=== PATIENT | female | born 1950 | race Caucasian/White ===

== ENCOUNTER → 2016-10-01 | Outpatient (CLI) | payer BC ==
[~2016-10-01] MED LIST: ADVIN50050 INH; ALBU1AER9 INH; ALBUAER; AMT50 PO; APIX1TAB3 PO; GABA400C PO; GABA600T PO; HYDC25 PO; HYDR25TA4 PO; LEVO137T3 PO; LEVO1TAB PO; LISI40TA PO; LOSA50TA54 PO; LSN40 PO; METO-551 PO; NF656 TD; NRV/5 PO; ONDA4TAB10 SL; OXYC-57 PO; PARO10TA3 PO; PROAIR INH; SIMV20TA2 PO; SYN125 PO; VNTHFA/IN INH
--- NOTE | 2016-10-01 12:51 | DIAGNOSTIC IMAGING REPORT ---
LEFT SHOULDER MIN 2 VIEWS ROUTINE CLINICAL HISTORY: Contusion of left shoulder. COMPARISON: None FINDINGS: Anterior cervical spine fusion hardware is incidentally noted. Alignment of the left shoulder is anatomic. There is no acute fracture. A few calcific densities project over the superolateral aspect of the left humeral head and measure up to 1.3 x 0.3 cm. IMPRESSION: 1. No acute fracture or dislocation of the left shoulder. 2. Calcific tendinitis of the left rotator cuff. 3. Moderate osteoarthritis of the left acromioclavicular joint and mild arthritis of the glenohumeral joint. Electronically signed by: Andrew Adams M.D. 10/01/2016 12:50 PM Dictated Date/Time: 10/01/2016 12:48 PM
== END | disposition home or self-care (01) ==
LOC: C.RAD1850 12:35
PROVIDERS: ATTEND Physician Assistant Medical
DX: S40.012A Contusion of left shoulder, initial encounter (principal); X58.XXXA Exposure to other specified factors, initial encounter

== ENCOUNTER 2016-11-10 09:50 | Emergency (ER) | payer BC ==
[~2016-11-10] VITALS: Ht 154.9 cm; Wt 79.6 kg
[~2016-11-10 09:50] MED LIST changes: -ALBUAER; -AMT50 PO; -APIX1TAB3 PO; -GABA400C PO; -GABA600T PO; -HYDR25TA4 PO; -LEVO137T3 PO; -LISI40TA PO; -METO-551 PO; -NF656 TD; -NRV/5 PO; -ONDA4TAB10 SL; -OXYC-57 PO; -PARO10TA3 PO; -PROAIR INH; -SIMV20TA2 PO; -SYN125 PO; -VNTHFA/IN INH
[2016-11-10 09:52] VITALS: TEMP 36.4; Ht 154.9 cm; Wt 79.6 kg
[2016-11-10] MEDS ORDERED: SODIUM CHLORIDE 0.9% 1000ML 1,000 ML IV STA (10:07)
[2016-11-10] MEDS ORDERED: ONDANSETRON INJ 2 MG/ML 2 ML VIAL IV STA ×2 (10:07→13:27)
[2016-11-10] MEDS ORDERED: MoRPHine SULFATE 10 MG/ML CARP/VIAL IV STA (10:07)
[2016-11-10] MEDS ORDERED: ALBUAER (10:14)
[2016-11-10] MEDS ORDERED: OPTIRAY 320 IV PRN (10:30)
[2016-11-10 10:48] LABS: BASO % 1.1 %; BASO ABS # 0.07 K/uL (0-0.2); COMPLETE YES; HEMATOCRIT 38.8 % (37-47); IG% 0.2 %; LYMPH ABS # 1.43 K/uL (1.2-3.4); MEAN CORPUSCULAR HEMOGLOBIN 31.8 pg (25-34); MEAN CORPUSCULAR HGB CONC 35.3 g/dl (32-36); MEAN PLATELET VOLUME 9.9 fL (7.4-10.4); MONO % 8.3 %; NEUT % 66.4 %; PLATELET COUNT 230 K/uL (130-400); RED BLOOD COUNT 4.31 M/uL (4.2-5.4); WHITE BLOOD COUNT 6.49 K/uL (4.8-10.8)
[2016-11-10 11:14] LABS: BUN/CREATININE RATIO 22.4 (10-20); CALCIUM 8.4 mg/dl (8.5-10.1); CREATININE 0.63 mg/dl (0.60-1.20); POTASSIUM 3.5 mmol/L (3.5-5.1)
--- NOTE | 2016-11-10 13:33 | DIAGNOSTIC IMAGING REPORT ---
CT ABD/PELVIS IV AND ORAL CONT CLINICAL HISTORY: Periumbilical pain. Nausea. Diarrhea. Rectal bleeding. COMPARISON STUDY: 07/17/2011 TECHNIQUE: Following the IV administration of 118 mL of Optiray-320, CT scan of the abdomen and pelvis was performed from the lung bases to the proximal femurs. Images are reviewed in the axial, sagittal, and coronal planes. IV contrast was administered without complication. CT DOSE: 1033.75 mGycm FINDINGS: Lower chest: The heart is enlarged. There is bibasilar dependent atelectasis. Liver: There is hepatic steatosis. No focal masses are visualized. Gallbladder: Surgically absent. The common bile duct measures 7.4 mm. Spleen: Normal in size and attenuation. Pancreas: Unremarkable. Adrenal glands: Unremarkable. Kidneys: There is symmetric renal cortical enhancement. The kidneys are normal in size without hydronephrosis. Bowel: There are no transition zones to indicate bowel obstruction. By history the appendix is absent. There is long segment bowel wall thickening involving the descending colon, with minimal infiltration of the pericolonic fat. The findings are consistent with a nonspecific colitis (infectious, ischemic versus inflammatory bowel disease). Peritoneum: There is no intraperitoneal free air or abdominal ascites. Vasculature: The abdominal aorta is normal in course and caliber. Adenopathy: None. Pelvic viscera: The uterus is surgically absent. Skeletal structures: No destructive osseous lesions are seen. IMPRESSION: 1. Long segment bowel wall thickening involving the left colon. The findings are indicative of a nonspecific colitis. 2. No evidence of bowel obstruction. No evidence of free air. Electronically signed by: Silvino Pereyra M.D. 11/10/2016 1:32 PM Dictated Date/Time: 11/10/2016 1:25 PM
[2016-11-10] MEDS ORDERED: ONDA4TAB10 SL (14:11)
--- NOTE | 2016-11-10 14:12 | EMERGENCY ROOM VISIT NOTE ---
History First contact with patient: 09:59 Chief Complaint: GI ASSESSMENT Stated Complaint: DIARRHEA, NAUSEA, BLOOD IN STOOL Nursing Triage Summary: pt reports since yesterday diarrhea with blood and abd pain. History of Present Illness The patient is a 66 year old female who presents to the Emergency Room with complaints of abdominal pain and rectal bleeding. The patient states yesterday she was in the car and started feeling sick on her stomach. The patient states she had to stop and she had nausea and vomiting. Later in the evening she tried to have a bowel movement and had to strain to move her bowels and then had loose stools with blood. She states overnight she had blood on her nightgown. The patient still was nauseated today but has not vomited. She still has abdominal pain which she rates at a 5 out of 10. The patient denies any fever, urinary symptoms or vaginal discharge. The patient denies any history of Crohn's disease or recent antibiotic use. Review of Systems 10 system review was performed and was negative unless stated otherwise history of present illness. Past Medical/Surgical History Medical Problems: (1) Acquired hypothyroidism (2) Asthma (3) Bronchitis (4) Cataract (5) Cholelithiasis (6) Gastroesophageal reflux disease (7) Hyperthyroidism (8) Lumbar stenosis Social History Smoking Status: Never Smoker Drug Use: none Marital Status: Housing Status: lives with family Current/Historical Medications Scheduled Amitriptyline Hcl (Elavil), 50 MG PO HS Fluticasone Prop/Salmeterol (Advair Diskus 500-50 Mcg/Dose), 1 PUFF INH BID Gabapentin (Neurontin), 600 MG PO HS Gabapentin (Neurontin), 400 MG PO QAM Hydrochlorothiazide (Hctz), 25 MG PO QAM Levothyroxine Sodium (Levothyroxine Sodium), 137 MCG PO QAM Lisinopril (Lisinopril), 40 MG PO QAM Losartan Potassium (Cozaar), 50 MG PO QAM Simvastatin (Zocor), 20 MG PO QPM Miscellaneous Medications Albuterol Sulfate (Proventil Hfa) Allergies Coded Allergies: No Known Allergies (Verified , 11/10/16) Physical Exam Vital Signs Date Time Temp Pulse Resp B/P (MAP) Pulse Ox O2 Delivery O2 Flow Rate FiO2 11/10/16 13:16 90 14 136/64 93 Room Air 11/10/16 11:51 91 16 129/67 96 Room Air 11/10/16 10:37 82 20 129/67 96 Room Air 11/10/16 09:52 36.4 109 20 149/78 97 Room Air Physical Exam GENERAL: 66-year-old white female appears in no acute distress. MENTAL Status: Alert and oriented 3. EYES: No icterus noted MOUTH: Mucosa is moist NECK: Supple, no lymphadenopathy noted. No carotid bruits noted. LUNGS: Clear auscultation without wheezes rales or rhonchi. CARDIAC: Regular rate and rhythm without murmur. Pulses is full and equal throughout. BACK: No CVA tenderness noted. ABDOMEN: Positive bowel sounds all 4 quadrants. Soft, tenderness palpation in the periumbilical region otherwise nontender to palpation without organomegaly or masses. RECTAL: Small external hernia noted at the 12 o'clock position without any visible active bleeding. Anal sphincter tone intact. No internal masses noted. Stool guaiac was positive. EXTREMITIES: No cyanosis or edema noted. Medical Decision & Procedures ER Provider Diagnostic Interpretation: CT ABD/PELVIS IV AND ORAL CONT CLINICAL HISTORY: Periumbilical pain. Nausea. Diarrhea. Rectal bleeding. COMPARISON STUDY: 07/17/2011 TECHNIQUE: Following the IV administration of 118 mL of Optiray-320, CT scan of the abdomen and pelvis was performed from the lung bases to the proximal femurs. Images are reviewed in the axial, sagittal, and coronal planes. IV contrast was administered without complication. CT DOSE: 1033.75 mGycm FINDINGS: Lower chest: The heart is enlarged. There is bibasilar dependent atelectasis. Liver: There is hepatic steatosis. No focal masses are visualized. Gallbladder: Surgically absent. The common bile duct measures 7.4 mm. Spleen: Normal in size and attenuation. Pancreas: Unremarkable. Adrenal glands: Unremarkable. Kidneys: There is symmetric renal cortical enhancement. The kidneys are normal in size without hydronephrosis. Bowel: There are no transition zones to indicate bowel obstruction. By history the appendix is absent. There is long segment bowel wall thickening involving the descending colon, with minimal infiltration of the pericolonic fat. The findings are consistent with a nonspecific colitis (infectious, ischemic versus inflammatory bowel disease). Peritoneum: There is no intraperitoneal free air or abdominal ascites. Vasculature: The abdominal aorta is normal in course and caliber. Adenopathy: None. Pelvic viscera: The uterus is surgically absent. Skeletal structures: No destructive osseous lesions are seen. IMPRESSION: 1. Long segment bowel wall thickening involving the left colon. The findings are indicative of a nonspecific colitis. 2. No evidence of bowel obstruction. No evidence of free air. Electronically signed by: Silvino Pereyra M.D. 11/10/2016 1:32 PM Dictated Date/Time: 11/10/2016 1:25 PM The status of this report is Signed. Draft = Not yet reviewed or approved by Radiologist. Signed = Reviewed and approved by Radiologist. Laboratory Results 11/10/16 10:40 Red Blood Count 4.31, Mean Corpuscular Volume 90.0, Mean Corpuscular Hemoglobin 31.8, Mean Corpuscular Hemoglobin Concent 35.3, Mean Platelet Volume 9.9, Neutrophils (%) (Auto) 66.4, Lymphocytes (%) (Auto) 22.0, Monocytes (%) (Auto) 8.3, Eosinophils (%) (Auto) 2.0, Basophils (%) (Auto) 1.1, Neutrophils # (Auto) 4.31, Lymphocytes # (Auto) 1.43, Monocytes # (Auto) 0.54, Eosinophils # (Auto) 0.13, Basophils # (Auto) 0.07 11/10/16 10:40 Test 11/10/16 10:40 White Blood Count 6.49 K/uL (4.8-10.8) Red Blood Count 4.31 M/uL (4.2-5.4) Hemoglobin 13.7 g/dL (12.0-16.0) Hematocrit 38.8 % (37-47) Mean Corpuscular Volume 90.0 fL (80-100) Mean Corpuscular Hemoglobin 31.8 pg (25-34) Mean Corpuscular Hemoglobin Concent 35.3 g/dl (32-36) Platelet Count 230 K/uL (130-400) Mean Platelet Volume 9.9 fL (7.4-10.4) Neutrophils (%) (Auto) 66.4 % Lymphocytes (%) (Auto) 22.0 % Monocytes (%) (Auto) 8.3 % Eosinophils (%) (Auto) 2.0 % Basophils (%) (Auto) 1.1 % Neutrophils # (Auto) 4.31 K/uL (1.4-6.5) Lymphocytes # (Auto) 1.43 K/uL (1.2-3.4) Monocytes # (Auto) 0.54 K/uL (0.11-0.59) Eosinophils # (Auto) 0.13 K/uL (0-0.5) Basophils # (Auto) 0.07 K/uL (0-0.2) RDW Standard Deviation 43.1 fL (36.4-46.3) RDW Coefficient of Variation 13.1 % (11.5-14.5) Immature Granulocyte % (Auto) 0.2 % Immature Granulocyte # (Auto) 0.01 K/uL (0.00-0.02) Anion Gap 7.0 mmol/L (3-11) Est Creatinine Clear Calc Drug Dose 82.8 ml/min Estimated GFR () 107.6 Estimated GFR (Non- 92.8 BUN/Creatinine Ratio 22.4 (10-20) Calcium Level 8.4 mg/dl (8.5-10.1) Total Bilirubin 0.5 mg/dl (0.2-1) Direct Bilirubin 0.1 mg/dl (0-0.2) Aspartate Amino Transf (AST/SGOT) 19 U/L (15-37) Alanine Aminotransferase (ALT/SGPT) 31 U/L (12-78) Alkaline Phosphatase 78 U/L (45-117) Total Protein 6.8 gm/dl (6.4-8.2) Albumin 3.6 gm/dl (3.4-5.0) Lipase 143 U/L (73-393) Medications Administered Medications (Trade) Dose Ordered Sig/Zane Route Start Time Stop Time Status Last Admin Dose Admin Sodium Chloride 1,000 ml @ 999 mls/hr Q1H1M STAT IV 11/10/16 10:07 11/10/16 11:07 DC 11/10/16 10:34 999 MLS/HR Ondansetron HCl (Zofran Inj) 4 mg NOW STAT IV 11/10/16 10:07 11/10/16 10:09 DC 11/10/16 10:34 4 MG Morphine Sulfate (MoRPHine SULFATE INJ) 6 mg NOW STAT IV 11/10/16 10:07 11/10/16 10:09 DC 11/10/16 10:35 6 MG Ondansetron HCl (Zofran Inj) 4 mg NOW STAT IV 11/10/16 13:27 11/10/16 13:28 DC 11/10/16 13:31 4 MG ED Course The patient's EMR and medication list were reviewed. The patient was evaluated. IV access was obtained. The patient was given morphine 6 mg IV and Zofran 4 mg IV push. CBC differential, renal profile, LFTs and lipase levels were ordered. Urinalysis was ordered. The patient was unable to give a urine sample. Labs are reviewed and were unremarkable. CT of the abdomen and pelvis with IV and oral contrast was ordered and interpreted by the radiologist as above with nonspecific colitis of the descending colon. The patient was reevaluated on several occasions and required an additional 4 mg Zofran IV. The patient was informed of all findings. The patient's case was discussed with Dr. Crabtree who agreed with treatment plan. The patient was unable to give a stool sample while in the emergency room therefore she will do that as an outpatient. The patient's blood pressure was 136/64 while in the emergency room. She will follow up in 2 days for blood pressure recheck at her family physician. Medical Decision Differential diagnoses include reflux, gastritis, gastroenteritis, pancreatitis , cholelithiasis, cholecystitis, appendicitis, mesenteric ischemia, pyelonephritis, urinary tract infection, renal colic, diverticulitis, shingles, bowel obstruction, intussusception, hernia, Impression Primary Impression: Colitis, acute Departure Information Dispostion Home / Self-Care Condition GOOD Prescriptions Ondasetron Odt (ZOFRAN ODT) 4 Mg Tab 4 MG SL Q6H for Nausea, #10 TAB Prov: Leonarda Howard, MEERA 11/10/16 Referrals Ivan Victoria M.D. (PCP) Forms HOME CARE DOCUMENTATION FORM, IMPORTANT VISIT INFORMATION Patient Instructions My [facility] [employer] Additional Instructions Push fluids. Take Zofran as needed for nausea. Recommend taking a probiotic daily. Obtain a stool culture and bring it in for evaluation. Follow-up with your family physician in 2 days for blood pressure recheck. Blood Pressure today in the emergency room was 136/64. If you experience any severe abdominal pain, uncontrolled nausea vomiting, high fevers return to the ER immediately.
[2016-11-10 14:42] VITALS: BP 127/63; PULSE 92; O2SAT 95
[2016-12-15] MEDS ORDERED: LEVO137T3 PO (10:14)
[2016-12-15] MEDS ORDERED: HYDR25TA4 PO (10:14)
[2016-12-15] MEDS ORDERED: AMT50 PO (10:35)
[2016-12-15] MEDS ORDERED: GABA600T PO (10:35)
[2016-12-15] MEDS ORDERED: GABA400C PO (12:43)
[2016-12-15] MEDS ORDERED: SIMV20TA2 PO (18:16)
[2017-02-17] MEDS ORDERED: VNTHFA/IN INH (13:59)
[2017-02-17] MEDS ORDERED: LISI40TA PO (13:59)
[2017-02-17] MEDS ORDERED: PARO10TA3 PO (13:59)
[2017-03-06] MEDS ORDERED: SYN125 PO (11:31)
[2017-03-06] MEDS ORDERED: APIX1TAB3 PO (11:31)
[2017-03-06] MEDS ORDERED: METO-551 PO (13:56)
== END 2016-11-10 14:45 | disposition home or self-care (01) ==
LOC: C.EDB 09:53
DX: K52.9 Noninfective gastroenteritis and colitis, unspecified (principal); E03.9 Hypothyroidism, unspecified; J45.909 Unspecified asthma, uncomplicated; H26.9 Unspecified cataract; K80.20 Calculus of gallbladder without cholecystitis without obstruction; K21.9 Gastro-esophageal reflux disease without esophagitis; M99.73 Connective tissue and disc stenosis of intervertebral foramina of lumbar region

== ENCOUNTER → 2016-11-13 | Outpatient (CLI) | payer BC ==
[~2016-11-13] MED LIST changes: -ALBU1AER9 INH; +ALBUAER; +AMT50 PO; +APIX1TAB3 PO; +GABA400C PO; +GABA600T PO; -HYDC25 PO; +HYDR25TA4 PO; +LEVO137T3 PO; -LEVO1TAB PO; +LISI40TA PO; +METO-551 PO; +NF656 TD; +NRV/5 PO; +ONDA4TAB10 SL; +OXYC-57 PO; +PARO10TA3 PO; +PROAIR INH; +SIMV20TA2 PO; +SYN125 PO; +VNTHFA/IN INH
--- NOTE | 2016-11-21 08:45 | CODING QUERY NO DIAGNOSIS ---
TREATMENT RENDERED WITHOUT A DIAGNOSIS 49 To promote full compliance with coding requirements relating to patient care, physician participation is requested in all cases of perishable freight inspector uncertainty. Please assist us with providing a diagnosis/symptom for the test(s) below: A diagnosis/symptom was not documented on your Order. A valid diagnosis/symptom is required to bill all insurances. Please remember that we are unable to code a diagnosis of rule out, probable, possible, questionable, or suspected. DOS 11/13/16 Tests that require a diagnosis: * STOOL CULTURE DIAGNOSIS: *THIS WAS ORDERED BY AURORA VALENZUELA PA-C Provider Signature: Date: Thank you Dannielle [facility] Information Management Once completed, please kindly fax back to [phone] For questions please call [phone]
== END | disposition home or self-care (01) ==
LOC: C.LABSPEC 08:57
PROVIDERS: ATTEND Physician Assistant
DX: R19.7 Diarrhea, unspecified (principal)

== ENCOUNTER 2016-12-15 20:11 | Emergency (ER) | payer BC ==
[~2016-12-15] VITALS: Ht 154.9 cm; Wt 78.0 kg
[~2016-12-15 20:11] MED LIST changes: -APIX1TAB3 PO; -LISI40TA PO; -METO-551 PO; -NF656 TD; -NRV/5 PO; -OXYC-57 PO; -PARO10TA3 PO; -PROAIR INH; -SYN125 PO; -VNTHFA/IN INH
[2016-12-15] MEDS ORDERED: HYDROmorphone INJ 2 MG/ML SYR/VIAL IM STA (20:20)
[2016-12-15] MEDS ORDERED: KETOROLAC TROMETHAMINE 60 MG/2 ML VIAL IM STA (20:20)
[2016-12-15 20:21] VITALS: TEMP 36.6; Ht 154.9 cm; Wt 78.0 kg
--- NOTE | 2016-12-15 20:29 | EMERGENCY ROOM VISIT NOTE ---
History Report prepared by Kimberly: Filomena Brennan Under the Supervision of: Dr. Wesly Crabtree M.D. First contact with patient: 20:16 Chief Complaint: FALL Stated Complaint: FALL/ BACK PAIN History of Present Illness The patient is a 66 year old female who presents to the Emergency Room with complaints of a sudden fall that occurred today. She currently rates her discomfort as a 4/10 in severity. The patient states that she fell today and is unsure why. She states that it all happened so quickly that she is unsure how it occurred. The patient states that she landed on her face. She states that she may have tripped. The patient states that since the fall she has been experiencing neck and back pain. She denies any loss of consciousness with the fall. The patient denies taking anything for her discomfort. She denies any abdominal pain. Source of History: patient Onset: today Position: other (global) Symptom Intensity: 4/10 Quality: other (fall) Timing: other (sudden) Associated Symptoms: + neck pain, + back pain, No LOC, No abdominal pain Review of Systems See HPI for pertinent positives & negatives. A total of 10 systems reviewed and were otherwise negative. Past Medical & Surgical Medical Problems: (1) Acquired hypothyroidism (2) Asthma (3) Bronchitis (4) Cataract (5) Cholelithiasis (6) Gastroesophageal reflux disease (7) Hypertension (8) Hyperthyroidism (9) Lumbar stenosis Surgical Problems: (1) H/O: hysterectomy (2) History of appendectomy (3) S/P cholecystectomy Family History Cancer Diabetes mellitus Gallbladder disease Heart disease Hypertension Social History Smoking Status: Never Smoker Smokeless Tobacco Use: No Alcohol Use: none Drug Use: none Marital Status: Housing Status: lives with family Current/Historical Medications Scheduled Amitriptyline Hcl (Elavil), 50 MG PO HS Amlodipine Besylate (Amlodipine Besylate), 5 MG PO DAILY Gabapentin (Neurontin), 600 MG PO HS Gabapentin (Neurontin), 400 MG PO QAM Hydrochlorothiazide (Hctz), 25 MG PO QAM Levothyroxine Sodium (Levothyroxine Sodium), 137 MCG PO QAM Lidocaine (Lidoderm Patch 5%), 1 PATCH TD DIRECTED Ondasetron Odt (Zofran Odt), 4 MG SL Q6H Simvastatin (Zocor), 20 MG PO QPM Scheduled PRN Oxycodone/Acetaminophen 5MG/325MG (Percocet 5MG/325MG), 1-2 TAB PO Q4H PRN for Pain [Proair], 2 PUFF INH Q4 PRN for SOB/Wheezing Allergies Coded Allergies: No Known Allergies (Verified , 11/10/16) Physical Exam Vital Signs Date Time Temp Pulse Resp B/P (MAP) Pulse Ox O2 Delivery O2 Flow Rate FiO2 12/15/16 21:59 63 16 105/56 95 12/15/16 21:11 63 16 104/58 95 Room Air 12/15/16 20:21 36.6 75 20 128/54 Room Air Physical Exam GENERAL: Patient is a healthy-appearing well-nourished female HEAD: Normocephalic atraumatic EYES: Ocular movements intact pupils equal and react to light OROPHARYNX mucous membranes are moist no exudates present no erythema or edema present NECK: Supple no nuchal rigidity CHEST: Good equal expansion LUNGS: Clear and equal to auscultation CARDIAC: Normal S1 and S2 ABDOMEN: Soft nontender no guarding BACK: Tender to the C3-C4 and L1-L2 at the midline. EXTREMITIES: No pain upon palpation normal muscle strength in all groups no clubbing cyanosis or edema NEURO: Patient is following commands and answering questions appropriately. Alert and oriented x3 Cranial Nerves 2-12 grossly intact Medical Decision & Procedures ER Provider Diagnostic Interpretation: Radiology results as stated below per my review and radiologist interpretation: CT OF THE LUMBAR SPINE WITHOUT CONTRAST CLINICAL HISTORY: L1 pain status post fall. COMPARISON STUDY: Lumbar spine MRI November 02, 2007. FINDINGS: Alignment of the lumbar spine is anatomic. Vertebral body heights are maintained. There is no acute lumbar spine fracture. There is moderate multilevel degenerative disc disease with disc space narrowing, osteophytosis and vacuum disc phenomenon. The central canal and neural foramen are suboptimally assessed by CT but there is suspected multilevel central canal stenosis which is at least moderate in degree. Fatty infiltration of the liver is noted. Paravertebral soft tissues are unremarkable. IMPRESSION: 1. No acute lumbar spine fracture or subluxation. 2. Moderate multilevel degenerative disc disease and facet arthrosis of the lumbar spine with multilevel central canal stenosis which is at least moderate in degree. Electronically signed by: Andrew Adams M.D. 12/15/2016 9:11 PM Dictated Date/Time: 12/15/2016 9:[address] OF THE CERVICAL SPINE WITHOUT CONTRAST CLINICAL HISTORY: Neck pain following fall. COMPARISON STUDY: Cervical spine MRI February 19, 2007. TECHNIQUE: Helical axial images of the cervical spine were obtained without IV contrast. Sagittal and coronal reconstructions were viewed. FINDINGS: There are postsurgical findings consistent with C4-C5 and C5-C6 discectomies with fusion. There are C4, C5 and C6 anterior screws and plate. Hardware is intact. No acute cervical spine fracture is identified. Craniocervical junction is intact. There is moderate multilevel facet arthrosis and mild multilevel degenerative disc disease. There is no prevertebral edema. IMPRESSION: 1. No acute cervical spine fracture or subluxation. 2. Status post C4-C5 and C5-C6 discectomies and anterior fusion. Electronically signed by: Andrew Adams M.D. 12/15/2016 9:00 PM Dictated Date/Time: 12/15/2016 8:54 PM Medications Administered Medications (Trade) Dose Ordered Sig/Zane Route Start Time Stop Time Status Last Admin Dose Admin Hydromorphone HCl (Dilaudid Inj) 2 mg NOW STAT IM 12/15/16 20:20 12/15/16 20:22 DC 12/15/16 20:30 2 MG Ketorolac Tromethamine (Toradol Inj) 60 mg NOW STAT IM 12/15/16 20:20 12/15/16 20:22 DC 12/15/16 20:29 60 MG Oxycodone/ Acetaminophen (Percocet 5/ 325MG Home Pack) 1 homepack UD ONCE PO 12/15/16 21:30 12/15/16 21:31 DC 12/15/16 21:42 1 HOMEPACK Lidocaine (Lidoderm Patch 5%) 1 patch NOW STAT TD 12/15/16 21:26 12/15/16 21:27 DC 12/15/16 21:42 1 PATCH ED Course 2017: Past medical records reviewed. The patient was evaluated in room A12B. A complete history and physical examination was performed. 2019: Ordered Toradol Inj 60 mg IM, Dilaudid Inj 2 mg IM. 2125: Ordered Lidocaine 1 patch TD. 2129: Ordered Oxycodone/Acetaminophen 1 homepack PO. 2132: I reevaluated the patient and she is resting comfortably. I discussed the exam findings with her and I discussed the treatment plan. She verbalized complete understanding and agreement. She is ready to go home. Medical Decision Differential diagnosis: Etiologies such as fracture, dislocation, intra-abdominal, pneumothorax, intrathoracic , intracranial, neurologic, as well as other traumatic pathologies were entertained. Medication Reconciliation: I attest that I have personally reviewed the patient' s current medication list Blood Pressure Screening: Patient was found to have normal blood pressure on screening and does not require follow up. This is a 66-year-old female who presents emergency department neck and back pain after a fall at home. Patient the patient's complaint she was sent for CAT scan of the spine. This did not show any evidence of acute fracture dislocation or subluxation. The patient was given Dilaudid as well as Toradol injection IM. Repeat examination revealed improvement the patient's symptoms. I do believe that the patient can be conservatively treated with pain medication for follow-up with orthopedics. Patient was in agreement with the treatment plan. Impression Primary Impression: Fall Scribe Attestation The scribe's documentation has been prepared under my direction and personally reviewed by me in its entirety. I confirm that the note above accurately reflects all work, treatment, procedures, and medical decision making performed by me. Departure Information Dispostion Home / Self-Care Prescriptions Oxycodone/Acetaminophen 5MG/325MG (PERCOCET 5MG/325MG) Tab 1-2 TAB PO Q4H Y for Pain, #14 TAB Prov: Wesly Crabtree MD 12/15/16 Lidocaine (Lidoderm Patch 5%) 1 Ea Tdsy 1 PATCH TD DIRECTED, #5 PATCH Prov: Wesly Crabtree MD 12/15/16 Referrals Ivan Victoria M.D. (PCP) Brady Weber M.D. Forms HOME CARE DOCUMENTATION FORM, IMPORTANT VISIT INFORMATION, School Instructions, Work Instructions Patient Instructions Basics Back Healthy Spine, ED Exercises Lumbar Muscles, ED Neck Back Pain General, Exercises Back Seated Rotation, Exercises Back Side Stretch, Hypertension Dc, Lumbar Pain Causes, My [facility] Additional Instructions Remove Lidoderm patch before bedtime Follow up with DR Weber's office You were found to have an elevated blood pressure today (>120 sytolic or >90 diastolic). Per medicare guidelines, you need to follow up with this blood pressure screening with your Primary Care Physician (PCP). For a new PCP call [phone]. You received narcotic or benzodiazepene medication while in the emergency room today. Do not drive, operate heavy machinery, or drink alcohol under the influence of this medication. Take 600 mg Ibuprofen every 6 hours Take Percocet for breakthrough pain You have been examined and treated today on an emergency basis only. This is not a substitute for, or an effort to provide, complete comprehensive medical care. It is impossible to recognize and treat all injuries or illnesses in a single emergency department visit. It is therefore important that you follow up closely with Dr Victoria. Call as soon as possible for an appointment. Thank you for your time and consideration. I look forward to speaking with you again soon. Please don't hesitate to call us if you have any questions. Problem Qualifiers Primary Impression: Fall Encounter type: initial encounter Qualified Codes: W19.XXXA - Unspecified fall, initial encounter
[2016-12-15] MEDS ORDERED: NRV/5 PO (20:55)
[2016-12-15] MEDS ORDERED: PROAIR INH (20:55)
--- NOTE | 2016-12-15 21:01 | DIAGNOSTIC IMAGING REPORT ---
CT OF THE CERVICAL SPINE WITHOUT CONTRAST CLINICAL HISTORY: Neck pain following fall. COMPARISON STUDY: Cervical spine MRI February 19, 2007. TECHNIQUE: Helical axial images of the cervical spine were obtained without IV contrast. Sagittal and coronal reconstructions were viewed. FINDINGS: There are postsurgical findings consistent with C4-C5 and C5-C6 discectomies with fusion. There are C4, C5 and C6 anterior screws and plate. Hardware is intact. No acute cervical spine fracture is identified. Craniocervical junction is intact. There is moderate multilevel facet arthrosis and mild multilevel degenerative disc disease. There is no prevertebral edema. IMPRESSION: 1. No acute cervical spine fracture or subluxation. 2. Status post C4-C5 and C5-C6 discectomies and anterior fusion. Electronically signed by: Andrew Adams M.D. 12/15/2016 9:00 PM Dictated Date/Time: 12/15/2016 8:54 PM
--- NOTE | 2016-12-15 21:12 | DIAGNOSTIC IMAGING REPORT ---
CT OF THE LUMBAR SPINE WITHOUT CONTRAST CLINICAL HISTORY: L1 pain status post fall. COMPARISON STUDY: Lumbar spine MRI November 02, 2007. FINDINGS: Alignment of the lumbar spine is anatomic. Vertebral body heights are maintained. There is no acute lumbar spine fracture. There is moderate multilevel degenerative disc disease with disc space narrowing, osteophytosis and vacuum disc phenomenon. The central canal and neural foramen are suboptimally assessed by CT but there is suspected multilevel central canal stenosis which is at least moderate in degree. Fatty infiltration of the liver is noted. Paravertebral soft tissues are unremarkable. IMPRESSION: 1. No acute lumbar spine fracture or subluxation. 2. Moderate multilevel degenerative disc disease and facet arthrosis of the lumbar spine with multilevel central canal stenosis which is at least moderate in degree. Electronically signed by: Andrew Adams M.D. 12/15/2016 9:11 PM Dictated Date/Time: 12/15/2016 9:03 PM
[2016-12-15] MEDS ORDERED: LIDODERM (LIDOCAINE) PATCH 5% TD STA (21:26)
[2016-12-15] MEDS ORDERED: OXYC-57 PO (21:28)
[2016-12-15] MEDS ORDERED: NF656 TD (21:28)
[2016-12-15] MEDS ORDERED: PERCOCET HOME PACK PO ONE (21:30)
[2016-12-15 21:59] VITALS: BP 105/56; PULSE 63; O2SAT 95
[2017-02-17] MEDS ORDERED: LISI40TA PO (13:59)
[2017-02-17] MEDS ORDERED: VNTHFA/IN INH (13:59)
[2017-02-17] MEDS ORDERED: PARO10TA3 PO (13:59)
[2017-03-06] MEDS ORDERED: APIX1TAB3 PO (11:31)
[2017-03-06] MEDS ORDERED: SYN125 PO (11:31)
[2017-03-06] MEDS ORDERED: METO-551 PO (13:56)
== END 2016-12-15 21:43 | disposition home or self-care (01) ==
LOC: EDBD 20:11 → C.EDA 20:26
DX: M54.2 Cervicalgia (principal); W19.XXXA Unspecified fall, initial encounter; Y92.019 Unspecified place in single-family (private) house as the place of occurrence of the external cause; E03.9 Hypothyroidism, unspecified; J45.909 Unspecified asthma, uncomplicated; K21.9 Gastro-esophageal reflux disease without esophagitis; I10 Essential (primary) hypertension; E05.90 Thyrotoxicosis, unspecified without thyrotoxic crisis or storm; M48.06 Spinal stenosis, lumbar region; Z80.9 Family history of malignant neoplasm, unspecified; Z83.3 Family history of diabetes mellitus; Z83.79 Family history of other diseases of the digestive system; Z82.49 Family history of ischemic heart disease and other diseases of the circulatory system; Z79.899 Other long term (current) drug therapy

== ENCOUNTER → 2017-02-26 | Outpatient (CLI) | payer BC ==
[~2017-02-26] MED LIST changes: -ADVIN50050 INH; -ALBUAER; +APIX1TAB3 PO; +LISI40TA PO; -LOSA50TA54 PO; -LSN40 PO; +METO-551 PO; +NRV/5 PO; -ONDA4TAB10 SL; +PARO10TA3 PO; +SYN125 PO; +VNTHFA/IN INH
--- NOTE | 2017-02-26 12:29 | MAMMOGRAPHY REPORT ---
BILATERAL DIGITAL SCREENING MAMMOGRAM WITH CAD: 02/26/2017 CLINICAL HISTORY: Routine screening. Patient has no complaints. TECHNIQUE: Current study was also evaluated with a Computer Aided Detection (CAD) system. Bilateral CC and MLO views were obtained. COMPARISON: Comparison is made to exams dated: 02/26/2016 mammogram, 03/01/2015 mammogram, 02/21/2015 m ammogram, 02/20/2014 mammogram, and 02/17/2013 mammogram - [facility]. BREAST COMPOSITION: The tissue of both breasts is heterogeneously dense, which may obscure small mas ses. FINDINGS: No suspicious masses, calcifications, or areas of architectural distortion are noted in ei ther breast. There has been no significant interval change compared to prior exams. A biopsy marker clip is again noted in the right lateral breast. IMPRESSION: ACR BI-RADS CATEGORY 2: BENIGN There is no mammographic evidence of malignancy. A 1 year screening mammogram is recommended. The pa tient will receive written notification of the results. Approximately 10% of breast cancers are not detected with mammography. A negative mammographic report should not delay biopsy if a clinically suggestive mass is present. Lizbeth Villasenor M.D. /:02/26/2017 10:22:35 Television Agent: Shelia COPELAND(Yo)(Issa), [facility] letter sent: Normal 1/2 BI-RADS Code: ACR BI-RADS Category 2: Benign
== END | disposition home or self-care (01) ==
LOC: C.MAMM 08:45
PROVIDERS: ATTEND Internal Medicine
DX: Z12.31 Encounter for screening mammogram for malignant neoplasm of breast (principal)

== ENCOUNTER 2017-03-05 14:42 | Observation (INO) | payer BC ==
[~2017-03-05] VITALS: Ht 154.9 cm; Wt 82.1 kg
[~2017-03-05 14:42] MED LIST changes: -APIX1TAB3 PO; -IOPAMIDOL INJ 61% 15 ML VIAL ONE; -LIDOCAINE HCL 1% MPF 5 ML VIAL ONE; -METO-551 PO; -SODIUM CHLORIDE 0.9% INJ 10 ML VIAL ONE; -SYN125 PO
[2017-03-05 15:45] LABS: PROTHROMBIN TIME (PATIENT) 11.2 SECONDS (9.0-12.0)
[2017-03-05 15:51] LABS: BASO % 0.7 %; BASO ABS # 0.04 K/uL (0-0.2); COMPLETE YES; EOS % 2.2 %; HEMATOCRIT 36.6 % (37-47); IG% 0.2 %; LYMPH % 24.6 %; LYMPH ABS # 1.37 K/uL (1.2-3.4); MEAN CELL VOLUME 90.6 fL (80-100); MEAN CORPUSCULAR HEMOGLOBIN 31.9 pg (25-34); MEAN CORPUSCULAR HGB CONC 35.2 g/dl (32-36); MEAN PLATELET VOLUME 10.4 fL (7.4-10.4); MONO % 10.1 %; NEUT % 62.2 %; PLATELET COUNT 228 K/uL (130-400); RED BLOOD COUNT 4.04 M/uL (4.2-5.4); WHITE BLOOD COUNT 5.57 K/uL (4.8-10.8)
[2017-03-05 15:56] LABS: ALT/SGPT 32 U/L (12-78); BLOOD UREA NITROGEN 11 mg/dl (7-18); BUN/CREATININE RATIO 14.9 (10-20); CALCIUM 8.9 mg/dl (8.5-10.1); CARBON DIOXIDE 28 mmol/L (21-32); CHLORIDE 105 mmol/L (98-107); CREATININE 0.74 mg/dl (0.60-1.20); GLUCOSE 111 mg/dl (70-99); POTASSIUM 3.4 mmol/L (3.5-5.1); SODIUM 138 mmol/L (136-145)
--- NOTE | 2017-03-05 15:59 | DIAGNOSTIC IMAGING REPORT ---
CHEST ONE VIEW PORTABLE HISTORY: 66 years-old Female CHEST PAIN acute atypical chest pain COMPARISON: Chest radiograph 12/25/2012 TECHNIQUE: Portable upright AP view of the chest FINDINGS: Cardiomediastinal and hilar silhouettes are within normal limits. No pneumothorax, pleural effusion, focal airspace consolidation or overt edema. Fusion hardware of the lower cervical spine is seen. Small calcifications adjacent to the humeral heads bilaterally suggest possible calcific tendinosis or calcific bursitis. Surgical clips are seen within the right upper abdomen. IMPRESSION: No acute cardiopulmonary process. The above report was generated using voice recognition software. It may contain grammatical, syntax or spelling errors. Electronically signed by: Ramón Means M.D. 03/05/2017 3:58 PM Dictated Date/Time: 03/05/2017 3:55 PM
[2017-03-05 16:07] LABS: ALKALINE PHOSPHATASE 88 U/L (45-117); AST/SGOT 24 U/L (15-37); THYROID STIMULATING HORMONE 0.216 uIu/ml (0.300-4.500)
--- NOTE | 2017-03-05 16:35 | EMERGENCY ROOM VISIT NOTE ---
History Report prepared by Kimberly: Prasanna Cannon Under the Supervision of: Dr. Chadd Brower M.D. First contact with patient: 15:05 Chief Complaint: CARDIAC ASSESSMENT Stated Complaint: AFIB Nursing Triage Summary: Patient from [facility]. Was there to have injections in her back. They noticed that patient's pulse was irregular. Did EKG and found that patient was in a-fib. No prior a-fib history. Not on blood thinners. Patient denies chest pain. Some shortness of breath yesterday. Dizziness off and on x several weeks. Fell at home one month ago.Denies current shortness of breath. Denies nausea or vomiting. History of Present Illness The patient is a 66 year old female who presents to the Emergency Room with complaints of new onset atrial fibrillation beginning today. The patient states that she is unable to feel heart palpitations. She was seen today for injections for back pain shortly prior to arrival and noted to have an irregularly irregular heart rhythm. She also complains of headache, dizziness, shortness of breath with exertion and feeling "off". The patient states that she has felt "off" for about two weeks. She is not on any blood thinners. She has a history of hypothyroidism. The patient states that she had some right sided chest pain with certain movements for the past several weeks. She states that she has been having waxing and waning leg swelling recently and some right thigh numbness. Source of History: patient Onset: Today Quality: other (atrial fibrillation) Timing: constant Associated Symptoms: + headache, + SOB (with exertion), + numbness (right thigh) Note: Additional symptoms: Dizziness and waxing and waning leg swelling. Review of Systems See HPI for pertinent positives & negatives. A total of 10 systems reviewed and were otherwise negative. Past Medical & Surgical Medical Problems: (1) Acquired hypothyroidism (2) Asthma (3) Bronchitis (4) Cataract (5) Cholelithiasis (6) Gastroesophageal reflux disease (7) Hypertension (8) Hyperthyroidism (9) Lumbar stenosis Surgical Problems: (1) H/O: hysterectomy (2) History of appendectomy (3) S/P cholecystectomy Old medical records were reviewed. Nurse's notes were reviewed and I agree with. Family History Cancer Diabetes mellitus Gallbladder disease Heart disease Hypertension Social History Smoking Status: Never Smoker Alcohol Use: none Drug Use: none Marital Status: Housing Status: lives with family Current/Historical Medications Scheduled Amitriptyline Hcl (Elavil), 50 MG PO HS Amlodipine Besylate (Amlodipine Besylate), 5 MG PO QAM Gabapentin (Neurontin), 600 MG PO HS Gabapentin (Neurontin), 400 MG PO QAM Hydrochlorothiazide (Hctz), 25 MG PO QAM Levothyroxine Sodium (Levothyroxine Sodium), 137 MCG PO QAM Lisinopril (Zestril), 40 MG PO QAM Paroxetine HCl (Paroxetine), 10 MG PO QAM Simvastatin (Zocor), 20 MG PO QPM Scheduled PRN Albuterol Hfa (Ventolin Hfa), 2-4 PUFFS INH Q6H PRN for Shortness of Breath Allergies Coded Allergies: No Known Allergies (Verified , 03/05/17) Physical Exam Vital Signs Date Time Temp Pulse Resp B/P (MAP) Pulse Ox O2 Delivery O2 Flow Rate FiO2 03/05/17 18:08 101 134/71 92 03/05/17 16:44 90 123/59 95 Room Air 03/05/17 16:17 99 132/68 96 Room Air 03/05/17 14:58 96 Room Air 03/05/17 14:56 36.5 106 114/64 96 Room Air 03/05/17 14:52 106 03/05/17 14:51 96 Room Air Physical Exam General: Non-ill appearing older female in no acute distress. Hard of hearing. Currently asymptomatic. HEENT: Normal cephalic atraumatic. Pupils are equal round and reactive to light. Extraocular movements are intact. Oropharynx is pink with moist mucous membranes. No swelling of the mouth lips or tongue. Neck: Supple with a midline trachea. No meningeal signs or stiffness, no JVD or bruits. No Stridor. Chest: Clear to auscultation bilaterally. No wheezes or rhonchi. No increased work of breathing. Heart: Irregularly irregular rhythm. Normal rate. Abdomen: Soft nontender, nondistended without rebound guarding or rigidity. Extremities: No cyanosis clubbing. No calf tenderness or assymetry. Bilateral 1 + lower extremity edema. Spine/Back. Non tender to palpation. No CVA tenderness Skin: Good turgor without rashes. Neurologic exam: Cranial nerves two through 12 are intact. Motor and sensation are intact and symmetrical throughout. Medical Decision & Procedures ER Provider Diagnostic Interpretation: X-ray results as stated below per interpretation by me and the radiologist: CHEST ONE VIEW PORTABLE FINDINGS: Cardiomediastinal and hilar silhouettes are within normal limits. No pneumothorax, pleural effusion, focal airspace consolidation or overt edema. Fusion hardware of the lower cervical spine is seen. Small calcifications adjacent to the humeral heads bilaterally suggest possible calcific tendinosis or calcific bursitis. Surgical clips are seen within the right upper abdomen. IMPRESSION: No acute cardiopulmonary process. The above report was generated using voice recognition software. It may contain grammatical, syntax or spelling errors. Electronically signed by: Ramón Means M.D. 03/05/2017 3:58 PM Laboratory Results 03/05/17 14:58 Red Blood Count 4.04, Mean Corpuscular Volume 90.6, Mean Corpuscular Hemoglobin 31.9, Mean Corpuscular Hemoglobin Concent 35.2, Mean Platelet Volume 10.4, Neutrophils (%) (Auto) 62.2, Lymphocytes (%) (Auto) 24.6, Monocytes (%) (Auto) 10.1, Eosinophils (%) (Auto) 2.2, Basophils (%) (Auto) 0.7, Neutrophils # (Auto ) 3.47, Lymphocytes # (Auto) 1.37, Monocytes # (Auto) 0.56, Eosinophils # (Auto ) 0.12, Basophils # (Auto) 0.04 03/05/17 14:58 Test 03/05/17 14:58 03/05/17 15:43 White Blood Count 5.57 K/uL (4.8-10.8) Red Blood Count 4.04 M/uL (4.2-5.4) Hemoglobin 12.9 g/dL (12.0-16.0) Hematocrit 36.6 % (37-47) Mean Corpuscular Volume 90.6 fL (80-100) Mean Corpuscular Hemoglobin 31.9 pg (25-34) Mean Corpuscular Hemoglobin Concent 35.2 g/dl (32-36) Platelet Count 228 K/uL (130-400) Mean Platelet Volume 10.4 fL (7.4-10.4) Neutrophils (%) (Auto) 62.2 % Lymphocytes (%) (Auto) 24.6 % Monocytes (%) (Auto) 10.1 % Eosinophils (%) (Auto) 2.2 % Basophils (%) (Auto) 0.7 % Neutrophils # (Auto) 3.47 K/uL (1.4-6.5) Lymphocytes # (Auto) 1.37 K/uL (1.2-3.4) Monocytes # (Auto) 0.56 K/uL (0.11-0.59) Eosinophils # (Auto) 0.12 K/uL (0-0.5) Basophils # (Auto) 0.04 K/uL (0-0.2) RDW Standard Deviation 42.8 fL (36.4-46.3) RDW Coefficient of Variation 12.9 % (11.5-14.5) Immature Granulocyte % (Auto) 0.2 % Immature Granulocyte # (Auto) 0.01 K/uL (0.00-0.02) Prothrombin Time 11.2 SECONDS (9.0-12.0) Prothromb Time International Ratio 1.0 (0.9-1.1) Activated Partial Thromboplast Time 26.5 SECONDS (21.0-31.0) Partial Thromboplastin Ratio 1.0 Anion Gap 5.0 mmol/L (3-11) Est Creatinine Clear Calc Drug Dose 71.6 ml/min Estimated GFR () 97.2 Estimated GFR (Non- 83.8 BUN/Creatinine Ratio 14.9 (10-20) Calcium Level 8.9 mg/dl (8.5-10.1) Magnesium Level 2.2 mg/dl (1.8-2.4) Total Bilirubin 0.4 mg/dl (0.2-1) Direct Bilirubin 0.1 mg/dl (0-0.2) Aspartate Amino Transf (AST/SGOT) 24 U/L (15-37) Alanine Aminotransferase (ALT/SGPT) 32 U/L (12-78) Alkaline Phosphatase 88 U/L (45-117) Total Creatine Kinase 42 U/L (26-192) Creatine Kinase MB < 0.5 ng/ml (0.5-3.6) Creatine Kinase MB Ratio (0-3.0) Total Protein 6.9 gm/dl (6.4-8.2) Albumin 3.7 gm/dl (3.4-5.0) Lipase 202 U/L (73-393) Thyroid Stimulating Hormone (TSH) 0.216 uIu/ml (0.300-4.500) Bedside Troponin I < 0.030 ng/ml (0-0.045) Laboratory studies as stated above per my review. ECG Indication: other (Irregular heart rate ) Rate (beats per minute): 99 Rhythm: atrial fibrillation Findings: no acute ischemic change, other (Non-specific ST and T wave abnormalities) Comparison ECG Date: August 19, 2012 Change: Atrial fibrillation has replaced normal sinus rhythm. ED Course 1511: Past medical records reviewed. The patient was evaluated in room C8, and a complete history and physical examination were performed. 1625: Upon reevaluation, the patient is resting comfortably. I discussed the results and treatment plan with the patient. She verbalized agreement of the treatment plan. The patient will be evaluated for further management. Medical Decision Differentials include, but are not limited to; a-fib, acute coronary syndrome, thyroid disease, CHF, vascular disease, and electrolyte or metabolic abnormalities This patient comes in as described above. She was sent over the ER for the pain clinic after she was noted to be in A. fib. She has no known history of A. fib. She has had no chest pain or shortness of breath. She cannot feel that she is having any palpitations. She didn't feel well today. She's had some dizziness occasionally over last several weeks. Several weeks ago , she has some vague chest pain with moving her arm but nothing that sounded definitely cardiac. She has had some peripheral edema which is relatively new in her legs. No shortness of breath. She is being treated for thyroid disease. IV access established. Multiple blood testing was obtained. On the monitor, she was found to be in a rate controlled A. fib as well as EKG the ischemic changes. She has no elevation of her cardiac enzymes. She has no acute electrolyte or metabolic abnormalities. Chest x-ray does not show congestive heart failure. I do think she needs to be admitted for further treatment and evaluation of her new-onset A. fib and rule out acute cardiac event. I did consult the [facility] hospitalist to see her in the ER. Medication Reconcilliation Current Medication List: was personally reviewed by me Blood Pressure Screening Patient's blood pressure: Normal blood pressure Blood pressure disposition: Did not require urgent referral Consults Time Called: 1626 Consulting Physician: [place]. [place] [place] Call: 1630 Discussed the patient's case. The patient will be evaluated for further management. Impression Primary Impression: New onset atrial fibrillation Additional Impressions: Dizziness Peripheral edema Scribe Attestation The scribe's documentation has been prepared under my direction and personally reviewed by me in its entirety. I confirm that the note above accurately reflects all work, treatment, procedures, and medical decision making performed by me. Departure Information Dispostion Being Evaluated By Hospitalist Referrals Ivan Victoria M.D. (PCP) Patient Instructions My [facility] Problem Qualifiers
[2017-03-05] MEDS ORDERED: ONDANSETRON INJ 2 MG/ML 2 ML VIAL IV PRN (17:15)
[2017-03-05] MEDS ORDERED: ALUMINUM/MAGNESIUM/SIMETH (MAALOX MAX) 30 ML UDC PO PRN (17:15)
[2017-03-05] MEDS ORDERED: POLYETHYLENE (MIRALAX) 17 GM PACK PO PRN (17:15)
[2017-03-05] MEDS ORDERED: ACETAMINOPHEN 325 MG TAB PO PRN (17:15)
[2017-03-05] MEDS ORDERED: MAGNESIUM HYDROXIDE SUSP 30 ML UDC PO PRN (17:15)
[2017-03-05] MEDS ORDERED: ALBUTEROL HFA 8 GM INHALER INH PRN (17:15)
[2017-03-05] MEDS ORDERED: POTASSIUM CHLORIDE 20 MEQ TABCR PO ONE (17:15)
--- NOTE | 2017-03-05 17:26 | History and Physical ---
History & Physical Date & Time of Service: Mar 05, 2017 at 17:09 Chief Complaint: AFIB Primary Care Physician: Ivan Victoria M.D. History of Present Illness Source: patient, clinic records, hospital records This is a 66 y/o female with a history of HTN, HLD, asthma, hypothyroidism, anxiety and depression, cervical and lumbar spinal stenosis, and polyneuropathy who presented to the ED on 03/05 with new onset a-fib. The patient was at the outpatient surgery center to receive an epidural steroid injection for her low back pain when she was noted to have an irregular heart beat. An EKG was obtained which showed a-fib. The patient denies any previous history of a-fib or a-flutter. The patient states that she has had some dizziness intermittently in the last few weeks, typically while standing. The patient denies any chest pain or palpitations. She has a history of asthma and denies any unusual shortness of breath. She has chronic numbness/tingling in her hand and feet due to polyneuropathy. The patient denies fevers, chills, sweats, chest pain, palpitations, claudication, cough, wheezing, shortness of breath, nausea, vomiting, abdominal pain, dysuria, hematuria, urinary retention, paralysis, weakness. Past Medical/Surgical History Medical Problems: (1) Acquired hypothyroidism Status: Chronic (2) Asthma Status: Chronic (3) Bronchitis Status: Resolved (4) Cataract Status: Resolved (5) Cholelithiasis Status: Resolved (6) Gastroesophageal reflux disease Status: Chronic (7) Hypertension Status: Chronic (8) Hyperthyroidism Status: Resolved (9) Lumbar stenosis Status: Resolved Anxiety and depression Polyneuropathy Surgical Problems: (1) H/O: hysterectomy Status: Resolved (2) History of appendectomy Status: Resolved (3) S/P cholecystectomy Status: Resolved Family History Cancer Diabetes mellitus Gallbladder disease Heart disease Hypertension Social History Smoking Status: Never Smoker Smokeless Tobacco Use: No Alcohol Use: none Drug Use: none Marital Status: Housing status: lives with significant other Occupational Status: retired Immunizations History of Influenza Vaccine: N/A Influenza Vaccine Date: Apr 24, 2012 History of Tetanus Vaccine?: unknown History of Pneumococcal: Yes History of Hepatitis B Vaccine: No Multi-Drug Resistant Organisms History of MDRO: No Allergies Coded Allergies: No Known Allergies (Verified , 03/05/17) Home Medications Scheduled Amitriptyline Hcl (Elavil), 50 MG PO HS Amlodipine Besylate (Amlodipine Besylate), 5 MG PO QAM Gabapentin (Neurontin), 600 MG PO HS Gabapentin (Neurontin), 400 MG PO QAM Hydrochlorothiazide (Hctz), 25 MG PO QAM Levothyroxine Sodium (Levothyroxine Sodium), 137 MCG PO QAM Lisinopril (Zestril), 40 MG PO QAM Paroxetine HCl (Paroxetine), 10 MG PO QAM Simvastatin (Zocor), 20 MG PO QPM Scheduled PRN Albuterol Hfa (Ventolin Hfa), 2-4 PUFFS INH Q6H PRN for Shortness of Breath Review of Systems Constitutional: + problem reported (dizziness), No fever, No chills, No sweats , No weakness, No fatigue Eyes: No worsening of vision, No eye pain, No diplopia ENT: No hearing loss, No sore throat, No trouble swallowing Respiratory: No cough, No wheezing, No shortness of breath Cardiovascular: No chest pain, No claudication, No palpitations Abdomen: No pain, No nausea, No vomiting Musculoskeletal: No joint pain, No muscle pain, No calf pain Genitourinary - Female: No dysuria, No urinary retention, No hematuria Neurologic: + numbness/tingling (chronic), No paralysis, No weakness Integumentary: No rash, No itch, No color change Physical Exam Vital Signs Date Time Temp Pulse Resp B/P (MAP) Pulse Ox O2 Delivery O2 Flow Rate FiO2 03/05/17 16:44 90 123/59 95 Room Air 03/05/17 16:17 99 132/68 96 Room Air 03/05/17 14:58 96 Room Air 03/05/17 14:56 36.5 106 114/64 96 Room Air 03/05/17 14:52 106 03/05/17 14:51 96 Room Air General appearance: +Obese. Well-developed, well-nourished, no apparent distress Head: Normocephalic, atraumatic Eyes: Normal inspection, PERRL, EOMI ENT: Normal ENT inspection, hearing grossly normal, pharynx normal Neck: Supple, no JVD, trachea midline Respiratory/Chest: Lungs clear to auscultation, normal breath sounds, no respiratory distress Cardiovascular: +Irregularly irregular, rate controlled. No gallop, no murmur Abdomen/GI: +RLQ and LLQ mildly TTP. Normal bowel sounds, soft Extremities/Musculoskeletal: Normal inspection, no calf tenderness, no pedal edema Neurological/Psych: Alert, normal mood/affect, oriented x 3 Skin: Normal color, warm/dry, no rash Diagnostics Laboratory Results Results Past 24 Hours Test 03/05/17 14:58 03/05/17 15:43 Range/Units White Blood Count 5.57 4.8-10.8 K/uL Red Blood Count 4.04 4.2-5.4 M/uL Hemoglobin 12.9 12.0-16.0 g/dL Hematocrit 36.6 37-47 % Mean Corpuscular Volume 90.6 80-100 fL Mean Corpuscular Hemoglobin 31.9 25-34 pg Mean Corpuscular Hemoglobin Concent 35.2 32-36 g/dl Platelet Count 228 130-400 K/uL Mean Platelet Volume 10.4 7.4-10.4 fL Neutrophils (%) (Auto) 62.2 % Lymphocytes (%) (Auto) 24.6 % Monocytes (%) (Auto) 10.1 % Eosinophils (%) (Auto) 2.2 % Basophils (%) (Auto) 0.7 % Neutrophils # (Auto) 3.47 1.4-6.5 K/uL Lymphocytes # (Auto) 1.37 1.2-3.4 K/uL Monocytes # (Auto) 0.56 0.11-0.59 K/uL Eosinophils # (Auto) 0.12 0-0.5 K/uL Basophils # (Auto) 0.04 0-0.2 K/uL RDW Standard Deviation 42.8 36.4-46.3 fL RDW Coefficient of Variation 12.9 11.5-14.5 % Immature Granulocyte % (Auto) 0.2 % Immature Granulocyte # (Auto) 0.01 0.00-0.02 K/uL Prothrombin Time 11.2 9.0-12.0 SECONDS Prothromb Time International Ratio 1.0 0.9-1.1 Activated Partial Thromboplast Time 26.5 21.0-31.0 SECONDS Partial Thromboplastin Ratio 1.0 Sodium Level 138 136-145 mmol/L Potassium Level 3.4 3.5-5.1 mmol/L Chloride Level 105 98-107 mmol/L Carbon Dioxide Level 28 21-32 mmol/L Anion Gap 5.0 3-11 mmol/L Blood Urea Nitrogen 11 7-18 mg/dl Creatinine 0.74 0.60-1.20 mg/dl Est Creatinine Clear Calc Drug Dose 71.6 ml/min Estimated GFR () 97.2 Estimated GFR (Non- 83.8 BUN/Creatinine Ratio 14.9 10-20 Random Glucose 111 70-99 mg/dl Calcium Level 8.9 8.5-10.1 mg/dl Total Bilirubin 0.4 0.2-1 mg/dl Direct Bilirubin 0.1 0-0.2 mg/dl Aspartate Amino Transf (AST/SGOT) 24 15-37 U/L Alanine Aminotransferase (ALT/SGPT) 32 12-78 U/L Alkaline Phosphatase 88 45-117 U/L Total Creatine Kinase 42 26-192 U/L Creatine Kinase MB < 0.5 0.5-3.6 ng/ml Creatine Kinase MB Ratio 0-3.0 Total Protein 6.9 6.4-8.2 gm/dl Albumin 3.7 3.4-5.0 gm/dl Lipase 202 73-393 U/L Thyroid Stimulating Hormone (TSH) 0.216 0.300-4.500 uIu/ml Bedside Troponin I < 0.030 0-0.045 ng/ml Diagnostic Radiology Reviewed the following studies and agree with interpretation as follows: Patient Name: CONNIE FOSTER Unit Number: [id number] Dictated: 03/05/171554 Transcribed: 03/05/171554 JRB Printed Date/Time: [~ rep prt dt]/[~ rep prt tm] [~ rep ct labl] - [~ rep ct ivnm] [facility] [place] [address] Dictated: 03/05/171554 Transcribed: 03/05/171554 JRB Printed Date/Time: [~ rep prt dt]/[~ rep prt tm] [~ rep ct labl] - [~ rep ct ivnm] Patient: CONNIE FOSTER Address1: [address] [facility] Rec: [id number] Address2: Acct ID: [id number] [facility] Zip: [place] [id number] Date: 1950 Sex: F Room/Bed: Ref Phy: Ridge Jean Baptiste M.D. SC: NICKY Att Phy: Report #: [id number] Letitia Phy: Ivan Victoria M.D. Test: CXR1P Admit Phy: Bread Stacker: NAVIN Interpreting Phy: Chano Means D.O. Diagnosis: AFIB Ordering Phy: Chadd Brower M.D. Service Date: 03/05/17 Admit Date: 03/05/17 MNE: [id number] CONF: DICTATED BY: Chano Means D.O.]] CC: Ridge Jean Baptiste M.D. Newcomb, Brian D., M.D. Shannon, Dennis, M.D. Endcc: [~ rep ct add3]] CHEST ONE VIEW PORTABLE HISTORY: 66 years-old Female CHEST PAIN acute atypical chest pain COMPARISON: Chest radiograph 12/25/2012 TECHNIQUE: Portable upright AP view of the chest FINDINGS: Cardiomediastinal and hilar silhouettes are within normal limits. No pneumothorax, pleural effusion, focal airspace consolidation or overt edema. Fusion hardware of the lower cervical spine is seen. Small calcifications adjacent to the humeral heads bilaterally suggest possible calcific tendinosis or calcific bursitis. Surgical clips are seen within the right upper abdomen. IMPRESSION: No acute cardiopulmonary process. The above report was generated using voice recognition software. It may contain grammatical, syntax or spelling errors. Electronically signed by: Ramón Means M.D. 03/05/2017 3:58 PM Dictated Date/Time: 03/05/2017 3:55 PM The status of this report is Signed. Draft = Not yet reviewed or approved by Radiologist. Signed = Reviewed and approved by Radiologist. <AttendingPhy></AttendingPhy> <FamilyPhy>Ridge Jean Baptiste M.D.</FamilyPhy> < PrimaryPhy>Ivan Victoria M.D.</PrimaryPhy> <UnitNumber>[id number]</UnitNumber > <VisitNumber>[id number]</VisitNumber> <PatientName>CONNIE FOSTER</ PatientName> <DateOfBirth>1950</DateOfBirth> <Location>[facility]</Location> < ServiceDate>03/05/17</ServiceDate> <MNE>ESINDI</MNE> <OrderingPhy>Chadd Brower M.D.</OrderingPhy> <OrderingPhyMNE>f rep ord dr cortes</OrderingPhyMNE> < DictatingPhyMNE>f rep dict dr cortes</DictatingPhyMNE> <CCListMNE>f rep ct felae</ CCListMNE> <AdmittingPhyMNE>f pt admit dr cortes</AdmittingPhyMNE> <AttendingPhyMNE >f pt attend dr cortes</AttendingPhyMNE> <ConsultingPhyMNE>f pt consult dr cortes</ConsultingPhyMNE> <FamilyPhyMNE>f pt fam dr cortes</FamilyPhyMNE> <OtherPhyMNE>f pt other dr cortes</OtherPhyMNE> < PrimaryPhyMNE>f pt prim care dr cortes</PrimaryPhyMNE> <ReferringPhyMNE>f pt referring dr cortes</ReferringPhyMNE> EKG Reviewed EKG and agree with interpretation as follows: 99 bpm, atrial fibrillation Impression Assessment and Plan 66 y/o female with a history of HTN, HLD, asthma, hypothyroidism, anxiety and depression, cervical and lumbar spinal stenosis, and polyneuropathy who presented to the ED on 03/05 with new onset a-fib. Pt mildly tachycardic upon arrival with HR in low 100s, but HR down to 80s-90s during my exam. EKG shows a -fib, no ischemic changes. CXR no acute disease. Troponin negative. Potassium 3.4. TSH 0.216. Labs otherwise grossly unremarkable. New onset a-fib, dizziness -Admit to telemetry for observation -Consult cardiology, appreciate recs -Echocardiogram ordered -Start ASA 81 mg PO qd -EKG q am and prn chest pain -Check orthostatic BP Mild hypokalemia -Potassium 3.4 on admission -KCl 40 mEq PO x 1, then 20 mEq PO qam. Goal potassium over 4 HTN--stable -Continue Norvasc 5 mg PO qd, HCTZ 25 mg PO qd, and lisinopril 40 mg PO qd HLD -Continue Zocor 20 mg PO qd Asthma -Continue albuterol inhaler prn SOB/wheezing Hypothyroidism -TSH low at 0.216 -Continue Synthroid 137 mcg PO qd. Will need to follow up as outpatient regarding dosing Anxiety and depression -Continue paroxetine 10 mg PO qd Polyneuropathy -Continue amitriptyline 50 mg PO hs, gabapentin 400 mg PO qam and 600 mg PO hs DVT prophylaxis -Enoxaparin 40 mg SC q24h -RODRIGO Chances Code Status -Level V, DO NOT RESUSCITATE Level of Care Telemetry Resuscitation Status DO NOT RESUSCITATE VTE Prophylaxis VTE Risk Assessment Done? Y/N: Yes Risk Level: Moderate Given or contraindicated: Enoxaparin (Lovenox)SQ, T.E.D. Stockings, SCD's Reviewed: Pt Seen/Exam by Me History Pt denies feeling palpitations or chest pain. Just lightheaded and weak over the last two weeks. Has been eating without issue. No SOB. No prior hx of afib. Was at the office for a spinal injection today and this was noted pre- procedure. Agree with HPI/ROS as noted. General Appearance: WD/WN, no apparent distress Respiratory: normal breath sounds, no respiratory distress Cardiovascular: normal peripheral pulses, irregularly irregular Gastrointestinal: non tender, soft Extremities: non-tender, no pedal edema Neurologic/Psychiatric: alert, oriented x 3 Skin Characteristics: normal color, warm/dry Assessment/Plan Agree with plan as outlined above New onset afib ? DARLENE--pt admits to snoring, will need sleep study as outpt TSH mildly depressed on synthroid, monitor
[2017-03-05 18:00] VITALS: O2SAT 92; Ht 154.9 cm; Wt 82.1 kg
[2017-03-05 18:40] VITALS: BP 121/77; PULSE 98; TEMP 36.7; O2SAT 96
[2017-03-05 20:00] VITALS: O2SAT 96
[2017-03-05 20:15] VITALS: BP_SYST 110; BP_SYST 117; BP_DIAS 71; BP_DIAS 76; PULSE 104; PULSE 92; TEMP 36.4; O2SAT 95
[2017-03-05 20:52] VITALS: BP 104/65; PULSE 97; TEMP 36.4; O2SAT 94
[2017-03-05] MEDS ORDERED: AMITRIPTYLINE HCL 50 MG TAB PO SCH (21:00)
[2017-03-05] MEDS ORDERED: INFLUENZA VACCINE HIGH DOSE 65+ 0.5 ML SYR IM. ONE (21:00)
[2017-03-05] MEDS ORDERED: INFLUENZA ADMINISTRATION CHARGE ONE (21:00)
[2017-03-05] MEDS ORDERED: ENOXAPARIN 40 MG/0.4 ML SYR SC SCH (21:00)
[2017-03-05] MEDS ORDERED: GABAPENTIN 600 MG TAB PO SCH (21:00)
[2017-03-05] MEDS ORDERED: SIMVASTATIN 20 MG TAB PO SCH (21:00)
[2017-03-05] MEDS ORDERED: IV FLUIDS COMPLETED PRN (21:00)
[2017-03-05 23:31] VITALS: BP 105/60; PULSE 93; TEMP 36.8; O2SAT 96
[2017-03-06] VITALS: O2SAT 96
[2017-03-06 04:00] VITALS: O2SAT 96
[2017-03-06 04:54] VITALS: BP 106/71; PULSE 85; TEMP 36.4; O2SAT 95
[2017-03-06] MEDS: LEVOTHYROXINE 137 MCG TAB PO SCH ×2 (05:53→06:39)
[2017-03-06 06:04] LABS: HEMATOCRIT 38.7 % (37-47); MEAN CELL VOLUME 91.7 fL (80-100); MEAN CORPUSCULAR HGB CONC 34.9 g/dl (32-36); MEAN PLATELET VOLUME 10.3 fL (7.4-10.4); PLATELET COUNT 222 K/uL (130-400); RED BLOOD COUNT 4.22 M/uL (4.2-5.4); WHITE BLOOD COUNT 5.49 K/uL (4.8-10.8)
[2017-03-06 06:46] LABS: BUN/CREATININE RATIO 18.8 (10-20); CALCIUM 8.5 mg/dl (8.5-10.1); CREATININE 0.71 mg/dl (0.60-1.20); MAGNESIUM 2.2 mg/dl (1.8-2.4); POTASSIUM 4.1 mmol/L (3.5-5.1)
[2017-03-06] MEDS ORDERED: PERFLUTREN LIPID MICROSPHERE (DEFINITY) IV ONE (07:08)
[2017-03-06 07:52] VITALS: BP 114/77; PULSE 81; TEMP 36.5; O2SAT 97
[2017-03-06] MEDS ORDERED: LISINOPRIL 40 MG TAB PO SCH (09:00)
[2017-03-06] MEDS ORDERED: GABAPENTIN 400 MG CAP PO SCH (09:00)
[2017-03-06] MEDS ORDERED: ASPIRIN 81 MG ECTAB PO SCH (09:00)
[2017-03-06] MEDS ORDERED: PAROXETINE 20 MG TAB PO SCH (09:00)
[2017-03-06] MEDS ORDERED: HYDROCHLOROTHIAZIDE 25 MG TAB PO SCH (09:00)
[2017-03-06] MEDS ORDERED: POTASSIUM CHLORIDE 20 MEQ TABCR PO SCH (09:00)
[2017-03-06] MEDS ORDERED: AMLODIPINE BESYLATE 5 MG TAB PO SCH (09:00)
[2017-03-06 11:11] VITALS: BP 106/74; PULSE 82; TEMP 36.8; O2SAT 95
--- NOTE | 2017-03-06 11:20 | CARDIOLOGY CONSULTATION ---
DATE OF CONSULTATION: 03/06/2017 DATE OF CONSULTATION: 03/06/2017 TIME: 10:16 a.m. CONSULTING PHYSICIAN: Dr. Pollard. REASON FOR CONSULTATION: New onset atrial fibrillation. HISTORY OF PRESENT ILLNESS: Ms. Padilla is a very pleasant 66-year-old female with history significant for hypertension, dyslipidemia, asthma, chronic back pain with lumbar spinal stenosis and polyneuropathy who presented to [facility] on 03/05/2017 with newly diagnosed atrial fibrillation. She went to the outpatient surgery center for an epidural steroid injection for her low back pain and was noted to have irregular heartbeat. She was completely asymptomatic in that regard but was sent to the Emergency Department as an ECG demonstrated atrial fibrillation. This was a new diagnosis for her. She denied palpitations, chest pain, shortness of breath at rest, orthopnea, or bleeding such as melena, hematochezia, or hematuria. She did have a history of hematuria which was mild, but this occurred in the setting of UTI and this resolved. She has chronic but stable dyspnea with exertion which she has attributed to her asthma. It has slowly progressed over many years without any acute worsening. She has intermittent swelling of her lower extremities for the past 2 months but believed that it was secondary to polyneuropathy. During this hospitalization, she has been given DVT prophylaxis dose of Lovenox. She has not been started on any rate controlling medications. Despite that, her heart rate has been reasonably controlled as review of telemetry demonstrates that her heart rate is typically less than 100. There has not been any documented significant tachycardia. She was found to be hypokalemic upon presentation with potassium level of 3.4 and has since been repleted. She denies any recent diarrhea, fevers, chills, abdominal pain. She does report syncope approximately 3 times throughout her entire life. The most recent was a few months ago. She was watering her plants outside and woke up on the ground. She had no symptoms prior to the syncopal event and there was no obvious explanation for her event. When reviewing Emergency Department notes about the fall she at that time denied any loss of consciousness but today states that she has no idea why she fell. She just remembers waking up, so it is unclear on the actual events of that day. She has not had any further episodes since then and that event was documented in November 2016. There is no ECG available from that Emergency Department visit in the [facility] system. There is also not an ECG reported in the Emergency Department records. REVIEW OF SYSTEMS: As above. Review of systems is otherwise negative/unremarkable. PAST MEDICAL HISTORY: 1. Hypertension. 2. Dyslipidemia. 3. Asthma. 4. Hypothyroidism. 5. Anxiety/depression. 6. Cervical and lumbar spinal stenosis, polyneuropathy. 7. GERD. 8. Cataracts. 9. Cholelithiasis. 10. Status post hysterectomy. 11. Status post appendectomy. 12. Status post cholecystectomy. HOME MEDICATIONS: Include amlodipine 5 mg daily, Neurontin 400 mg in the morning and 600 mg at bedtime, amitriptyline 50 mg at bedtime, simvastatin 20 mg daily, paroxetine 10 mg daily, lisinopril 40 mg daily, levothyroxine 137 mcg daily, HCTZ 25 mg daily, and albuterol inhaler p.r.n. ALLERGIES: No known drug allergies. INPATIENT MEDICATIONS: Include aspirin 81 mg daily, Lovenox 40 mg daily, amlodipine 5 mg daily, HCTZ 25 mg daily, gabapentin, levothyroxine 125 mcg daily, lisinopril 40 mg daily, potassium chloride 40 mEq x1 and 20 mEq daily, simvastatin 20 mg daily. SOCIAL HISTORY: Denies tobacco or alcohol abuse. She is and lives at home with her . She has no children. She is retired from [employer]. She is accompanied currently in her hospital room. FAMILY HISTORY: Mother had heart failure. Father had an aneurysm. PHYSICAL EXAMINATION: VITAL SIGNS: Temperature 36.5 degrees, heart rate 81 beats per minute, respiration rate 18, blood pressure 114/77 mmHg, oxygen saturation 97% on room air. Weight 82.1 kilograms. GENERAL: No acute distress. She is alert and oriented. HEAD, EYES, EARS, NOSE, AND THROAT: Anicteric sclerae. NECK: No appreciable JVD. No bruits. Normal carotid upstrokes bilaterally. CARDIAC EXAMINATION: PMI was nonpalpable. There was no ventricular heave, irregularly irregular, normal S1, S2. There were no audible murmurs, rubs or gallops. LUNGS: Clear to auscultation bilaterally with occasional upper airway sound. ABDOMEN: Soft, nontender, nondistended, normoactive bowel sounds, no bruits noted. EXTREMITIES: No cyanosis. Trace bilateral lower extremity edema. 2+ radial pulses bilaterally. 1+ dorsalis pedis pulses bilaterally. PSYCHIATRIC: Affect appears appropriate. Telemetry personally reviewed as noted above. Reasonable heart rate control despite no rate controlling medications. Rhythm is atrial fibrillation. LABORATORY DATA: White blood cell count of 5.49, hemoglobin 13.5, platelets 222. Sodium 137, potassium 4.1, BUN 13, creatinine 0.71. Magnesium 2.2. Troponin undetectable x1. AST 24, ALT 32. TSH 0.216. Albumin 3.7. INR 1. ECG personally reviewed. ECG on 03/05/2017 at 1449 atrial fibrillation at 99 beats per minute. Nonspecific ST/T-wave abnormality. Repeat ECG this morning, atrial fibrillation 82 beats per minute. Nonspecific ST abnormality. Echocardiogram preliminary review from earlier this morning. The echo images were personally reviewed; however, full report to follow after formal review. LV systolic function appeared to be normal with an estimated EF of 55-60% without regional wall motion abnormalities. Mild mitral regurgitation. Dilated left atrium. Chest x-ray 03/05/2017: No acute cardiopulmonary process per radiology. ASSESSMENT AND PLAN: 1. Atrial fibrillation: Atrial fibrillation is a new diagnosis for her. She is asymptomatic. Her rate appears to be reasonably controlled currently without rate controlling medication. Would recommend ambulation in the hallway while on monitor to see how her heart rate responds. If she becomes significantly tachycardic, would recommend low dose beta derrick such as metoprolol tartrate 25 mg twice daily as long as she can tolerate from a pulmonary standpoint. The diagnosis was discussed with her in detail with the help of a diagram. Treatment strategies such as rate control, rhythm control, or cardioversion were discussed with her. Recommend conservative measures at this time given the fact that she is asymptomatic. Stroke risk reduction was also discussed with her. She is agreeable for anticoagulation given her elevated stroke risk. She would like one of the newer agents. Recommend Eliquis if covered by her insurance. This will be discussed with Dr. Pollard, the primary hospitalist service. If she is going to have her spinal injection soon, would recommend starting anticoagulation after the injection so as not to start and then quickly stop the medication. If there is going to be a long delay in having her injection, can start anticoagulation upon discharge. 2. Syncope: Recommend a 30-day event monitor. She reports loss of consciousness today, however she apparently did not report loss of consciousness in November when she reported to the Emergency Department. If she truly lost consciousness and now has documented atrial fibrillation, there would be concern that she has significant pauses or if she has paroxysmal atrial fibrillation, perhaps she has sinus pause when converting. Recommend 30-day event monitor. This will also allow us to evaluate for significant episodes of tachycardia which may indicate a rate controlling medication as discussed above. 3. Hypertension: Blood pressure appropriate. Continue current regimen. If beta derrick is initiated as above, may be able to replace amlodipine to reduce polypharmacy. 4. Hypokalemia: Potassium has been repleted by the primary service. 5. Mitral regurgitation: Upon preliminary review of the echo images. This appeared to be mild. This was discussed with her as well. No specific treatment necessary at this time. 6. Disposition: Recommend followup in outpatient cardiology office in 2-3 months after completion of her event monitor. Event monitor will be arranged through the outpatient office and mailed to her address. A call has been placed to Dr. Pollard of the primary hospitalist service and plan of care will be discussed with him as noted above. Thank you for allowing me to participate in the care of Ms. Alba
[2017-03-06] MEDS ORDERED: METOPROLOL TARTRATE 25 MG TAB PO ONE (11:21)
[2017-03-06] MEDS ORDERED: SYN125 PO (11:31)
[2017-03-06] MEDS ORDERED: APIX1TAB3 PO (11:31)
--- NOTE | 2017-03-06 11:32 | ECHOCARDIOGRAM REPORT ---
*NOTICE TO RECEIVING DEMOCRAT AGENCY This information is strictly Confidential and protected under [place] law. [place] law prohibits you from making any further disclosure of this information unless further disclosure is expressly permitted by the written consent of the person to whom it pertains or is authorized by law. A general authorization for the release of medical or other information is not sufficient for this purpose. Hospital accepts no responsibility if the information is made available to any other person, INCLUDING THE PATIENT. Interpretation Summary * Name: CONNIE FOSTER Study Date: 03/06/2017 06:34 AM BP: 106/71 mmHg * Patient Location: [facility]\S\N281\S\2 HR: 85 * : 1950 (M/d/yyyy) Gender: Female Height: 61 in * Age: 66 yrs Ethnicity: CA Weight: 180 lb * Ordering Physician: Divina Yung * Referring Physician: Self, Referred * Performed By: Fabiola Olmedo RDCS * * Reason For Study: A-fib * BSA: 1.8 m2 * -- Conclusions -- * 1. Normal left ventricular size and systolic function. EF 55-60%. No regional wall motion abnormalities. No left ventricular hypertrophy. * 2. The left atrium is mildly dilated. * 3. There is moderate mitral annular calcification. * 4. Normal estimated right ventricular systolic pressure; RVSP 18 mmHg. * 5. Technically difficult study, enhanced with IV Definity. Procedure Details * A complete two-dimensional transthoracic echocardiogram was performed (2D, M-mode, Doppler and color flow Doppler). * A contrast injection of Definity was performed to improve assessment of LV function. * Contrast was injected into an intravenous site in the left arm. * One vial of Definity ultrasound contrast was diluted in normal saline to a total volume of 10 ml. A total of '2' ml of solution was administered during imaging. * Lot # [id number] of Definity utilized for procedure. * Expiration date MAR 18. * The attending nurse who injected the contrast agent was Natan Baca RN. Left Ventricle * Normal left ventricular size and systolic function. EF 55-60%. No regional wall motion abnormalities. No left ventricular hypertrophy. Right Ventricle * The right ventricle is normal in size and function. * The right ventricular systolic function is normal as assessed by tricuspid annular plane systolic excursion (TAPSE) (normal >1.5 cm). Atria * The left atrium is mildly dilated. * Right atrium not well visualized. * There is no evidence of atrial septal defect, but resolution does not allow assessment for a patent foramen ovale. Mitral Valve * The mitral valve is grossly normal. * There is moderate mitral annular calcification. * There is no mitral valve stenosis. * There is trace mitral regurgitation. Tricuspid Valve * The tricuspid valve is not well visualized, but is grossly normal. * There is no tricuspid stenosis. * There is trace tricuspid regurgitation. Aortic Valve * The aortic valve is trileaflet. * Focal calcification noted within the LVOT. * No hemodynamically significant valvular aortic stenosis. * No aortic regurgitation is present. Pulmonic Valve * The pulmonary valve is inadequately visualized, but the Doppler data is adequate for interpretation. * There is no pulmonic valvular stenosis. * There is no significant pulmonary regurgitation. Great Vessels * The aortic root is normal size. * Ascending aorta of normal dimension Pericardium/Pleural * There is no pericardial effusion. Great Vessels * IVC normal in size. MMode 2D Measurements and Calculations IVSd 0.70 cm LVIDd 4.1 cm LVIDs 2.8 cm LVPWd 0.57 cm IVS/LVPW 1.2 FS 30.4 % EDV(Teich) 72.4 ml ESV(Teich) 30.1 ml EF(Teich) 58.4 % EDV(cubed) 66.8 ml ESV(cubed) 22.5 ml EF(cubed) 66.4 % LV mass(C)d 70.7 grams LV mass(C)dI 39.2 grams/m\S\2 SV(Teich) 42.3 ml SI(Teich) 23.4 ml/m\S\2 SV(cubed) 44.3 ml SI(cubed) 24.5 ml/m\S\2 Ao root diam 3.0 cm Ao root area 6.8 cm\S\2 asc Aorta Diam 2.6 cm LVOT diam 1.9 cm LVOT area 3.0 cm\S\2 LVAd ap4 24.1 cm\S\2 LVLd ap4 6.8 cm EDV(MOD-sp4) 70.3 ml EDV(sp4-el) 72.3 ml LVAs ap4 14.1 cm\S\2 LVLs ap4 5.8 cm ESV(MOD-sp4) 29.9 ml ESV(sp4-el) 29.0 ml EF(MOD-sp4) 57.4 % EF(sp4-el) 59.9 % LVAd ap2 18.7 cm\S\2 LVLd ap2 6.4 cm EDV(MOD-sp2) 44.9 ml EDV(sp2-el) 46.1 ml LVAs ap2 9.6 cm\S\2 LVLs ap2 5.2 cm ESV(MOD-sp2) 14.4 ml ESV(sp2-el) 14.9 ml EF(MOD-sp2) 68.0 % EF(sp2-el) 67.8 % LVLd %diff -9.24 % EDV(MOD-bp) 59.2 ml LVLs %diff -10.57 % ESV(MOD-bp) 21.5 ml EF(MOD-bp) 63.7 % SV(MOD-sp4) 40.4 ml SI(MOD-sp4) 22.3 ml/m\S\2 SV(MOD-sp2) 30.6 ml SI(MOD-sp2) 16.9 ml/m\S\2 SV(MOD-bp) 37.7 ml SI(MOD-bp) 20.9 ml/m\S\2 SV(sp4-el) 43.4 ml SI(sp4-el) 24.0 ml/m\S\2 SV(sp2-el) 31.3 ml SI(sp2-el) 17.3 ml/m\S\2 Doppler Measurements and Calculations MV E max isauro 111.4 cm/sec MV dec time 0.24 sec Ao V2 max 106.1 cm/sec Ao max PG 4.5 mmHg Ao max PG (full) 2.7 mmHg ERI(V,A) 1.9 cm\S\2 ERI(V,D) 1.9 cm\S\2 LV V1 max PG 1.8 mmHg LV V1 max 66.7 cm/sec TV E max isauro 58.6 cm/sec PA V2 max 82.0 cm/sec PA max PG 2.7 mmHg PA acc slope 693.8 cm/sec\S\2 PA acc time 0.11 sec PI max isauro 65.6 cm/sec PI max PG 1.7 mmHg PI dec slope 58.0 cm/sec\S\2 PI P1/2t 331.2 msec TR max isauro 193.4 cm/sec RVSP(TR) 18.0 mmHg RAP systole 3.0 mmHg PA pr(Accel) 31.1 mmHg
--- NOTE | 2017-03-06 11:34 | Discharge Instructions ---
Discharge Instructions Date of Service Mar 06, 2017. Admission Reason for Admission: Dizziness, New Onset Atrial Fibrillation Discharge Discharge Diagnosis / Problem: atrial fibrillation Discharge Goals Goal(s): Diagnostic testing, Therapeutic intervention Activity Recommendations Activity Limitations: as noted below Lifting Limitations: gradually increase as tolerated Limit caffeine and other stimulants, no intentional exercise unit you see Dr Dukes If you are planning on getting a spine injection hold your eliquis for 72 hours prior to and 24 hours after procedure or as directed by you physician doing injection or procedure please follow up with your primary care for your new thyroid dose as you were a bit overreplaced on intake here please follow up with DR Dukes for your atrial fibrillation . Current Hospital Diet Patient's current hospital diet: AHA Diet (Heart Healthy) Discharge Diet Recommended Diet: Regular Diet Pending Studies Studies pending at discharge: no Medical Emergencies . Who to Call and When: Medical Emergencies: If at any time you feel your situation is an emergency, please call 911 immediately. . Non-Emergent Contact Non-Emergency issues call your: Primary Care Provider, Patient Intake Coordinator Call Non-Emergent contact if: temperature is above 101, your pain is unusual for you . . "Provider Documentation" section prepared by Ced Pollard. . VTE Core Measure Inpt VTE Proph given/why not?: Enoxaparin (Lovenox)MARYAN, Yulissa Huber, SCD's
[2017-03-06] MEDS ORDERED: METO-551 PO (13:56)
[2017-03-06 14:02] VITALS: BP 106/74; PULSE 82; TEMP 36.8; O2SAT 95
--- NOTE | 2017-03-06 18:19 | Discharge Summary ---
Discharge Summary Date of Service Mar 06, 2017. Discharge Summary Admission Date: Mar 05, 2017 at 17:09 Discharge Date: Mar 06, 2017 Discharge Disposition: Home Principal Diagnosis: atrial fibrillation, over replaced thyroid Immunizations: Have You Had Influenza Vaccine: N/A Influenza Vaccine Date: Apr 24, 2012 History of Tetanus Vaccine?: unknown History of Pneumococcal: Yes History of Hepatitis B Vaccine: No Medication Reconciliation New Medications: Apixaban (Eliquis) 5 Mg Tab 5 MG PO BID, #60 TAB 6 Refills Levothyroxine Sodium (Synthroid) 125 Mcg Tab 125 MCG PO DAILYBB, #90 TAB 3 Refills Metoprolol Tartrate (Lopressor) 50 Mg Tab 1 TAB PO BID for 30 Days, #60 TAB 5 Refills Continued Medications: Albuterol Hfa (Ventolin Hfa) 200 Puffs/80401 Mcg Aers 2-4 PUFFS INH Q6H PRN for Shortness of Breath Amitriptyline Hcl (Elavil) 50 Mg Tab 50 MG PO HS, TAB Gabapentin (Neurontin) 600 Mg Tab 600 MG PO HS, TAB Gabapentin (Neurontin) 400 Mg Cap 400 MG PO QAM, CAP Hydrochlorothiazide (Hctz) 25 Mg Tab 25 MG PO QAM Lisinopril (Zestril) 40 Mg Tab 40 MG PO QAM, TAB Paroxetine HCl (Paroxetine) 10 Mg Tab 10 MG PO QAM Simvastatin (Zocor) 20 Mg Tab 20 MG PO QPM, TAB Discontinued Medications: Amlodipine Besylate (Amlodipine Besylate) 5 Mg Tab 5 MG PO QAM Levothyroxine Sodium (Levothyroxine Sodium) 137 Mcg Tab 137 MCG PO QAM Discharge Exam Review of Systems: Constitutional: No fever, No chills Respiratory: + dyspnea on exertion, No cough, No sputum, No shortness of breath, No dyspnea at rest Cardiovascular: No chest pain Abdomen: No pain, No nausea Physical Exam: General Appearance: WD/WN, no apparent distress Eyes: PERRL, EOMI Respiratory/Chest: chest non-tender, lungs clear, normal breath sounds Cardiovascular: + tachycardia, + irregularly irregular Abdomen / GI: normal bowel sounds, non tender, soft Hospital Course 66 F found to have afib/flutter with controlled rate at pain management appointment with a history of HTN, HLD, asthma, hypothyroidism, anxiety and depression, cervical and lumbar spinal stenosis, and polyneuropathy New onset a-fib, -Consult cardiology feels will treat with rate control and anticoagulation, was given instruction regarding holding eliquis surrounding procedures in the future, I did personally speak to Dr Dukes regarding this patients plan of care Mild hypokalemia-Potassium replete HTN--stable,stop Norvasc 5 mg PO qd, begin metoprolol 50 mg bid and continue HCTZ 25 mg PO qd, and lisinopril 40 mg PO qd HLD Zocor 20 mg PO qd Asthma albuterol inhaler prn SOB/wheezing Hypothyroidism-TSH low at 0.216 will reduce dose to 125 Anxiety and depression paroxetine 10 mg PO qd Polyneuropathy amitriptyline 50 mg PO hs, gabapentin 400 mg PO qam and 600 mg PO hs DVT prophylaxis-Enoxaparin 40 mg SC q24h Code Status -Level V, DO NOT RESUSCITATE will follow up with Dr Dukes Total Time Spent: Greater than 30 minutes This includes examination of the patient, discharge planning, medication reconciliation, and communication with other providers. Discharge Instructions Please refer to the electronic Patient Visit Report (Discharge Instructions) for additional information.
[2017-03-06] MEDS ORDERED: METOPROLOL TARTRATE 25 MG TAB PO SCH (21:00)
[2017-03-07] MEDS ORDERED: LEVOTHYROXINE 125 MCG TAB PO SCH (06:30)
== END 2017-03-06 14:40 | disposition home health service (06) ==
LOC: EDBD 14:42 → C.EDC 14:47 → C.MED 17:09 → ENRESERV 17:49
PROVIDERS: ADMIT Family Medicine; ATTEND Internal Medicine
DX: I48.91 Unspecified atrial fibrillation (principal); I10 Essential (primary) hypertension; J45.909 Unspecified asthma, uncomplicated; E78.5 Hyperlipidemia, unspecified; E03.9 Hypothyroidism, unspecified; F41.9 Anxiety disorder, unspecified; F32.9 Major depressive disorder, single episode, unspecified; K21.9 Gastro-esophageal reflux disease without esophagitis; Z90.89 Acquired absence of other organs; Z90.710 Acquired absence of both cervix and uterus; Z90.49 Acquired absence of other specified parts of digestive tract; Z79.899 Other long term (current) drug therapy; Z79.82 Long term (current) use of aspirin; Z80.9 Family history of malignant neoplasm, unspecified; Z83.3 Family history of diabetes mellitus; Z82.49 Family history of ischemic heart disease and other diseases of the circulatory system

== ENCOUNTER → 2017-03-05 | Day surgery (SDC) | payer BC ==
[2017-02-17 14:00] VITALS: Ht 154.9 cm; Wt 77.3 kg
[~2017-03-05] VITALS: Ht 154.9 cm; Wt 77.3 kg
[~2017-03-05] MED LIST changes: +IOPAMIDOL INJ 61% 15 ML VIAL ONE; +LIDOCAINE HCL 1% MPF 5 ML VIAL ONE; +SODIUM CHLORIDE 0.9% INJ 10 ML VIAL ONE
[2017-03-05 13:45] VITALS: PULSE 109; TEMP 36.5; O2SAT 97
[2017-03-05 14:15] VITALS: BP 125/70
== END | disposition home or self-care (01) ==
LOC: X.SURG 13:26
PROVIDERS: ATTEND Physical Medicine & Rehabilitation
DX: M54.16 Radiculopathy, lumbar region (principal); Z53.9 Procedure and treatment not carried out, unspecified reason

== ENCOUNTER → 2017-03-17 | Outpatient (CLI) | payer BC ==
[~2017-03-17] MED LIST changes: +APIX1TAB3 PO; -LEVO137T3 PO; +METO-551 PO; -NRV/5 PO; +SYN125 PO
[2017-03-17 17:36] LABS: URINE APPEARANCE CLOUDY (CLEAR); URINE BILIRUBIN NEG (NEG); URINE COLOR YELLOW; URINE EPITHELIAL CELL AUTO 0-5 /lpf (0-5); URINE NITRITE NEG (NEG); URINE PH 6.5 (4.5-7.5); URINE SPECIFIC GRAVITY 1.014 (1.000-1.030); UROBILINOGEN NEG (NEG)
[2017-03-17 17:42] LABS: MANUAL MICROSCOPIC REQUIRED? NO; REVIEW REQ? NO
== END | disposition home or self-care (01) ==
LOC: C.LABBFT 11:22
PROVIDERS: ATTEND Internal Medicine
DX: R39.9 Unspecified symptoms and signs involving the genitourinary system (principal)

== ENCOUNTER → 2017-03-18 | Outpatient (CLI) | payer BC ==
--- NOTE | 2017-03-18 10:49 | DIAGNOSTIC IMAGING REPORT ---
CHEST 2 VIEWS ROUTINE CLINICAL HISTORY: Dyspnea on exertion. COMPARISON STUDY: Chest radiograph March 05, 2017. FINDINGS: Anterior cervical spine fusion is noted. There is no pneumothorax or left pleural effusion. There is a small right pleural effusion. Cardiomediastinal silhouette is normal. There is no radiographic evidence of pulmonary edema. No consolidation to suggest pneumonia. IMPRESSION: 1. Small right pleural effusion. 2. No radiographic evidence of pulmonary edema. No consolidation to suggest pneumonia. Electronically signed by: Andrew Adams M.D. 03/18/2017 10:48 AM Dictated Date/Time: 03/18/2017 10:46 AM
== END | disposition home or self-care (01) ==
LOC: C.RAD1850 10:32
PROVIDERS: ATTEND Physician Assistant
DX: R06.09 Other forms of dyspnea (principal); J90 Pleural effusion, not elsewhere classified

== ENCOUNTER → 2017-07-01 | Day surgery (SDC) | payer BC ==
[2017-06-12 09:50] VITALS: Ht 154.9 cm; Wt 77.3 kg
[~2017-07-01] VITALS: Ht 154.9 cm; Wt 77.3 kg
[~2017-07-01] MED LIST changes: +LEVO125T5 PO; +LIDOCAINE HCL 1% MPF 5 ML VIAL ONE; -METO-551 PO; +SODIUM CHLORIDE 0.9% INJ 10 ML VIAL ONE; -SYN125 PO
[2017-07-01 14:54] VITALS: BP 107/72; PULSE 83; O2SAT 98
--- NOTE | 2017-07-01 15:22 | History & Physical Bridge - SC ---
H&P Re-Evaluation Bridge Note: I have examined the patient, reviewed the History & Physical and in the interval since the performance of the History & Physical I have noted the following changes of clinical significance: No changes noted
--- NOTE | 2017-07-01 15:23 | [facility] Post Operative Brief Note ---
Immediate Operative Summary Operative Date Jul 01, 2017. Pre-Operative Diagnosis Right lower extremity radiculopathy. Right lower extremity swelling. Post-Operative Diagnosis Same Procedure(s) Performed Caudal Epidural Steroid Injection Surgeon Dr. Babar Jean Baptiste All Around Patternmaker Surgeon(s) None Estimated Blood Loss 0 Findings Consistent with Post-Op Diagnosis Specimens NA Anesthesia Type Local Disposition Disposition:
--- NOTE | 2017-07-01 15:24 | Discharge Instructions ---
Discharge Instructions Date of Service Jul 01, 2017. Visit Reason for Visit: Spondylosis Discharge Discharge Diagnosis / Problem: right leg pain Discharge Goals Goal(s): Decrease discomfort, Improve function Activity Recommendations Activity Limitations: resume your previous activity Anesthesia . Post Anesthesia Instructions: If you have had General Anesthesia or IV Sedation: * Do not drive today. * Resume driving when surgeon permits. * Do not make important decisions or sign legal documents today. * Call surgeon for: 1. Temperature elevations greater than 101 degrees F. 2. Uncontrollable pain. 3. Excessive bleeding. 4. Persistent nausea and vomiting. 5. Medication intolerance (nausea, vomiting or rash). * For nausea and vomiting use only clear liquids such as: tea, soda, bouillon until nausea subsides, then gradually increase diet as tolerated. * If you have any concerns or questions, call your surgeon's office. If physician is unavailable and it is an emergency, call 911 or go to the nearest emergency room. . Diet Recommendations Recommended Home Diet: resume previous diet Procedures Procedures Performed: Caudal Epidural Steroid Injection Pending Studies Studies pending at discharge: no Medical Emergencies . Who to Call and When: Medical Emergencies: If at any time you feel your situation is an emergency, please call 911 immediately. . Non-Emergent Contact Non-Emergency issues call your: Specialist . . "Provider Documentation" section prepared by Ridge Jean Baptiste. .
--- NOTE | 2017-07-01 16:24 | OPERATIVE REPORT ---
DATE OF OPERATION: 07/01/2017 PREOPERATIVE DIAGNOSES: Right lower extremity radiculopathy and a history of a L5-S1 disk disease, on anticoagulation. POSTOPERATIVE DIAGNOSES: Same. PROCEDURE: Caudal epidural steroid injection under fluoroscopic guidance. INDICATIONS: The patient is a 66-year-old white female who presents today for an epidural steroid injection. She is originally scheduled more than a month or two ago because of intense pain that was returning down the right leg; however, at that time prior to the injection, she was found to be in AFib. She was subsequently treated and is on anticoagulation and she will be approached via a caudal route given the anticoagulation. PHYSICAL EXAMINATION: Pleasant female seated comfortably. There is some swelling and tenderness of the right leg and decreased subjective sensation in the right L5 dermatomal distribution. CONSENT: Written and verbal consent was obtained from the patient. Risks and benefits were reviewed. Risks include, but are not limited to epidural abscess and allergic reaction. The patient wishes to proceed. DESCRIPTION OF PROCEDURE: The patient was taken back to the special procedures room at [facility], where she was maintained in a prone position. Backside was cleansed with Betadine x3 and a dry sterile dressing was applied. Fluoroscope was used to identify the sacral hiatus and overlying skin was anesthetized with 4 mL of lidocaine 1%, 25-gauge 1-1/2 inch needle. A 25-gauge 3-1/2 inch spinal needle was then directed under fluoroscopic guidance into the canal. It was advanced under lateral fluoroscopic guidance and she then underwent injection after negative aspiration of 40 mg of Depo-Medrol and 4 mL of preservative free sodium chloride. Injection was well tolerated. DISPOSITION: 1. The patient was taken out into the discharge recovery area, where she will be discharged home once discharge criteria have been met. 2. Follow up in the [facility] office in 4 weeks' time. I attest to the content of the Intraoperative Record and any orders documented therein. Any exception s are noted below.
== END | disposition home or self-care (01) ==
LOC: X.SURG 13:00
PROVIDERS: ATTEND Physical Medicine & Rehabilitation
DX: M54.17 Radiculopathy, lumbosacral region (principal); I48.91 Unspecified atrial fibrillation; Z79.01 Long term (current) use of anticoagulants

== ENCOUNTER → 2017-09-11 | Outpatient (CLI) | payer BC ==
[~2017-09-11] MED LIST changes: -LIDOCAINE HCL 1% MPF 5 ML VIAL ONE; -SODIUM CHLORIDE 0.9% INJ 10 ML VIAL ONE
--- NOTE | 2017-09-11 12:10 | DIAGNOSTIC IMAGING REPORT ---
RIGHT LOWER EXTREMITY VENOUS DOPPLER CLINICAL HISTORY: Right lower extremity pain and swelling. COMPARISON STUDY: Right lower extremity venous Doppler November 01, 2015. TECHNIQUE: Sonography of the deep venous system of the right lower extremity was performed. Compression and augmentation were evaluated. FINDINGS: The right common femoral, superficial femoral and popliteal veins were compressible. Augmentation was normal. Flow was shown within the deep calf vessels. IMPRESSION: No evidence of deep venous thrombus within the right lower extremity. Electronically signed by: Andrew Adams M.D. 09/11/2017 12:08 PM Dictated Date/Time: 09/11/2017 12:08 PM
== END | disposition home or self-care (01) ==
LOC: C.ULTR 11:21
PROVIDERS: ATTEND Physician Assistant Medical
DX: M79.89 Other specified soft tissue disorders (principal); L03.115 Cellulitis of right lower limb

== ENCOUNTER 2020-03-01 16:02 | Observation (INO) ==
[2020-03-01 16:50] LABS: Basophils # (auto) 0.08 K/uL (0-0.2); Basophils % (auto) 1.8 %; Eosinophils # (auto) 0.28 K/uL (0-0.5); Eosinophils % (auto) 6.3 %; Hematocrit (blood only) 40.5 % (37-47); Hemoglobin 13.2 g/dL (12.0-16.0); Lymphocytes # (auto) 1.51 K/uL (1.2-3.4); Mean Corpuscular Hemoglobin 30.8 pg (25-34); Mean Corpuscular Hgb Conc 32.6 g/dL (32-36); Mean Corpuscular Volume 94.4 fL (80-100); Mean Platelet Volume 10.2 fL (7.4-10.4); Monocytes # (auto) 0.58 K/uL (0.11-0.59); Monocytes % (auto) 13.1 %; Neutrophils # (auto) 1.99 K/uL (1.4-6.5); Neutrophils % (auto) 44.8 %; Platelet Count 241 K/uL (130-400); RDW Coefficient of Variation 13.9 % (11.5-14.5); RDW Standard Deviation 47.2 fL (36.4-46.3); Red Blood Count 4.29 M/uL (4.2-5.4); White Blood Count 4.44 K/uL (4.8-10.8)
[2020-03-01 16:57] LABS: Alanine Aminotransferase 33 U/L (12-78); Albumin Level 3.2 gm/dl (3.4-5.0); Aspartate Aminotransferase 35 U/L (15-37); BUN Creatinine Ratio 12.6 (10-20); Blood Urea Nitrogen 10 mg/dl (7-18); Calcium 9.2 mg/dl (8.5-10.1); Carbon Dioxide 25 mmol/L (21-32); Chloride 112 mmol/L (98-107); Creatinine Clr Calc Pharmacy 61.6 ml/min; Est GFR (Non-African American) 72.5; Glucose 87 mg/dl (70-99); Potassium 3.6 mmol/L (3.5-5.1); Sodium 143 mmol/L (136-145)
[2020-03-01 17:01] LABS: Albumin Globulin Ratio 0.9 (0.9-2); Alkaline Phosphatase 112 U/L (45-117); Bilirubin,Total 0.5 mg/dl (0.2-1); Globulin 3.6 gm/dl (2.5-4.0); Total Protein 6.9 gm/dl (6.4-8.2); Troponin I < 0.015 ng/ml (0-0.045)
--- NOTE | 2020-03-01 17:06 | Emergency Department Note ---
History of Present Illness General Chief complaint: Chest Pain Stated complaint: CHEST PAIN Time Seen by Provider: 03/01/20 16:51 Source: patient and family ( who is at the bedside) Mode of arrival: ambulatory Limitations: no limitations History of Present Illness Maximum Pain Intensity: 4 This patient comes in after having chest pain with walking for the last couple weeks. She says it also hurts when she breathes. No fall or trauma. She is had no flulike symptoms. She has had a chronic cough about 3 weeks that is been nonproductive. No fever chills no known exposure to rothman she has had some dyspnea on exertion as well she is had lower extremity edema as well. She is on apixaban for chronic A. fib. She felt dizzy a couple weeks ago and fell but denies any significant headache at present. No numbness or weakness. Home Medications Home Medications Medication Instructions Recorded Confirmed Type albuterol sulfate 2 puff INHALATION Q6H PRN 04/05/18 03/01/20 History apixaban 5 mg tablet 5 mg PO BID #180 tab 12/13/18 03/01/20 Rx simvastatin 20 mg tablet 20 mg PO QPM #90 tab 12/17/18 03/01/20 History hydrochlorothiazide 25 mg PO QAM 01/07/19 03/01/20 History paroxetine HCl 20 mg tablet 20 mg PO QAM #90 tab 03/31/19 03/01/20 Rx metoprolol tartrate 25 mg tablet 25 mg PO BID #180 tab 02/10/20 03/01/20 Rx gabapentin 800 mg tablet 800 mg PO BID tab 02/13/20 03/01/20 History lisinopril 40 mg tablet 40 mg PO DAILY tab 02/13/20 03/01/20 History levothyroxine 200 mcg tablet 200 mcg PO DAILY #90 tab 02/15/20 03/01/20 Rx levothyroxine 25 mcg tablet 25 mcg PO DAILY #90 tab 02/15/20 03/01/20 Rx trazodone 50 mg tablet 50 mg PO DAILY #90 tab 02/15/20 03/01/20 Rx Allergies Allergy/AdvReac Type Severity Reaction Status Date / Time bee venom protein (honey bee) Allergy swollen, Verified 03/01/20 19:39 itchy adhesive AdvReac Mild RED SKIN Verified 03/01/20 19:39 WITH BANDAIDS house dust AdvReac Watery Eye Verified 03/01/20 19:39 Past Med/Surg History Medical History Acquired hypothyroidism (12/24/12) Acute colitis Anticoagulant long-term use Arthritis Asthma Atrial fibrillation DX'D 2018 -F/U DR SHARMA Atrial fibrillation, permanent 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 Breast cancer Calcific tendinitis of left shoulder Cataract (08/19/12) Cholelithiasis (08/19/12) Chronic back pain Colitis DCIS (ductal carcinoma in situ) of breast Depression with anxiety Dysphagia Fatigue Gastrocnemius strain GERD (gastroesophageal reflux disease) Hearing loss Bilateral Hearing Aids Hyperlipidemia Hypertension Hypokalemia Hypomagnesemia Hypothyroidism Intestinal obstruction Intraductal carcinoma of right breast Lumbar canal stenosis Lumbar radiculopathy Obesity Osteoarthritis Peripheral neuropathy Polyneuropathy SOB (shortness of breath) on exertion Stenosis, cervical spine Syncope Surgical History H/O tubal ligation 1996 History of appendectomy 1968 History of cataract surgery 2014 - R/L History of cholecystectomy 2007 History of colonoscopy (~07/2018) History of partial mastectomy History of right breast biopsy malignant History of total abdominal hysterectomy and bilateral salpingo-oophorectomy Hx of fusion of cervical spine 2005--normal ROM Hx of hand surgery - LEFT-CYST REMOVED/BONE FUSION Hx of lumpectomy RIGHT LUMPECTOMY 2018 S/P partial mastectomy Right - 04/19/18 Family History Brother Diabetes Father Heart disease Mother Heart disease Diabetes Hypertension Other No family history of adverse response to anesthesia Unknown family medical history Social History Smoking Status: Never smoker Second Hand Exposure: No; Do You Dip or Chew Tobacco: No; Tobacco Cessation Education Requested by Patient: No Hx Alcohol Use: No Hx Substance Use: No Preferred Language: Algerian Communication Ability: Effective Visual Impairment: Limited Hearing Ability: Use of Hearing Aid [employer] Required: No Beliefs That Will Affect Care: None marital status: Current Living Situation: Spouse current occupational status: retired 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 [employer] Other Information That Helps Us Care for You: No Feels Safe at Home: Yes Safety Concerns: Feels Safe At This Time Childhood Exposure to Second-Hand Smoke: Yes caffeine: Yes (2-3 Cups of coffee/day ) during the past year weight has: remained stable Physical Activity Frequency: Daily Physical Activity Frequency Comment: walking, 60 minutes Seatbelt Use: always Sunscreen Use: Yes Assistive Devices: None Assistive Devices Comment: hearing aids at home Review of Systems A total of 10 systems reviewed and were otherwise negative Physical Exam Vital Signs Vital Signs - 24 hr 03/01/20 16:07 03/01/20 17:59 03/01/20 19:11 Temperature 36.7 C Temperature Source Oral Pulse Rate 90 Pulse Rate [Apical] 83 94 H Respiratory Rate 22 16 22 Respiratory Effort / Characteristics Non-Labored Non-Labored Respiratory Depth Normal Normal Respiratory Pattern Regular Blood Pressure 110/75 Blood Pressure [Left Arm] 116/59 L 120/81 Blood Pressure Mean 86 Blood Pressure Mean [Left Arm] 78 94 Blood Pressure Position Sitting Pulse Oximetry 95 95 95 Oxygen Delivery Method Room Air Room Air Room Air Sepsis Recent Fever Within 48 Hours No Sepsis New/Unexplained Change in Mental Status No Sepsis Action Taken by Nursing No Action Required General: Well developed well nourished older female who appears in no acute distress, breathing comfortably on room air. Normal speech HEENT: Normal cephalic atraumatic. Pupils are equal round and reactive to light. Sclera anicteric extraocular movements are intact. Oropharynx is pink with moist mucous membranes. No swelling of the mouth lips or tongue. Neck: Supple with a midline trachea. No meningeal signs or stiffness, no JVD or bruits. No Stridor. Chest: Clear to auscultation bilaterally. No wheezes or rhonchi. No increased work of breathing. Heart: Irregularly irregular and rhythm without murmurs or gallops. Abdomen: Soft nontender, nondistended without rebound guarding or rigidity. Extremities: No cyanosis clubbing. 1-2+ bilateral lower extremity edema. No calf tenderness or assymetry Spine/Back. Non tender to palpation. No CVA tenderness Skin: Good turgor without rashes. Neurologic exam: Cranial nerves two through 12 are intact. Motor and sensation are intact and symmetrical throughout. Course Administered Medications Apixaban (Apixaban 5 Mg Tablet) 5 mg PO BID ROLANDO Stop: 03/31/20 21:15 Last Admin: 03/01/20 22:33 Dose: 5 mg Documented by: [id number] Gabapentin (Gabapentin 800 Mg Tab) 800 mg PO BID ROLANDO Stop: 03/31/20 21:15 Last Admin: 03/01/20 22:32 Dose: 800 mg Documented by: [id number] Metoprolol Tartrate (Metoprolol Tartrate 25 Mg Tab) 25 mg PO BID ROLANDO Stop: 03/31/20 21:15 Last Admin: 03/01/20 22:32 Dose: 25 mg Documented by: [id number] Simvastatin (Simvastatin 20 Mg Tab) 20 mg PO QPM ROLANDO Stop: 03/31/20 21:15 Last Admin: 03/01/20 22:32 Dose: 20 mg Documented by: [id number] Trazodone HCl (Trazodone Hcl 50 Mg Tab) 50 mg PO HS ROLANDO Stop: 03/31/20 21:12 Last Admin: 03/01/20 22:33 Dose: 50 mg Documented by: [id number] Discontinued Medications Furosemide (Furosemide 40 Mg/4 Ml Vial) 20 mg IV NOW STA Stop: 03/01/20 19:06 Last Admin: 03/01/20 19:10 Dose: 20 mg Documented by: [id number] Medical Decision Making Differential Diagnosis CHF, COPD, PE, cardiac disease, arrhythmia, COVID, pneumonia, electrolyte or metabolic abnormality, sepsis Medical Records Attestation: I reviewed the patient's medical records. Home Medications Current Medication List: was personally reviewed by me Laboratory Data Attestation: I reviewed the patient's lab results. Result diagrams: 03/01/20 16:21 03/01/20 16:21 Lab Results 03/01/20 03/01/20 03/01/20 Range/Units 16:21 16:21 16:21 WBC 4.44 L (4.8-10.8) K/uL RBC 4.29 (4.2-5.4) M/uL Hgb 13.2 (12.0-16.0) g/dL Hct 40.5 (37-47) % MCV 94.4 (80-100) fL MCH 30.8 (25-34) pg MCHC 32.6 (32-36) g/dL RDW Std Deviation 47.2 H (36.4-46.3) fL RDW Coeff of Kal 13.9 (11.5-14.5) % Plt Count 241 (130-400) K/uL MPV 10.2 (7.4-10.4) fL Immature Gran % (Auto) 0.0 % Neut % (Auto) 44.8 % Lymph % (Auto) 34.0 % [place] % (Auto) 13.1 % Eos % (Auto) 6.3 % Baso % (Auto) 1.8 % Neut # (Auto) 1.99 (1.4-6.5) K/uL Lymph # (Auto) 1.51 (1.2-3.4) K/uL [place] # (Auto) 0.58 (0.11-0.59) K/uL Eos # (Auto) 0.28 (0-0.5) K/uL Baso # (Auto) 0.08 (0-0.2) K/uL Immature Gran # (Auto) 0.00 (0.00-0.02) K/uL PT Cancelled INR Cancelled APTT Cancelled PTT Ratio Cancelled Sodium 143 (136-145) mmol/L Potassium 3.6 (3.5-5.1) mmol/L Chloride 112 H (98-107) mmol/L Carbon Dioxide 25 (21-32) mmol/L Anion Gap 6.0 (3-11) BUN 10 (7-18) mg/dl Creatinine 0.82 (0.6-1.2) mg/dl Est Cr Clr Drug Dosing 61.6 ml/min Est GFR ( Amer) 84.0 Est GFR (Non-Af Amer) 72.5 BUN/Creatinine Ratio 12.6 (10-20) Glucose 87 (70-99) mg/dl Calcium 9.2 (8.5-10.1) mg/dl Total Bilirubin 0.5 (0.2-1) mg/dl AST 35 (15-37) U/L ALT 33 (12-78) U/L Alkaline Phosphatase 112 (45-117) U/L Troponin I < 0.015 (0-0.045) ng/ml Total Protein 6.9 (6.4-8.2) gm/dl Albumin 3.2 L (3.4-5.0) gm/dl Globulin 3.6 (2.5-4.0) gm/dl Albumin/Globulin Ratio 0.9 (0.9-2) 03/01/20 Range/Units 17:49 WBC (4.8-10.8) K/uL RBC (4.2-5.4) M/uL Hgb (12.0-16.0) g/dL Hct (37-47) % MCV (80-100) fL MCH (25-34) pg MCHC (32-36) g/dL RDW Std Deviation (36.4-46.3) fL RDW Coeff of Kal (11.5-14.5) % Plt Count (130-400) K/uL MPV (7.4-10.4) fL Immature Gran % (Auto) % Neut % (Auto) % Lymph % (Auto) % [place] % (Auto) % Eos % (Auto) % Baso % (Auto) % Neut # (Auto) (1.4-6.5) K/uL Lymph # (Auto) (1.2-3.4) K/uL [place] # (Auto) (0.11-0.59) K/uL Eos # (Auto) (0-0.5) K/uL Baso # (Auto) (0-0.2) K/uL Immature Gran # (Auto) (0.00-0.02) K/uL PT 12.4 H INR 1.2 H APTT 28.2 PTT Ratio 1.0 Sodium (136-145) mmol/L Potassium (3.5-5.1) mmol/L Chloride (98-107) mmol/L Carbon Dioxide (21-32) mmol/L Anion Gap (3-11) BUN (7-18) mg/dl Creatinine (0.6-1.2) mg/dl Est Cr Clr Drug Dosing ml/min Est GFR ( Amer) Est GFR (Non-Af Amer) BUN/Creatinine Ratio (-20) Glucose (70-99) mg/dl Calcium (8.5-10.1) mg/dl Total Bilirubin (0.2-1) mg/dl AST (15-37) U/L ALT (12-78) U/L Alkaline Phosphatase (45-117) U/L Troponin I (0-0.045) ng/ml Total Protein (6.4-8.2) gm/dl Albumin (3.4-5.0) gm/dl Globulin (2.5-4.0) gm/dl Albumin/Globulin Ratio (0.9-2) Imaging Data Attestation: I personally reviewed and interpreted this imaging study as fol lows: My Impression: Chest x-raythere is mild congestive heart failure type changes but no focal infiltrate or pneumothorax Radiologist's Impression: XR chest 1V portable HISTORY: Atypical Chest Pain COMPARISON: Chest 02/02/2020. FINDINGS: No pneumothorax. Trace bilateral pleural effusions. The heart remains mildly enlarged. There is slight progression of the interstitial and vascular thickening consistent with developing congestive change. Cervical spinal fusion hardware is again noted. No new focal lung consolidations to suggest pneumonia. IMPRESSION: Interval progression of the mild congestive change and trace bilateral pleural effusions. ECG Data Attestation: I personally reviewed and interpreted this ECG as follows: Indication: + chest pain Rate (beats per minute): 87 Rhythm: + atrial fibrillation ECG Intervals/blocks: + Normal QRS, + Normal QT and + Normal [place] ECG [place]: + Normal ECG ST segments: + Normal ST segments ECG Findings: no PACs and no PVCs Comparison ECG Date: from (02/02/20) Change: the following changes noted (Rate has decreased. ST segments are no longer nonspecific) MDM Narrative This patient comes in as described above. She has had chest pain which is mostly on exertion. IV access was established and she was placed on a desk monitor. EKG shows chronic A. fib. She is on chronic anticoagulation with apixaban. Chest x-ray and multiple blood testing was obtained. She was reassessed frequently. EKG does not show any definite acute ischemic changes. He is in chronic rate controlled A. fib. She has chronic anticoagulation. She does have some peripheral edema which she says is new and she is had dyspnea on exertion and chest pain on exertion. Additionally she does have some congestive heart failure changes on the chest x-ray. She is given Lasix 20 mg IV. She is no electrolyte or metabolic abnormalities. I do not think her she likely has COVID. I do think she needs to be admitted/observe for for further cardiac treatment and evaluation. I did consult Dr. Mccullough to see her in the ER for these measures. Continuous cardiac monitoring. She was placed on a continuous desk monitor and order was placed in EMR. She was noted to be in a rate controlled A. fib at a rate of 87. 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
--- NOTE | 2020-03-01 17:37 | XRay Report ---
XR chest 1V portable HISTORY: Atypical Chest Pain COMPARISON: Chest 02/02/2020. FINDINGS: No pneumothorax. Trace bilateral pleural effusions. The heart remains mildly enlarged. Ther e is slight progression of the interstitial and vascular thickening consistent with developing conges tive change. Cervical spinal fusion hardware is again noted. No new focal lung consolidations to sugg est pneumonia. IMPRESSION: Interval progression of the mild congestive change and trace bilateral pleural effusions. ACT 112: Negative or not required by law. Electronically signed by: Dio Foster M.D. 03/01/2020 5:36 PM
[2020-03-01 18:14] LABS: INR 1.2 (0.9-1.1); Partial Thromboplastin Time 28.2 Seconds (21.0-31.0); Prothrombin Time 12.4 Seconds (9.0-12.0)
[2020-03-01] MEDS ORDERED: FUROSEMIDE 40 MG/4 ML VIAL IV STA (19:05)
--- NOTE | 2020-03-01 20:25 | History & Physical Report ---
Date of Service March 01, 2020 Assessment & Plan (1) Chest pain: Chest pain/chronic atrial fibrillation/hypertension/CHF- The patient will be admitted to telemetry for serial cardiac enzymes, serial EKG's, cardiac rhythm monitoring and a 2-D echocardiogram with Dopplers. Given Lasix 20 mg IV by the ED, follow clinical response. Continue apixaban 5 mg p.o. twice daily, lisinopril 40 mg daily, metoprolol tartrate 25 mg p.o. twice daily. 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 twice daily Present on Admission?: Yes (7) Polyneuropathy: Continue gabapentin 800 mg p.o. twice daily Present on Admission?: Yes (8) Hyperlipidemia LDL goal <70: Continue simvastatin 20 mg p.o. 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 She presents with the above symptoms. In the emergency department, she was billed to have some fluid overload, and was given Lasix 20 mg IV by the ED. She of note was COVID-19 negative on 01/16/2020. She denies any recent travels or sick exposures. Allergies Allergy/AdvReac Type Severity Reaction Status Date / Time bee venom protein (honey bee) Allergy swollen, Verified 03/01/20 19:39 itchy adhesive AdvReac Mild RED SKIN Verified 03/01/20 19:39 WITH BANDAIDS house dust AdvReac Watery Eye Verified 03/01/20 19:39 Home Medications Home Medications Medication Instructions Recorded Confirmed Type albuterol sulfate 2 puff INHALATION Q6H PRN 04/05/18 03/01/20 History apixaban 5 mg tablet 5 mg PO BID #180 tab 12/13/18 03/01/20 Rx simvastatin 20 mg tablet 20 mg PO QPM #90 tab 12/17/18 03/01/20 History hydrochlorothiazide 25 mg PO QAM 01/07/19 03/01/20 History paroxetine HCl 20 mg tablet 20 mg PO QAM #90 tab 03/31/19 03/01/20 Rx metoprolol tartrate 25 mg tablet 25 mg PO BID #180 tab 02/10/20 03/01/20 Rx gabapentin 800 mg tablet 800 mg PO BID tab 02/13/20 03/01/20 History lisinopril 40 mg tablet 40 mg PO DAILY tab 02/13/20 03/01/20 History levothyroxine 200 mcg tablet 200 mcg PO DAILY #90 tab 02/15/20 03/01/20 Rx levothyroxine 25 mcg tablet 25 mcg PO DAILY #90 tab 02/15/20 03/01/20 Rx trazodone 50 mg tablet 50 mg PO DAILY #90 tab 02/15/20 03/01/20 Rx Past Med/Surg History Medical History Acquired hypothyroidism (12/24/12) Acute colitis Anticoagulant long-term use Arthritis Asthma Atrial fibrillation DX'D 2018 -F/U DR SHARMA Atrial fibrillation, permanent 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 Breast cancer Calcific tendinitis of left shoulder Cataract (08/19/12) Cholelithiasis (08/19/12) Chronic back pain Colitis DCIS (ductal carcinoma in situ) of breast Depression with anxiety Dysphagia Fatigue Gastrocnemius strain GERD (gastroesophageal reflux disease) Hearing loss Bilateral Hearing Aids Hyperlipidemia Hypertension Hypokalemia Hypomagnesemia Hypothyroidism Intestinal obstruction Intraductal carcinoma of right breast Lumbar canal stenosis Lumbar radiculopathy Obesity Osteoarthritis Peripheral neuropathy Polyneuropathy SOB (shortness of breath) on exertion Stenosis, cervical spine Syncope Surgical History H/O tubal ligation 1996 History of appendectomy 1968 History of cataract surgery 2014 - R/L History of cholecystectomy 2007 History of colonoscopy (~07/2018) History of partial mastectomy History of right breast biopsy malignant History of total abdominal hysterectomy and bilateral salpingo-oophorectomy Hx of fusion of cervical spine 2005--normal ROM Hx of hand surgery - LEFT-CYST REMOVED/BONE FUSION Hx of lumpectomy RIGHT LUMPECTOMY 2018 S/P partial mastectomy Right - 04/19/18 Family History Brother Diabetes Father Heart disease Mother Heart disease Diabetes Hypertension Other No family history of adverse response to anesthesia Unknown family medical history Social History Smoking Status: Never smoker Second Hand Exposure: No; Do You Dip or Chew Tobacco: No; Tobacco Cessation Education Requested by Patient: No Hx Alcohol Use: No Hx Substance Use: No Preferred Language: Mauritian Communication Ability: Effective Visual Impairment: Limited Hearing Ability: Use of Hearing Aid Outsole Cutter Machine Required: No Beliefs That Will Affect Care: None marital status: Current Living Situation: Spouse current occupational status: retired 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 Other Information That Helps Us Care for You: No Feels Safe at Home: Yes Safety Concerns: Feels Safe At This Time Childhood Exposure to Second-Hand Smoke: Yes caffeine: Yes (2-3 Cups of coffee/day ) during the past year weight has: remained stable Physical Activity Frequency: Daily Physical Activity Frequency Comment: walking, 60 minutes Seatbelt Use: always Sunscreen Use: Yes Assistive Devices: None Assistive Devices Comment: hearing aids at home Review of Systems Review of Systems: The patient denies palpitations, lower extremity swelling, sore throat, fevers, chills, sweats, nausea, vomiting, diarrhea , constipation, abdominal pain, pelvic pain, blood in urine or stool, dysuria, urinary frequency or urgency, lightheadedness, dizziness, headache, memory loss, loss of consciousness, rash, abnormal bruising or bleeding, imbalance, focal or generalized weakness, numbness or tingling in arms or legs, generalized arthralgias or myalgias, back or neck pain, or night sweats. The review of systems is otherwise negative other than for that already noted above, and at least 10 systems have been reviewed. Physical Exam Physical Exam: The patient is awake, alert and oriented 3, well developed and well nourished, normocephalic and atraumatic, lying in bed and in no acute distress. HEENT--PERRL, EOMI, mucous membranes and oropharynx normal. Neck--supple. No JVD. No bruits. Thyroid normal, trachea midline, no adenopathy. Heart--normal S1 and S2. No murmurs, rubs or gallops. Lungs--clear bilaterally, no respiratory distress, no accessory muscle use. Abdomen--normal bowel sounds and soft. Nontender. Nondistended. Extremities--no cyanosis or clubbing. No edema. Dermatologic--normal skin turgor, normal color, no abnormal lymph nodes, no rash. Neurologic--cranial nerves II through XII grossly intact. Rheumatologic--normal range of motion. Psychiatric--normal affect. Results & Data Results & Data ([facility]) Vital Signs (Past 12 Hours) Vital Signs Temp Pulse Pulse Resp BP BP Pulse Ox 03/01/20 19:11 94 H 22 120/81 95 03/01/20 17:59 83 16 116/59 L 95 03/01/20 16:07 98.1 F 90 22 110/75 95 Laboratory Results Laboratory Results WBC 4.44 K/uL (4.8-10.8) L 03/01/20 16:21 RBC 4.29 M/uL (4.2-5.4) 03/01/20 16:21 Hgb 13.2 g/dL (12.0-16.0) 03/01/20 16:21 Hct 40.5 % (37-47) 03/01/20 16:21 MCV 94.4 fL (80-100) 03/01/20 16:21 MCH 30.8 pg (25-34) 03/01/20 16:21 MCHC 32.6 g/dL (32-36) 03/01/20 16:21 RDW Std Deviation 47.2 fL (36.4-46.3) H 03/01/20 16:21 RDW Coeff of Kal 13.9 % (11.5-14.5) 03/01/20 16:21 Plt Count 241 K/uL (130-400) 03/01/20 16:21 MPV 10.2 fL (7.4-10.4) 03/01/20 16:21 Immature Gran % (Auto) 0.0 % 03/01/20 16:21 Neut % (Auto) 44.8 % 03/01/20 16:21 Lymph % (Auto) 34.0 % 03/01/20 16:21 Mckean % (Auto) 13.1 % 03/01/20 16:21 Eos % (Auto) 6.3 % 03/01/20 16:21 Baso % (Auto) 1.8 % 03/01/20 16:21 Neut # (Auto) 1.99 K/uL (1.4-6.5) 03/01/20 16:21 Lymph # (Auto) 1.51 K/uL (1.2-3.4) 03/01/20 16:21 Mckean # (Auto) 0.58 K/uL (0.11-0.59) 03/01/20 16:21 Eos # (Auto) 0.28 K/uL (0-0.5) 03/01/20 16:21 Baso # (Auto) 0.08 K/uL (0-0.2) 03/01/20 16:21 Immature Gran # (Auto) 0.00 K/uL (0.00-0.02) 03/01/20 16:21 PT 12.4 Seconds (9.0-12.0) H 03/01/20 17:49 INR 1.2 (0.9-1.1) H 03/01/20 17:49 APTT 28.2 Seconds (21.0-31.0) 03/01/20 17:49 PTT Ratio 1.0 03/01/20 17:49 Sodium 143 mmol/L (136-145) 03/01/20 16:21 Potassium 3.6 mmol/L (3.5-5.1) 03/01/20 16:21 Chloride 112 mmol/L (98-107) H 03/01/20 16:21 Carbon Dioxide 25 mmol/L (21-32) 03/01/20 16:21 Anion Gap 6.0 (3-11) 03/01/20 16:21 BUN 10 mg/dl (7-18) 03/01/20 16:21 Creatinine 0.82 mg/dl (0.6-1.2) 03/01/20 16:21 Est Cr Clr Drug Dosing 61.6 ml/min 03/01/20 16:21 Est GFR ( Amer) 84.0 03/01/20 16:21 Est GFR (Non-Af Amer) 72.5 03/01/20 16:21 BUN/Creatinine Ratio 12.6 (10-20) 03/01/20 16:21 Glucose 87 mg/dl (70-99) 03/01/20 16:21 Calcium 9.2 mg/dl (8.5-10.1) 03/01/20 16:21 Total Bilirubin 0.5 mg/dl (0.2-1) 03/01/20 16:21 AST 35 U/L (15-37) 03/01/20 16:21 ALT 33 U/L (12-78) 03/01/20 16:21 Alkaline Phosphatase 112 U/L (45-117) 03/01/20 16:21 Troponin I < 0.015 ng/ml (0-0.045) 03/01/20 16:21 Total Protein 6.9 gm/dl (6.4-8.2) 03/01/20 16:21 Albumin 3.2 gm/dl (3.4-5.0) L 03/01/20 16:21 Globulin 3.6 gm/dl (2.5-4.0) 03/01/20 16:21 Albumin/Globulin Ratio 0.9 (0.9-2) 03/01/20 16:21 Diagnostic Findings [facility], [place] [phone] XRay Report Patient: CONNIE FOSTER Date: 03/01/20 MR#: [id number]: [address] Acct ID:[id number]: Date: 1950ty Zip: [place] [id number] Age: 69Location: ED Sex: FRoom/Bed: Att Phy:Diagnosis: CHEST PAIN Letitia Phy: Ivan Victoria, III, MDService Date: 03/01/20 Fam Phy:Interpreting Phy: Dio Foster MD Admit Phy: Ordering Phy: Chadd Brower M.D. cc: ~ XR chest 1V portable HISTORY: Atypical Chest Pain COMPARISON: Chest 02/02/2020. FINDINGS: No pneumothorax. Trace bilateral pleural effusions. The heart remains mildly enlarged. There is slight progression of the interstitial and vascular thickening consistent with developing congestive change. Cervical spinal fusion hardware is again noted. No new focal lung consolidations to suggest pneumonia. IMPRESSION: Interval progression of the mild congestive change and trace bilateral pleural effusions. ACT 112: Negative or not required by law. Electronically signed by: Dio Foster M.D. 03/01/2020 5:36 PM Dictated: 03/01/20 1735 Transcribed: 03/01/20 1735 Code Status & VTE Plan Code Status Full code VTE Prophylaxis Plan VTE Prophylaxis will be ordered: Yes PG Care Time/CCT Total # of Minutes Spent Total Time Spent with Patient: Total time spent is greater than 50% in coordination of care (as documented) at patient's floor/unit and/or counseling patient: Coding Level of Care Code 11008 Initial Inpt Care Lvl 3 Diagnoses Chest pain R07.9 Chest pain type: unspecified Atrial fibrillation I48.11 Atrial fibrillation type: longstanding persistent care home (current) use of anticoagulants Z79.01 CHF (congestive heart failure) I50.9 Heart failure chronicity: acute Heart failure type: unspecified Hypothyroidism E03.9 Depression with anxiety F41.8 Polyneuropathy G62.9 Hyperlipidemia LDL goal <70 E78.5 (1) Chest pain Chest pain type: unspecified Qualified Code(s): R07.9 - Chest pain, unspecified (2) Atrial fibrillation Atrial fibrillation type: longstanding persistent Qualified Code(s): I48.11 - Longstanding persistent atrial fibrillation (3) CHF (congestive heart failure) Heart failure chronicity: acute Heart failure type: unspecified Qualified Code(s): I50.9 - Heart failure, unspecified
[2020-03-01] MEDS ORDERED: TRAZODONE HCL 50 MG TAB PO SCH (21:13)
[2020-03-01] MEDS ORDERED: SIMVASTATIN 20 MG TAB PO SCH (21:16)
[2020-03-01] MEDS ORDERED: ONDANSETRON INJ 2 MG/ML 2 ML VIAL IV PRN (21:16)
[2020-03-01] MEDS ORDERED: ACETAMINOPHEN 325 MG TAB PO PRN (21:16)
[2020-03-01] MEDS ORDERED: ALUMINUM/MAGNESIUM SUSP 30 ML UDC PO PRN (21:16)
[2020-03-01] MEDS ORDERED: MAGNESIUM HYDROXIDE SUSP 30 ML UDC PO PRN (21:16)
[2020-03-01] MEDS: GABAPENTIN 800 MG TAB PO SCH (22:32)
[2020-03-01] MEDS: METOPROLOL TARTRATE 25 MG TAB PO SCH (22:32)
[2020-03-01] MEDS: APIXABAN 5 MG TABLET PO SCH (22:33)
[2020-03-02 01:55] LABS: Basophils # (auto) 0.05 K/uL (0-0.2); Basophils % (auto) 0.9 %; Eosinophils # (auto) 0.31 K/uL (0-0.5); Eosinophils % (auto) 5.7 %; Hematocrit (blood only) 37.6 % (37-47); Hemoglobin 12.6 g/dL (12.0-16.0); Lymphocytes # (auto) 1.56 K/uL (1.2-3.4); Lymphocytes % (auto) 28.9 %; Mean Corpuscular Hemoglobin 31.5 pg (25-34); Mean Corpuscular Hgb Conc 33.5 g/dL (32-36); Mean Platelet Volume 10.4 fL (7.4-10.4); Monocytes # (auto) 0.68 K/uL (0.11-0.59); Monocytes % (auto) 12.6 %; Neutrophils % (auto) 51.9 %; Platelet Count 199 K/uL (130-400); RDW Coefficient of Variation 13.7 % (11.5-14.5)
[2020-03-02 02:21] LABS: Albumin Level 2.9 gm/dl (3.4-5.0); BUN Creatinine Ratio 13.6 (10-20); Calcium 8.5 mg/dl (8.5-10.1); Creatinine Clr Calc Pharmacy 68.6 ml/min; Est GFR (African American) 96.7; Est GFR (Non-African American) 83.4; Magnesium 1.9 mg/dl (1.8-2.4); Phosphorus 3.5 mg/dl (2.5-4.9); Potassium 3.2 mmol/L (3.5-5.1)
[2020-03-02] MEDS ORDERED: LEVOTHYROXINE SODIUM 25 MCG TABLET PO SCH (06:30)
[2020-03-02] MEDS ORDERED: LEVOTHYROXINE SODIUM 200 MCG TABLET PO SCH (06:30)
[2020-03-02] MEDS: APIXABAN 5 MG TABLET PO SCH (08:54)
[2020-03-02] MEDS: GABAPENTIN 800 MG TAB PO SCH (08:54)
[2020-03-02] MEDS: METOPROLOL TARTRATE 25 MG TAB PO SCH (08:54)
[2020-03-02] MEDS ORDERED: lisinopriL 40 MG TAB PO SCH (09:00)
[2020-03-02] MEDS ORDERED: PARoxetine HCL 20 MG TAB PO SCH (09:00)
--- NOTE | 2020-03-02 13:26 | Discharge Summary ---
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 She presents with the above symptoms. In the emergency department, she was billed to have some fluid overload, and was given Lasix 20 mg IV by the ED. She of note was COVID-19 negative on 01/16/2020. She denies any recent travels or sick exposures. Principal Diagnosis CHF exacerbation Discharge Exam Constitutional WD/WN, vitals as above Eyes PERRL, conjunctivae normal, anicteric sclerae ENMT external ear and nose normal, oropharynx normal Respiratory normal respiratory effort, lungs clear to auscultation Cardiovascular Rate/Rhythm: regular rate and + irregularly irregular Heart Sounds: no gallop, no murmur and no cardiac rub Extremities: no pedal edema Gastrointestinal (Abdomen) normal bowel sounds, soft, nontender, no hepatosplenomegaly Skin no rashes, warm and dry Psychiatric A+Ox3, euthymic affect Discharge Data Allergies Allergy/AdvReac Type Severity Reaction Status Date / Time bee venom protein (honey bee) Allergy swollen, Verified 03/01/20 19:39 itchy adhesive AdvReac Mild RED SKIN Verified 03/01/20 19:39 WITH BANDAIDS house dust AdvReac Watery Eye Verified 03/01/20 19:39 Consultations 03/01/20 18:41 ED Decision to Admit Stat 03/01/20 21:16 Consult Cardiology Routine Consult Case Management - Discharge Planning Routine Hospital Course (1) CHF (congestive heart failure): Anjali Padilla is a 69y/o F with a past medical history including CHF, orthostasis, hypothyroidism, 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 CHF: - monitored serial cardiac enzymes, serial EKG's, cardiac rhythm monitoring - received Lasix 20mg IV in ED - 2D echo pending on discharge - continue lisinopril 40mg daily, metoprolol tartrate 20mg daily, and Eliquis 5mg BID - discontinued HCTZ, started on Lasix 10mg BID - should have BMP in the next week to monitor for electrolyte abnormalities on new diuretic A. fibrillation: - continue home regimen Hyperlipidemia: - continue simvastatin 20mg Hypothyroidism: - continue levothyroxine 22mcg (2) Atrial fibrillation: (3) Hyperlipidemia LDL goal <70: (4) Hypothyroidism: Total Time Total Time Spent Total Time Spent (In Minutes): 30 Discharge Plan Discharge Items Patient Disposition: Home - Self-Care Reason For Visit: CHEST PAIN, SOB, ATRIAL FIB Discharge Diagnosis: CHF exacerbation Activity: Per Instructions section Non-emergency contact: Primary Care Provider Call non-emergency contact if: you have any medication questions and your symptoms worsen Follow-up/Referrals: Ivan Victoria III, MD [Primary Care Provider] - 03/08/20 9:00 am Diet: Heart Healthy and Low Sodium (2gm) Addtl Attending Provider Instructions: You were seen and admitted for a worsening of your congestive heart failure after having an increase in the amounts of sodium that you consume on a daily basis. This increase in salt comes more frequently not from the extra salt added to your food, but from the sodium that is incorporated into your meals previously. We are stopping the HCTZ of your medications and starting a low dose diuretic in it's place that you should take every day. Next week, you should have follow-up with Dr. Victoria and lab work to monitor your electrolytes. Pending Studies at Discharge: No Stand-Alone Forms: My [facility], Smoking Cessation Medications and DC Order Prescriptions: New furosemide [Lasix] 20 mg tablet 10 mg PO DAILY 30 Days Qty: 15 RF: 0 Continued Eliquis 5 mg tablet 5 mg PO BID Qty: 180 RF: 3 levothyroxine 25 mcg tablet 25 mcg PO DAILY Qty: 90 RF: 3 levothyroxine 200 mcg tablet 200 mcg PO DAILY Qty: 90 RF: 3 trazodone 50 mg tablet 50 mg PO DAILY Qty: 90 RF: 3 lisinopril 40 mg tablet 40 mg PO DAILY RF: 0 metoprolol tartrate 25 mg tablet 25 mg PO BID Qty: 180 RF: 3 simvastatin 20 mg tablet 20 mg PO QPM Qty: 90 RF: 0 paroxetine HCl 20 mg tablet 20 mg PO QAM Qty: 90 RF: 3 albuterol sulfate 90 mcg/actuation Hfa Aerosol Inhaler 2 puff INHALATION Q6H PRN (Reason: Wheezing) RF: 0 gabapentin 800 mg tablet 800 mg PO BID RF: 0 Discontinued hydrochlorothiazide 25 mg tablet 25 mg PO QAM RF: 0 Discharge Orders: Discharge Order (Routine); Ordered 03/02/20 Ordered By: Apollo Berrios Admission Data Admit Date/Time: 03/01/20 19:50 Attending Provider: Damon Garcia Admit Provider: Cam Brownlee Primary Care Provider: Ivan Victoria III Other Providers: Cam Brownlee Other Interventions: Discharge Summary Assessment (RN) Last Done: 03/02/20 13:29 Supervising Physician Co-Signing Physician Notes I personally examined the patient and verified all joseph points of history and exam, discussed case, and agree with decision making with Dr Berrios. feeling better up to going home wants to go home vitals noted nad heent nc at mmm breathing unlabored no accessory muscles good effort skin no rashes no pallor or icterus neuro no focal deficits HFpEF - acute on chronic - from hot dogs sodium load fluid retention - stable for home. educated on Na. otherwise as above Resident Activity Tracking Resident Involvement: Resident Care Provided Care Provided: Adult Hospital Medicine
--- NOTE | 2020-03-02 18:06 | Billing Data ---
Date of Service March 02, 2020 Coding Level of Care Code 37970 OBS Care - Discharge
--- NOTE | 2020-03-02 18:49 | XCELERA ---
[id number] \\[id number]
--- NOTE | 2020-03-02 22:06 | Electrocardiogram Report ---
Test Reason : Blood Pressure : / mmHG Vent. Rate : 087 BPM Atrial Rate : 085 BPM P-R Int : 000 ms QRS Dur : 080 ms QT Int : 396 ms P-R-T Axes : 000 037 035 degrees QTc Int : 476 ms Atrial fibrillation with premature ventricular or aberrantly conducted complexes Low voltage QRS Incomplete right bundle branch block Abnormal ECG When compared with ECG of 02-FEB-2020 15:31, No significant change Confirmed by Bryan Dukes ([id number]) on 03/02/2020 10:06:08 PM Referred By: REFERRED SELF Confirmed By:Bryan Dukes
--- NOTE | 2020-03-02 22:35 | Electrocardiogram Report ---
Test Reason : Blood Pressure : / mmHG Vent. Rate : 064 BPM Atrial Rate : 000 BPM P-R Int : 000 ms QRS Dur : 082 ms QT Int : 422 ms P-R-T Axes : 000 036 050 degrees QTc Int : 435 ms Atrial fibrillation Low voltage QRS Nonspecific ST abnormality Abnormal ECG When compared with ECG of 01-MAR-2020 16:17, No significant change Confirmed by Bryan Dukes ([id number]) on 03/02/2020 10:35:03 PM Referred By: REFERRED SELF Confirmed By:Bryan Dukes
== END 2020-03-02 14:07 | disposition home or self-care (01) ==
LOC: ED 16:02 → 2S 16:02 → SUATTDRO 19:50 → 2S 20:50
DX: Z79.899 Other long term (current) drug therapy; Z68.32 Body mass index [BMI] 32.0-32.9, adult; E03.9 Hypothyroidism, unspecified; Z79.51 Long term (current) use of inhaled steroids; F32.9 Major depressive disorder, single episode, unspecified; Z88.8 Allergy status to other drugs, medicaments and biological substances; I50.9 Heart failure, unspecified; Z91.030 Bee allergy status; J45.909 Unspecified asthma, uncomplicated; M19.90 Unspecified osteoarthritis, unspecified site; E66.9 Obesity, unspecified; Z79.01 Long term (current) use of anticoagulants; I48.21 Permanent atrial fibrillation; Z79.890 Hormone replacement therapy; E78.5 Hyperlipidemia, unspecified

== ENCOUNTER 2020-04-02 13:07 | Observation (INO) ==
[2020-04-02] MEDS ORDERED: ALBUTEROL HFA 8 GM INHALER INH ONE (13:56)
[2020-04-02] MEDS ORDERED: SODIUM CHLORIDE 0.9% 500 ML IV ONE (13:56)
--- NOTE | 2020-04-02 14:00 | Emergency Department Note ---
Impression & Plan Atrial fibrillation with rapid ventricular response, Breath shortness, Cough, Viral URI, Asthma ED Provider Note NAME: CONNIE FOSTER AGE: 69 SEX: F : 1950 ARRIVES VIA: Walk-In INFORMANT: Patient ED PROVIDER(S): Damon Westfall DO CHIEF COMPLAINT: Cough, runny nose, shortness of breath HPI: Patient is a 69-year-old female who presents to the ER for upper r espiratory symptoms that started yesterday. She notes she has a history of asthma. She started with a nonproductive cough. She denies any fevers. She has diffuse myalgias and arthralgias. She has been having a runny nose as well. She admits to headache 3 out of 10 located in the frontal region. She has no stiffness in her neck. No belly pain, nausea, vomiting or diarrhea with the exception of when she coughs she has some soreness in her abdomen. She admits to some urinary frequency but no dysuria. She called her PCP who referred her in for further evaluation. She takes Eliquis and has not missed any doses. She also admits to a 10 pound weight gain in the past week. She has swelling in her legs. ROS: See above HPI for pertinent positives & negatives. A total of 10 systems reviewed and were otherwise negative. PAST MEDICAL HISTORY:See Below PAST SURGICAL HISTORY:See Below FAMILY HISTORY:See Below SOCIAL HISTORY:See Below HOME MEDICATIONS:See Below ALLERGIES:See Below VITALS:See Below PHYSICAL EXAMINATION: GENERAL: Sitting up in bed, alert, with a persistent cough, nontoxic EYE EXAM: normal conjunctiva. OROPHARYNX: no exudate, no erythema, lips, buccal mucosa, and tongue normal and mucous membranes are moist NECK: supple, no nuchal rigidity, no adenopathy, non-tender LUNGS: Clear to auscultation. Normal chest wall mechanics HEART: no murmurs, S1 normal and S2 normal ABDOMEN: abdomen soft, non-tender, normo-active bowel sounds, no masses, no rebound or guarding. BACK: Back is symmetrical on inspection and there is no deformity, no midline tenderness, no CVA tenderness. UPPER EXTREMITIES: upper extremities are grossly normal. LOWER EXTREMITIES: No pitting edema. Pitting edema bilateral lower extremities NEURO EXAM: Normal sensorium, cranial nerves II-XII grossly intact, normal speech, no gross weakness of arms, no gross weakness of legs. MEDICAL DECISION MAKING: Patient is a 69-year-old female who presents ER for shortness of breath. She has a past medical history of asthma. She is dyspneic with conversation. IV was established blood work was obtained. Labs show no significant leukocytosis or anemia. INR was unremarkable. BMP along with LFTs bilirubin was unremarkable. Troponin was negative. Covid was negative. Chest x-ray without any focal infiltrate. She was given an inhaler 6 puffs initially as is concern for Covid. This did improve her symptoms but she was still dyspneic. She was given IV steroids. She was in A. fib with RVR with a heart rate in the 130s. She was given Cardizem bolus and placed on Cardizem drip. She was updated bedside. Discussed with hospitalist for further evaluation. She has not missed any doses of her Eliquis. Triage Nursing notes reviewed. Prior medical records reviewed Vital Signs: reviewed and remarkable for tachy Differential diagnosis: Differential diagnoses includes but is not limited to pneumonia, bronchitis, COPD/Asthma exacerbation, pneumothorax, pulmonary embolism, congestive heart failure, acute coronary syndrome ER treatment provided: See below Diagnostics interpreted by me: ECG: A. fib with RVR rate of 125 Normal axis No PVCs Right bundle branch block T wave inversion V1 through V3 Cardiac Monitoring: An order was placed for continuous cardiac monitoring. The monitor shows a rate of 120 with aib RVRF rhythm. Laboratory studies: As stated above and show below. Imaging studies: Portable AP upright 1 view of the chest shows no focal infiltrate Consultation(s): Discussed with the hospitalist for further evaluation ED COURSE: Procedures: none Critical Care: I have personally spent 35 minutes of critical care time in the direct management of this patient. This includes bedside care, interpretation of diagnostic studies, and testing, discussion with consultants, patient, and family members, and other required patient management activities. This 35 minutes is in excess of all separately billable procedures. Past Med/Surg History Medical History (Updated 04/02/20 @ 17:51 by Damon Westfall DO) Acquired hypothyroidism (12/24/12) Acute colitis Allergic rhinitis Anticoagulant long-term use Arthritis Asthma Atrial fibrillation DX'D 2018 -F/U DR SHARMA Atrial fibrillation, permanent 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 Breast cancer Calcific tendinitis of left shoulder Cataract (08/19/12) Cholelithiasis (08/19/12) Chronic back pain Colitis DCIS (ductal carcinoma in situ) of breast Depression with anxiety Dysphagia Fatigue Gastrocnemius strain GERD (gastroesophageal reflux disease) Hearing loss Bilateral Hearing Aids Hyperlipidemia Hypertension Hypokalemia Hypomagnesemia Hypothyroidism Intestinal obstruction Intraductal carcinoma of right breast Lumbar canal stenosis Lumbar radiculopathy Obesity Osteoarthritis Peripheral neuropathy Polyneuropathy SOB (shortness of breath) on exertion Stenosis, cervical spine Syncope Surgical History H/O tubal ligation 1996 History of appendectomy 1968 History of cataract surgery 2014 - R/L History of cholecystectomy 2007 History of colonoscopy (~07/2018) History of partial mastectomy History of right breast biopsy malignant History of total abdominal hysterectomy and bilateral salpingo-oophorectomy Hx of fusion of cervical spine 2005--normal ROM Hx of hand surgery s - LEFT-CYST REMOVED/BONE FUSION Hx of lumpectomy RIGHT LUMPECTOMY 2018 S/P partial mastectomy Right - 04/19/18 Family History Brother Diabetes Father Heart disease Mother Heart disease Diabetes Hypertension Other No family history of adverse response to anesthesia Unknown family medical history Social History Smoking Status: Never smoker Second Hand Exposure: No; Hx Alcohol Use: No Hx Substance Use: No Preferred Language: Mohawk Communication Ability: Effective Visual Impairment: Limited Hearing Ability: Use of Hearing Aid Residential Remodeling Subcontractor Required: No Beliefs That Will Affect Care: None marital status: Current Living Situation: Spouse current occupational status: retired 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 [employer] Feels Safe at Home: Yes Childhood Exposure to Second-Hand Smoke: Yes caffeine: Yes (2-3 Cups of coffee/day ) during the past year weight has: remained stable Physical Activity Frequency: Daily Physical Activity Frequency Comment: walking, 60 minutes Seatbelt Use: always Sunscreen Use: Yes Assistive Devices: None Allergies Allergies Allergy/AdvReac Type Severity Reaction Status Date / Time bee venom protein (honey bee) Allergy Intermediate swollen, Verified 04/02/20 15:55 itchy adhesive AdvReac Mild RED SKIN Verified 04/02/20 15:55 WITH BANDAIDS house dust AdvReac Mild Watery Eye Verified 04/02/20 15:55 Home Meds Home Medications Medication Instructions Recorded Confirmed albuterol sulfate 2 puff INHALATION Q6H PRN 04/05/18 04/02/20 simvastatin 20 mg tablet 20 mg PO QPM #90 tab 12/17/18 04/02/20 gabapentin 800 mg tablet 800 mg PO BID tab 02/13/20 04/02/20 lisinopril 40 mg tablet 40 mg PO DAILY tab 02/13/20 04/02/20 furosemide [Lasix] 10 mg PO DAILY 04/02/20 04/02/20 trazodone 50 mg PO HS 04/02/20 04/02/20 Previous Rx's Medication Instructions Recorded apixaban 5 mg tablet 5 mg PO BID #180 tab 12/13/18 paroxetine HCl 20 mg tablet 20 mg PO QAM #90 tab 03/31/19 metoprolol tartrate 25 mg tablet 25 mg PO BID #180 tab 02/10/20 levothyroxine 175 mcg capsule 175 mcg PO DAILY #30 cap 03/12/20 Results & Data (ED) Vital Signs Vital Signs - 24 hr 04/02/20 13:13 04/02/20 14:14 04/02/20 14:15 Pulse Rate 126 H 117 H 111 H Pulse Rate from SpO2 Sensor 115 H Respiratory Rate 22 16 20 Respiratory Effort / Characteristics Non-Labored Spontaneous Respiratory Depth Normal Respiratory Pattern Regular Blood Pressure 137/79 Blood Pressure Mean 98 Blood Pressure Position Sitting Pulse Oximetry 95 96 97 Oxygen Delivery Method Room Air Room Air Room Air Sepsis Recent Fever Within 48 Hours Yes Sepsis New/Unexplained Change in Mental Status N/A Sepsis Action Taken by Nursing No Action Required 04/02/20 14:30 04/02/20 14:35 04/02/20 15:00 Pulse Rate 113 H 118 H 115 H Pulse Rate from SpO2 Sensor 120 H 111 H Respiratory Rate 22 24 22 Respiratory Effort / Characteristics Respiratory Depth Respiratory Pattern Blood Pressure 153/75 H 137/79 Blood Pressure Mean 103 100 Blood Pressure Position Pulse Oximetry 95 93 Oxygen Delivery Method Sepsis Recent Fever Within 48 Hours Sepsis New/Unexplained Change in Mental Status Sepsis Action Taken by Nursing 04/02/20 15:30 04/02/20 16:02 04/02/20 16:32 Pulse Rate 115 H 105 H 107 H Pulse Rate from SpO2 Sensor 115 H Respiratory Rate 24 20 21 Respiratory Effort / Characteristics Respiratory Depth Respiratory Pattern Blood Pressure 146/90 H 136/73 132/66 Blood Pressure Mean 108 83 81 Blood Pressure Position Pulse Oximetry 100 95 96 Oxygen Delivery Method Room Air Room Air Sepsis Recent Fever Within 48 Hours Sepsis New/Unexplained Change in Mental Status Sepsis Action Taken by Nursing 04/02/20 17:00 Pulse Rate 100 H Pulse Rate from SpO2 Sensor Respiratory Rate 22 Respiratory Effort / Characteristics Respiratory Depth Respiratory Pattern Blood Pressure 120/72 Blood Pressure Mean 94 Blood Pressure Position Pulse Oximetry 97 Oxygen Delivery Method Room Air Sepsis Recent Fever Within 48 Hours Sepsis New/Unexplained Change in Mental Status Sepsis Action Taken by Nursing Laboratory Data Result diagrams: 04/02/20 14:25 04/02/20 14:25 Lab Results 04/02/20 04/02/20 04/02/20 Range/Units 14:20 14:20 14:25 WBC 9.32 (4.8-10.8) K/uL RBC 4.07 L (4.2-5.4) M/uL Hgb 12.7 (12.0-16.0) g/dL Hct 38.1 (37-47) % MCV 93.6 (80-100) fL MCH 31.2 (25-34) pg MCHC 33.3 (32-36) g/dL RDW Std Deviation 45.7 (36.4-46.3) fL RDW Coeff of Kal 13.3 (11.5-14.5) % Plt Count 194 (130-400) K/uL MPV 10.8 H (7.4-10.4) fL Immature Gran % (Auto) 0.2 % Neut % (Auto) 82.1 % Lymph % (Auto) 9.0 % Worth % (Auto) 8.0 % Eos % (Auto) 0.1 % Baso % (Auto) 0.6 % Neut # (Auto) 7.64 H (1.4-6.5) K/uL Lymph # (Auto) 0.84 L (1.2-3.4) K/uL Worth # (Auto) 0.75 H (0.11-0.59) K/uL Eos # (Auto) 0.01 (0-0.5) K/uL Baso # (Auto) 0.06 (0-0.2) K/uL Immature Gran # (Auto) 0.02 (0.00-0.02) K/uL PT (9.0-12.0) Seconds INR (0.9-1.1) APTT (21.0-31.0) Seconds PTT Ratio Sodium (136-145) mmol/L Potassium (3.5-5.1) mmol/L Chloride (98-107) mmol/L Carbon Dioxide (21-32) mmol/L Anion Gap (3-11) BUN (7-18) mg/dl Creatinine (0.6-1.2) mg/dl Est Cr Clr Drug Dosing ml/min Est GFR ( Amer) Est GFR (Non-Af Amer) BUN/Creatinine Ratio (10-20) Glucose (70-99) mg/dl Lactate (0.4-2.0) mmol/L Calcium (8.5-10.1) mg/dl Magnesium (1.8-2.4) mg/dl Total Bilirubin (0.2-1) mg/dl AST (15-37) U/L ALT (12-78) U/L Alkaline Phosphatase (45-117) U/L Troponin I (0-0.045) ng/ml Total Protein (6.4-8.2) gm/dl Albumin (3.4-5.0) gm/dl Globulin (2.5-4.0) gm/dl Albumin/Globulin Ratio (0.9-2) COVID-19 Eval Order Covid19 Done at [facility] COVID-19 PCR NEGATIVE (Negative) 04/02/20 04/02/20 04/02/20 Range/Units 14:25 14:25 14:25 WBC (4.8-10.8) K/uL RBC (4.2-5.4) M/uL Hgb (12.0-16.0) g/dL Hct (37-47) % MCV (80-100) fL MCH (25-34) pg MCHC (32-36) g/dL RDW Std Deviation (36.4-46.3) fL RDW Coeff of Kal (11.5-14.5) % Plt Count (130-400) K/uL MPV (7.4-10.4) fL Immature Gran % (Auto) % Neut % (Auto) % Lymph % (Auto) % Worth % (Auto) % Eos % (Auto) % Baso % (Auto) % Neut # (Auto) (1.4-6.5) K/uL Lymph # (Auto) (1.2-3.4) K/uL Worth # (Auto) (0.11-0.59) K/uL Eos # (Auto) (0-0.5) K/uL Baso # (Auto) (0-0.2) K/uL Immature Gran # (Auto) (0.00-0.02) K/uL PT 13.1 H (9.0-12.0) Seconds INR 1.3 H (0.9-1.1) APTT 29.3 (21.0-31.0) Seconds PTT Ratio 1.1 Sodium 140 (136-145) mmol/L Potassium 3.7 (3.5-5.1) mmol/L Chloride 107 (98-107) mmol/L Carbon Dioxide 26 (21-32) mmol/L Anion Gap 7.0 (3-11) BUN 12 (7-18) mg/dl Creatinine 0.73 (0.6-1.2) mg/dl Est Cr Clr Drug Dosing 67.6 ml/min Est GFR ( Amer) 96.7 Est GFR (Non-Af Amer) 83.4 BUN/Creatinine Ratio 16.4 (10-20) Glucose 90 (70-99) mg/dl Lactate 1.7 (0.4-2.0) mmol/L Calcium 8.8 (8.5-10.1) mg/dl Magnesium 1.9 (1.8-2.4) mg/dl Total Bilirubin 0.9 (0.2-1) mg/dl AST 42 H (15-37) U/L ALT 41 (12-78) U/L Alkaline Phosphatase 119 H (45-117) U/L Troponin I < 0.015 (0-0.045) ng/ml Total Protein 6.8 (6.4-8.2) gm/dl Albumin 3.3 L (3.4-5.0) gm/dl Globulin 3.5 (2.5-4.0) gm/dl Albumin/Globulin Ratio 0.9 (0.9-2) COVID-19 Eval Order COVID-19 PCR (Negative) Administered Medications Diltiazem HCl 125 mg/ Dextrose 125 mls @ 5 mls/hr IV .Q24H [facility]; Protocol Stop: 05/02/20 15:29 Last Admin: 04/02/20 16:04 Dose: 5 mg/hr, 5 mls/hr Documented by: [id number] Cosigned by: [id number] Discontinued Medications Albuterol (Albuterol Hfa 8 Gm Inhaler) 6 puffs INH NOW ONE Stop: 04/02/20 13:57 Last Admin: 04/02/20 14:22 Dose: 6 puffs Documented by: [id number] Benzonatate (Benzonatate 100 Mg Capsule) 100 mg PO NOW ONE Stop: 04/02/20 16:52 Last Admin: 04/02/20 17:05 Dose: 100 mg Documented by: [id number] Diltiazem HCl (Diltiazem Hcl 5 Mg/Ml 5 Ml Vial) 10 mg IV NOW STA Stop: 04/02/20 15:19 Last Admin: 04/02/20 16:04 Dose: 10 mg Documented by: [id number] Cosigned by: [id number] Sodium Chloride (Nss) 500 mls @ 999 mls/hr IV .Q31M ONE Stop: 04/02/20 14:26 Last Infusion: 04/02/20 14:53 Dose: 0 mls/hr Documented by: [id number] Admin: 04/02/20 14:22 Dose: 999 mls/hr Documented by: [id number] Methylprednisolone (Methylprednisolone 125 Mg/2 Ml Vial) 60 mg IV NOW STA Stop: 04/02/20 15:36 Last Admin: 04/02/20 15:59 Dose: 60 mg Documented by: [id number] Miscellaneous (Stat Iv Infusion Titration Per Protocol) 1 ea N/A NOW STA Stop: 04/02/20 15:19 Last Admin: 04/02/20 15:40 Dose: Not Given Documented by: [id number] Discharge Plan Visit Data Chief Complaint: Shortness of Breath/Dyspnea Stated Complaint: SOB, ACHY ED Provider: Damon Westfall Discharge Problem: Atrial fibrillation with rapid ventricular response, Breath shortness, Cough, Viral URI, Asthma Discharge Instructions Krames/Other Patient Handouts: 2019-nCoV Forms Stand Alone Forms: [facility]ricks Prescriptions Prescriptions: No Action Eliquis 5 mg tablet 5 mg PO BID Qty: 180 RF: 3 levothyroxine 175 mcg capsule 175 mcg PO DAILY Qty: 30 RF: 5 lisinopril 40 mg tablet 40 mg PO DAILY RF: 0 metoprolol tartrate 25 mg tablet 25 mg PO BID Qty: 180 RF: 3 simvastatin 20 mg tablet 20 mg PO QPM Qty: 90 RF: 0 paroxetine HCl 20 mg tablet 20 mg PO QAM Qty: 90 RF: 3 albuterol sulfate 90 mcg/actuation Hfa Aerosol Inhaler 2 puff INHALATION Q6H PRN (Reason: Wheezing) RF: 0 trazodone 50 mg tablet 50 mg PO HS RF: 0 furosemide [Lasix] 20 mg Tablet 10 mg PO DAILY RF: 0 gabapentin 800 mg tablet 800 mg PO BID RF: 0 Referrals Referrals: Ivan Victoria III, MD [Primary Care Provider] - Discharge Problem: Asthma Qualifiers: Asthma severity: unspecified severity Asthma persistence: unspecified Asthma complication type: unspecified Qualified Code(s): J45.909 - Unspecified asthma, uncomplicated
[2020-04-02 14:48] LABS: Basophils # (auto) 0.06 K/uL (0-0.2); Basophils % (auto) 0.6 %; Eosinophils # (auto) 0.01 K/uL (0-0.5); Eosinophils % (auto) 0.1 %; Hematocrit (blood only) 38.1 % (37-47); Hemoglobin 12.7 g/dL (12.0-16.0); Immature Granulocytes # (auto) 0.02 K/uL (0.00-0.02); Immature Granulocytes % (auto) 0.2 %; Lymphocytes # (auto) 0.84 K/uL (1.2-3.4); Mean Corpuscular Hemoglobin 31.2 pg (25-34); Mean Corpuscular Hgb Conc 33.3 g/dL (32-36); Mean Corpuscular Volume 93.6 fL (80-100); Mean Platelet Volume 10.8 fL (7.4-10.4); Monocytes # (auto) 0.75 K/uL (0.11-0.59); Neutrophils # (auto) 7.64 K/uL (1.4-6.5); Neutrophils % (auto) 82.1 %; Platelet Count 194 K/uL (130-400); RDW Coefficient of Variation 13.3 % (11.5-14.5); RDW Standard Deviation 45.7 fL (36.4-46.3); Red Blood Count 4.07 M/uL (4.2-5.4); White Blood Count 9.32 K/uL (4.8-10.8)
[2020-04-02 14:57] LABS: INR 1.3 (0.9-1.1); Partial Thromboplastin Ratio 1.1; Partial Thromboplastin Time 29.3 Seconds (21.0-31.0); Prothrombin Time 13.1 Seconds (9.0-12.0)
--- NOTE | 2020-04-02 15:04 | XRay Report ---
XR chest 1V portable CLINICAL HISTORY: SEPSIS COMPARISON STUDY: Chest radiograph March 01, 2020. FINDINGS: Lung volumes are normal. Lungs are clear. There is no pneumothorax or pleural effusion. Car diac size is normal. Mediastinal contours are normal. There is no evidence for pulmonary edema. Incid ental note is made of an anterior cervical spine fusion. IMPRESSION: No acute cardiopulmonary findings. ACT 112: Negative or not required by law. Electronically signed by: Andrew Adams M.D. 04/02/2020 3:02 PM
[2020-04-02 15:16] LABS: Alanine Aminotransferase 41 U/L (12-78); Albumin Level 3.3 gm/dl (3.4-5.0); Aspartate Aminotransferase 42 U/L (15-37); BUN Creatinine Ratio 16.4 (10-20); Blood Urea Nitrogen 12 mg/dl (7-18); Calcium 8.8 mg/dl (8.5-10.1); Carbon Dioxide 26 mmol/L (21-32); Chloride 107 mmol/L (98-107); Creatinine Clr Calc Pharmacy 67.6 ml/min; Est GFR (African American) 96.7; Est GFR (Non-African American) 83.4; Glucose 90 mg/dl (70-99); Magnesium 1.9 mg/dl (1.8-2.4); Potassium 3.7 mmol/L (3.5-5.1); Sodium 140 mmol/L (136-145)
[2020-04-02] MEDS ORDERED: STAT IV Infusion **Titration per Protocol STA (15:18)
[2020-04-02] MEDS ORDERED: dilTIAZem HCl 5 MG/ML 5 ML VIAL IV STA (15:18)
[2020-04-02 15:21] LABS: Albumin Globulin Ratio 0.9 (0.9-2); Alkaline Phosphatase 119 U/L (45-117); Bilirubin,Total 0.9 mg/dl (0.2-1); Globulin 3.5 gm/dl (2.5-4.0); Total Protein 6.8 gm/dl (6.4-8.2); Troponin I < 0.015 ng/ml (0-0.045)
--- NOTE | 2020-04-02 15:23 | Electrocardiogram Report ---
Test Reason : Blood Pressure : / mmHG Vent. Rate : 125 BPM Atrial Rate : 129 BPM P-R Int : 000 ms QRS Dur : 106 ms QT Int : 348 ms P-R-T Axes : 000 041 009 degrees QTc Int : 502 ms Atrial fibrillation with rapid ventricular response Low voltage QRS Incomplete right bundle branch block Nonspecific ST and T wave abnormality Abnormal ECG When compared with ECG of 02-MAR-2020 06:41, Vent. rate has increased BY 61 BPM Incomplete right bundle branch block is now Present Confirmed by David Asher ([id number]) on 04/02/2020 3:22:40 PM Referred By: Confirmed By:Levy Asher
[2020-04-02] MEDS ORDERED: dilTIAZem HCL 125 MG in DEXTROSE 5% 100 ML IV SCH (15:30)
[2020-04-02] MEDS ORDERED: methylPREDNISolone 125 MG/2 ML VIAL IV STA (15:35)
[2020-04-02] MEDS ORDERED: BENZONATATE 100 MG CAPSULE PO ONE (16:51)
--- NOTE | 2020-04-02 17:03 | History & Physical Report ---
Date of Service April 02, 2020 Assessment & Plan (1) Viral URI: 69 yo female reports coming in with one week history of rhinorrhea, mylagias, and cough. Likely viral URI. Will obtian bIOFIRE, ruled out covid Patient will be admitted with supoortive care for now. will hold antibiotics. (2) Atrial fibrillation, permanent: Patient is currently in a. fib, and requires diltiazem drip to help control the heart rate. will continue home meds and eliquis (3) Asthma: will place on xopenez. patient does not appear to be in any distres atthis time. will monitor. (4) Cough: placed on tessalon pearle (5) Hyperlipidemia LDL goal <70: will continue statin dvt: eliquis History of Present Illness Chief Complaint: cough Primary Care Provider: Ivan Victoria MD This is a 76 yo female who present to the hospital with having viral like symptoms for about a week. She reports she had the flu shot, and reports having astham. She reports she has been having a non productive cough, subjectve fever, mild to moderate generalized myalgias and having a runny nose (clear drainange) as well. This continues to gradually get worse and patient decided to come She takes eliquis for atrial fibrillation. When she arrived to the ER she was found to be in atrial fibirllation. And placed on dilitazem drip. Admission was called. Allergies Allergy/AdvReac Type Severity Reaction Status Date / Time bee venom protein (honey bee) Allergy Intermediate swollen, Verified 04/02/20 15:55 itchy adhesive AdvReac Mild RED SKIN Verified 04/02/20 15:55 WITH BANDAIDS house dust AdvReac Mild Watery Eye Verified 04/02/20 15:55 Home Medications Home Medications Medication Instructions Recorded Confirmed Type albuterol sulfate 2 puff INHALATION Q6H PRN 04/05/18 04/02/20 History apixaban 5 mg tablet 5 mg PO BID #180 tab 12/13/18 04/02/20 Rx simvastatin 20 mg tablet 20 mg PO QPM #90 tab 12/17/18 04/02/20 History paroxetine HCl 20 mg tablet 20 mg PO QAM #90 tab 03/31/19 04/02/20 Rx metoprolol tartrate 25 mg tablet 25 mg PO BID #180 tab 02/10/20 04/02/20 Rx gabapentin 800 mg tablet 800 mg PO BID tab 02/13/20 04/02/20 History lisinopril 40 mg tablet 40 mg PO DAILY tab 02/13/20 04/02/20 History levothyroxine 175 mcg capsule 175 mcg PO DAILY #30 cap 03/12/20 04/02/20 Rx furosemide [Lasix] 10 mg PO DAILY 04/02/20 04/02/20 History trazodone 50 mg PO HS 04/02/20 04/02/20 History Past Med/Surg History Medical History Acquired hypothyroidism (12/24/12) Acute colitis Allergic rhinitis Anticoagulant long-term use Arthritis Asthma Atrial fibrillation DX'D 2017 -F/U DR SHARMA Atrial fibrillation, permanent 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 Breast cancer Calcific tendinitis of left shoulder Cataract (08/19/12) Cholelithiasis (08/19/12) Chronic back pain Colitis DCIS (ductal carcinoma in situ) of breast Depression with anxiety Dysphagia Fatigue Gastrocnemius strain GERD (gastroesophageal reflux disease) Hearing loss Bilateral Hearing Aids Hyperlipidemia Hypertension Hypokalemia Hypomagnesemia Hypothyroidism Intestinal obstruction Intraductal carcinoma of right breast Lumbar canal stenosis Lumbar radiculopathy Obesity Osteoarthritis Peripheral neuropathy Polyneuropathy SOB (shortness of breath) on exertion Stenosis, cervical spine Syncope Surgical History H/O tubal ligation 1996 History of appendectomy 1968 History of cataract surgery 2013 - R/L History of cholecystectomy 2006 History of colonoscopy (~07/2018) History of partial mastectomy History of right breast biopsy malignant History of total abdominal hysterectomy and bilateral salpingo-oophorectomy Hx of fusion of cervical spine 2005--normal ROM Hx of hand surgery - LEFT-CYST REMOVED/BONE FUSION Hx of lumpectomy RIGHT LUMPECTOMY 2017 S/P partial mastectomy Right - 04/19/18 Family History Brother Diabetes Father Heart disease Mother Heart disease Diabetes Hypertension Other No family history of adverse response to anesthesia Unknown family medical history Social History Smoking Status: Never smoker Second Hand Exposure: No; Hx Alcohol Use: No Hx Substance Use: No Preferred Language: Sammarinese Communication Ability: Effective Visual Impairment: Limited Hearing Ability: Use of Hearing Aid Advertising Intern Required: No Beliefs That Will Affect Care: None marital status: Current Living Situation: Spouse current occupational status: retired 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 [employer] Other Information That Helps Us Care for You: No Feels Safe at Home: Yes Safety Concerns: Feels Safe At This Time Childhood Exposure to Second-Hand Smoke: Yes caffeine: Yes (2-3 Cups of coffee/day ) during the past year weight has: remained stable Physical Activity Frequency: Daily Physical Activity Frequency Comment: walking, 60 minutes Seatbelt Use: always Sunscreen Use: Yes Assistive Devices: None Review of Systems Constitutional: + fever, + sweats, + body aches, + fatigue and + malaise Eyes: no diplopia, no decreased night vision and no loss of peripheral vision Ear, Nose, Mouth, Throat: no tinnitus, no dizziness and no nasal trauma Respiratory: + cough and + dyspnea; no change in sputum and no hemoptysis Cardiovascular: no chest pain with activity and no dyspnea at rest Gastrointestinal: no bloating and no nausea Genitourinary: no urinary frequency and no urinary incontinence Musculoskeletal: no radicular pain and no deformity Integumentary: no rash and no non-healing lesions Neurologic: no falls and no paralysis Psychiatric: no hopelessness and no change in appetite Endocrine: no polydipsia Hematologic / Lymphatic: no coagulopathy Allergy / Immunological: no lip swelling Physical Exam Constitutional: WD/WN, vitals as above + ill appearing (has a mask on but clearly wet where the nose is due to nasal secretions.) Eyes: PERRL, conjunctivae normal, anicteric sclerae ENMT: external ear and nose normal, oropharynx normal Neck: trachea midline, no thyromegaly Respiratory: normal respiratory effort and + cough; does not use accessory muscles Auscultation: + diminished lung sounds; no rales, no rhonchi and no wheezes Cardiovascular: Rate/Rhythm: + irregularly irregular Heart Sounds: normal S1 and normal S2 Vessels: no JVD Gastrointestinal (Abdomen): normal bowel sounds, soft, nontender, no hepatosplenomegaly Musculoskeletal: no cyanosis or clubbing, extremities motor strength 5/5 Skin: no rashes, warm and dry Neurologic: PERRL, EOMI, accommodation nl, no face palsy, no dysarthria Psychiatric: A+Ox3, euthymic affect Results & Data Results & Data ([facility]) Vital Signs (Past 12 Hours) Vital Signs Pulse Resp BP Pulse Ox 04/02/20 16:32 107 H 21 132/66 96 04/02/20 16:02 105 H 20 136/73 95 04/02/20 15:30 115 H 24 146/90 H 100 04/02/20 15:00 115 H 22 137/79 93 04/02/20 14:35 118 H 24 153/75 H 04/02/20 14:30 113 H 22 95 04/02/20 14:15 111 H 20 97 04/02/20 14:14 117 H 16 96 04/02/20 13:13 126 H 22 137/79 95 PG Care Time/CCT Total # of Minutes Spent Total Time Spent with Patient: Total time spent is greater than 50% in coordination of care (as documented) at patient's floor/unit and/or counseling patient: Coding Level of Care Code 44327 Initial Inpt Care Lvl 3 Diagnoses Viral URI J06.9 Atrial fibrillation, permanent I48.21 Asthma J45.909 Asthma complication type: unspecified Asthma persistence: unspecified Asthma severity: unspecified severity Cough R05 Hyperlipidemia LDL goal <70 E78.5 (1) Asthma Asthma complication type: unspecified Asthma persistence: unspecified Asthma severity: unspecified severity Qualified Code(s): J45.909 - Unspecified asthma, uncomplicated
[2020-04-02 18:19] LABS: Adenovirus PCR Not Detected (NotDetected); Bordetella parapertussis PCR Not Detected (NotDetected); Bordetella pertussis PCR Not Detected (NotDetected); Chlamydia pneumoniae PCR Not Detected (NotDetected); Coronavirus 229E PCR Not Detected (NotDetected); Coronavirus CoV-2 (COVID19)PCR Not Detected (NotDetected); Coronavirus HKU1 PCR Not Detected (NotDetected); Coronavirus NL63 PCR Not Detected (NotDetected); Coronavirus OC43PCR Not Detected (NotDetected); Human Metapneumovirus PCR Not Detected (NotDetected); Influenza A PCR Not Detected (NotDetected); Influenza B PCR Not Detected (NotDetected); Mycoplasma pneumoniae PCR Not Detected (NotDetected); Parainfluenza Virus 1 PCR Not Detected (NotDetected); Parainfluenza Virus 2 PCR Not Detected (NotDetected); Parainfluenza Virus 3 PCR Not Detected (NotDetected); Parainfluenza Virus 4 PCR Not Detected (NotDetected); Respiratory Syncytial VirusPCR Not Detected (NotDetected); Rhinovirus/Enterovirus PCR Not Detected (NotDetected)
[2020-04-02] MEDS: LEVALBUTEROL HCL 1.25 MG/3 ML NEB NEB SCH (20:04)
[2020-04-02] MEDS: traZODone HCL 50 MG TAB PO SCH (22:10)
[2020-04-02] MEDS: BENZONATATE 100 MG CAPSULE PO SCH (22:10)
[2020-04-02] MEDS: GABAPENTIN 800 MG TAB PO SCH (22:11)
[2020-04-02] MEDS: METOPROLOL TARTRATE 25 MG TAB PO SCH (22:11)
[2020-04-02] MEDS: APIXABAN 5 MG TABLET PO SCH (22:11)
[2020-04-02] MEDS: SIMVASTATIN 20 MG TAB PO SCH (22:12)
[2020-04-03] MEDS: LEVALBUTEROL HCL 1.25 MG/3 ML NEB NEB SCH ×3 (00:34→13:10)
[2020-04-03] MEDS: LEVOTHYROXINE SODIUM 175 MCG TABLET PO SCH ×3 (06:09→07:52)
[2020-04-03 06:57] LABS: Appearance Urine Clear (Clear); Bacteria Urine Automated Negative (Negative); Bilirubin Urine Negative (Negative); Blood Urine 2+ (Negative); Cast Urine Automated 0 /lpf (0-5); Color Urine Yellow; Epithelial Cell Urine Auto 0-5 /lpf (0-5); Glucose Urine UA 2+ (Negative); Ketones Urine 1+ (Negative); Leukocyte Esterase Urine Negative (Negative); Nitrite Urine Negative (Negative); Protein Urine Negative (Negative); RBC Urine Automated 0-4 /hpf (0-4); Specific Gravity Urine 1.013 (1.000-1.030); Urobilinogen Urine Negative (Negative)
[2020-04-03 07:09] LABS: Basophils # (auto) 0.01 K/uL (0-0.2); Basophils % (auto) 0.2 %; Hematocrit (blood only) 34.8 % (37-47); Hemoglobin 11.7 g/dL (12.0-16.0); Immature Granulocytes # (auto) 0.01 K/uL (0.00-0.02); Immature Granulocytes % (auto) 0.2 %; Lymphocytes # (auto) 0.62 K/uL (1.2-3.4); Lymphocytes % (auto) 11.5 %; Mean Corpuscular Hgb Conc 33.6 g/dL (32-36); Mean Corpuscular Volume 92.3 fL (80-100); Mean Platelet Volume 10.7 fL (7.4-10.4); Monocytes # (auto) 0.43 K/uL (0.11-0.59); Monocytes % (auto) 7.9 %; Neutrophils # (auto) 4.34 K/uL (1.4-6.5); Neutrophils % (auto) 80.2 %; Platelet Count 160 K/uL (130-400); RDW Coefficient of Variation 13.5 % (11.5-14.5); RDW Standard Deviation 45.1 fL (36.4-46.3); Red Blood Count 3.77 M/uL (4.2-5.4); White Blood Count 5.41 K/uL (4.8-10.8)
[2020-04-03 07:50] LABS: BUN Creatinine Ratio 21.4 (10-20); Blood Urea Nitrogen 15 mg/dl (7-18); Calcium 8.3 mg/dl (8.5-10.1); Carbon Dioxide 24 mmol/L (21-32); Chloride 111 mmol/L (98-107); Creatinine Clr Calc Pharmacy 69.1 ml/min; Est GFR (Non-African American) 86.3; Glucose 185 mg/dl (70-99); Potassium 3.1 mmol/L (3.5-5.1); Sodium 140 mmol/L (136-145); Troponin I < 0.015 ng/ml (0-0.045)
[2020-04-03] MEDS: lisinopril 40 MG TAB PO SCH (07:50)
[2020-04-03] MEDS: APIXABAN 5 MG TABLET PO SCH ×2 (07:50→21:09)
[2020-04-03] MEDS: BENZONATATE 100 MG CAPSULE PO SCH ×3 (07:50→21:10)
[2020-04-03] MEDS: METOPROLOL TARTRATE 25 MG TAB PO SCH ×2 (07:51→21:09)
[2020-04-03] MEDS: GABAPENTIN 800 MG TAB PO SCH ×2 (07:51→21:10)
[2020-04-03] MEDS: PARoxetine HCL 20 MG TAB PO SCH (07:51)
[2020-04-03] MEDS ORDERED: POTASSIUM CHLORIDE 20 MEQ TABCR PO STA (08:46)
[2020-04-03] MEDS: FUROSEMIDE 20 MG TAB PO SCH (09:23)
[2020-04-03] MEDS: POTASSIUM CHLORIDE / WTR 10 MEQ/100 ML PLCT IV SCH ×4 (09:23→13:10)
--- NOTE | 2020-04-03 10:16 | Hospitalist Progress Note ---
Date of Service April 03, 2020 Assessment & Plan (1) Asthma: Presented with shortness of breath, cough, and likely viral URI as below. Covid-19 is negative and respiratory panel bio fire is negative Much improved now after receiving IV Solu-Medrol x1 in the ER -Continue Xopenex nebulizers scheduled, Continue benzonatate 100 mg p.o. 3 times daily scheduled for cough Continue steroids with prednisone 40 mg p.o. once daily x5 days Is not requiring oxygen but still dyspneic with minimal exertion Rapid atrial fibrillation may have also been contributing to some of her dyspnea upon arrival Continued stay (2) Viral URI: reports one week history of rhinorrhea, mylagias, headache, and cough. also had similar symptoms As above, Covid-19 and viral respiratory panel bio fire are all negative Not having fevers. With some mild lymphopenia here Likely viral URI. No need for antibiotics Much improved with steroids for asthma as above and bronchodilators (3) Atrial fibrillation, permanent: Presented with rapid atrial fibrillation with rates in the 120s to 130s- could be secondary to her previous respiratory distress. Was briefly on a diltiazem drip in the ER which has been discontinued Now rates are controlled in the 60s to 80s Continue home metoprolol 25 mg p.o. twice daily Continue Eliquis 5 mg p.o. twice daily for anticoagulation Replace electrolytes as below Continue to follow on telemetry (4) Hypokalemia: Potassium down to 3.1. Magnesium was within normal limits yesterday evening Replace with IV and oral potassium chloride Follow BMP in the morning (5) Hypothyroidism: TSH was undetectable on labs from 2 to 3 weeks ago. It is unclear if her levothyroxine dose was changed at all then. Repeat TSH now Decrease levothyroxine dose to 150 mcg once daily Follow TFTs again in 4 to 6 weeks (6) CHF (congestive heart failure): With a history of chronic diastolic CHF Does not appear to be in acute CHF at this time. While proBNP is elevated at 3000, her chest x-ray is normal, she her weight is down from previous, and she has minimal edema. 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 Still short of breath with bending over to put lotion on her legs while I saw her. Still has a cough but is improved, nonproductive. No further myalgias. No chest pains. No nausea or vomiting, no abdominal pain, no diarrhea. No headache or fevers. She reports her had a similar cough very recently. Her flu shot was 1 month ago. She does not feel her legs are more swollen than usual and she is actually lost weight since her last admission. Telemetry here with atrial fibrillation with rates in the 60s to 80s. Review of Systems Review of Systems: All systems reviewed & are unremarkable except as noted in HPI & below Physical Exam Constitutional: WD/WN, vitals as above Eyes: PERRL, conjunctivae normal, anicteric sclerae ENMT: external ear and nose normal, oropharynx normal Neck: trachea midline, no thyromegaly Respiratory: + tachypneic (Mild with minimal exertion); does not use accessory muscles Auscultation: no crackles, no rhonchi and no wheezes Cardiovascular: Rate/Rhythm: regular rate and + irregularly irregular Heart Sounds: no murmur Extremities: + edema (Trace pitting edema of the feet bilaterally) Chest (Breasts): Chest: normal inspection of chest Gastrointestinal (Abdomen): normal bowel sounds, soft, nontender, no hepatosplenomegaly Musculoskeletal: Extremities: extremities normal to inspection; no cyanosis and no clubbing Skin: no rashes, warm and dry Neurologic: moves all extremities and awake; no focal motor deficits Psychiatric: A+Ox3, euthymic affect Lymphatic: no lymphedema Results & Data Results & Data ([facility]) Vital Signs (Past 12 Hours) Vital Signs Temp Pulse Pulse Resp BP Pulse Ox 04/03/20 07:17 37.2 C 73 21 112/56 L 99 04/03/20 07:07 69 16 96 04/03/20 04:54 36.9 C 67 18 94/57 L 91 04/03/20 02:54 54 L 04/03/20 01:12 62 04/03/20 00:34 71 18 98 04/02/20 23:59 101 H 04/02/20 23:45 70 04/02/20 23:18 37.2 C 110 H 22 116/66 96 Laboratory Results 04/03/20 04/03/20 04/03/20 Range/Units 06:45 06:40 06:40 WBC (4.8-10.8) K/uL RBC (4.2-5.4) M/uL Hgb (12.0-16.0) g/dL Hct (37-47) % MCV (80-100) fL MCH (25-34) pg MCHC (32-36) g/dL RDW Std Deviation (36.4-46.3) fL RDW Coeff of Kal (11.5-14.5) % Plt Count (130-400) K/uL MPV (7.4-10.4) fL Immature Gran % (Auto) % Neut % (Auto) % Lymph % (Auto) % Craig % (Auto) % Eos % (Auto) % Baso % (Auto) % Neut # (Auto) (1.4-6.5) K/uL Lymph # (Auto) (1.2-3.4) K/uL Craig # (Auto) (0.11-0.59) K/uL Eos # (Auto) (0-0.5) K/uL Baso # (Auto) (0-0.2) K/uL Immature Gran # (Auto) (0.00-0.02) K/uL PT (9.0-12.0) Seconds INR (0.9-1.1) APTT (21.0-31.0) Seconds PTT Ratio Sodium 140 (136-145) mmol/L Potassium 3.1 L D (3.5-5.1) mmol/L Chloride 111 H (98-107) mmol/L Carbon Dioxide 24 (21-32) mmol/L Anion Gap 5.0 (3-11) BUN 15 (7-18) mg/dl Creatinine 0.71 (0.6-1.2) mg/dl Est Cr Clr Drug Dosing 69.1 ml/min Est GFR ( Amer) 100.0 Est GFR (Non-Af Amer) 86.3 BUN/Creatinine Ratio 21.4 H (10-20) Glucose 185 H (70-99) mg/dl Lactate (0.4-2.0) mmol/L Calcium 8.3 L (8.5-10.1) mg/dl Magnesium (1.8-2.4) mg/dl Total Bilirubin (0.2-1) mg/dl AST (15-37) U/L ALT (12-78) U/L Alkaline Phosphatase (45-117) U/L Troponin I < 0.015 (0-0.045) ng/ml NT-Pro-B Natriuret Pep (0-900) pg/ml Total Protein (6.4-8.2) gm/dl Albumin (3.4-5.0) gm/dl Globulin (2.5-4.0) gm/dl Albumin/Globulin Ratio (0.9-2) TSH < 0.005 L (0.300-4.500) uIu/ml Urine Color Yellow Urine Appearance Clear (Clear) Urine pH 5.0 (4.5-7.5) Ur Specific Abie 1.013 (1.000-1.030) Urine Protein Negative (Negative) Urine Glucose (UA) 2+ H (Negative) Urine Ketones 1+ H (Negative) Urine Blood 2+ H (Negative) Urine Nitrite Negative (Negative) Urine Bilirubin Negative (Negative) Urine Urobilinogen Negative (Negative) Ur Leukocyte Esterase Negative (Negative) Urine WBC (Auto) 1-5 (0-5) /hpf Urine RBC (Auto) 0-4 (0-4) /hpf U Hyaline Cast (Auto) 0 (0-5) /lpf U Epithel Cells (Auto) 0-5 (0-5) /lpf Urine Bacteria (Auto) Negative (Negative) Adenovirus (PCR) (NotDetected) B. pertussis DNA (PCR) (NotDetected) B.parapertussis DNA PCR (NotDetected) C. pneumoniae DNA (PCR) (NotDetected) Coronavirus OC43 (PCR) (NotDetected) Coronavirus HKU1 (PCR) (NotDetected) Coronavirus 229E (PCR) (NotDetected) COVID-19 Eval Order COVID-19 PCR (Negative) Coronavirus NL63 (PCR) (NotDetected) Human Metapneumovir PCR (NotDetected) Influenza Type A (PCR) (NotDetected) Influenza Type B (PCR) (NotDetected) M. pneumoniae (PCR) (NotDetected) Parainfluenza 1 (PCR) (NotDetected) Parainfluenza 2 (PCR) (NotDetected) Parainfluenza 3 (PCR) (NotDetected) Parainfluenza 4 (PCR) (NotDetected) RSV (PCR) (NotDetected) Entero/Rhino (PCR) (NotDetected) 04/03/20 04/02/20 04/02/20 Range/Units 06:40 16:45 14:25 WBC 5.41 (4.8-10.8) K/uL RBC 3.77 L (4.2-5.4) M/uL Hgb 11.7 L (12.0-16.0) g/dL Hct 34.8 L (37-47) % MCV 92.3 (80-100) fL MCH 31.0 (25-34) pg MCHC 33.6 (32-36) g/dL RDW Std Deviation 45.1 (36.4-46.3) fL RDW Coeff of Kal 13.5 (11.5-14.5) % Plt Count 160 (130-400) K/uL MPV 10.7 H (7.4-10.4) fL Immature Gran % (Auto) 0.2 % Neut % (Auto) 80.2 % Lymph % (Auto) 11.5 % Craig % (Auto) 7.9 % Eos % (Auto) 0.0 % Baso % (Auto) 0.2 % Neut # (Auto) 4.34 (1.4-6.5) K/uL Lymph # (Auto) 0.62 L (1.2-3.4) K/uL Craig # (Auto) 0.43 (0.11-0.59) K/uL Eos # (Auto) 0.00 (0-0.5) K/uL Baso # (Auto) 0.01 (0-0.2) K/uL Immature Gran # (Auto) 0.01 (0.00-0.02) K/uL PT (9.0-12.0) Seconds INR (0.9-1.1) APTT (21.0-31.0) Seconds PTT Ratio Sodium (136-145) mmol/L Potassium (3.5-5.1) mmol/L Chloride (98-107) mmol/L Carbon Dioxide (21-32) mmol/L Anion Gap (3-11) BUN (7-18) mg/dl Creatinine (0.6-1.2) mg/dl Est Cr Clr Drug Dosing ml/min Est GFR ( Amer) Est GFR (Non-Af Amer) BUN/Creatinine Ratio (10-20) Glucose (70-99) mg/dl Lactate (0.4-2.0) mmol/L Calcium (8.5-10.1) mg/dl Magnesium (1.8-2.4) mg/dl Total Bilirubin (0.2-1) mg/dl AST (15-37) U/L ALT (12-78) U/L Alkaline Phosphatase (45-117) U/L Troponin I (0-0.045) ng/ml NT-Pro-B Natriuret Pep 3261 H (0-900) pg/ml Total Protein (6.4-8.2) gm/dl Albumin (3.4-5.0) gm/dl Globulin (2.5-4.0) gm/dl Albumin/Globulin Ratio (0.9-2) TSH (0.300-4.500) uIu/ml Urine Color Urine Appearance (Clear) Urine pH (4.5-7.5) Ur Specific Abie (1.000-1.030) Urine Protein (Negative) Urine Glucose (UA) (Negative) Urine Ketones (Negative) Urine Blood (Negative) Urine Nitrite (Negative) Urine Bilirubin (Negative) Urine Urobilinogen (Negative) Ur Leukocyte Esterase (Negative) Urine WBC (Auto) (0-5) /hpf Urine RBC (Auto) (0-4) /hpf U Hyaline Cast (Auto) (0-5) /lpf U Epithel Cells (Auto) (0-5) /lpf Urine Bacteria (Auto) (Negative) Adenovirus (PCR) Not Detected (NotDetected) B. pertussis DNA (PCR) Not Detected (NotDetected) B.parapertussis DNA PCR Not Detected (NotDetected) C. pneumoniae DNA (PCR) Not Detected (NotDetected) Coronavirus OC43 (PCR) Not Detected (NotDetected) Coronavirus HKU1 (PCR) Not Detected (NotDetected) Coronavirus 229E (PCR) Not Detected (NotDetected) COVID-19 Eval Order COVID-19 PCR Not Detected (Negative) Coronavirus NL63 (PCR) Not Detected (NotDetected) Human Metapneumovir PCR Not Detected (NotDetected) Influenza Type A (PCR) Not Detected (NotDetected) Influenza Type B (PCR) Not Detected (NotDetected) M. pneumoniae (PCR) Not Detected (NotDetected) Parainfluenza 1 (PCR) Not Detected (NotDetected) Parainfluenza 2 (PCR) Not Detected (NotDetected) Parainfluenza 3 (PCR) Not Detected (NotDetected) Parainfluenza 4 (PCR) Not Detected (NotDetected) RSV (PCR) Not Detected (NotDetected) Entero/Rhino (PCR) Not Detected (NotDetected) 04/02/20 04/02/20 04/02/20 Range/Units 14:25 14:25 14:25 WBC (4.8-10.8) K/uL RBC (4.2-5.4) M/uL Hgb (12.0-16.0) g/dL Hct (37-47) % MCV (80-100) fL MCH (25-34) pg MCHC (32-36) g/dL RDW Std Deviation (36.4-46.3) fL RDW Coeff of Kal (11.5-14.5) % Plt Count (130-400) K/uL MPV (7.4-10.4) fL Immature Gran % (Auto) % Neut % (Auto) % Lymph % (Auto) % Craig % (Auto) % Eos % (Auto) % Baso % (Auto) % Neut # (Auto) (1.4-6.5) K/uL Lymph # (Auto) (1.2-3.4) K/uL Craig # (Auto) (0.11-0.59) K/uL Eos # (Auto) (0-0.5) K/uL Baso # (Auto) (0-0.2) K/uL Immature Gran # (Auto) (0.00-0.02) K/uL PT 13.1 H (9.0-12.0) Seconds INR 1.3 H (0.9-1.1) APTT 29.3 (21.0-31.0) Seconds PTT Ratio 1.1 Sodium 140 (136-145) mmol/L Potassium 3.7 (3.5-5.1) mmol/L Chloride 107 (98-107) mmol/L Carbon Dioxide 26 (21-32) mmol/L Anion Gap 7.0 (3-11) BUN 12 (7-18) mg/dl Creatinine 0.73 (0.6-1.2) mg/dl Est Cr Clr Drug Dosing 67.6 ml/min Est GFR ( Amer) 96.7 Est GFR (Non-Af Amer) 83.4 BUN/Creatinine Ratio 16.4 (10-20) Glucose 90 (70-99) mg/dl Lactate 1.7 (0.4-2.0) mmol/L Calcium 8.8 (8.5-10.1) mg/dl Magnesium 1.9 (1.8-2.4) mg/dl Total Bilirubin 0.9 (0.2-1) mg/dl AST 42 H (15-37) U/L ALT 41 (12-78) U/L Alkaline Phosphatase 119 H (45-117) U/L Troponin I < 0.015 (0-0.045) ng/ml NT-Pro-B Natriuret Pep (0-900) pg/ml Total Protein 6.8 (6.4-8.2) gm/dl Albumin 3.3 L (3.4-5.0) gm/dl Globulin 3.5 (2.5-4.0) gm/dl Albumin/Globulin Ratio 0.9 (0.9-2) TSH (0.300-4.500) uIu/ml Urine Color Urine Appearance (Clear) Urine pH (4.5-7.5) Ur Specific Abie (1.000-1.030) Urine Protein (Negative) Urine Glucose (UA) (Negative) Urine Ketones (Negative) Urine Blood (Negative) Urine Nitrite (Negative) Urine Bilirubin (Negative) Urine Urobilinogen (Negative) Ur Leukocyte Esterase (Negative) Urine WBC (Auto) (0-5) /hpf Urine RBC (Auto) (0-4) /hpf U Hyaline Cast (Auto) (0-5) /lpf U Epithel Cells (Auto) (0-5) /lpf Urine Bacteria (Auto) (Negative) Adenovirus (PCR) (NotDetected) B. pertussis DNA (PCR) (NotDetected) B.parapertussis DNA PCR (NotDetected) C. pneumoniae DNA (PCR) (NotDetected) Coronavirus OC43 (PCR) (NotDetected) Coronavirus HKU1 (PCR) (NotDetected) Coronavirus 229E (PCR) (NotDetected) COVID-19 Eval Order COVID-19 PCR (Negative) Coronavirus NL63 (PCR) (NotDetected) Human Metapneumovir PCR (NotDetected) Influenza Type A (PCR) (NotDetected) Influenza Type B (PCR) (NotDetected) M. pneumoniae (PCR) (NotDetected) Parainfluenza 1 (PCR) (NotDetected) Parainfluenza 2 (PCR) (NotDetected) Parainfluenza 3 (PCR) (NotDetected) Parainfluenza 4 (PCR) (NotDetected) RSV (PCR) (NotDetected) Entero/Rhino (PCR) (NotDetected) 04/02/20 04/02/20 04/02/20 Range/Units 14:25 14:20 14:20 WBC 9.32 (4.8-10.8) K/uL RBC 4.07 L (4.2-5.4) M/uL Hgb 12.7 (12.0-16.0) g/dL Hct 38.1 (37-47) % MCV 93.6 (80-100) fL MCH 31.2 (25-34) pg MCHC 33.3 (32-36) g/dL RDW Std Deviation 45.7 (36.4-46.3) fL RDW Coeff of Kal 13.3 (11.5-14.5) % Plt Count 194 (130-400) K/uL MPV 10.8 H (7.4-10.4) fL Immature Gran % (Auto) 0.2 % Neut % (Auto) 82.1 % Lymph % (Auto) 9.0 % Craig % (Auto) 8.0 % Eos % (Auto) 0.1 % Baso % (Auto) 0.6 % Neut # (Auto) 7.64 H (1.4-6.5) K/uL Lymph # (Auto) 0.84 L (1.2-3.4) K/uL Craig # (Auto) 0.75 H (0.11-0.59) K/uL Eos # (Auto) 0.01 (0-0.5) K/uL Baso # (Auto) 0.06 (0-0.2) K/uL Immature Gran # (Auto) 0.02 (0.00-0.02) K/uL PT (9.0-12.0) Seconds INR (0.9-1.1) APTT (21.0-31.0) Seconds PTT Ratio Sodium (136-145) mmol/L Potassium (3.5-5.1) mmol/L Chloride (98-107) mmol/L Carbon Dioxide (21-32) mmol/L Anion Gap (3-11) BUN (7-18) mg/dl Creatinine (0.6-1.2) mg/dl Est Cr Clr Drug Dosing ml/min Est GFR ( Amer) Est GFR (Non-Af Amer) BUN/Creatinine Ratio (10-20) Glucose (70-99) mg/dl Lactate (0.4-2.0) mmol/L Calcium (8.5-10.1) mg/dl Magnesium (1.8-2.4) mg/dl Total Bilirubin (0.2-1) mg/dl AST (15-37) U/L ALT (12-78) U/L Alkaline Phosphatase (45-117) U/L Troponin I (0-0.045) ng/ml NT-Pro-B Natriuret Pep (0-900) pg/ml Total Protein (6.4-8.2) gm/dl Albumin (3.4-5.0) gm/dl Globulin (2.5-4.0) gm/dl Albumin/Globulin Ratio (0.9-2) TSH (0.300-4.500) uIu/ml Urine Color Urine Appearance (Clear) Urine pH (4.5-7.5) Ur Specific Abie (1.000-1.030) Urine Protein (Negative) Urine Glucose (UA) (Negative) Urine Ketones (Negative) Urine Blood (Negative) Urine Nitrite (Negative) Urine Bilirubin (Negative) Urine Urobilinogen (Negative) Ur Leukocyte Esterase (Negative) Urine WBC (Auto) (0-5) /hpf Urine RBC (Auto) (0-4) /hpf U Hyaline Cast (Auto) (0-5) /lpf U Epithel Cells (Auto) (0-5) /lpf Urine Bacteria (Auto) (Negative) Adenovirus (PCR) (NotDetected) B. pertussis DNA (PCR) (NotDetected) B.parapertussis DNA PCR (NotDetected) C. pneumoniae DNA (PCR) (NotDetected) Coronavirus OC43 (PCR) (NotDetected) Coronavirus HKU1 (PCR) (NotDetected) Coronavirus 229E (PCR) (NotDetected) COVID-19 Eval Order Covid19 Done at [facility] COVID-19 PCR NEGATIVE (Negative) Coronavirus NL63 (PCR) (NotDetected) Human Metapneumovir PCR (NotDetected) Influenza Type A (PCR) (NotDetected) Influenza Type B (PCR) (NotDetected) M. pneumoniae (PCR) (NotDetected) Parainfluenza 1 (PCR) (NotDetected) Parainfluenza 2 (PCR) (NotDetected) Parainfluenza 3 (PCR) (NotDetected) Parainfluenza 4 (PCR) (NotDetected) RSV (PCR) (NotDetected) Entero/Rhino (PCR) (NotDetected) PG Care Time/CCT Total # of Minutes Spent Total Time Spent with Patient: Total time spent is greater than 50% in coordination of care (as documented) at patient's floor/unit and/or counseling patient: Coding Level of Care Code 58421 Subseq Hosp Care Lvl 3 Diagnoses Asthma J45.909 Asthma complication type: unspecified Asthma persistence: unspecified Asthma severity: unspecified severity Viral URI J06.9 Atrial fibrillation, permanent I48.21 Hypokalemia E87.6 Hypothyroidism E03.9 CHF (congestive heart failure) I50.9 Heart failure chronicity: acute Heart failure type: unspecified [facility] (current) use of anticoagulants Z79.01 Depression with anxiety F41.8 Peripheral neuropathy G62.89 Peripheral neuropathy type: polyneuropathy, other Hyperlipidemia LDL goal <70 E78.5 DVT prophylaxis Z29.9 (1) Asthma Asthma complication type: unspecified Asthma persistence: unspecified Asthma severity: unspecified severity Qualified Code(s): J45.909 - Unspecified asthma, uncomplicated (2) CHF (congestive heart failure) Heart failure chronicity: acute Heart failure type: unspecified Qualified Code(s): I50.9 - Heart failure, unspecified (3) Peripheral neuropathy Peripheral neuropathy type: polyneuropathy, other Qualified Code(s): G62.89 - Other specified polyneuropathies
[2020-04-03] MEDS: predniSONE 20 MG TAB PO SCH (10:31)
[2020-04-03] MEDS ORDERED: LEVALBUTEROL HCL 1.25 MG/3 ML NEB NEB PRN (15:03)
[2020-04-03] MEDS: SIMVASTATIN 20 MG TAB PO SCH (21:09)
[2020-04-03] MEDS: traZODone HCL 50 MG TAB PO SCH (21:10)
[2020-04-04] MEDS ORDERED: LEVOTHYROXINE SODIUM 150 MCG TABLET PO SCH (06:30)
[2020-04-04 06:53] LABS: BUN Creatinine Ratio 32.3 (10-20); Calcium 8.3 mg/dl (8.5-10.1); Creatinine Clr Calc Pharmacy 81.8 ml/min; Est GFR (Non-African American) 92.4; Magnesium 2.1 mg/dl (1.8-2.4); Potassium 4.2 mmol/L (3.5-5.1)
[2020-04-04 07:15] VITALS: TEMP 97.7
[2020-04-04] MEDS: lisinopril 40 MG TAB PO SCH (08:11)
[2020-04-04] MEDS: GABAPENTIN 800 MG TAB PO SCH (08:11)
[2020-04-04] MEDS: PARoxetine HCL 20 MG TAB PO SCH (08:11)
[2020-04-04] MEDS: METOPROLOL TARTRATE 25 MG TAB PO SCH (08:12)
[2020-04-04] MEDS: predniSONE 20 MG TAB PO SCH (08:12)
[2020-04-04] MEDS: FUROSEMIDE 20 MG TAB PO SCH (08:12)
[2020-04-04] MEDS: BENZONATATE 100 MG CAPSULE PO SCH ×2 (08:12→13:45)
[2020-04-04] MEDS: APIXABAN 5 MG TABLET PO SCH (08:12)
[2020-04-04] MEDS ORDERED: FAMOTIDINE 20 MG TAB PO SCH (11:00)
[2020-04-04 11:34] VITALS: BP 103/74; PULSE 77; O2SAT 94
--- NOTE | 2020-04-04 13:36 | Discharge Summary ---
Date of Service April 04, 2020 Admission HPI Per Admitting Provider This is a 76 yo female who present to the hospital with having viral like symptoms for about a week. She reports she had the flu shot, and reports having astham. She reports she has been having a non productive cough, subjectve fever, mild to moderate generalized myalgias and having a runny nose (clear drainange) as well. This continues to gradually get worse and patient decided to come She takes eliquis for atrial fibrillation. When she arrived to the ER she was found to be in atrial fibirllation. And placed on dilitazem drip. Admission was called. Principal Diagnosis Acute asthma exacerbation, Viral URI, Rapid atrial fibrillation Discharge Exam Constitutional WD/WN, vitals as above Eyes + anicteric sclerae Neck trachea midline, no thyromegaly Respiratory normal respiratory effort, lungs clear to auscultation Cardiovascular Rate/Rhythm: regular rate and + irregularly irregular Heart Sounds: no murmur Extremities: no edema Chest (Breasts) Chest: normal inspection of chest Gastrointestinal (Abdomen) normal bowel sounds, soft, nontender, no hepatosplenomegaly Musculoskeletal Extremities: extremities normal to inspection; no cyanosis and no clubbing Skin no rashes, warm and dry Neurologic moves all extremities and awake; no focal motor deficits Psychiatric A+Ox3, euthymic affect Lymphatic no lymphedema Discharge Data Allergies Allergy/AdvReac Type Severity Reaction Status Date / Time bee venom protein (honey bee) Allergy Intermediate swollen, Verified 04/02/20 15:55 itchy adhesive AdvReac Mild RED SKIN Verified 04/02/20 15:55 WITH BANDAIDS house dust AdvReac Mild Watery Eye Verified 04/02/20 15:55 Consultations 04/02/20 15:53 ED Decision to Admit Stat Ordered Studies CXR Hospital Course (1) Asthma: Acute asthma exacerbation Presented with shortness of breath, cough, and likely viral URI as below. Covid-19 is negative and respiratory panel bio fire is negative Significantly improved now after receiving IV Solu-Medrol x1 in the ER and prednisone daily -received Xopenex nebulizers scheduled, magalys camara Continue steroids with prednisone 40 mg p.o. once daily x 3 more days after discharge -continue albuterol INH prn at home Is not requiring oxygen Rapid atrial fibrillation may have also been contributing to some of her dyspnea upon arrival Stable for dc to home (2) Viral URI: reports one week history of rhinorrhea, mylagias, headache, and cough. also had similar symptoms As above, Covid-19 and viral respiratory panel bio fire are all negative Not having fevers. With some mild lymphopenia here Now much improved Likely viral URI. No need for antibiotics Much improved with steroids for asthma as above and bronchodilators (3) Atrial fibrillation, permanent: Presented with rapid atrial fibrillation with rates in the 120s to 130s- could be secondary to her previous respiratory distress. Also with undetectable TSH contributing to rapid A-fib Was briefly on a diltiazem drip in the ER which has been discontinued Now rates are controlled in the 60s to 80s Continue home metoprolol 25 mg p.o. twice daily Continue Eliquis 5 mg p.o. twice daily for anticoagulation Replaced electrolytes Lowered LT4 dose to 150mcg and needs repeat TSH in 2-3 weeks (4) Hypokalemia: Potassium down to 3.1 after admission and was replaced, now improved. Magnesium was within normal limits (5) Hypothyroidism: TSH was undetectable on labs from 2 to 3 weeks ago. It is unclear if her levothyroxine dose was changed at all then. Repeat TSH here again undetectable Decrease levothyroxine dose to 150 mcg once daily Follow TFTs again in 2 to 3 weeks (6) CHF (congestive heart failure): With a history of chronic diastolic CHF Does not appear to be in acute CHF at this time. While proBNP is elevated at 3000, her chest x-ray is normal, she her weight is down from previous, and she has minimal edema. 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: On Eliquis for atrial fibrillation Continue Eliquis (8) Depression with anxiety: Stable Home Paxil will be continued (9) Peripheral neuropathy: Stable Continue home gabapentin (10) Hyperlipidemia LDL goal <70: will continue statin (11) DVT prophylaxis: Eliquis Disposition-stable for dc to home Total Time Total Time Spent Total Time Spent (In Minutes): 35 min Total Time Includes: Examination of the Patient, Discharge Planning and Medication Reconciliation Discharge Plan Discharge Items Patient Disposition: Home - Self-Care Reason For Visit: COUGH/ FLU Discharge Diagnosis: Asthma exacerbation, Viral upper respiratory infection, Rapid atrial fibri llation Condition on Discharge: Good Activity: Resume your previous activity Non-emergency contact: Primary Care Provider Call non-emergency contact if: you have any medication questions and your symptoms worsen Follow-up/Referrals: Ivan Victoria III, MD [Primary Care Provider] - (Follow up within 1 week) Diet: Heart Healthy and Low Sodium (2gm) Addtl Attending Provider Instructions: Please finish out 3 more days of prednisone for your asthma attack. You can take Pepcid (famotidine) along with this for heartburn. Use your inhaler at home as needed for cough. Your lasix (water pill) was increased to 20mg (a whole pill) once daily. Your thyroid function was tested and found to be OVERFUNCTIONING DUE TO TOO MUCH MEDICATION. Your levothyroxine dose will be reduced to 150mcg once daily and you should have your thyroid blood work checked again 2-3 weeks. This may also have caused you to have the rapid heartbeat that you came in with. Follow up with your PCP within 1 week. Pending Studies at Discharge: Yes Stand-Alone Forms: My [facility] Medications and DC Order Prescriptions: New famotidine 20 mg Tablet 20 mg PO BID Qty: 14 RF: 0 prednisone 20 mg Tablet 40 mg PO QAM 3 Days Qty: 6 RF: 0 levothyroxine [Synthroid] 150 mcg Tablet 150 mcg PO DAILYBB Qty: 30 RF: 0 Continued Eliquis 5 mg tablet 5 mg PO BID Qty: 180 RF: 3 lisinopril 40 mg tablet 40 mg PO DAILY RF: 0 metoprolol tartrate 25 mg tablet 25 mg PO BID Qty: 180 RF: 3 simvastatin 20 mg tablet 20 mg PO QPM Qty: 90 RF: 0 paroxetine HCl 20 mg tablet 20 mg PO QAM Qty: 90 RF: 3 albuterol sulfate 90 mcg/actuation Hfa Aerosol Inhaler 2 puff INHALATION Q6H PRN (Reason: Wheezing) RF: 0 trazodone 50 mg tablet 50 mg PO HS RF: 0 gabapentin 800 mg tablet 800 mg PO BID RF: 0 Changed furosemide [Lasix] 20 mg Tablet 20 mg PO DAILY Qty: 0 RF: 0 Discontinued levothyroxine 175 mcg capsule 175 mcg PO DAILY Qty: 30 RF: 5 Discharge Orders: Discharge Order (Routine); Ordered 11/04/20 Ordered By: Sonya Haji Admission Data Admit Date/Time: 04/02/20 16:58 Attending Provider: Sonya Haji Admit Provider: Kai Burton Primary Care Provider: Ivan Victoria III Other Providers: Kai Burton Coding Level of Care Code D/C Day Management >30 mins Diagnoses Asthma J45.909 Asthma complication type: unspecified Asthma persistence: unspecified Asthma severity: unspecified severity Viral URI J06.9 Atrial fibrillation, permanent I48.21 Hypokalemia E87.6 Hypothyroidism E03.9 CHF (congestive heart failure) I50.9 Heart failure chronicity: acute Heart failure type: unspecified 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
== END 2020-04-04 14:58 | disposition home or self-care (01) ==
LOC: ED 13:07 → INTOOBSV 16:58 → SUATTDRO 16:58 → 2E 16:58

== ENCOUNTER 2020-05-16 05:18 | Observation (INO) ==
[2020-05-16] MEDS ORDERED: SODIUM CHLORIDE 0.9% 1000ML 500 ML IV ONE (05:42)
--- NOTE | 2020-05-16 05:45 | Emergency Department Note ---
Impression & Plan Syncope, Hypokalemia, Diarrhea ED Provider Note NAME: CONNIE OFSTER AGE: 69 SEX: F ARRIVES VIA: Ambulance INFORMANT: Patient ED PROVIDER(S): Suzanne Levy DO CHIEF COMPLAINT: Fall PLAN: Disposition: Evaluation for admission by the [facility] hospitalist Condition: Stable MEDICAL DECISION MAKING: This is a 69-year-old female patient who fell off of the toilet and struck the left side of her head and left shoulder. Patient states that she had diarrhea all day today and felt drunk when she was up walking around. Patient denies any significant exposure to COVID-19. Laboratory studies reveal hypokalemia. She was observed on the case monitor and had episodes of bradycardia into the 30s and 40s. Patient has a history of atrial fibrillation and appears to be in slow A. fib on twelve-lead EKG. Patient appears to be dehydrated on physical exam. She was given IV normal saline bolus conservatively because she does have a history of congestive heart failure. The patient had her potassium replaced IV as she was hypokalemic secondary to her diarrhea. The patient had an elevated transaminases on laboratory testing and had a low white blood cell count. She will undergo Covid testing. This is pending. Other than diarrhea, the patient had no Covid symptoms. I discussed the case with the [facility] hospitalist and they will evaluate for further management. Triage Nursing notes reviewed and agree them. Prior medical records reviewed Vital Signs: reviewed and unremarkable Differential diagnosis: Cardiac dysrhythmia; dehydration; hypotension; hypoglycemia; orthostasis; electrolyte abnormality ER treatment provided: IV normal saline solution Diagnostics interpreted by me: ECG: Sinus bradycardia at a rate of 58 with occasional PVCs no ST segment elevation or signs of ischemia Cardiac Monitoring: Sinus bradycardia at a rate of 48 Laboratory studies: See below Imaging studies: As per stat rad CT head: No ICH, mass-effect or edema. No skull fracture. CT C-spine: No acute fracture or malalignment. Status post C4-C6 ACDF. No hardware complication. Moderate degenerative spondylosis Consultation(s): None HPI: 69/F arrives for evaluation of dizziness. The patient presents to the emergency department complaining of dizziness, left shoulder pain and left-sided head pain. The patient got up to the bathroom and while sitting on the toilet became very lightheaded and dizzy and fell forward off the toilet and struck her head and left shoulder on the sink. Patient has been experiencing significant diarrhea over the past 24 hours and describes feeling drunk when she was up walking around. ROS: See above HPI for pertinent positives & negatives. A total of 10 systems reviewed and were otherwise negative. PAST MEDICAL HISTORY:See Below PAST SURGICAL HISTORY:See Below FAMILY HISTORY:See Below SOCIAL HISTORY:See Below HOME MEDICATIONS:See list ALLERGIES:See list VITALS:See Below PHYSICAL EXAMINATION: HEENT: Head - normocephalic a small cephalohematoma to the temporoparietal region of the left side of her scalp. Pupils are equal, round, and reactive to light. Extraocular eye muscles are intact, and sclera are anicteric. Nose - moist nasal mucosa without discharge. Mouth -extremely dry buccal mucosa. Oropharynx is nonerythematous and there is no tonsillar exudate or edema noted. Neck: Supple; no cervical lymphadenopathy no pain to the posterior cervical spine. Heart: Bradycardic rate and rhythm. There is a normal S1 and S2 with no murmurs, clicks, or gallops appreciated. Lungs: Clear to auscultation bilaterally with no wheezes, rales, or rhonchi. Abdomen: Soft, completely nontender, nondistended, with good bowel sounds. There are no palpable pulsatile masses or hepatosplenomegaly. There is no guarding, rigidity, or rebound noted. Extremities: No evidence of cyanosis, clubbing, or edema. There are easily palpable peripheral pulses. Skin: warm and dry with poor turgor and no rashes. ED COURSE: Times/Reassessments: 0525: The patient was evaluated in room A3. A complete history and physical was performed. An order was placed for continuous cardiac monitoring. The patient was in sinus bradycardia at a rate of 54. Laboratory studies were drawn as above. The patient was bolused with 500 cc bolus of normal saline solution. Twelve-lead EKG was obtained. Patient was noted to be hypokalemic and she was given a K rider. The patient seemed quite weak on exam was sometimes difficult to arouse because she was so tired. While in the case monitor, the patient was noted to be bradycardic with a rate into the 30s at times. This may have led to the patient's syncopal event. She had no further significant episodes of diarrhea while here in the emergency department. Suzanne Levy DO Past Med/Surg History Medical History Acquired hypothyroidism (12/24/12) Acute colitis Allergic rhinitis Anticoagulant long-term use Arthritis Asthma Atrial fibrillation Atrial fibrillation, permanent Breast cancer Breast cancer Calcific tendinitis of left shoulder Cataract (08/19/12) Cholelithiasis (08/19/12) Chronic back pain Colitis DCIS (ductal carcinoma in situ) of breast Depression with anxiety Dysphagia Fatigue Gastrocnemius strain GERD (gastroesophageal reflux disease) Hearing loss Hyperlipidemia Hypertension Hypokalemia Hypomagnesemia Hypothyroidism Intestinal obstruction Intraductal carcinoma of right breast Lumbar canal stenosis Lumbar radiculopathy Obesity Osteoarthritis Peripheral neuropathy Polyneuropathy SOB (shortness of breath) on exertion Stenosis, cervical spine Syncope Surgical History H/O tubal ligation 1996 History of appendectomy 1967 History of cataract surgery 2013 - R/L History of cholecystectomy 2007 History of colonoscopy (~07/2018) History of partial mastectomy History of right breast biopsy malignant History of total abdominal hysterectomy and bilateral salpingo-oophorectomy Hx of fusion of cervical spine 2005--normal ROM Hx of hand surgery s - LEFT-CYST REMOVED/BONE FUSION Hx of lumpectomy RIGHT LUMPECTOMY 2018 S/P partial mastectomy Right - 04/19/18 Family History Brother Diabetes Father Heart disease Mother Heart disease Diabetes Hypertension Other No family history of adverse response to anesthesia Unknown family medical history Social History Smoking Status: Never smoker Second Hand Exposure: No; Hx Alcohol Use: No Hx Substance Use: No Preferred Language: Pashto Communication Ability: Effective Visual Impairment: Limited Hearing Ability: Use of Hearing Aid Supervisor Vacuum Metalizing Required: No Beliefs That Will Affect Care: None marital status: Current Living Situation: Spouse current occupational status: retired 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 [employer] Feels Safe at Home: Yes Childhood Exposure to Second-Hand Smoke: Yes caffeine: Yes (2-3 Cups of coffee/day ) during the past year weight has: remained stable Physical Activity Frequency: Daily Physical Activity Frequency Comment: walking, 60 minutes Seatbelt Use: always Sunscreen Use: Yes Assistive Devices: Glasses Allergies Allergies Allergy/AdvReac Type Severity Reaction Status Date / Time bee venom protein (honey bee) Allergy Intermediate swollen, Verified 05/16/20 06:17 itchy adhesive AdvReac Mild RED SKIN Verified 05/16/20 06:17 WITH BANDAIDS house dust AdvReac Mild Watery Eye Verified 05/16/20 06:17 Home Meds Home Medications Medication Instructions Recorded Confirmed albuterol sulfate 2 puff INHALATION Q6H PRN 04/05/18 05/16/20 gabapentin 800 mg tablet 800 mg PO BID tab 02/13/20 05/16/20 trazodone 50 mg PO HS 04/02/20 05/16/20 Previous Rx's Medication Instructions Recorded apixaban 5 mg tablet 5 mg PO BID #180 tab 12/13/18 paroxetine HCl 20 mg tablet 20 mg PO QAM #90 tab 03/31/19 metoprolol tartrate 25 mg tablet 25 mg PO BID #180 tab 02/10/20 famotidine 20 mg PO BID #14 tab 04/04/20 furosemide [Lasix] 20 mg PO DAILY #0 tab 04/04/20 levothyroxine [Synthroid] 150 mcg PO DAILYBB #30 tab 04/04/20 lisinopril 40 mg tablet 40 mg PO DAILY #90 tab 05/03/20 Results & Data (ED) Vital Signs Vital Signs - 24 hr 05/16/20 05:26 05/16/20 06:00 05/16/20 06:21 Temperature 36.3 C L Temperature Source Oral Pulse Rate 60 Pulse Rate [Right Finger] 65 Respiratory Rate 16 16 Respiratory Depth Normal Normal Blood Pressure 132/87 Blood Pressure [Right Arm] 120/75 Blood Pressure Mean 102 Blood Pressure Mean [Right Arm] 90 Blood Pressure Position Lying Blood Pressure Position [Right Arm] Lying Pulse Oximetry 98 98 98 Oxygen Delivery Method Room Air Room Air Room Air Sepsis Recent Fever Within 48 Hours No Sepsis New/Unexplained Change in Mental Status No Sepsis Action Taken by Nursing No Action Required 05/16/20 07:59 Temperature Temperature Source Pulse Rate Pulse Rate [Right Finger] 60 Respiratory Rate 20 Respiratory Depth Blood Pressure Blood Pressure [Right Arm] 126/75 Blood Pressure Mean Blood Pressure Mean [Right Arm] 92 Blood Pressure Position Blood Pressure Position [Right Arm] Pulse Oximetry 97 Oxygen Delivery Method Room Air Sepsis Recent Fever Within 48 Hours Sepsis New/Unexplained Change in Mental Status Sepsis Action Taken by Nursing Laboratory Data Result diagrams: 05/16/20 05:51 05/16/20 05:51 Lab Results 05/16/20 05/16/20 Range/Units 05:51 05:51 WBC 4.35 L (4.8-10.8) K/uL RBC 4.23 (4.2-5.4) M/uL Hgb 13.0 (12.0-16.0) g/dL Hct 39.0 (37-47) % MCV 92.2 (80-100) fL MCH 30.7 (25-34) pg MCHC 33.3 (32-36) g/dL RDW Std Deviation 47.5 H (36.4-46.3) fL RDW Coeff of Kal 14.2 (11.5-14.5) % Plt Count 159 (130-400) K/uL MPV 11.0 H (7.4-10.4) fL Immature Gran % (Auto) 0.2 % Neut % (Auto) 44.5 % Lymph % (Auto) 34.7 % Parker % (Auto) 12.6 % Eos % (Auto) 6.9 % Baso % (Auto) 1.1 % Neut # (Auto) 1.93 (1.4-6.5) K/uL Lymph # (Auto) 1.51 (1.2-3.4) K/uL Parker # (Auto) 0.55 (0.11-0.59) K/uL Eos # (Auto) 0.30 (0-0.5) K/uL Baso # (Auto) 0.05 (0-0.2) K/uL Immature Gran # (Auto) 0.01 (0.00-0.02) K/uL Sodium 143 (136-145) mmol/L Potassium 2.9 L (3.5-5.1) mmol/L Chloride 110 H (98-107) mmol/L Carbon Dioxide 28 (21-32) mmol/L Anion Gap 5.0 (3-11) BUN 7 (7-18) mg/dl Creatinine 0.69 (0.6-1.2) mg/dl Est Cr Clr Drug Dosing 76.1 ml/min Est GFR ( Amer) 102.2 Est GFR (Non-Af Amer) 88.2 BUN/Creatinine Ratio 10.8 (10-20) Glucose 93 (70-99) mg/dl Calcium 8.1 L (8.5-10.1) mg/dl Total Bilirubin 1.0 (0.2-1) mg/dl AST 189 H (15-37) U/L ALT 185 H (12-78) U/L Alkaline Phosphatase 112 (45-117) U/L Total Protein 6.0 L (6.4-8.2) gm/dl Albumin 2.9 L (3.4-5.0) gm/dl Globulin 3.1 (2.5-4.0) gm/dl Albumin/Globulin Ratio 0.9 (0.9-2) Administered Medications Discontinued Medications Sodium Chloride (Nss 1000ml) 500 mls @ 999 mls/hr IV .Q31M ONE Stop: 05/16/20 06:12 Last Infusion: 05/16/20 06:15 Dose: 0 mls/hr Documented by: [id number] Admin: 05/16/20 05:43 Dose: 999 mls/hr Documented by: [id number] Potassium Chloride (K Gagandeep / Wtr) 10 meq in 100 mls @ 100 mls/hr IV ONE ONE Stop: 05/16/20 07:23 Last Infusion: 05/16/20 07:28 Dose: 0 mls/hr Documented by: [id number] Admin: 05/16/20 06:29 Dose: 100 mls/hr Documented by: [id number] Discharge Plan Visit Data Chief Complaint: Fall Stated Complaint: FALL/SHOULDER AND HEAD PAIN/DIARRHEA/DIZZY ED Provider: Suzanne Levy Discharge Problem: Syncope, Hypokalemia, Diarrhea Forms Stand Alone Forms: My [facility] Prescriptions Prescriptions: No Action Eliquis 5 mg tablet 5 mg PO BID Qty: 180 RF: 3 lisinopril 40 mg tablet 40 mg PO DAILY Qty: 90 RF: 3 metoprolol tartrate 25 mg tablet 25 mg PO BID Qty: 180 RF: 3 paroxetine HCl 20 mg tablet 20 mg PO QAM Qty: 90 RF: 3 albuterol sulfate 90 mcg/actuation Hfa Aerosol Inhaler 2 puff INHALATION Q6H PRN (Reason: Wheezing) RF: 0 trazodone 50 mg tablet 50 mg PO HS RF: 0 famotidine 20 mg Tablet 20 mg PO BID Qty: 14 RF: 0 levothyroxine [Synthroid] 150 mcg Tablet 150 mcg PO DAILYBB Qty: 30 RF: 0 furosemide [Lasix] 20 mg Tablet 20 mg PO DAILY Qty: 0 RF: 0 gabapentin 800 mg tablet 800 mg PO BID RF: 0 Discharge Problem: Syncope Qualifiers: Syncope type: unspecified Qualified Code(s): R55 - Syncope and collapse Diarrhea Qualifiers: Diarrhea type: unspecified type Qualified Code(s): R19.7 - Diarrhea, unspecified
[2020-05-16 06:02] LABS: Basophils # (auto) 0.05 K/uL (0-0.2); Basophils % (auto) 1.1 %; Eosinophils % (auto) 6.9 %; Immature Granulocytes # (auto) 0.01 K/uL (0.00-0.02); Immature Granulocytes % (auto) 0.2 %; Lymphocytes # (auto) 1.51 K/uL (1.2-3.4); Lymphocytes % (auto) 34.7 %; Mean Corpuscular Hemoglobin 30.7 pg (25-34); Mean Corpuscular Hgb Conc 33.3 g/dL (32-36); Mean Corpuscular Volume 92.2 fL (80-100); Monocytes # (auto) 0.55 K/uL (0.11-0.59); Monocytes % (auto) 12.6 %; Neutrophils # (auto) 1.93 K/uL (1.4-6.5); Neutrophils % (auto) 44.5 %; Platelet Count 159 K/uL (130-400); RDW Coefficient of Variation 14.2 % (11.5-14.5); RDW Standard Deviation 47.5 fL (36.4-46.3); Red Blood Count 4.23 M/uL (4.2-5.4); White Blood Count 4.35 K/uL (4.8-10.8)
[2020-05-16 06:19] LABS: Albumin Level 2.9 gm/dl (3.4-5.0); BUN Creatinine Ratio 10.8 (10-20); Calcium 8.1 mg/dl (8.5-10.1); Creatinine Clr Calc Pharmacy 76.1 ml/min; Est GFR (African American) 102.2; Est GFR (Non-African American) 88.2; Potassium 2.9 mmol/L (3.5-5.1)
[2020-05-16 06:22] LABS: Albumin Globulin Ratio 0.9 (0.9-2); Globulin 3.1 gm/dl (2.5-4.0)
[2020-05-16] MEDS ORDERED: POTASSIUM CHLORIDE / WTR 10 MEQ/100 ML PLCT IV ONE (06:24)
--- NOTE | 2020-05-16 06:55 | CT Scan Report ---
CT head/brain wo con CLINICAL HISTORY: Head pain status post trauma COMPARISON STUDY: 03/09/2019 TECHNIQUE: Axial CT of the brain is performed from the vertex to the skull base. IV contrast was not administered for this examination. A dose lowering technique was utilized adhering to the principles of ALARA. CT DOSE: 1070.96 mGy.cm FINDINGS: No intra or extra-axial mass lesions are visualized. There is no CT evidence of acute cortical infarc tion. There is no evidence of midline shift. There is no acute hemorrhage. No calvarial fractures ar e visualized. There are patchy white matter hypodensities likely on a small vessel basis. There is mild ventricular prominence a finding which is felt to be secondary to volume loss. There is no evidence of acute sinusitis IMPRESSION: No acute intracranial findings ACT 112: Negative or not required by law. Electronically signed by: Silvino Pereyra M.D. 05/16/2020 6:54 AM
--- NOTE | 2020-05-16 06:57 | CT Scan Report ---
CT OF THE CERVICAL SPINE CLINICAL HISTORY: Neck pain status post trauma COMPARISON STUDY: 12/15/2016 CT DOSE: TECHNIQUE: CT scan of the cervical spine was performed from the skull base to the thoracic inlet. Marce ges are reviewed in the axial, sagittal, and coronal planes. IV contrast was not administered for thi s examination. A dose lowering technique was utilized adhering to the principles of ALARA. FINDINGS: The visualized portions of the lung apices reveal no evidence of pneumothorax. The prevertebral soft tissues are normal. No fractures or subluxations are visualized. There are multilevel degenerative changes. There are postsurgical changes of a.c. for-C6 anterior cer vical discectomy and fusion. IMPRESSION: No evidence of acute fracture or traumatic subluxation. ACT 112: Negative or not required by law. Electronically signed by: Silvino Pereyra M.D. 05/16/2020 6:55 AM
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
[2020-05-16] MEDS ORDERED: POTASSIUM CHLORIDE CRTAB 20 MEQ TABCR PO STA (09:39)
[2020-05-16] MEDS ORDERED: ALBUTEROL HFA 8 GM INHALER INH PRN (10:18)
[2020-05-16] MEDS ORDERED: ACETAMINOPHEN 325 MG TAB PO PRN (10:18)
[2020-05-16] MEDS ORDERED: ONDANSETRON INJ 2 MG/ML 2 ML VIAL IV PRN (10:18)
[2020-05-16] MEDS: APIXABAN 5 MG TABLET PO SCH ×2 (11:43→20:09)
[2020-05-16] MEDS: POTASSIUM CHLORIDE / WTR 10 MEQ/100 ML PLCT IV SCH ×2 (11:43→13:08)
[2020-05-16] MEDS: PARoxetine HCL 20 MG TAB PO SCH (11:43)
[2020-05-16] MEDS: FAMOTIDINE 20 MG TAB PO SCH ×2 (11:44→20:09)
[2020-05-16] MEDS: METOPROLOL TARTRATE 25 MG TAB PO SCH ×2 (11:44→20:09)
[2020-05-16] MEDS: lisinopril 40 MG TAB PO SCH (11:44)
[2020-05-16] MEDS: GABAPENTIN 800 MG TAB PO SCH ×2 (11:44→20:09)
[2020-05-16] MEDS: FUROSEMIDE 20 MG TAB PO SCH (11:44)
--- NOTE | 2020-05-16 13:26 | XCELERA ---
[id number]
--- NOTE | 2020-05-16 17:03 | Cardiology Consultation ---
Date of Consultation May 16, 2020 Assessment & Plan (1) Near syncope: (2) Atrial fibrillation, permanent: (3) Bradycardia: (4) Hypotension: ASSESSMENT/PLAN: 1. Permanent atrial fibrillation: At home, she takes metoprolol 25 mg twice daily. She did not receive a dose today and her heart rate remains adequately controlled. In the past, she was tachycardic when taking 25 mg twice daily and had been taking 37.5 mg twice daily for better rate control. For now, continue to monitor her heart rate to better assess future dose of beta-derrick. Continue anticoagulation for stroke risk reduction. 2. Near syncope/fall: Based on her description, the fall was likely precipitated by orthostatic hypotension, in the setting of bradycardia based on her initial heart rates that are reported in the 30s or 40s. Vasovagal etiology also possible. Continue monitoring. 3. Hypotension with history of hypertension: She has been intermittently mildly hypotensive. She did not receive beta-derrick today. There were concerns in the past for orthostatic symptoms as an outpatient. May need to reduce NANDINI- inhibitor. Continue to monitor blood pressure closely. Hypotension may also be driven by the fact that she has been having diarrhea while taking her diuretic. 4. Bradycardia: As discussed above. Currently, heart rate is well controlled with no beta-derrick today. She had been tachycardic in the past on 25 mg twice daily of metoprolol. Continue to monitor heart rate to help determine beta- derrick dosing. 5. Hypokalemia: She has received supplementation by ER/primary service. Continue to monitor and replete as necessary. 6. Disposition: Cardiology will continue to follow. Patient care discussed with Dr. Pollard of the primary hospitalist service. Thank you for allowing me to participate in the care of your patient. Please call for any other questions or concerns. Sincerely, Ector Dukes M.D. History of Present Illness Reason for Consultation: "Fall, bradycardia with AFib" Requesting Physician: Ced Pollard MD Attending Physician: Ced Pollard MD History of Present Illness Mrs. Padilla is a very pleasant 69-year-old female with a history significant for atrial fibrillation, diastolic CHF (diagnosed March 2020 with brief hospital stay), hypertension, dyslipidemia, asthma, and chronic back pain with lumbar spinal stenosis and polyneuropathy. She was diagnosed with right-sided breast cancer in 2018 and is status post lumpectomy and radiation therapy. She has had the following studies/procedures: 1. Echo 03/06/2017: Normal LV size, wall motion, systolic function. EF 55-60%. No LVH. Mild left atrial dilation. Moderate MAC. RVSP 18. 2. Event monitor 03/19/2017 to 04/17/2017: Predominantly sinus rhythm with paroxysmal atrial fibrillation/flutter. Heart rate during AFib was typically rate controlled. PVCs. No symptoms. 3. Echo 03/02/2020: Normal LV size, wall motion, systolic function. EF 60-65%. Moderate biatrial dilation. No significant valvular abnormalities. Normal RVSP. She was hospitalized earlier today after falling. She has had diarrhea for the past 2 or 3 days, with 2 or 3 episodes of diarrhea per day. She has been maintaining her usual oral intake including fluids. She denies melena, hematochezia, hematuria, or other significant bleeding. She also has been feeling lightheaded all day, starting yesterday. She also has had increasing weakness. Earlier this morning, she went to the restroom and had a bowel movement and urination. She then got up from the commode and became lightheaded and fell to the ground. She denies a loss of consciousness. She remembers falling. On presentation she was reportedly bradycardic with heart rates in the 30s and 40s while in atrial fibrillation. She was also noted to be hypokalemic with a potassium level of 2.9. Beta-derrick was reduced by primary service. She was hospitalized in March of 2020 and diagnosed with CHF at which time Lasix 20 mg daily was initiated. She has been taking Lasix as prescribed per her report. She denies angina, syncope, palpitations, edema, or shortness of breath. She denies orthopnea. She maintains a low-sodium diet. Review of systems: As above. Review of systems otherwise negative/unremarkable. Family history: Mother had heart failure. Father had aneurysm. Social history: Denies tobacco or alcohol abuse. and lives with her . Her has hepatic cancer and is on the transplant list. No children. Retired from [employer]. She is unaccompanied today. Allergies Allergy/AdvReac Type Severity Reaction Status Date / Time bee venom protein (honey bee) Allergy Intermediate swollen, Verified 05/16/20 06:17 itchy adhesive AdvReac Mild RED SKIN Verified 05/16/20 06:17 WITH BANDAIDS house dust AdvReac Mild Watery Eye Verified 05/16/20 06:17 Home Medications Medication Instructions Recorded Confirmed Type albuterol sulfate 2 puff INHALATION Q6H PRN 04/05/18 05/16/20 History apixaban 5 mg tablet 5 mg PO BID #180 tab 12/13/18 05/16/20 Rx paroxetine HCl 20 mg tablet 20 mg PO QAM #90 tab 03/31/19 05/16/20 Rx metoprolol tartrate 25 mg tablet 25 mg PO BID #180 tab 02/10/20 05/16/20 Rx gabapentin 800 mg tablet 800 mg PO BID tab 02/13/20 05/16/20 History trazodone 50 mg PO HS 04/02/20 05/16/20 History famotidine 20 mg PO BID #14 tab 04/04/20 05/16/20 Rx furosemide [Lasix] 20 mg PO DAILY #0 tab 04/04/20 05/16/20 Rx levothyroxine [Synthroid] 150 mcg PO DAILYBB #30 tab 04/04/20 05/16/20 Rx lisinopril 40 mg tablet 40 mg PO DAILY #90 tab 05/03/20 05/16/20 Rx Patient History Medical History Acquired hypothyroidism (12/24/12) Acute colitis Allergic rhinitis Anticoagulant long-term use Arthritis Asthma Atrial fibrillation Atrial fibrillation, permanent Breast cancer Breast cancer Calcific tendinitis of left shoulder Cataract (08/19/12) Cholelithiasis (08/19/12) Chronic back pain Colitis DCIS (ductal carcinoma in situ) of breast Depression with anxiety Dysphagia Fatigue Gastrocnemius strain GERD (gastroesophageal reflux disease) Hearing loss Hyperlipidemia Hypertension Hypokalemia Hypomagnesemia Hypothyroidism Intestinal obstruction Intraductal carcinoma of right breast Lumbar canal stenosis Lumbar radiculopathy Obesity Osteoarthritis Peripheral neuropathy Polyneuropathy SOB (shortness of breath) on exertion Stenosis, cervical spine Syncope Surgical History H/O tubal ligation 1996 History of appendectomy 1968 History of cataract surgery 2014 - R/L History of cholecystectomy 2006 History of colonoscopy (~07/2018) History of partial mastectomy History of right breast biopsy malignant History of total abdominal hysterectomy and bilateral salpingo-oophorectomy Hx of fusion of cervical spine 2005--normal ROM Hx of hand surgery - LEFT-CYST REMOVED/BONE FUSION Hx of lumpectomy RIGHT LUMPECTOMY 2018 S/P partial mastectomy Right - 04/19/18 Family History Brother Diabetes Father Heart disease Mother Heart disease Diabetes Hypertension Other No family history of adverse response to anesthesia Unknown family medical history Social History Smoking Status: Never smoker Second Hand Exposure: No; Hx Alcohol Use: No Hx Substance Use: No Preferred Language: Wolof Communication Ability: Effective Visual Impairment: Limited Hearing Ability: Use of Hearing Aid Jewelry Inspector Required: No Beliefs That Will Affect Care: None marital status: Current Living Situation: Spouse Current Living Situation Comment: home with current occupational status: retired 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 Alert and oriented. HEENT: Anicteric sclera. Neck: No significant JVD. No bruits. Normal carotid upstrokes bilaterally. Cardiac: PMI was nonpalpable. No ventricular heave. Irregularly irregular. Normal S1-S2. No murmurs, rubs, or gallops. Pulmonary: Clear to auscultation bilaterally without wheezes, rales, or rhonchi. Abdomen: Soft, nontender, nondistended, with normoactive bowel sounds. No bruits noted. Extremities: 2+ radial pulses bilaterally. 2+ posterior tibialis pulses bilaterally. Trace bilateral lower extremity edema. No cyanosis. Psychiatric: Affect appears appropriate. Results & Data ([facility]) Vital Signs (Past 12 Hours) Vital Signs Temp Pulse Pulse Resp BP BP BP 05/16/20 16:04 76 05/16/20 16:03 94/57 L 05/16/20 15:59 36.3 C L 71 20 85/57 L 05/16/20 10:40 60 05/16/20 10:24 36.3 C L 58 L 16 111/74 05/16/20 10:18 36 C L 61 18 131/69 05/16/20 10:00 64 22 05/16/20 09:50 61 14 05/16/20 09:40 54 L 14 05/16/20 09:32 59 L 13 103/60 05/16/20 09:30 65 15 79/53 L 05/16/20 09:20 55 L 14 05/16/20 09:10 56 L 16 05/16/20 09:00 51 L 21 102/60 05/16/20 08:50 60 13 05/16/20 08:40 58 L 15 05/16/20 08:31 61 12 102/61 05/16/20 08:30 59 L 14 05/16/20 08:20 61 13 05/16/20 08:10 58 L 13 05/16/20 08:01 61 16 123/67 05/16/20 08:00 56 L 13 05/16/20 07:59 60 20 126/75 05/16/20 07:50 63 14 05/16/20 07:40 56 L 15 05/16/20 07:31 52 L 13 126/75 05/16/20 07:30 52 L 15 05/16/20 07:20 51 L 16 05/16/20 07:10 59 L 14 05/16/20 07:00 53 L 16 124/72 05/16/20 06:50 46 L 16 05/16/20 06:40 62 18 05/16/20 06:31 55 L 13 105/74 05/16/20 06:30 55 L 13 05/16/20 06:21 65 16 120/75 05/16/20 06:20 64 15 05/16/20 06:11 62 10 L 120/75 05/16/20 06:10 05/16/20 06:00 60 05/16/20 05:50 65 16 05/16/20 05:40 60 18 05/16/20 05:30 56 L 17 05/16/20 05:28 65 18 05/16/20 05:26 36.3 C L 16 132/87 05/16/20 05:24 58 L 16 132/87 Pulse Ox 05/16/20 16:04 05/16/20 16:03 05/16/20 15:59 96 05/16/20 10:40 05/16/20 10:24 98 05/16/20 10:18 97 05/16/20 10:00 05/16/20 09:50 97 05/16/20 09:40 96 05/16/20 09:32 97 05/16/20 09:30 98 05/16/20 09:20 98 05/16/20 09:10 05/16/20 09:00 97 05/16/20 08:50 97 05/16/20 08:40 97 05/16/20 08:31 96 05/16/20 08:30 93 05/16/20 08:20 95 05/16/20 08:10 98 05/16/20 08:01 96 05/16/20 08:00 96 05/16/20 07:59 97 05/16/20 07:50 95 05/16/20 07:40 96 05/16/20 07:31 97 05/16/20 07:30 95 05/16/20 07:20 95 05/16/20 07:10 97 05/16/20 07:00 98 05/16/20 06:50 92 05/16/20 06:40 82 L 05/16/20 06:31 97 05/16/20 06:30 97 05/16/20 06:21 98 05/16/20 06:20 98 05/16/20 06:11 98 05/16/20 06:10 99 05/16/20 06:00 98 05/16/20 05:50 97 05/16/20 05:40 98 05/16/20 05:30 98 05/16/20 05:28 97 05/16/20 05:26 98 05/16/20 05:24 98 Laboratory Results Laboratory Results - last 24 hr 05/16/20 05/16/20 05/16/20 05:51 05:51 05:51 WBC 4.35 L RBC 4.23 Hgb 13.0 Hct 39.0 MCV 92.2 MCH 30.7 MCHC 33.3 RDW Std Deviation 47.5 H RDW Coeff of Kal 14.2 Plt Count 159 MPV 11.0 H Immature Gran % (Auto) 0.2 Neut % (Auto) 44.5 Lymph % (Auto) 34.7 [place] % (Auto) 12.6 Eos % (Auto) 6.9 Baso % (Auto) 1.1 Neut # (Auto) 1.93 Lymph # (Auto) 1.51 [place] # (Auto) 0.55 Eos # (Auto) 0.30 Baso # (Auto) 0.05 Immature Gran # (Auto) 0.01 Sodium 143 Potassium 2.9 L Chloride 110 H Carbon Dioxide 28 Anion Gap 5.0 BUN 7 Creatinine 0.69 Est Cr Clr Drug Dosing 76.1 Est GFR ( Amer) 102.2 Est GFR (Non-Af Amer) 88.2 BUN/Creatinine Ratio 10.8 Glucose 93 Calcium 8.1 L Total Bilirubin 1.0 AST 189 H ALT 185 H Alkaline Phosphatase 112 Troponin I Total Protein 6.0 L Albumin 2.9 L Globulin 3.1 Albumin/Globulin Ratio 0.9 TSH 0.394 SARS-CoV-2 Ag (Rapid) 05/16/20 05/16/20 14:17 Unknown WBC RBC Hgb Hct MCV MCH MCHC RDW Std Deviation RDW Coeff of Kal Plt Count MPV Immature Gran % (Auto) Neut % (Auto) Lymph % (Auto) [place] % (Auto) Eos % (Auto) Baso % (Auto) Neut # (Auto) Lymph # (Auto) [place] # (Auto) Eos # (Auto) Baso # (Auto) Immature Gran # (Auto) Sodium Potassium Chloride Carbon Dioxide Anion Gap BUN Creatinine Est Cr Clr Drug Dosing Est GFR ( Amer) Est GFR (Non-Af Amer) BUN/Creatinine Ratio Glucose Calcium Total Bilirubin AST ALT Alkaline Phosphatase Troponin I < 0.015 Total Protein Albumin Globulin Albumin/Globulin Ratio TSH SARS-CoV-2 Ag (Rapid) Negative Diagnostic Findings Echo 05/16/2020: Normal LV size, wall motion, systolic function. EF 55-60%. No LVH. Mildly dilated RV with normal systolic function. Moderate biatrial dilation. Mild MR. RVSP 36. Telemetry personally reviewed: Atrial fibrillation. ECG personally reviewed: ECG 05/16/2020: AFib 58 beats per minute. RBBB. Medications Administered Current Inpatient Medications Acetaminophen (Acetaminophen 325 Mg Tab) 650 mg PO Q4H PRN PRN Reason: Moderate Pain Stop: 06/15/20 10:17 Albuterol (Albuterol Hfa 8 Gm Inhaler) 2 puffs INH Q6H PRN PRN Reason: Wheezing Stop: 06/15/20 10:17 Apixaban (Apixaban 5 Mg Tablet) 5 mg PO BID [facility] Stop: 06/15/20 10:29 Last Admin: 05/16/20 11:43 Dose: 5 mg Documented by: Famotidine (Famotidine 20 Mg Tab) 20 mg PO BID [facility] Stop: 06/15/20 10:29 Last Admin: 05/16/20 11:44 Dose: 20 mg Documented by: Furosemide (Furosemide 20 Mg Tab) 20 mg PO DAILY [facility] Stop: 06/15/20 10:29 Last Admin: 05/16/20 11:44 Dose: 20 mg Documented by: Gabapentin (Gabapentin 800 Mg Tab) 800 mg PO BID [facility] Stop: 06/15/20 10:29 Last Admin: 05/16/20 11:44 Dose: 800 mg Documented by: Levothyroxine Sodium (Levothyroxine Sodium 150 Mcg Tablet) 150 mcg PO DAILYBB [facility] Stop: 06/16/20 06:29 Lisinopril (Lisinopril 40 Mg Tab) 40 mg PO DAILY [facility] Stop: 06/15/20 10:29 Last Admin: 05/16/20 11:44 Dose: 40 mg Documented by: Metoprolol Tartrate (Metoprolol Tartrate 25 Mg Tab) 25 mg PO BID [facility] Stop: 06/15/20 10:29 Last Admin: 05/16/20 11:44 Dose: Not Given Documented by: Ondansetron HCl (Ondansetron Inj 2 Mg/Ml 2 Ml Vial) 4 mg IV Q4H PRN PRN Reason: Nausea And Vomiting Stop: 06/15/20 10:17 Paroxetine HCl (Paroxetine Hcl 20 Mg Tab) 20 mg PO QAM [facility] Stop: 06/15/20 10:29 Last Admin: 05/16/20 11:43 Dose: 20 mg Documented by: Trazodone HCl (Trazodone Hcl 50 Mg Tab) 50 mg PO HS [facility] Stop: 06/15/20 20:59 PG Care Time/CCT Total # of Minutes Spent Total Time Spent with Patient: Total time spent is greater than 50% in coordination of care (as documented) at patient's floor/unit and/or counseling patient: Coding Level of Care Code 43233 Initial Inpt Care Lvl 2 Diagnoses Near syncope R55 Atrial fibrillation, permanent I48.21 Bradycardia R00.1 Hypotension I95.9
[2020-05-16] MEDS: traZODone HCL 50 MG TAB PO SCH (20:09)
[2020-05-17] MEDS: LEVOTHYROXINE SODIUM 150 MCG TABLET PO SCH (05:38)
--- NOTE | 2020-05-17 06:12 | Electrocardiogram Report ---
Test Reason : Blood Pressure : / mmHG Vent. Rate : 058 BPM Atrial Rate : 058 BPM P-R Int : 088 ms QRS Dur : 132 ms QT Int : 496 ms P-R-T Axes : 000 051 064 degrees QTc Int : 486 ms Atrial fibrillation Right bundle branch block Abnormal ECG When compared with ECG of 02-APR-2020 14:12, Vent. rate has decreased BY 67 BPM Confirmed by Bryan Dukes ([id number]) on 05/17/2020 6:12:13 AM Referred By: Confirmed By:Bryan Dukes
[2020-05-17 06:23] LABS: Appearance Urine Clear (Clear); Bacteria Urine Automated Negative (Negative); Bilirubin Urine Negative (Negative); Blood Urine 1+ (Negative); Color Urine Yellow; Glucose Urine UA Negative (Negative); Ketones Urine Negative (Negative); Leukocyte Esterase Urine Trace (Negative); Nitrite Urine Negative (Negative); Protein Urine Negative (Negative); Specific Gravity Urine 1.013 (1.000-1.030); Urobilinogen Urine Positive (Negative)
[2020-05-17 06:44] LABS: RBC Urine Automated 0-4 /hpf (0-4)
[2020-05-17] MEDS: FUROSEMIDE 20 MG TAB PO SCH (08:37)
[2020-05-17] MEDS: FAMOTIDINE 20 MG TAB PO SCH ×2 (08:37→20:00)
[2020-05-17] MEDS: lisinopril 40 MG TAB PO SCH (08:37)
[2020-05-17] MEDS: APIXABAN 5 MG TABLET PO SCH ×2 (08:37→20:01)
[2020-05-17] MEDS: METOPROLOL TARTRATE 25 MG TAB PO SCH ×2 (08:38→20:00)
[2020-05-17] MEDS: GABAPENTIN 800 MG TAB PO SCH ×2 (08:38→20:01)
[2020-05-17] MEDS: PARoxetine HCL 20 MG TAB PO SCH (08:38)
[2020-05-17 09:00] LABS: Hematocrit (blood only) 39.7 % (37-47); Hemoglobin 13.3 g/dL (12.0-16.0); Mean Corpuscular Hemoglobin 30.9 pg (25-34); Mean Corpuscular Hgb Conc 33.5 g/dL (32-36); Mean Corpuscular Volume 92.1 fL (80-100); Mean Platelet Volume 11.3 fL (7.4-10.4); Platelet Count 154 K/uL (130-400); RDW Coefficient of Variation 14.5 % (11.5-14.5); RDW Standard Deviation 48.9 fL (36.4-46.3); Red Blood Count 4.31 M/uL (4.2-5.4); White Blood Count 3.67 K/uL (4.8-10.8)
[2020-05-17 09:42] LABS: Albumin Globulin Ratio 0.9 (0.9-2); Albumin Level 2.7 gm/dl (3.4-5.0); BUN Creatinine Ratio 16.1 (10-20); Bilirubin,Total 0.9 mg/dl (0.2-1); Calcium 8.4 mg/dl (8.5-10.1); Creatinine Clr Calc Pharmacy 92.1 ml/min; Est GFR (African American) 109.5; Est GFR (Non-African American) 94.5; Phosphorus 2.9 mg/dl (2.5-4.9); Potassium 3.7 mmol/L (3.5-5.1); Total Protein 5.7 gm/dl (6.4-8.2)
--- NOTE | 2020-05-17 14:34 | Cardiology Progress Note ---
Date of Service May 17, 2020 Assessment & Plan (1) Near syncope: (2) Atrial fibrillation, permanent: (3) Bradycardia: (4) Chronic diastolic CHF (congestive heart failure): (5) Hypotension: ASSESSMENT/PLAN: 1. Permanent atrial fibrillation: She did not receive metoprolol yesterday. She received a dose today and her heart rate is well controlled. In the past, her heart rate was tachycardic on 25 mg twice daily and she had been on 30/7 0.5 mg twice daily. Continue 25 mg twice daily for now. Continue anticoagulation for stroke risk reduction. 2. Near syncope/fall: Based on her description, the fall was likely precipitated by orthostatic hypotension, in the setting of bradycardia based on her initial heart rates that are reported in the 30s or 40s. Vasovagal etiology also possible. Heart rate is now acceptable. 3. Hypotension with history of hypertension: Blood pressure has been normotensive or mildly hypotensive. Will reduce lisinopril to 20 mg daily given concern for orthostatic symptoms in the past as an outpatient as well. 4. Bradycardia: As discussed above. Currently, heart rate is well controlled with 25 mg of metoprolol this morning. She had been tachycardic in the past on 25 mg twice daily of metoprolol. Continue to monitor heart rate while hospitalized. 5. Hypokalemia: She has received supplementation by ER/primary service. Continue to monitor and replete as necessary. 6. Diastolic CHF: She had worsening dyspnea with exertion today and may be a bit hypervolemic on exam. Will give an additional dose of Lasix 20 mg now. She received fluids yesterday as she presented with diarrhea, hypotension, bradycardia. Continue to monitor fluid balance. Low-sodium diet. Daily weights. 7. Disposition: Cardiology will continue to follow. Admission and Anticipated Discharge Date Admission Date: May 16, 2020 Subjective She was resting comfortably in bed this afternoon. She denies chest pain, syncope, near-syncope, lightheadedness, edema, or bleeding. She was more short of breath than usual however with ambulation earlier today. She has not had any further diarrhea. This morning, she received lisinopril 40 mg daily and metoprolol 25 mg. She did not receive metoprolol yesterday. Review of systems: As above. Physical Exam Physical Exam: Gen.: No acute distress. Was sleeping, but easily arousable with verbal stimuli. HEENT: Anicteric sclera. Neck: Mildly elevated JVD. Cardiac: No ventricular heave. Irregularly irregular. Normal S1-S2. No murmurs, rubs, or gallops. Pulmonary: Clear to auscultation bilaterally without wheezes, rales, or rhonchi. Abdomen: Soft, nontender, nondistended, with normoactive bowel sounds. No bruits noted. Extremities: 2+ radial pulses bilaterally. 2+ posterior tibialis pulses bilaterally. Trace bilateral lower extremity edema. No cyanosis. Psychiatric: Affect appears appropriate. Results & Data ([facility]) Vital Signs (Past 12 Hours) Vital Signs Temp Pulse Resp BP Pulse Ox 05/17/20 11:00 36.6 C 76 16 118/74 92 05/17/20 07:04 36.4 C L 63 19 108/74 92 05/17/20 03:46 36.5 C 74 18 104/61 92 Intake & Output 05/15/20 05/16/20 05/17/20 05/18/20 06:59 06:59 06:59 06:59 Intake Total 500 / 500 350 / 350 Output Total 200 / 200 Balance 500 / 500 150 / 150 Weight 169 lb 1.513 oz 163 lb 2.273 oz Laboratory Results Laboratory Results - last 24 hr 05/16/20 05/16/20 05/17/20 14:17 22:17 06:00 WBC RBC Hgb Hct MCV MCH MCHC RDW Std Deviation RDW Coeff of Kal Plt Count MPV Sodium Potassium Chloride Carbon Dioxide Anion Gap BUN Creatinine Est Cr Clr Drug Dosing Est GFR ( Amer) Est GFR (Non-Af Amer) BUN/Creatinine Ratio Glucose Calcium Phosphorus Magnesium Total Bilirubin AST ALT Alkaline Phosphatase Troponin I < 0.015 < 0.015 Total Protein Albumin Globulin Albumin/Globulin Ratio Urine Color Yellow Urine Appearance Clear Urine pH 6.0 Ur Specific [place] 1.013 Urine Protein Negative Urine Glucose (UA) Negative Urine Ketones Negative Urine Blood 1+ H Urine Nitrite Negative Urine Bilirubin Negative Urine Urobilinogen Positive H Ur Leukocyte Esterase Trace H Urine WBC (Auto) 1-5 Urine RBC (Auto) 0-4 U Hyaline Cast (Auto) 1-5 U Epithel Cells (Auto) 10-20 H Urine Bacteria (Auto) Negative Urine Yeast Not Reportable 05/17/20 05/17/20 08:30 08:30 WBC 3.67 L RBC 4.31 Hgb 13.3 Hct 39.7 MCV 92.1 MCH 30.9 MCHC 33.5 RDW Std Deviation 48.9 H RDW Coeff of Kal 14.5 Plt Count 154 MPV 11.3 H Sodium 143 Potassium 3.7 D Chloride 113 H Carbon Dioxide 24 Anion Gap 6.0 BUN 9 Creatinine 0.56 L Est Cr Clr Drug Dosing 92.1 Est GFR ( Amer) 109.5 Est GFR (Non-Af Amer) 94.5 BUN/Creatinine Ratio 16.1 Glucose 99 Calcium 8.4 L Phosphorus 2.9 Magnesium 2.0 Total Bilirubin 0.9 AST 186 H ALT 174 H Alkaline Phosphatase 107 Troponin I Total Protein 5.7 L Albumin 2.7 L Globulin 3.0 Albumin/Globulin Ratio 0.9 Urine Color Urine Appearance Urine pH Ur Specific [place] Urine Protein Urine Glucose (UA) Urine Ketones Urine Blood Urine Nitrite Urine Bilirubin Urine Urobilinogen Ur Leukocyte Esterase Urine WBC (Auto) Urine RBC (Auto) U Hyaline Cast (Auto) U Epithel Cells (Auto) Urine Bacteria (Auto) Urine Yeast Diagnostic Findings Telemetry personally reviewed: Atrial fibrillation with reasonable heart rate, and no significant pauses. Medications Administered Current Inpatient Medications Acetaminophen (Acetaminophen 325 Mg Tab) 650 mg PO Q4H PRN PRN Reason: Moderate Pain Stop: 06/15/20 10:17 Albuterol (Albuterol Hfa 8 Gm Inhaler) 2 puffs INH Q6H PRN PRN Reason: Wheezing Stop: 06/15/20 10:17 Apixaban (Apixaban 5 Mg Tablet) 5 mg PO BID [facility] Stop: 06/15/20 10:29 Last Admin: 05/17/20 08:37 Dose: 5 mg Documented by: Famotidine (Famotidine 20 Mg Tab) 20 mg PO BID [facility] Stop: 06/15/20 10:29 Last Admin: 05/17/20 08:37 Dose: 20 mg Documented by: Furosemide (Furosemide 20 Mg Tab) 20 mg PO DAILY [facility] Stop: 06/15/20 10:29 Last Admin: 05/17/20 08:37 Dose: 20 mg Documented by: Gabapentin (Gabapentin 800 Mg Tab) 800 mg PO BID [facility] Stop: 06/15/20 10:29 Last Admin: 05/17/20 08:38 Dose: 800 mg Documented by: Levothyroxine Sodium (Levothyroxine Sodium 150 Mcg Tablet) 150 mcg PO DAILYBB [facility] Stop: 06/16/20 06:29 Last Admin: 05/17/20 05:38 Dose: 150 mcg Documented by: Lisinopril (Lisinopril 40 Mg Tab) 40 mg PO DAILY [facility] Stop: 06/15/20 10:29 Last Admin: 05/17/20 08:37 Dose: 40 mg Documented by: Metoprolol Tartrate (Metoprolol Tartrate 25 Mg Tab) 25 mg PO BID [facility] Stop: 06/15/20 10:29 Last Admin: 05/17/20 08:38 Dose: 25 mg Documented by: Ondansetron HCl (Ondansetron Inj 2 Mg/Ml 2 Ml Vial) 4 mg IV Q4H PRN PRN Reason: Nausea And Vomiting Stop: 06/15/20 10:17 Paroxetine HCl (Paroxetine Hcl 20 Mg Tab) 20 mg PO QAM [facility] Stop: 06/15/20 10:29 Last Admin: 05/17/20 08:38 Dose: 20 mg Documented by: Trazodone HCl (Trazodone Hcl 50 Mg Tab) 50 mg PO HS [facility] Stop: 06/15/20 20:59 Last Admin: 05/16/20 20:09 Dose: 50 mg Documented by: PG Care Time/CCT Total # of Minutes Spent Total Time Spent with Patient: Total time spent is greater than 50% in coordination of care (as documented) at patient's floor/unit and/or counseling patient: Coding Level of Care Code 67422 Subseq Hosp Care Lvl 3 Diagnoses Near syncope R55 Atrial fibrillation, permanent I48.21 Bradycardia R00.1 Chronic diastolic CHF (congestive heart failure) I50.32 Hypotension I95.9
[2020-05-17] MEDS ORDERED: FUROSEMIDE 20 MG TAB PO ONE (14:35)
[2020-05-17] MEDS: traZODone HCL 50 MG TAB PO SCH (20:00)
[2020-05-18] MEDS: LEVOTHYROXINE SODIUM 150 MCG TABLET PO SCH (05:01)
[2020-05-18 06:40] LABS: Hematocrit (blood only) 40.6 % (37-47); Hemoglobin 13.2 g/dL (12.0-16.0); Mean Corpuscular Hemoglobin 30.1 pg (25-34); Mean Corpuscular Hgb Conc 32.5 g/dL (32-36); Mean Corpuscular Volume 92.7 fL (80-100); Mean Platelet Volume 11.6 fL (7.4-10.4); Platelet Count 159 K/uL (130-400); RDW Coefficient of Variation 14.3 % (11.5-14.5); RDW Standard Deviation 48.3 fL (36.4-46.3); Red Blood Count 4.38 M/uL (4.2-5.4); White Blood Count 4.45 K/uL (4.8-10.8)
[2020-05-18 07:08] LABS: Albumin Globulin Ratio 0.9 (0.9-2); Albumin Level 2.6 gm/dl (3.4-5.0); Bilirubin,Total 0.7 mg/dl (0.2-1); Calcium 8.4 mg/dl (8.5-10.1); Est GFR (African American) 103.2; Est GFR (Non-African American) 89.1; Potassium 3.8 mmol/L (3.5-5.1); Total Protein 5.6 gm/dl (6.4-8.2)
[2020-05-18] MEDS: PARoxetine HCL 20 MG TAB PO SCH (08:27)
[2020-05-18] MEDS: METOPROLOL TARTRATE 25 MG TAB PO SCH (08:27)
[2020-05-18] MEDS: FAMOTIDINE 20 MG TAB PO SCH (08:27)
[2020-05-18] MEDS: GABAPENTIN 800 MG TAB PO SCH (08:27)
[2020-05-18] MEDS: APIXABAN 5 MG TABLET PO SCH (08:28)
[2020-05-18] MEDS: FUROSEMIDE 20 MG TAB PO SCH (08:28)
[2020-05-18] MEDS ORDERED: lisinopril 20 MG TAB PO SCH (09:00)
--- NOTE | 2020-05-18 18:20 | Hospitalist Progress Note ---
Date of Service May 17, 2020 Assessment & Plan (1) Fall: - Differential would include afib, bradycardia, hypovolemia, vasovagal episode - NSS x 500 Ml bolus given in the ER- hold lasix x 1 day, pt last took this yesterday. - PT/OT - Check echo with hx of afib shows preserved EF moderately dilated LV and biatrial dilation - will discharge on half dose of metoprolol 12.5 bid (2) Diarrhea: - COVID-19 negative today - Hypokalemia secondary to this, replacing - no futher diarrhea (3) Hypokalemia: - replete (4) CHF (congestive heart failure): - Chronic diastolic CHF - Continue metoprolol tartrate BID, lisinopril 40 mg daily, lasix 20 mg daily. (5) Atrial fibrillation, permanent: - Currently rate controlled. EKG reviewed showing afib with HR in 60s. Anticoagulated with eliquis. - Check 2 D echo - Follow troponin x 2, initial was negative - Reduce metoprolol due to bradycardia, will monitor - Continue lisinopril for now - Cardiology consulted for medication adjustment recs and as they follow her as outpatient (6) Hypothyroidism: - TSH was nearly undetectable during last admission at the beginning of Apr- will recheck today - continue levothyroxine 150 mcg daily (7) Hyperlipidemia LDL goal <70: - Cholesterol was 230 back in November 2019, triglycerides fine, LDL 148, HDL 67 - not on statin therapy and doesn't meed to be. - Diet and exercise (8) Hypertension: - Antihypertensive medications as above (9) Asthma: - Hx of such - Cont albuterol inhaler q6h prn for SOB and wheezing (10) Depression with anxiety: - Continue Paxil 20 mg daily, trazodone for sleep DVT ppx: eliquis Code: DNR/DNI Dispo: From home, PT/OT, CM to assist with dc planning if she can return home or if needs rehab. Admission and Anticipated Discharge Date Admission Date: May 16, 2020 Subjective She was resting comfortably in bed this afternoon. She denies chest pain, syncope, near-syncope, lightheadedness, edema, or bleeding. She was more short of breath than usual however with ambulation earlier today. She has not had any further diarrhea. This morning, she received lisinopril 40 mg daily and metoprolol 25 mg. She did not receive metoprolol yesterday. . Review of Systems Review of Systems: Constitutional: No fever, sweats or chills, + weakness, + Falls Eyes: No diplopia, no worsening or blurred vision ENT: normal hearing, no trouble swallowing Respiratory: No cough, sputum, dyspnea at rest or on exertion Cardiovascular: No chest pain, tightness or palpitations Abdomen: No pain, nausea, vomiting, + diarrhea as per HPI, no constipation Musculoskeletal: No joint pain, calf pain, swelling Neurologic: + weakness, numbness/tingling, + balance problems, + falls Psychiatric: Hx of anxiety or depression on medication Skin: No rash or itch Results & Data Results & Data ([facility]) Vital Signs (Past 12 Hours) Vital Signs Temp Pulse Pulse Resp BP Pulse Ox 05/17/20 17:28 63 05/17/20 15:41 96.8 F L 56 L 18 91/56 L 90 05/17/20 11:00 97.9 F 76 16 118/74 92 05/17/20 07:04 97.5 F L 63 19 108/74 92 PG Care Time/CCT Total # of Minutes Spent Total Time Spent with Patient: Total time spent is greater than 50% in coordination of care (as documented) at patient's floor/unit and/or counseling patient: Coding Level of Care Code 09356 Subseq Hosp Care Lvl 3 Diagnoses Fall W19.XXXA Diarrhea R19.7 Diarrhea type: unspecified type Hypokalemia E87.6 CHF (congestive heart failure) I50.9 Heart failure chronicity: acute Heart failure type: unspecified Atrial fibrillation, permanent I48.21 Hypothyroidism E03.9 Hyperlipidemia LDL goal <70 E78.5 Hypertension I10 Hypertension type: essential hypertension Asthma J45.909 Asthma complication type: unspecified Asthma persistence: unspecified Asthma severity: unspecified severity Depression with anxiety F41.8 (1) Diarrhea Diarrhea type: unspecified type Qualified Code(s): R19.7 - Diarrhea, unspecified (2) CHF (congestive heart failure) Heart failure chronicity: acute Heart failure type: unspecified Qualified Code(s): I50.9 - Heart failure, unspecified (3) Hypertension Hypertension type: essential hypertension Qualified Code(s): I10 - Essential (primary) hypertension (4) Asthma Asthma complication type: unspecified Asthma persistence: unspecified Asthma severity: unspecified severity Qualified Code(s): J45.909 - Unspecified asthma, uncomplicated
--- NOTE | 2020-05-18 18:24 | Discharge Summary ---
Date of Service May 18, 2020 Admission HPI Per Admitting Provider This is a 69 yo F with PMHx of chronic diastolic CHF, permanent afib anticoagulated on eliquis, HTN, HLD, hypothyroidism, anxiety and depression who presents after a fall sustained at home, 2 days of diarrhea and worsening weakness. She is very tired at bedside, but reports not feeling quite herself in the past 2-3 days. Reports having a few episodes of loose bowels in the past 2 days, but none today. Over the same timeframe had bouts of dizziness but no falls. Today,s he was standing up walking this morning when she became dizzy and fell down. Denies hitting her head, trauma or LOC. Her who was at home was there, unable to determine if he witnessed the fall, but EMS was called. Pt does not use any assistive devices for ambulation. Once here in the ER she was found to be bradycardic with HR in the 30s and 40s, with slow afib on EKG. She was hypokalemic with K of 2.9 which is being replaced via IV. She denies any known COVID-19 positive contacts, and was tested at the beginning of Apr during her last hospitalization which was negative. She denies chest pain, cough, respiratory sx, fever, chills, sweats, travel. Attempted to call the patients twice, and left a message. Will await his call back. Principal Diagnosis hypokalemia diarrhea resolved bradycardia, improved with reduction of medications Discharge Exam The patient appeared well Vital signs as documented. Lungs are clear to auscultation and appear unlabored Cardiac exam, Rhythm is regular. Is slightly low in the 60s. No murmurs, rubs or gallops. Abdominal exam reveals normal bowel sounds, soft non tender, no masses Extremities are nonedematous and both pedal pulses are normal. Neurologic exam is alert and oriented, no focal loss of strength or sensation Skin is without bruises or rashes Psychologically is without concerns for anxiety or depression. Discharge Data Allergies Allergy/AdvReac Type Severity Reaction Status Date / Time bee venom protein (honey bee) Allergy Intermediate swollen, Verified 05/16/20 06:17 itchy adhesive AdvReac Mild RED SKIN Verified 05/16/20 06:17 WITH BANDAIDS house dust AdvReac Mild Watery Eye Verified 05/16/20 06:17 Consultations 05/16/20 07:37 ED Decision to Admit Stat 05/16/20 09:46 Consult Cardiology Routine 05/16/20 10:18 Consult Case Management - Discharge Planning Routine Ordered Studies 05/16/20 05:41 CT cervical spine wo con Urgent CT head/brain wo con Urgent Hospital Course (1) Fall: -Secondary to bradycardia, hypovolemia, vasovagal episode -Volume resuscitated in the ER holding diuretics for 1 day and then resuming - Check echo with hx of afib shows preserved EF moderately dilated LV and biatrial dilation - will discharge on half dose of metoprolol 12.5 bid due to dose of lisinopril to 20 (2) Diarrhea: - COVID-19 negative today - Hypokalemia secondary to this, replacing - no futher diarrhea test or infectious etiologies (3) Hypokalemia: - replete (4) CHF (congestive heart failure): - Chronic diastolic CHF - Continue metoprolol tartrate prior to going home BID, lisinopril 20 mg daily, lasix 20 mg daily. Close follow-up with congestive heart failure clinic (5) Atrial fibrillation, permanent: - Currently rate controlled. EKG reviewed showing afib with HR in 60s. Anticoagulated with eliquis. - Check 2 D echo shows preserved ejection fraction biatrial enlargement and right ventricular enlargement. - Follow troponin x 2, initial was negative - Reduce metoprolol due to bradycardia, 12.5 twice daily may be converted to succinate 25 at office visit - Continue lisinopril one half dose at discharge 20 mg a day will use old prescription until needs to be refilled - Cardiology follow-up as an outpatient for further medication adjustments (6) Hypothyroidism: - TSH was nearly undetectable during last admission at the beginning of Apr- will recheck today - continue levothyroxine 150 mcg daily (7) Hyperlipidemia LDL goal <70: - Cholesterol was 230 back in November 2019, triglycerides fine, LDL 148, HDL 67 - not on statin therapy - Diet and exercise (8) Hypertension: - Antihypertensive medications as above (9) Asthma: - Hx of such no flare is stable at the present time - Cont albuterol inhaler q6h prn for SOB and wheezing (10) Depression with anxiety: - Continue Paxil 20 mg daily, trazodone for sleep DVT ppx: eliquis Code: DNR/DNI Total Time Total Time Spent Total Time Spent (In Minutes): It required greater than 30 minutes to prepare this patient for discharge Discharge Plan Discharge Items Patient Disposition: Home - Home Health Services Reason For Visit: FALL,DIARRHEA,HYPOKALEMIA,TRANSAMINITIS Discharge Diagnosis: slow heart rate secondry to medication diarrhea resolved Activity: Resume your previous activity Non-emergency contact: Primary Care Provider and Brush Filler Hand Call non-emergency contact if: you have any medication questions and your symptoms worsen Follow-up/Referrals: Ivan Victoria III, MD [Primary Care Provider] - 05/28/20 3:00 pm (You have an appt with Myrna on Monday 05/28 @ 3pm. Please arrive 15 minutes prior to your appt. It is important that you keep this appt, if for any reason this appt does not fit your schedule please call, to reschedule. ) Nishi Barajas PA-C [Physician Social Science Analyst] - 06/07/20 11:00 am (You have an appt with Nishi Barajas, in cardio. The appt in Jun.07 at 1100am. The office is going to call you if they get an earlier appt, it is important that you keep this appt. Please arrive 15 minutes prior to the appt. ) Diet: Regular Addtl Attending Provider Instructions: please return if you feel dizzy or weak. please follow up with a land surveyor we have reduced both your metoprolol and lisinopril by one half, the metoprolol you will need to break, but if this is a good dose perhaps the land surveyor can RX a long actiing medication. you lisinopril is also reduced but if this is a good dose your next RX can be changed to this strength Pending Studies at Discharge: No Stand-Alone Forms: My [employer], Smoking Cessation Medications and DC Order Prescriptions: Continued Eliquis 5 mg tablet 5 mg PO BID Qty: 180 RF: 3 paroxetine HCl 20 mg tablet 20 mg PO QAM Qty: 90 RF: 3 albuterol sulfate 90 mcg/actuation Hfa Aerosol Inhaler 2 puff INHALATION Q6H PRN (Reason: Wheezing) RF: 0 trazodone 50 mg tablet 50 mg PO HS RF: 0 famotidine 20 mg Tablet 20 mg PO BID Qty: 14 RF: 0 levothyroxine [Synthroid] 150 mcg Tablet 150 mcg PO DAILYBB Qty: 30 RF: 0 furosemide [Lasix] 20 mg Tablet 20 mg PO DAILY Qty: 0 RF: 0 gabapentin 800 mg tablet 800 mg PO BID RF: 0 Changed lisinopril 40 mg tablet 20 mg PO DAILY Qty: 90 RF: 3 metoprolol tartrate 25 mg tablet 12.5 mg PO BID Qty: 180 RF: 3 Discharge Orders: Discharge Order (Routine); Ordered 05/18/20 Ordered By: Ced Pollard Admission Data Admit Date/Time: 05/16/20 08:45 Attending Provider: Ced Pollard Admit Provider: Ced Pollard Primary Care Provider: Ivan Victoria III Other Providers: Ced Pollard ; Bryan Dukes Other Interventions: Discharge Summary Assessment (RN) Last Done: 05/18/20 12:36 Coding Level of Care Code D/C Day Management >30 mins Diagnoses Fall W19.XXXA Diarrhea R19.7 Diarrhea type: unspecified type Hypokalemia E87.6 CHF (congestive heart failure) I50.9 Heart failure chronicity: acute Heart failure type: unspecified Atrial fibrillation, permanent I48.21 Hypothyroidism E03.9 Hyperlipidemia LDL goal <70 E78.5 Hypertension I10 Hypertension type: essential hypertension Asthma J45.909 Asthma complication type: unspecified Asthma persistence: unspecified Asthma severity: unspecified severity Depression with anxiety F41.8
== END 2020-05-18 13:55 | disposition home health service (06) | DRG 309 ==
LOC: ED 05:18 → INTOOBSV 08:45 → 2N 08:45

== ENCOUNTER 2023-08-20 16:37 | Observation (INO) ==
[2023-08-20 16:46] LABS: Adenovirus PCR Not Detected (NotDetected); Bordetella parapertussis PCR Not Detected (NotDetected); Bordetella pertussis PCR Not Detected (NotDetected); Chlamydia pneumoniae PCR Not Detected (NotDetected); Coronavirus 229E PCR Not Detected (NotDetected); Coronavirus CoV-2 (COVID19)PCR Not Detected (NotDetected); Coronavirus HKU1 PCR Not Detected (NotDetected); Coronavirus NL63 PCR Not Detected (NotDetected); Coronavirus OC43PCR Not Detected (NotDetected); Human Metapneumovirus PCR Not Detected (NotDetected); Influenza A PCR Not Detected (NotDetected); Influenza B PCR Not Detected (NotDetected); Mycoplasma pneumoniae PCR Not Detected (NotDetected); Parainfluenza Virus 1 PCR Not Detected (NotDetected); Parainfluenza Virus 2 PCR Not Detected (NotDetected); Parainfluenza Virus 3 PCR Not Detected (NotDetected); Parainfluenza Virus 4 PCR Not Detected (NotDetected); Respiratory Syncytial VirusPCR Not Detected (NotDetected); Rhinovirus/Enterovirus PCR Not Detected (NotDetected)
--- NOTE | 2023-08-20 17:01 | Emergency Department Note ---
Impression & Plan Pleural effusion, snf (current) use of anticoagulants, SOB (shortness of breath) ED Provider Note CHIEF COMPLAINT: URI symptoms, SOB HISTORY OF PRESENTING ILLNESS: This 72-year-old female patient presents to the emergency department for evaluation of trouble breathing, runny nose, nasal congestion, cough, and chest tightness. The patient has had symptoms for the past couple of months. Has had worsening shortness of breath for the past 4 weeks. The patient has a history of pulmonary edema as well as asthma. However, her treatments at home have not been improving her symptoms. She was also treated with amoxicillin when the symptoms first started without improvement. The patient states that she had an outpatient chest x-ray without acute abnormalities. She now has increasing pain with taking a breath and pain with coughing. The patient states that she is also having trouble laying flat at night and trouble with walking or doing normal activities because of increased shortness of breath. The patient states that her shortness of breath is worse at nighttime. She denies any fevers. Denies any calf pain or swelling. The patient is on Eliquis due to history of pacemaker. The patient does not follow-up with pulmonology as an outpatient. REVIEW OF SYSTEMS: See HPI for pertinent positives and pertinent negatives. ALLERGIES: Honeybees, house dust, adhesive, smoke, pine trees MEDICATIONS: See below PAST MEDICAL HISTORY: See below PHYSICAL EXAM: Vital Signs: Vitals are noted on the nurse's note and reviewed by myself. GENERAL: Non toxic in appearance and in no acute distress. SKIN: Capillary reflex less than 2 seconds. HEAD: Normocephalic, atraumatic. EARS: Bilateral external auditory canals clear without tragus tenderness. Bilateral tympanic membranes pearly sawyer without erythema or effusion. No mastoid tenderness bilaterally. EYES: Pupils equal round and reactive to light and accommodation. Conjunctivae without injection, sclerae without icterus. Extraocular movements intact. NOSE: Patent, turbinates inflamed with no discharge. No sinus tenderness. MOUTH: Mucous membranes moist. Airway patent, uvula midline. Pharynx is not erythematous and not edematous without exudate. Pharynx without postnasal drip. No evidence for peritonsillar abscess. NECK: Supple without nuchal rigidity. No lymphadenopathy. HEART: Regular rate and rhythm without murmurs gallops or rubs. LUNGS: Clear to auscultation bilaterally with a few scattered wheezes without rales or rhonchi. No accessory muscle use or retractions. ABDOMEN: Positive bowel sounds x 4. Normal tympanic percussion. Soft, nontender, without masses or organomegaly. NEURO: Patient was alert and oriented. DIFFERENTIAL DIAGNOSIS: Differential diagnosis includes URI, bronchitis, pneumonia, pneumothorax, hemothorax, PE, MN, pericarditis, myocarditis, airway obstruction, aspiration, pulmonary edema, asthma, COPD, CHF, pleurisy, metabolic acidosis, anemia, neoplasm, or others. ED COURSE AND MEDICAL DECISION MAKING: MONITOR: Continuous cardiac tech: Order was placed for continuous cardiac tech. Patient was placed on the cardiac tech and continuous pulse ox. Patient was noted to be in normal sinus rhythm at an initial rate of 92 bpm per my interpretation. EKG: EKG was interpreted by myself as A-fib at 81 bpm with frequent ventricular paced complexes, but no acute ST or T wave changes. MEDICATIONS GIVEN: DuoNeb treatment INTERPRETATION OF LABS: I interpreted the labs with full lab results as below in the lab section of this note. Respiratory bio fire was negative. I-STAT labs were initially obtained to be able to have the patient go to CT scan due to unexpected computer downtime. Creatinine was normal and the patient was taken down to CT scan. However, the results of the i-STAT labs could not be found after the patient was taken down to CT scan. Therefore, CBC and CMP were obtained. Coags were normal. Magnesium normal at 1.9. BNP slightly elevated at 115. High-sensitivity troponin was normal. INTERPRETATION OF IMAGING: Imaging studies were interpreted by myself and read by radiology as per the imaging section of this note. CTA of the chest with IV contrast showed no evidence for PE, but did show a moderate to large pleural effusion. There is also a 4 mm indeterminate pulmonary nodule within the right lower lobe. Right breast skin thickening and postoperative changes consistent with the patient's previous breast cancer treatment. CONSULTATIONS: Dr. Simmons of pulmonology. On-call hospitalist. MDM SUMMARY: The patient was seen during a time of extreme volume and extreme acuity as well as during a time of unexpected computer downtime. Nursing triage protocols were initiated with IV lock, labs, and/or imaging studies conducted by protocol in the triage area. The patient was initially evaluated in a triage room and then re-examined once they were taken back to an exam room. Initially an EKG and respiratory bio fire were obtained by nursing and were without acute abnormalities other than her known A-fib. However, there was concern for further cardiopulmonary etiology given the patient's symptoms, history, and exam. Therefore, an additional workup was obtained. I-STAT labs were initially obtained to be able to have the patient go to CT scan due to unexpected computer downtime. Creatinine was normal and the patient was taken down to CT scan. However, the results of the i-STAT labs could not be found after the patient was taken down to CT scan. Therefore, CBC and CMP were obtained. Coags were normal. Magnesium normal at 1.9. BNP slightly elevated at 115. High-sensitivity troponin was normal. CTA of the chest with IV contrast showed no evidence for PE, but did show a moderate to large pleural effusion. There is also a 4 mm indeterminate pulmonary nodule within the right lower lobe. The patient was given a DuoNeb treatment with improvement of the wheezing, but not full resolution. She continued with shortness of breath despite the DuoNeb treatment. The patient was given an ambulatory trial and she did not become hypoxic, but she had difficulty walking due to increased shortness of breath. I had a meaningful discussion about this patient with Dr. Shaw who agrees with my assessment and the treatment plan. Due to the patient's progressively worsening shortness of breath including increased symptoms with laying flat and ambulation along with her CT scan findings, I discussed admission versus outpatient pulmonary evaluation with the patient. The patient prefers to be admitted due to her symptoms that are not well-controlled at home. I spoke with the on-call hospitalist who recommended I discussed the case with pulmonology due to her Eliquis use. I spoke with Dr. iSmmons of pulmonology who recommended the patient hold her Eliquis. He stated that if the patient was still admitted Thursday morning and a procedure needed to be performed, it could be done at that time. I spoke with the on-call hospitalist again who agreed to admit the patient for further evaluation and treatment. Please refer to their dictation for further details. The patient's care was transferred in stable condition. 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 Obesity Hearing loss OHOGAMIUT, Bilateral Hearing Aids Hyperlipidemia Chronic back pain Osteoarthritis GERD (gastroesophageal reflux disease) Atrial fibrillation SOB (shortness of breath) on exertion INFREQUENT Asthma Hypertension Surgical History History of esophagogastroduodenoscopy (EGD) History of thoracentesis S/P placement of cardiac pacemaker 2020, [facility]; f/u [place] [facility] History of total abdominal hysterectomy and bilateral salpingo-oophorectomy History of colonoscopy (~07/2018) History of right breast biopsy malignant Hx of lumpectomy RIGHT LUMPECTOMY 2017 H/O tubal ligation 1996 History of cataract surgery 2013 - R/L Hx of hand surgery s - LEFT-CYST REMOVED/BONE FUSION History of cholecystectomy 2007 History of appendectomy 1968 Hx of fusion of cervical spine 2005--normal ROM Family History Brother Diabetes Family history of colonic polyps Father Heart disease Mother Diabetes Heart disease Hypertension Other No family history of adverse response to anesthesia Unknown family medical history Denies family history of Ovarian cancer Prostate cancer Myocardial infarction Breast cancer Lung cancer Colorectal cancer Social History (Updated 07/13/23 @ 14:08 by Yue Pang LPN) Smoking Status: Never smoker Second Hand Exposure: Yes (in the workplace); Do You Dip or Chew Tobacco: No; Hx Alcohol Use: Yes (very rare) Hx Substance Use: No Preferred Language: Syriac Communication Ability: Effective Communication Ability Comment: PT OHOGAMIUT, 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 Uses shower, not bathtub. Childhood Exposure to Second-Hand Smoke: Yes Diet: regular caffeine: Yes (2-3 Cups of coffee/day ) during the past year weight has: remained stable Dental Care, Regularly: Yes Physical Activity Frequency: Daily Physical Activity Frequency Comment: walking, 60 minutes Seatbelt Use: always Sunscreen Use: Yes Assistive Devices: Cane, Hearing Aid - Bilateral and Scooter/Electric Scooter Allergies Allergies Allergy/AdvReac Type Severity Reaction Status Date / Time bee venom protein (honey bee) Allergy Intermediate swollen, Verified 08/20/23 18:43 itchy house dust Allergy Mild Watery Eye Verified 08/20/23 18:43 adhesive AdvReac Mild RED SKIN Verified 08/20/23 18:43 WITH BANDAIDS smoke Allergy Severe Problems Uncoded 08/20/23 18:43 breathing, self reported pine tree Allergy Unknown Unknown Uncoded 08/20/23 18:43 Home Meds Home Medications Medication Instructions Recorded Confirmed epinephrine 0.125 mg/actuation 1 puff inhalation Q6H PRN 04/03/23 08/20/23 aerosol inhaler (Primatene Mist) Shortness Of Breath Or Wheezing gabapentin 800 mg tablet 800 mg PO BID 04/03/23 08/20/23 pantoprazole 20 mg tablet,delayed 20 mg PO QAM 04/03/23 08/20/23 release Previous Rx's Medication Instructions Recorded apixaban 5 mg tablet (Eliquis) 5 mg PO BID #180 tabs 07/31/22 trazodone 50 mg tablet 50 mg PO HS #90 tabs 07/31/22 albuterol sulfate 90 mcg/actuation 2 puff inhalation UD PRN shortness 09/17/22 aerosol inhaler of breath or wheezing #8.5 grams levothyroxine 200 mcg tablet 200 mcg PO DAILY #90 tabs 02/25/23 atorvastatin 80 mg tablet (Lipitor) 80 mg PO HS 90 days #90 tabs 03/04/23 lisinopril 20 mg tablet 20 mg PO QAM 90 days #90 tabs 03/04/23 paroxetine HCl 20 mg tablet 20 mg PO QAM #90 tabs 08/13/23 Results & Data (ED) Vital Signs Vital Signs - 24 hr 08/20/23 17:29 08/20/23 20:01 08/20/23 21:38 Pulse Rate 78 Pulse Rate [Finger] 94 H Pulse Rhythm [Finger] Regular Respiratory Rate 18 18 Respiratory Effort / Characteristics Non-Labored Spontaneous Non-Labored Spontaneous Respiratory Depth Normal Normal Respiratory Pattern Regular Regular Blood Pressure [Right Arm] 157/80 H 147/101 H Blood Pressure Mean [Right Arm] 105 116 Blood Pressure Position [Right Arm] Lying Lying Pulse Oximetry 97 96 Oxygen Delivery Method Room Air Room Air 08/20/23 22:20 Pulse Rate Pulse Rate [Finger] 88 Pulse Rhythm [Finger] Regular Respiratory Rate 20 Respiratory Effort / Characteristics Non-Labored Spontaneous Respiratory Depth Normal Respiratory Pattern Regular Blood Pressure [Right Arm] 135/70 Blood Pressure Mean [Right Arm] 91 Blood Pressure Position [Right Arm] Pulse Oximetry 96 Oxygen Delivery Method Room Air Laboratory Data 08/20/23 16:33 08/20/23 16:33 Lab Results 08/20/23 08/20/23 Range/Units 13:56 16:33 WBC 5.65 (4.8-10.8) K/ul RBC 4.86 (4.20-5.40) M/uL Hgb 14.9 (12.0-16.0) g/dl Hct 44.8 (37.0-47.0) % MCV 92.2 (80.0-100.0) fL MCH 30.7 (25.0-34.0) pg MCHC 33.3 (32.0-36.0) g/dL RDW Std Deviation 51.4 H (36.4-46.3) fL RDW Coeff of Kal 15.2 H (11.5-14.5) % Plt Count 206 (130-400) K/uL MPV 10.9 (9.4-12.4) fL Immature Gran % (Auto) 0.2 % Neut % (Auto) 52.1 % Lymph % (Auto) 32.4 % [place] % (Auto) 9.2 % Eos % (Auto) 4.2 % Baso % (Auto) 1.9 % Neut # (Auto) 2.94 (1.40-6.50) K/uL Lymph # (Auto) 1.83 (1.20-3.40) K/uL [place] # (Auto) 0.52 (0.11-0.59) K/uL Eos # (Auto) 0.24 (0.00-0.50) K/uL Baso # (Auto) 0.11 (0.00-0.20) K/uL Immature Gran # (Auto) 0.01 (0.01-0.20) K/uL PT 11.9 (9.0-12.0) Seconds INR 1.1 (0.9-1.1) APTT 28 (21-31) Seconds PTT Ratio 1.0 Sodium 139 (136-145) mmol/L Potassium 3.9 (3.5-5.1) mmol/L Chloride 105 (98-107) mmol/L Carbon Dioxide 25 (21-32) mmol/L Anion Gap 9 (3-11) BUN 13 (6-23) mg/dl Creatinine 0.63 (0.6-1.2) mg/dl Est Cr Clr Drug Dosing Not Reportable Est GFR ( Amer) 103.1 ml/min Est GFR (Non-Af Amer) 89.0 ml/min BUN/Creatinine Ratio 20.6 H (10-20) Glucose 71 (70-99(Fasting)) mg/dl Calcium 8.9 (8.6-10.3) mg/dl Magnesium 1.9 (1.7-2.4) mg/dl Total Bilirubin 0.6 (0.2-1.0) mg/dl AST 43 H (13-39) U/L ALT 31 (7-52) U/L Alkaline Phosphatase 118 H (34-104) U/L Troponin I High Sens 4.3 (0-14) pg/ml B-Natriuretic Peptide 115 H (0-100) pg/ml Total Protein 6.7 (6.0-8.3) gm/dl Albumin 3.9 (3.4-5.0) gm/dl Globulin 2.8 (2.5-4.0) gm/dl Albumin/Globulin Ratio 1.4 (0.9-2) Adenovirus (PCR) Not Detected (NotDetected) B. pertussis DNA (PCR) Not Detected (NotDetected) B.parapertussis DNA PCR Not Detected (NotDetected) C. pneumoniae DNA (PCR) Not Detected (NotDetected) Coronavirus OC43 (PCR) Not Detected (NotDetected) Coronavirus HKU1 (PCR) Not Detected (NotDetected) Coronavirus 229E (PCR) Not Detected (NotDetected) SARS-CoV-2 (PCR) Not Detected (NotDetected) Coronavirus NL63 (PCR) Not Detected (NotDetected) Human Metapneumovir PCR Not Detected (NotDetected) Influenza Type A (PCR) Not Detected (NotDetected) Influenza Type B (PCR) Not Detected (NotDetected) M. pneumoniae (PCR) Not Detected (NotDetected) Parainfluenza 1 (PCR) Not Detected (NotDetected) Parainfluenza 2 (PCR) Not Detected (NotDetected) Parainfluenza 3 (PCR) Not Detected (NotDetected) Parainfluenza 4 (PCR) Not Detected (NotDetected) RSV (PCR) Not Detected (NotDetected) Entero/Rhino (PCR) Not Detected (NotDetected) Administered Medications Discontinued Medications Albuterol (Albut/Ipratrop 3mg/0.5mg Neb 3 Ml Vial) Confirm Administered Dose 3 ml .ROUTE .STK-MED ONE Stop: 08/20/23 16:15 Last Admin: 08/20/23 17:28 Dose: 3 ml Documented By: STEPHANIE Furosemide (Furosemide Inj 20 Mg/2 Ml Vial) 20 mg IV ONE ONE Stop: 08/20/23 21:44 Last Admin: 08/20/23 22:18 Dose: 20 mg Documented By: STEPHANIE Imaging Data Radiologist's Impression: Chest CTA 08/20/23 00:00 CHEST CTA for PULMONARY ARTERIES CT DOSE: HISTORY: Shortness of breath. TECHNIQUE: Multiaxial CT images of the chest were performed following the intravenous administration of contrast to evaluate the pulmonary arteries. 3D/Maximal intensity projection images were also obtained. Sagittal and coronal reformations were also reviewed. A dose lowering technique was utilized adhering to the principles of ALARA. COMPARISON STUDY: None. FINDINGS: Cervical spinal fusion hardware is partially visualized. No acute fractures identified. There is a left-sided pacemaker. Normal caliber thoracic aorta with no evidence for a dissection. The heart is enlarged. No pericardial effusion. There is a moderate to large right pleural effusion. Normal caliber esophagus. Limited views of the upper abdomen demonstrate a normal liver, spleen, and adrenal glands. No mediastinal or hilar lymphadenopathy. Postoperative changes noted within the right breast. No right pleural thickening or pleural gas to suggest a right-sided empyema. Mild right breast skin thickening favors posttreatment changes. No acute fractures. No suspicious lytic are blastic osseous lesions. No pneumothorax. The central airways are patent. There is a punctate calcified granuloma within the lingula. Mild dependent changes seen within the left lung base posteriorly. No evidence for pulmonary edema. Consolidation within the posterior right lower lobe favors compressive atelectasis from the pleural effusion. There is a 4 mm indeterminate pulmonary nodule within the right lower lobe on image 67. No filling defects within the pulmonary arteries to suggest a pulmonary embolus. There is a punctate calcified granuloma within the left lower lobe. IMPRESSION: 1. No evidence for a pulmonary embolus. 2. Moderate to large pleural effusion. 3. Right breast skin thickening and postoperative changes. The skin thickening is nonspecific but favors posttreatment changes. 4. A 4 mm indeterminate pulmonary nodule within the right lower lobe. Please refer to below summary of Fleischner criteria recommendations for follow- up of incidental CT nodules (Dede Felix, Guidelines for management of small pulmonary nodules detected on CT scans: A statement from the Fleischner Society, Radiology 237: [id number].) SOLID NODULES Solitary nodule size: <6 mm * Low risk patients: no follow-up needed * high risk patients: optional CT at 12 months Solitary nodule size: 6-8 mm * Low risk patients: follow-up at 6-12 months, then consider further follow-up at 18-24 months * high risk patients: initial follow-up CT at 6-12 months and then at 18-24 months if no change Solitary nodule size: >8 mm * either low or high risk patients - consider follow-up CT at 3 months, and/or CT-PET, and/or biopsy Multiple nodules size: <6 mm * Low risk patients: no routine follow-up * high risk patients: optional CT at 12 months Multiple nodules size: 6-8 mm * Low risk patients: follow-up at 3-6 months, then consider further follow-up at 18-24 months * high risk patients: follow-up at 3-6 months, then at 18-24 months if no change Multiple nodules size: >8 mm * Low risk patients: follow-up at 3-6 months, then consider further follow-up at 18-24 months * high risk patients: follow-up at 3-6 months, then at 18-24 months if no change Note: newly detected indeterminate nodule in persons 35 years of age or older. * Low risk patients: minimal or absent history of smoking and/or other known risk factors * high risk patients: history of smoking or of other known risk factors (e.g. first degree relative with lung cancer, or exposure to asbestos, radon, uranium) * if a nodule up to 8 mm is partly solid or is ground glass further follow-up is required after 24 months to exclude possible slow growing adenocarcinoma (KENRICK) SUBSOLID NODULES Solitary pure ground-glass nodule * nodule size <6 mm - no CT follow-up required * nodule size >=6 mm - follow-up CT at 6-12 months, then every 2 years until 5 years Solitary part-solid nodule * nodule size <6 mm - no CT follow-up required * nodule size >=6 mm - follow-up CT at 3-6 months. If unchanged, and solid component remains <6 mm, then annual follow-up for 5 years Multiple subsolid nodules * nodule size <6 mm - follow-up CT at 3-6 months, consider further follow-up at 2 and 4 years if stable * nodule size >=6 mm - follow-up CT at 3-6 months, subsequent management based on the most suspicious nodule(s) ACT 112: Positive. There are findings on this exam that require communication between the performing entity and the patient following Patient Test Result Information Act ([place] Act 112) guidelines. Electronically signed by: Dio Foster M.D. 08/20/2023 5:15 PM Discharge Plan Visit Data Chief Complaint: Shortness of Breath/Dyspnea Stated Complaint: SOB ED Provider: Mina Shaw ED Midlevel Provider: Alyssa Harris Discharge Problem: Pleural effusion, snf (current) use of anticoagulants, SOB (shortness of breath) Patient Disposition: Admitted As Inpatient Condition: Good Forms Stand Alone Forms: [employer] Prescriptions Prescriptions: No Action paroxetine HCl 20 mg tablet 20 mg PO QAM Qty: 90 3RF albuterol sulfate 90 mcg/actuation HFA aerosol inhaler 2 puff inhalation UD PRN (Reason: shortness of breath or wheezing) Qty: 8.5 5RF pantoprazole 20 mg tablet,delayed release (DR/EC) 20 mg PO QAM Primatene Mist 0.125 mg/actuation HFA aerosol inhaler 1 puff inhalation Q6H PRN (Reason: Shortness Of Breath Or Wheezing) Rx Instructions: may repeat once after 1 minute trazodone 50 mg tablet 50 mg PO HS Qty: 90 3RF Eliquis 5 mg tablet 5 mg PO BID Qty: 180 3RF levothyroxine 200 mcg tablet 200 mcg PO DAILY Qty: 90 2RF Rx Instructions: Take by itself first thing in the morning. atorvastatin [Lipitor] 80 mg tablet 80 mg PO HS 90 Days Qty: 90 3RF lisinopril 20 mg tablet 20 mg PO QAM 90 Days Qty: 90 2RF gabapentin 800 mg tablet 800 mg PO BID Referrals Referrals: Pauline Jordan MD [Primary Care Provider] -
[2023-08-20] MEDS: ALBUT/IPRATROP 3MG/0.5MG NEB 3 ML VIAL ONE (17:28)
[2023-08-20 17:36] LABS: Magnesium 1.9 mg/dl (1.7-2.4)
[2023-08-20 17:42] LABS: INR 1.1 (0.9-1.1); Partial Thromboplastin Time 28 Seconds (21-31); Prothrombin Time 11.9 Seconds (9.0-12.0); Troponin I High Sensitivity 4.3 pg/ml (0-14)
--- NOTE | 2023-08-20 17:46 | CT Scan Report ---
CHEST CTA for PULMONARY ARTERIES CT DOSE: HISTORY: Shortness of breath. TECHNIQUE: Multiaxial CT images of the chest were performed following the intravenous administration of contrast to evaluate the pulmonary arteries. 3D/Maximal intensity projection images were also obta ined. Sagittal and coronal reformations were also reviewed. A dose lowering technique was utilized a dhering to the principles of ALARA. COMPARISON STUDY: None. FINDINGS: Cervical spinal fusion hardware is partially visualized. No acute fractures identified. The re is a left-sided pacemaker. Normal caliber thoracic aorta with no evidence for a dissection. The he art is enlarged. No pericardial effusion. There is a moderate to large right pleural effusion. Normal caliber esophagus. Limited views of the upper abdomen demonstrate a normal liver, spleen, and adrena l glands. No mediastinal or hilar lymphadenopathy. Postoperative changes noted within the right breas t. No right pleural thickening or pleural gas to suggest a right-sided empyema. Mild right breast ski n thickening favors posttreatment changes. No acute fractures. No suspicious lytic are blastic osseou s lesions. No pneumothorax. The central airways are patent. There is a punctate calcified granuloma w ithin the lingula. Mild dependent changes seen within the left lung base posteriorly. No evidence for pulmonary edema. Consolidation within the posterior right lower lobe favors compressive atelectasis from the pleural effusion. There is a 4 mm indeterminate pulmonary nodule within the right lower lobe on image 67. No filling defects within the pulmonary arteries to suggest a pulmonary embolus. There is a punctate calcified granuloma within the left lower lobe. IMPRESSION: 1. No evidence for a pulmonary embolus. 2. Moderate to large pleural effusion. 3. Right breast skin thickening and postoperative changes. The skin thickening is nonspecific but fav ors posttreatment changes. 4. A 4 mm indeterminate pulmonary nodule within the right lower lobe. Please refer to below summary of Fleischner criteria recommendations for follow-up of incidental CT n odules (Dede Felix, Guidelines for management of small pulmonary nodules detected on CT scans: A sta tement from the Fleischner Society, Radiology 237: [phone].) SOLID NODULES Solitary nodule size: <6 mm * Low risk patients: no follow-up needed * high risk patients: optional CT at 12 months Solitary nodule size: 6-8 mm * Low risk patients: follow-up at 6-12 months, then consider further follow-up at 18-24 months * high risk patients: initial follow-up CT at 6-12 months and then at 18-24 months if no change Solitary nodule size: >8 mm * either low or high risk patients - consider follow-up CT at 3 months, and/or CT-PET, and/or biopsy Multiple nodules size: <6 mm * Low risk patients: no routine follow-up * high risk patients: optional CT at 12 months Multiple nodules size: 6-8 mm * Low risk patients: follow-up at 3-6 months, then consider further follow-up at 18-24 months * high risk patients: follow-up at 3-6 months, then at 18-24 months if no change Multiple nodules size: >8 mm * Low risk patients: follow-up at 3-6 months, then consider further follow-up at 18-24 months * high risk patients: follow-up at 3-6 months, then at 18-24 months if no change Note: newly detected indeterminate nodule in persons 35 years of age or older. * Low risk patients: minimal or absent history of smoking and/or other known risk factors * high risk patients: history of smoking or of other known risk factors (e.g. first degree relative with lung cancer, or exposure to asbestos, radon, uranium) * if a nodule up to 8 mm is partly solid or is ground glass further follow-up is required after 24 m onths to exclude possible slow growing adenocarcinoma (KENRICK) SUBSOLID NODULES Solitary pure ground-glass nodule * nodule size <6 mm - no CT follow-up required * nodule size >=6 mm - follow-up CT at 6-12 months, then every 2 years until 5 years Solitary part-solid nodule * nodule size <6 mm - no CT follow-up required * nodule size >=6 mm - follow-up CT at 3-6 months. If unchanged, and solid component remains <6 mm, then annual follow-up for 5 years Multiple subsolid nodules * nodule size <6 mm - follow-up CT at 3-6 months, consider further follow-up at 2 and 4 years if sta ble * nodule size >=6 mm - follow-up CT at 3-6 months, subsequent management based on the most suspiciou s nodule(s) ACT 112: Positive. There are findings on this exam that require communication between the performing entity and the patient following Patient Test Result Information Act ([place] Act 112) guidelines. Electronically signed by: Dio Foster M.D. 08/20/2023 5:15 PM
--- NOTE | 2023-08-20 18:01 | Emergency Department Note ---
ED Visit Note I was consulted by the Advanced Practice Provider. I personally made/approved the management plan and take responsibility for the patient management. I performed a substantive portion of the visit. This includes the aspects of: -History/Physical -MDM .
[2023-08-20 19:55] LABS: Basophils # (auto) 0.11 K/uL (0.00-0.20); Basophils % (auto) 1.9 %; Eosinophils # (auto) 0.24 K/uL (0.00-0.50); Eosinophils % (auto) 4.2 %; Hematocrit (blood only) 44.8 % (37.0-47.0); Hemoglobin 14.9 g/dl (12.0-16.0); Immature Granulocytes # (auto) 0.01 K/uL (0.01-0.20); Immature Granulocytes % (auto) 0.2 %; Lymphocytes # (auto) 1.83 K/uL (1.20-3.40); Lymphocytes % (auto) 32.4 %; Mean Corpuscular Hemoglobin 30.7 pg (25.0-34.0); Mean Corpuscular Hgb Conc 33.3 g/dL (32.0-36.0); Mean Corpuscular Volume 92.2 fL (80.0-100.0); Mean Platelet Volume 10.9 fL (9.4-12.4); Monocytes # (auto) 0.52 K/uL (0.11-0.59); Monocytes % (auto) 9.2 %; Neutrophils # (auto) 2.94 K/uL (1.40-6.50); Neutrophils % (auto) 52.1 %; Platelet Count 206 K/uL (130-400); RDW Coefficient of Variation 15.2 % (11.5-14.5); RDW Standard Deviation 51.4 fL (36.4-46.3); Red Blood Count 4.86 M/uL (4.20-5.40); White Blood Count 5.65 K/ul (4.8-10.8)
--- NOTE | 2023-08-20 20:44 | History & Physical Report ---
Date of Service August 20, 2023 Assessment & Plan (1) SOB (shortness of breath): Plan: - CTA chest again demonstrated right sided pleural effusion - Has had right sided pleural effusion multiple times in the past, etiology unclear - TTE 08/2021 EF= 65-70%, no wall motion abnormalities; plan to repeat - Per chart review history of diastolic heart failure, was on Lasix and appears to have been discontinued in 2019; unsure per chart review as to why - BNP= 115 - Will give 20mg IV Lasix - trop= 4.3; EKG without ischemic changes - respiratory biofire negative, no signs of pneumonia on imaging - could consider pulm consult for thoracentesis (2) Pleural effusion: Plan: Plan as per above (3) Atrial fibrillation: Plan: - hold Eliquis for possible thoracentesis (4) Asthma: Plan: - albuterol inhaler prn - s/p duoneb in ED; improvement in dyspnea- continue prn (5) Hypothyroidism: Plan: - continue levothyroxine (6) Depression with anxiety: Plan: - continue paroxetine (7) Hypertension: Plan: - continue lisinopril (8) GERD (gastroesophageal reflux disease): Plan: - continue pantoprazole (9) Hyperlipidemia: Plan: - continue atorvastatin Plan Diet: Regular Code: Full VTE Prophylaxis: SCD; hold chemical pending possible thoracentesis History of Present Illness Primary Care Provider: Pauline Jordan MD 72 year old female with a past medical history of asthma, atrial fibrillation s/p AICD (on Eliquis), HTN, GERD, HLD, hypothyroidism, depression/anxiety, breast cancer presenting with worsening dyspnea over the past month. Worse with laying flat. Notes congestion, rhinorrhea, productive cough. Denies fever/chills, body aches, weakness, chest pain. Follows with pulmonology and has chronic dyspnea with exertion. Has had PFTs in the past without obstructive or restrictive process. Chronic right sided pulmonary effusion which has waxed/waned in size. Thoracentesis 05/28/2021, 500 mL serous fluid was removed, lymphocytic, cytology was negative for malignancy. Has also followed with cardiology, per chart review history of diastolic heart failure, was on Lasix prior, not currently on diurectics. Not hypoxic and walking trial in the ED without hypoxic, but per pt she felt short of breath with ambulation. ED Course: Chest CTA- moderate to large right pleural effusion, 4mm pulmonary nodule Duoneb Allergies Allergy/AdvReac Type Severity Reaction Status Date / Time bee venom protein (honey bee) Allergy Intermediate swollen, Verified 08/20/23 18:43 itchy house dust Allergy Mild Watery Eye Verified 08/20/23 18:43 adhesive AdvReac Mild RED SKIN Verified 08/20/23 18:43 WITH BANDAIDS smoke Allergy Severe Problems Uncoded 08/20/23 18:43 breathing, self reported pine tree Allergy Unknown Unknown Uncoded 08/20/23 18:43 Home Medications Medication Instructions Recorded Confirmed Type apixaban 5 mg tablet (Eliquis) 5 mg PO BID #180 tabs 07/31/22 08/20/23 Rx trazodone 50 mg tablet 50 mg PO HS #90 tabs 07/31/22 08/20/23 Rx albuterol sulfate 90 mcg/actuation 2 puff inhalation UD PRN shortness 09/17/22 08/20/23 Rx aerosol inhaler of breath or wheezing #8.5 grams levothyroxine 200 mcg tablet 200 mcg PO DAILY #90 tabs 02/25/23 08/20/23 Rx atorvastatin 80 mg tablet (Lipitor) 80 mg PO HS 90 days #90 tabs 03/04/23 08/20/23 Rx lisinopril 20 mg tablet 20 mg PO QAM 90 days #90 tabs 03/04/23 08/20/23 Rx epinephrine 0.125 mg/actuation 1 puff inhalation Q6H PRN 04/03/23 08/20/23 History aerosol inhaler (Primatene Mist) Shortness Of Breath Or Wheezing gabapentin 800 mg tablet 800 mg PO BID 04/03/23 08/20/23 History pantoprazole 20 mg tablet,delayed 20 mg PO QAM 04/03/23 08/20/23 History release paroxetine HCl 20 mg tablet 20 mg PO QAM #90 tabs 08/13/23 08/20/23 Rx Past Med/Surg History Medical History (Updated 08/21/23 @ 12:54 by Luciano Calle MD) 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 Obesity Hearing loss [place], Bilateral Hearing Aids Hyperlipidemia Chronic back pain Osteoarthritis GERD (gastroesophageal reflux disease) Atrial fibrillation SOB (shortness of breath) on exertion INFREQUENT Asthma Hypertension Surgical History History of esophagogastroduodenoscopy (EGD) History of thoracentesis S/P placement of cardiac pacemaker 2020, [facility]; f/u [place] [facility] History of total abdominal hysterectomy and bilateral salpingo-oophorectomy History of colonoscopy (~07/2018) History of right breast biopsy malignant Hx of lumpectomy RIGHT LUMPECTOMY 2017 H/O tubal ligation 1996 History of cataract surgery 2013 - R/L Hx of hand surgery s - LEFT-CYST REMOVED/BONE FUSION History of cholecystectomy 2006 History of appendectomy 1968 Hx of fusion of cervical spine 2005--normal ROM Family History Brother Diabetes Family history of colonic polyps Father Heart disease Mother Diabetes Heart disease Hypertension Other No family history of adverse response to anesthesia Unknown family medical history Denies family history of Ovarian cancer Prostate cancer Myocardial infarction Breast cancer Lung cancer Colorectal cancer Social History (Updated 07/13/23 @ 14:08 by Yue Pang LPN) Smoking Status: Never smoker Second Hand Exposure: No; Do You Dip or Chew Tobacco: No; Tobacco Cessation Education Requested by Patient: No Hx Alcohol Use: Yes Hx Substance Use: No Preferred Language: Welsh Communication Ability: Effective Communication Ability Comment: PT [place], USING VOICE 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 Uses shower, not bathtub. Childhood Exposure to Second-Hand Smoke: Yes Diet: regular caffeine: Yes (2-3 Cups of coffee/day ) during the past year weight has: remained stable Dental Care, Regularly: Yes Physical Activity Frequency: Daily Physical Activity Frequency Comment: walking, 60 minutes Seatbelt Use: always Sunscreen Use: Yes Assistive Devices: None Review of Systems Review of Systems: As per above Physical Exam Physical Exam: Constitutional: well-appearing, no acute distress HEENT: NCAT, no conjunctival injection CV: regular rhythm, no murmur appreciated, extremities well-perfused, no LE edema Resp: CTABL, no wheezes/rales/rhonchi appreciated, no increased work of breathing GI: soft, nondistended, nontender, BS normoactive MSK: no gross deformities appreciated Skin: warm, dry, no rash appreciated Neuro: alert, oriented, no focal neurologic deficit appreciated Results & Data Results & Data Vital Signs (Past 12 Hours) Vital Signs Pulse Resp BP Pulse Ox O2 Del Method 08/20/23 17:29 94 H 18 157/80 H 97 Room Air Supervising Physician Co-Signing Physician Notes Attending addendum: I have physically seen this patient, have supervised the medical residents activities, and agree with the H&P unless as otherwise noted. Assessment and Plan: Right pleural effusion- As noted on CTA of chest Has had drainage performed in the past Was given a trial of Lasix 20 mg IV, however, will likely need to have a thoracentesis performed, that would to be determined by pulmonology consult Consult pulmonology Dr. Simmons Atrial fibrillation/hypertension- Hold Eliquis for possible thoracentesis Continue lisinopril with hold parameters Asthma- Continue albuterol HFA 2 puffs 4 times daily as needed She did receive a DuoNeb treatment while in ED Remaining orders and notations as noted (7) Hypertension Hypertension type: essential hypertension Qualified Code(s): I10 - Essential (primary) hypertension
[2023-08-20 21:07] LABS: Albumin Globulin Ratio 1.4 (0.9-2); Albumin Level 3.9 gm/dl (3.4-5.0); Anion Gap 9 (3-11); Bilirubin,Total 0.6 mg/dl (0.2-1.0); Calcium 8.9 mg/dl (8.6-10.3); Carbon Dioxide 25 mmol/L (21-32); Chloride 105 mmol/L (98-107); Globulin 2.8 gm/dl (2.5-4.0); Potassium 3.9 mmol/L (3.5-5.1); Sodium 139 mmol/L (136-145)
[2023-08-20 21:17] LABS: Alanine Aminotransferase 31 U/L (7-52); Alkaline Phosphatase 118 U/L (34-104); Aspartate Aminotransferase 43 U/L (13-39); BUN Creatinine Ratio 20.6 (10-20); Blood Urea Nitrogen 13 mg/dl (6-23); Est GFR (African American) 103.1 ml/min; Glucose 71 mg/dl (70-99(Fasting)); Total Protein 6.7 gm/dl (6.0-8.3)
[2023-08-20] MEDS: FUROSEMIDE INJ 20 MG/2 ML VIAL IV ONE (22:18)
[2023-08-20] MEDS ORDERED: ALBUT/IPRATROP 3MG/0.5MG NEB 3 ML VIAL NEB PRN (22:52)
[2023-08-20] MEDS ORDERED: ALBUTEROL HFA 8 GM INHALER INH PRN (22:52)
[2023-08-20] MEDS: traZODone HCL 50 MG TAB PO SCH (23:28)
[2023-08-20] MEDS: ATORVASTATIN 40 MG TAB PO SCH (23:28)
[2023-08-21] MEDS: GABAPENTIN 800 MG TAB PO SCH (04:42)
[2023-08-21] MEDS: LEVOTHYROXINE SODIUM 200 MCG TABLET PO SCH (04:42)
[2023-08-21 07:26] LABS: Basophils % (auto) 2.3 %; Eosinophils # (auto) 0.25 K/uL (0.00-0.50); Eosinophils % (auto) 5.7 %; Hematocrit (blood only) 41.3 % (37.0-47.0); Immature Granulocytes # (auto) 0.02 K/uL (0.01-0.20); Immature Granulocytes % (auto) 0.5 %; Lymphocytes # (auto) 1.63 K/uL (1.20-3.40); Lymphocytes % (auto) 37.4 %; Mean Corpuscular Hemoglobin 30.6 pg (25.0-34.0); Mean Corpuscular Hgb Conc 33.9 g/dL (32.0-36.0); Mean Corpuscular Volume 90.4 fL (80.0-100.0); Mean Platelet Volume 10.7 fL (9.4-12.4); Monocytes # (auto) 0.39 K/uL (0.11-0.59); Monocytes % (auto) 8.9 %; Neutrophils # (auto) 1.97 K/uL (1.40-6.50); Neutrophils % (auto) 45.2 %; Platelet Count 183 K/uL (130-400); RDW Standard Deviation 49.1 fL (36.4-46.3); Red Blood Count 4.57 M/uL (4.20-5.40); White Blood Count 4.36 K/ul (4.8-10.8)
[2023-08-21 07:55] LABS: Albumin Globulin Ratio 1.4 (0.9-2); Albumin Level 3.6 gm/dl (3.4-5.0); Bilirubin,Total 0.9 mg/dl (0.2-1.0); Calcium 8.8 mg/dl (8.6-10.3); Creatinine Clr Calc Pharmacy 73.8 ml/min; Est GFR (African American) 105.4 ml/min; Est GFR (Non-African American) 90.9 ml/min; Globulin 2.6 gm/dl (2.5-4.0); Magnesium 1.9 mg/dl (1.7-2.4); Potassium 3.6 mmol/L (3.5-5.1); Total Protein 6.2 gm/dl (6.0-8.3)
--- NOTE | 2023-08-21 08:38 | Pulmonary Consultation ---
Date of Consultation August 21, 2023 Assessment & Plan (1) Pleural effusion: (2) SOB (shortness of breath): (3) Pulmonary nodule: Plan Impression: 72-year-old female with recurrent pleural effusion now symptomatic. She also has an incidentally noted 4 mm pulmonary nodule. Recommendations: 1. The patient will undergo therapeutic and diagnostic thoracentesis when she is 24 to 36 hours from her last dose of Eliquis. Would continue to hold Eliquis at this point time. Can likely be restarted 24 to 48 hours after thoracentesis. She can follow-up in the outpatient setting with Dr. Reed to review pleural fluid studies. Anticipate that she can likely be dismissed from the hospital once we complete the thoracentesis. 2. Pulmonary nodule: Unclear if this was present on prior imaging studies. She can have this followed up in the pulmonary clinic at follow-up. 3. If were able to complete the thoracentesis later this afternoon or tomorrow morning the patient can likely be dismissed from the hospital with outpatient pulmonary follow-up. The above recommendations and plan were extensively discussed with the patient. Questions were answered to the best my ability. She expressed understanding and is in agreement with plan as outlined. History of Present Illness Attending Physician: Luciano Calle MD History of Present Illness Asked by hospitalist to assist in evaluation management this patient with recurrent pleural effusion. History is obtained from discussion with the patient as well as review the electronic medical record and discussion with the ER staff. Patient is a 72-year-old female was established with Dr. Reed in the outpatient setting. She was seen back in April by the PA and at that point time had a normal chest x-ray. She has a history of a pleural effusion which was sampled about 3 years ago and was found to be lymphocytic in nature. No definitive etiology was identified. The patient presented to the emergency room yesterday with about 4 weeks of progressive shortness of breath. She has orthopnea. She had a CT scan which demonstrated progression of the right-sided effusion. She was anticoagulated on Eliquis for her atrial fibrillation and took her last dose on the morning of 08/19. She does not report any fevers chills night sweats or other constitutional symptoms. She has not noted any chest pain or palpitations or progressive lower extremity edema. Allergies Allergy/AdvReac Type Severity Reaction Status Date / Time bee venom protein (honey bee) Allergy Intermediate swollen, Verified 08/20/23 18:43 itchy house dust Allergy Mild Watery Eye Verified 08/20/23 18:43 adhesive AdvReac Mild RED SKIN Verified 08/20/23 18:43 WITH BANDAIDS smoke Allergy Severe Problems Uncoded 08/20/23 18:43 breathing, self reported pine tree Allergy Unknown Unknown Uncoded 08/20/23 18:43 Home Medications Medication Instructions Recorded Confirmed Type apixaban 5 mg tablet (Eliquis) 5 mg PO BID #180 tabs 07/31/22 08/20/23 Rx trazodone 50 mg tablet 50 mg PO HS #90 tabs 07/31/22 08/20/23 Rx albuterol sulfate 90 mcg/actuation 2 puff inhalation UD PRN shortness 09/17/22 08/20/23 Rx aerosol inhaler of breath or wheezing #8.5 grams levothyroxine 200 mcg tablet 200 mcg PO DAILY #90 tabs 02/25/23 08/20/23 Rx atorvastatin 80 mg tablet (Lipitor) 80 mg PO HS 90 days #90 tabs 03/04/23 08/20/23 Rx lisinopril 20 mg tablet 20 mg PO QAM 90 days #90 tabs 03/04/23 08/20/23 Rx epinephrine 0.125 mg/actuation 1 puff inhalation Q6H PRN 04/03/23 08/20/23 History aerosol inhaler (Primatene Mist) Shortness Of Breath Or Wheezing gabapentin 800 mg tablet 800 mg PO BID 04/03/23 08/20/23 History pantoprazole 20 mg tablet,delayed 20 mg PO QAM 04/03/23 08/20/23 History release paroxetine HCl 20 mg tablet 20 mg PO QAM #90 tabs 08/13/23 08/20/23 Rx Patient History Medical History (Updated 08/21/23 @ 08:36 by Ridge Simmons MD) 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 Obesity Hearing loss ON[place], Bilateral Hearing Aids Hyperlipidemia Chronic back pain Osteoarthritis GERD (gastroesophageal reflux disease) Atrial fibrillation SOB (shortness of breath) on exertion INFREQUENT Asthma Hypertension Surgical History History of esophagogastroduodenoscopy (EGD) History of thoracentesis S/P placement of cardiac pacemaker 2020, [facility]; f/u [place] [facility] History of total abdominal hysterectomy and bilateral salpingo-oophorectomy History of colonoscopy (~07/2018) History of right breast biopsy malignant Hx of lumpectomy RIGHT LUMPECTOMY 2017 H/O tubal ligation 1996 History of cataract surgery 2014 - R/L Hx of hand surgery s - LEFT-CYST REMOVED/BONE FUSION History of cholecystectomy 2006 History of appendectomy 1968 Hx of fusion of cervical spine 2006--normal ROM Family History Brother Diabetes Family history of colonic polyps Father Heart disease Mother Diabetes Heart disease Hypertension Other No family history of adverse response to anesthesia Unknown family medical history Denies family history of Ovarian cancer Prostate cancer Myocardial infarction Breast cancer Lung cancer Colorectal cancer Social History (Updated 07/13/23 @ 14:08 by Yue Pang LPN) Smoking Status: Never smoker Second Hand Exposure: No; Do You Dip or Chew Tobacco: No; Tobacco Cessation Education Requested by Patient: No Hx Alcohol Use: Yes Hx Substance Use: No Preferred Language: Cymraes Communication Ability: Effective Communication Ability Comment: PT ONONDAGA, USING VOICE SQL SSRS SSIS DEVELOPER FOR PHONE CALL Visual Impairment: Limited Hearing Ability: Use of Hearing Aid Java Groovy Developer Required: No Beliefs That Will Affect Care: None marital status: / Current Living Situation: Alone current occupational status: retired 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 Uses shower, not bathtub. Childhood Exposure to Second-Hand Smoke: Yes Diet: regular caffeine: Yes (2-3 Cups of coffee/day ) during the past year weight has: remained stable Dental Care, Regularly: Yes Physical Activity Frequency: Daily Physical Activity Frequency Comment: walking, 60 minutes Seatbelt Use: always Sunscreen Use: Yes Assistive Devices: Cane Review of Systems Review of Systems: Please refer to admission H&P. No additions or deletions Physical Exam Constitutional: WD/WN, vitals as above Neck: trachea midline, no thyromegaly Respiratory: + dullness to percussion; no respiratory distress, no labored breathing, no cough and not tachypneic Auscultation: + diminished lung sounds; no wheezes Cardiovascular: RRR, no murmur, no edema Gastrointestinal (Abdomen): normal bowel sounds, soft, nontender, no hepatosplenomegaly Musculoskeletal: Extremities: extremities normal to inspection Skin: no rashes, warm and dry Neurologic: Nonfocal exam Lymphatic: no cervical lymphadenopathy Results & Data Results & Data Vital Signs (Past 12 Hours) Vital Signs Temp Pulse Pulse Resp BP BP Pulse Ox 08/21/23 07:46 36.3 C L 69 18 115/74 95 08/21/23 02:56 36.5 C 78 16 112/73 96 08/20/23 23:34 08/20/23 23:05 36.3 C L 86 16 156/94 H 97 08/20/23 22:20 88 20 135/70 96 08/20/23 21:38 78 O2 Del Method 08/21/23 07:46 Room Air 08/21/23 02:56 Room Air 08/20/23 23:34 Room Air 08/20/23 23:05 Room Air 08/20/23 22:20 Room Air 08/20/23 21:38 Critical Care Results & Data Vital Signs (Past 12 Hours) Vital Signs Temp Pulse Pulse Resp BP BP Pulse Ox 08/21/23 07:46 36.3 C L 69 18 115/74 95 08/21/23 02:56 36.5 C 78 16 112/73 96 08/20/23 23:34 08/20/23 23:05 36.3 C L 86 16 156/94 H 97 08/20/23 22:20 88 20 135/70 96 08/20/23 21:38 78 O2 Del Method 08/21/23 07:46 Room Air 08/21/23 02:56 Room Air 08/20/23 23:34 Room Air 08/20/23 23:05 Room Air 08/20/23 22:20 Room Air 08/20/23 21:38 Lab & Micro Results (Past 24 Hours) RBC 4.57 M/uL (4.20-5.40) 08/21/23 WBC 4.36 K/ul (4.8-10.8) L 08/21/23 Hgb 14.0 g/dl (12.0-16.0) 08/21/23 Hct 41.3 % (37.0-47.0) 08/21/23 MCV 90.4 fL (80.0-100.0) 08/21/23 MCH 30.6 pg (25.0-34.0) 08/21/23 MCHC 33.9 g/dL (32.0-36.0) 08/21/23 RDW Standard Deviation 49.1 fL (36.4-46.3) H 08/21/23 RDW Coefficient of Variation 15.0 % (11.5-14.5) H 08/21/23 Plt Count 183 K/uL (130-400) 08/21/23 MPV 10.7 fL (9.4-12.4) 08/21/23 Neutrophils (%) (Auto) 45.2 % 08/21/23 Lymphocytes (%) (Auto) 37.4 % 08/21/23 Monocytes # (Auto) 0.39 K/uL (0.11-0.59) 08/21/23 Eosinophils # (Auto) 0.25 K/uL (0.00-0.50) 08/21/23 Immature Granulocyte % (Auto) 0.5 % 08/21/23 Neutrophils # (Auto) 1.97 K/uL (1.40-6.50) 08/21/23 Lymphocytes # (Auto) 1.63 K/uL (1.20-3.40) 08/21/23 Monocytes # (Auto) 0.39 K/uL (0.11-0.59) 08/21/23 Eosinophils # (Auto) 0.25 K/uL (0.00-0.50) 08/21/23 Basophils # (Auto) 0.10 K/uL (0.00-0.20) 08/21/23 Immature Granulocyte # (Auto) 0.02 K/uL (0.01-0.20) 4 Na 141 mmol/L (136-145) 08/21/23 K 3.6 mmol/L (3.5-5.1) 08/21/23 Cl 105 mmol/L (98-107) 08/21/23 CO2 31 mmol/L (21-32) 08/21/23 Anion Gap 5 (3-11) 08/21/23 BUN 13 mg/dl (6-23) 08/21/23 Creatinine 0.59 mg/dl (0.6-1.2) L 08/21/23 Estimated GFR ( Amer) 105.4 ml/min 08/21/23 Estimated GFR (Non-Af Amer) 90.9 ml/min 08/21/23 BUN/Creatinine Ratio 22.0 (10-20) H 08/21/23 Glu 91 mg/dl (70-99(Fasting)) 08/21/23 Ca 8.8 mg/dl (8.6-10.3) 08/21/23 Total Bilirubin 0.9 mg/dl (0.2-1.0) 08/21/23 AST 36 U/L (13-39) 08/21/23 ALT 27 U/L (7-52) 08/21/23 Alkaline Phosphatase 103 U/L (34-104) 08/21/23 TP 6.2 gm/dl (6.0-8.3) 08/21/23 Albumin 3.6 gm/dl (3.4-5.0) 08/21/23 Globulin 2.6 gm/dl (2.5-4.0) 08/21/23 Albumin/Globulin Ratio 1.4 (0.9-2) 08/21/23 Mg 1.9 mg/dl (1.7-2.4) 08/21/23 06:47 Calcium Level 8.8 mg/dl (8.6-10.3) 08/21/23 06:47 Prothromb Time International Ratio 1.1 (0.9-1.1) 08/20/23 16:3 3 Diagnostic Findings (Past 24 Hours) Chest CTA 08/20/23 00:00 CHEST CTA for PULMONARY ARTERIES CT DOSE: HISTORY: Shortness of breath. TECHNIQUE: Multiaxial CT images of the chest were performed following the intravenous administration of contrast to evaluate the pulmonary arteries. 3D/Maximal intensity projection images were also obtained. Sagittal and coronal reformations were also reviewed. A dose lowering technique was utilized adhering to the principles of ALARA. COMPARISON STUDY: None. FINDINGS: Cervical spinal fusion hardware is partially visualized. No acute fractures identified. There is a left-sided pacemaker. Normal caliber thoracic aorta with no evidence for a dissection. The heart is enlarged. No pericardial effusion. There is a moderate to large right pleural effusion. Normal caliber esophagus. Limited views of the upper abdomen demonstrate a normal liver, spleen, and adrenal glands. No mediastinal or hilar lymphadenopathy. Postoperative changes noted within the right breast. No right pleural thickening or pleural gas to suggest a right-sided empyema. Mild right breast skin thickening favors posttreatment changes. No acute fractures. No suspicious lytic are blastic osseous lesions. No pneumothorax. The central airways are patent. There is a punctate calcified granuloma within the lingula. Mild dependent changes seen within the left lung base posteriorly. No evidence for pulmonary edema. Consolidation within the posterior right lower lobe favors compressive atelectasis from the pleural effusion. There is a 4 mm indeterminate pulmonary nodule within the right lower lobe on image 67. No filling defects within the pulmonary arteries to suggest a pulmonary embolus. There is a punctate calcified granuloma within the left lower lobe. IMPRESSION: 1. No evidence for a pulmonary embolus. 2. Moderate to large pleural effusion. 3. Right breast skin thickening and postoperative changes. The skin thickening is nonspecific but favors posttreatment changes. 4. A 4 mm indeterminate pulmonary nodule within the right lower lobe. Please refer to below summary of Fleischner criteria recommendations for follow- up of incidental CT nodules (Dede Felix, Guidelines for management of small pulmonary nodules detected on CT scans: A statement from the Fleischner [facility], Radiology 237: [phone].) SOLID NODULES Solitary nodule size: <6 mm * Low risk patients: no follow-up needed * high risk patients: optional CT at 12 months Solitary nodule size: 6-8 mm * Low risk patients: follow-up at 6-12 months, then consider further follow-up at 18-24 months * high risk patients: initial follow-up CT at 6-12 months and then at 18-24 months if no change Solitary nodule size: >8 mm * either low or high risk patients - consider follow-up CT at 3 months, and/or CT-PET, and/or biopsy Multiple nodules size: <6 mm * Low risk patients: no routine follow-up * high risk patients: optional CT at 12 months Multiple nodules size: 6-8 mm * Low risk patients: follow-up at 3-6 months, then consider further follow-up at 18-24 months * high risk patients: follow-up at 3-6 months, then at 18-24 months if no change Multiple nodules size: >8 mm * Low risk patients: follow-up at 3-6 months, then consider further follow-up at 18-24 months * high risk patients: follow-up at 3-6 months, then at 18-24 months if no change Note: newly detected indeterminate nodule in persons 35 years of age or older. * Low risk patients: minimal or absent history of smoking and/or other known risk factors * high risk patients: history of smoking or of other known risk factors (e.g. first degree relative with lung cancer, or exposure to asbestos, radon, uranium) * if a nodule up to 8 mm is partly solid or is ground glass further follow-up is required after 24 months to exclude possible slow growing adenocarcinoma (KENRICK) SUBSOLID NODULES Solitary pure ground-glass nodule * nodule size <6 mm - no CT follow-up required * nodule size >=6 mm - follow-up CT at 6-12 months, then every 2 years until 5 years Solitary part-solid nodule * nodule size <6 mm - no CT follow-up required * nodule size >=6 mm - follow-up CT at 3-6 months. If unchanged, and solid component remains <6 mm, then annual follow-up for 5 years Multiple subsolid nodules * nodule size <6 mm - follow-up CT at 3-6 months, consider further follow-up at 2 and 4 years if stable * nodule size >=6 mm - follow-up CT at 3-6 months, subsequent management based on the most suspicious nodule(s) ACT 112: Positive. There are findings on this exam that require communication between the performing entity and the patient following Patient Test Result Information Act ([place] Act 112) guidelines. Electronically signed by: Dio Foster M.D. 08/20/2023 5:15 PM I & O Totals 24 Hours 08/20/23 08/21/23 08/22/23 06:59 06:59 06:59 Intake Total 200 / 200 Balance 200 / 200 Cumulative 08/20/23 16:37 thru 08/21/23 05:55 Intake Total 200 Balance 200 RT Ventilator Mngmt (Last Documented) Ventilator Ordered Settings Respiratory Rate 18 08/21/23 07:46 Ventilator - PT Measurements Respiratory Rate 18 PG Care Time/CCT Total # of Minutes Spent Total Time Spent with Patient: Total time spent is greater than 50% in coordination of care (as documented) at patient's floor/unit and/or counseling patient: Coding Level of Care Code 80660 INT INP/OBS CARE 255MIN Diagnoses Pleural effusion J90 SOB (shortness of breath) R06.02 Pulmonary nodule R91.1
[2023-08-21] MEDS: PANTOprazole 40 MG TAB PO SCH (08:43)
[2023-08-21] MEDS: PARoxetine HCL 20 MG TAB PO SCH (08:43)
[2023-08-21] MEDS: lisinopril 20 MG TAB PO SCH (08:43)
[2023-08-21] MEDS ORDERED: GABAPENTIN 800 MG TAB PO SCH (09:00)
--- NOTE | 2023-08-21 09:28 | XRay Report ---
XR chest 1V portable HISTORY: Follow-up right effusion COMPARISON: Chest CTA 08/20/2023. FINDINGS: Elevation of the right hemidiaphragm favors a moderate subpulmonic effusion. Right basilar densities may represent atelectasis from the pleural effusion. A pneumonia would be difficult to excl ude by imaging. No pneumothorax. The heart is enlarged. There is mild central pulmonary vascular kirti estion without overt edema. The left-sided single lead pacemaker. No acute fractures identified. IMPRESSION: 1. Elevation of the right hemidiaphragm likely represents a moderate subpulmonic effusion seen on the prior chest CTA. 2. Cardiomegaly and mild pulmonary vascular congestion. ACT 112: Negative or not required by law. Electronically signed by: Dio Foster M.D. 08/21/2023 9:27 AM
--- NOTE | 2023-08-21 11:48 | XCELERA ---
[id number]
--- NOTE | 2023-08-21 11:57 | Electrocardiogram Report ---
Test Reason : Blood Pressure : / mmHG Vent. Rate : 081 BPM Atrial Rate : 000 BPM P-R Int : 000 ms QRS Dur : 088 ms QT Int : 398 ms P-R-T Axes : 000 008 -12 degrees QTc Int : 462 ms Atrial fibrillation with frequent ventricular-paced complexes Nonspecific ST and T wave abnormality Abnormal ECG When compared with ECG of 18-FEB-2023 16:16, Electronic ventricular pacemaker has replaced Atrial fibrillation Confirmed by David Asher ([id number]) on 08/21/2023 11:57:14 AM Referred By: REFERRED SELF Confirmed By:Levy Asher
[2023-08-21] MEDS: FUROSEMIDE 40 MG/4 ML VIAL IV SCH (11:59)
--- NOTE | 2023-08-21 12:52 | Hospitalist Progress Note ---
Date of Service August 21, 2023 Assessment & Plan (1) Acute on chronic diastolic CHF (congestive heart failure): Plan: Suspected. Lasix parenteral diuresis. Monitor intake and output. Serial chest x-ray (2) Pleural effusion: Plan: Right-sided. Di is on hold. Pulmonary consultation appreciated. She will undergo right thoracentesis later this admission (3) Atrial fibrillation: Plan: Chronic. Rate controlled. Marlenquis is currently on hold (4) Tachy-gianluca syndrome: Plan: Permanent pacemaker in place Plan Eventual discharge back to home Admission and Anticipated Discharge Date Admission Date: August 20, 2023 Subjective Alert and oriented. No distress. She is on room air. She has a recurrent right pleural effusion. BNP is mildly elevated. Cardiac echo report is pending but her previous cardiac echo completed in August 2021 reveals normal ejection fraction. This may simply be acute on chronic diastolic CHF. She is on parenteral Lasix therapy. Intake and output will be monitored. Pulmonary medicine consultation requested. She will undergo right thoracentesis this admission. Marlenquis is on hold. Chest CTA on admission is negative for PE. Review of Systems 2 Review of Systems: Constitutional-no fever or chills ENT-no blurred vision, no double vision, no epistaxis, no sore throat Respiratory-no cough, no wheezing. Short of breath with exertion. No hemoptysis Cardiac-no palpitations, no chest pain, no syncope GI-no nausea, vomiting, diarrhea, melena, hematochezia -no urinary retention, no urinary incontinence, no dysuria, no hematuria Musculoskeletal-no joint pain, no muscle tenderness Skin-no bruising, no rashes, no pruritus Neuro-no isolated weakness, no paresthesia, no weakness Psych-no depression, no anxiety Physical Exam 2 Physical Exam: General-alert and oriented x3, no fever, no chills HEENT-head atraumatic and normocephalic, pupils equal and reactive to light, extraocular muscles intact Neck-no lymphadenopathy or thyromegaly, trachea midline Chest-diminished breath sounds and dullness at the right base. No wheezing. No rhonchi Cardiacirregular rhythm. Controlled rate. Normal S1 and S2. Abdomen-normal bowel sounds, nontender, no hepatosplenomegaly Extremities-no cyanosis, clubbing, or edema Neuro-cranial nerves II through XII intact, motor and sensory function within normal limits, strength symmetrical and consistent with age, no focal deficits Psych-normal affect, normal mood Results & Data Results & Data Vital Signs (Past 12 Hours) Vital Signs Temp Pulse Pulse Resp BP Pulse Ox O2 Del Method 08/21/23 10:33 66 08/21/23 10:30 36.4 C L 77 18 132/78 94 Room Air 08/21/23 09:35 Room Air 08/21/23 07:46 36.3 C L 69 18 115/74 95 Room Air 08/21/23 02:56 36.5 C 78 16 112/73 96 Room Air Laboratory Results 08/21/23 06:47 08/21/23 06:47 PG Care Time/CCT Total # of Minutes Spent Total Time Spent with Patient: Total time spent is greater than 50% in coordination of care (as documented) at patient's floor/unit and/or counseling patient: Coding Level of Care Code 47426 SUB INP/OBS CARE 3/50MIN Diagnoses Acute on chronic diastolic CHF (congestive heart failure) I50.33 Pleural effusion J90 Atrial fibrillation I48.91 Tachy-gianluca syndrome I49.5
--- NOTE | 2023-08-21 16:30 | Procedure Note ---
Procedure Note Date of Service August 21, 2023 Note Procedure: Diagnostic therapeutic ultrasound-guided catheter thoracentesis, right Junior Copywriter: Dr. Ridge Simmons Indication: Pleural effusion Consent: Signed by patient and verified with timeout prior to procedure Anesthesia: 8 mL's 1% lidocaine without epinephrine local. Procedure: Consent was verified and timeout performed. Appropriate imaging studies were reviewed prior to the procedure. Patient was placed in a seated position and limited thoracic ultrasound was performed of the bilateral chest. Site appropriate for thoracentesis was selected. The skin was prepped and draped in normal sterile fashion. Lidocaine was used for local analgesia. Fluid was aspirated via the finder needle. A small skin kishore was made with the scalpel and the catheter over the needle apparatus was advanced over the rib into the pleural space. Using the syringe one-way valve system, a total of 1000 mL's of yellow slightly cloudy fluid was removed. Procedure was terminated due to inability to withdraw additional fluid. The catheter was removed and observed to be intact. A sterile dressing was applied. Post procedure chest x-ray was ordered. Fluid was sent for cytology, cell count differential, Gram stain and culture, AFB stain and culture, LDH, pH, total protein, and glucose. The patient tolerated the procedure well without obvious complication Coding CPT Codes Pulmonary/Thoracic - Pulmonary and Thoracic: 15253 Thoracentesis w imaging ([id number]) [facility] Procedure Codes (Charges) Pulmonary/Thoracic Procedure 1: Pulmonary and Thoracic: 16174 Thoracentesis w imaging
--- NOTE | 2023-08-21 16:53 | XRay Report ---
SINGLE VIEW CHEST CLINICAL HISTORY: Status post thoracentesis FINDINGS: An AP, portable, upright chest radiograph is compared to performed earlier the same day 07/31. Correlation is made with chest CT dated 08/20/2023 The heart is enlarged noting atheroscleroti c calcification of the thoracic aorta. The pulmonary vasculature is noncongested. Chronic interstitia l thickening is similar to previous. No airspace consolidation or large pleural effusion is identifie d. No pneumothorax is seen. The skeletal structures are osteopenic. The bony thorax is grossly intact . IMPRESSION: 1. Cardiomegaly and cardiac pacemaker without radiographic evidence of congestive failure. 2. No airspace consolidation or large pleural effusion is identified. 3. No pneumothorax is identified post procedure. ACT 112: Negative or not required by law. Electronically signed by: Henri Almonte M.D. 08/21/2023 4:52 PM
[2023-08-21 16:55] LABS: Total Protein Pleural Fluid 3.4 gm/dl
[2023-08-21 17:28] LABS: Appearance Pleural Fluid Cloudy; Color Pleural Fluid Yellow; RBC Pleural Fluid Auto < 2000 /uL; Source Pleural Fluid Right Lung; WBC Pleural Fluid Auto 672 /uL
[2023-08-21 17:34] LABS: Basophils, Fluid 1 %; Lymphocytes, Fluid 67 %; Mono,Macrophage,Mesothelial 29 %; Neutrophils, Fluid 3 %
--- NOTE | 2023-08-21 22:52 | Billing Data ---
Date of Service August 21, 2023 Coding Level of Care Code 69988 INT INP/OBS CARE
[2023-08-22 07:58] LABS: Creatinine Clr Calc Pharmacy 54.3 ml/min; Est GFR (African American) 84.8 ml/min; Est GFR (Non-African American) 73.1 ml/min
[2023-08-22 07:59] LABS: BUN Creatinine Ratio 26.3 (10-20); Calcium 8.7 mg/dl (8.6-10.3)
--- NOTE | 2023-08-22 09:25 | XRay Report ---
XR chest 1V portable CLINICAL HISTORY: right thoracentesis 08/20 COMPARISON STUDY: Chest CT August 20, 2023. Chest radiograph August 21, 2023 at 4:40 PM. FINDINGS: Left subclavian pacer is in place. Cardiomediastinal silhouette is stable. There is no evid ence for pulmonary edema. There is no pneumothorax following right thoracentesis. There is no signifi cant residual right pleural effusion. Minimal right basilar opacity is present. Postoperative finding s within the cervical spine are incidentally noted. Skin folds project over the right lower chest. IMPRESSION: No acute cardiopulmonary findings. No pneumothorax status post thoracentesis. ACT 112: Negative or not required by law. Electronically signed by: Andrew Adams M.D. 08/22/2023 9:24 AM
--- NOTE | 2023-08-22 10:27 | Discharge Summary ---
Date of Service August 22, 2023 Admission HPI Per Admitting Provider 72 year old female with a past medical history of asthma, atrial fibrillation s/p AICD (on Eliquis), HTN, GERD, HLD, hypothyroidism, depression/anxiety, breast cancer presenting with worsening dyspnea over the past month. Worse with laying flat. Notes congestion, rhinorrhea, productive cough. Denies fever/chills, body aches, weakness, chest pain. Follows with pulmonology and has chronic dyspnea with exertion. Has had PFTs in the past without obstructive or restrictive process. Chronic right sided pulmonary effusion which has waxed/waned in size. Thoracentesis 05/28/2021, 500 mL serous fluid was removed, lymphocytic, cytology was negative for malignancy. Has also followed with cardiology, per chart review history of diastolic heart failure, was on Lasix prior, not currently on diurectics. Not hypoxic and walking trial in the ED without hypoxic, but per pt she felt short of breath with ambulation. ED Course: Chest CTA- moderate to large right pleural effusion, 4mm pulmonary nodule Duoneb Principal Diagnosis Recurrent right pleural effusion, shortness of breath Discharge Exam General-alert and oriented x3, no fever, no chills HEENT-head atraumatic and normocephalic, pupils equal and reactive to light, extraocular muscles intact Neck-no lymphadenopathy or thyromegaly, trachea midline Chest-right lung is now clear. No wheezing. No rhonchi Cardiacirregular rhythm. Controlled rate. Normal S1 and S2. Abdomen-normal bowel sounds, nontender, no hepatosplenomegaly Extremities-no cyanosis, clubbing, or edema Neuro-cranial nerves II through XII intact, motor and sensory function within normal limits, strength symmetrical and consistent with age, no focal deficits Psych-normal affect, normal mood Discharge Data Allergies Allergy/AdvReac Type Severity Reaction Status Date / Time bee venom protein (honey bee) Allergy Intermediate swollen, Verified 08/20/23 18:43 itchy house dust Allergy Mild Watery Eye Verified 08/20/23 18:43 adhesive AdvReac Mild RED SKIN Verified 08/20/23 18:43 WITH BANDAIDS smoke Allergy Severe Problems Uncoded 08/20/23 18:43 breathing, self reported pine tree Allergy Unknown Unknown Uncoded 08/20/23 18:43 Consultations 08/20/23 19:29 ED Decision to Admit Stat 08/21/23 08:29 Consult Pulmonology Routine Ordered Studies 08/20/23 CT angio chest PE protocol Routine Hospital Course (1) Acute on chronic diastolic CHF (congestive heart failure): Ruled out. Parenteral Lasix has been discontinued. She has chronic diastolic CHF but nothing acute. Monitor intake and output. (2) Pleural effusion: Right-sided. She underwent thoracentesis yesterday, August 20. Follow-up chest x-rays are unremarkable with no evidence of pneumothorax. Eliquis will be restarted at discharge. Pulmonary consultation appreciated. Final fluid study results are pending. These can be reviewed by her PCP (3) Atrial fibrillation: Chronic. Rate controlled. 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 Follow-up with primary care provider for review of pleural fluid lab studies that remain pending Pending Studies at Discharge: Yes Studies:: Final pleural fluid study results Stand-Alone Forms: [employer], Smoking Cessation Medications and DC Order Prescriptions: Continued paroxetine HCl 20 mg tablet 20 mg PO QAM Qty: 90 3RF albuterol sulfate 90 mcg/actuation HFA aerosol inhaler 2 puff inhalation UD PRN (Reason: shortness of breath or wheezing) Qty: 8.5 5RF pantoprazole 20 mg tablet,delayed release (DR/EC) 20 mg PO QAM Primatene Mist 0.125 mg/actuation HFA aerosol inhaler 1 puff inhalation Q6H PRN (Reason: Shortness Of Breath Or Wheezing) Rx Instructions: may repeat once after 1 minute trazodone 50 mg tablet 50 mg PO HS Qty: 90 3RF Eliquis 5 mg tablet 5 mg PO BID Qty: 180 3RF levothyroxine 200 mcg tablet 200 mcg PO DAILY Qty: 90 2RF Rx Instructions: Take by itself first thing in the morning. atorvastatin [Lipitor] 80 mg tablet 80 mg PO HS 90 Days Qty: 90 3RF lisinopril 20 mg tablet 20 mg PO QAM 90 Days Qty: 90 2RF gabapentin 800 mg tablet 800 mg PO BID Discharge Orders: Discharge Order (Routine); Ordered 08/22/23 Ordered By: Luciano Calle Admission Data Admit Date/Time: 08/20/23 20:16 Attending Provider: Luciano Calle Admit Provider: Kellie Donovan Primary Care Provider: Pauline Jordan Other Providers: Cam Brownlee; Ridge Simmons; [facility] Fax Coding Level of Care Code 41494 INP/OBS DISCH >30 MIN Diagnoses Acute on chronic diastolic CHF (congestive heart failure) I50.33 Pleural effusion J90 Atrial fibrillation I48.91 Tachy-gianluca syndrome I49.5
== END 2023-08-22 11:52 | disposition home health service (06) | DRG 187 ==
LOC: ED 16:37 → SUATTDRO 20:16 → 2N 20:16 → INTOOBSV 20:16 → 2N 23:00

== ENCOUNTER 2024-01-06 13:55 | Observation (INO) ==
--- NOTE | 2024-01-06 14:24 | Emergency Department Note ---
History of Present Illness General Chief complaint: Shortness of Breath/Dyspnea Stated complaint: SOB, CONFUSION, TROUBLE WALKING Time Seen by Provider: 01/06/24 14:06 Source: patient, RN notes reviewed and old records reviewed (I have reviewed the medication list that the patient came with) Mode of arrival: ambulatory Limitations: no limitations History of Present Illness This patient is a 73-year-old female who has multiple medical problems including CHF/pleural effusions, chronic anticoagulation, comes in after feeling short of breath and dizzy for about the last week. She says she feels dizzy and staggering when she walks like a spinning she has had no fall or trauma she does have a headache. She also feels like she has been forgetful about taking her medication she did take her blood thinner this morning however. No fall or trauma no chest pain she has shortness of breath which is mostly dyspnea on exertion she has a history of a pleural effusion and the last time it was tapped in September they took off 1.5 L. She has had a nonproductive cough. No fever but she has some night sweats. She says she is gained about 3 pounds in the last week and has increase in lower extremity edema. Home Medications Medication Instructions Recorded Confirmed Type albuterol sulfate 90 mcg/actuation 2 puff inhalation UD PRN shortness 09/17/22 01/06/24 Rx aerosol inhaler of breath or wheezing #8.5 grams epinephrine 0.125 mg/actuation 1 puff inhalation Q6H PRN 04/03/23 01/06/24 History aerosol inhaler (Primatene Mist) Shortness Of Breath Or Wheezing metoprolol succinate 25 mg 25 mg PO DAILY #90 tabs 10/05/23 01/06/24 Rx tablet,extended release 24 hr potassium chloride 10 mEq 10 meq PO DAILY #90 caps 11/06/23 01/06/24 Rx capsule,extended release apixaban 5 mg tablet (Eliquis) 5 mg PO BID #180 tabs 01/05/24 01/06/24 Rx atorvastatin 80 mg tablet (Lipitor) 80 mg PO HS 90 days #90 tabs 01/05/24 01/06/24 Rx furosemide 40 mg tablet (Lasix) 40 mg PO DAILY #90 tabs 01/05/24 01/06/24 Rx gabapentin 800 mg tablet 800 mg PO BID 90 days #180 tabs 01/05/24 01/06/24 Rx levothyroxine 200 mcg tablet 200 mcg PO DAILY #90 tabs 01/05/24 01/06/24 Rx paroxetine HCl 40 mg tablet 40 mg PO DAILY #90 tabs 01/05/24 01/06/24 Rx tizanidine 2 mg tablet 2 mg PO Q8H PRN muscle spasticity 01/05/24 01/06/24 Rx #20 tabs trazodone 50 mg tablet 50 mg PO HS #90 tabs 01/05/24 01/06/24 Rx ascorbic acid (vitamin C) 500 mg 0 mg PO DAILY 01/06/24 01/06/24 History tablet (Vitamin C) cholecalciferol (vitamin D3) 25 0 mcg PO DAILY 01/06/24 01/06/24 History mcg (1,000 unit) capsule (Vitamin D3) lisinopril 20 mg tablet 20 mg PO DAILY 01/06/24 01/06/24 History Allergies Allergy/AdvReac Type Severity Reaction Status Date / Time bee venom protein (honey bee) Allergy Intermediate swollen, Verified 01/06/24 17:13 itchy house dust Allergy Mild Watery Eye Verified 01/06/24 17:13 alendronate sodium AdvReac Intermediate Diarrhea Verified 01/06/24 17:13 [From Fosamax] adhesive AdvReac Mild RED SKIN Verified 01/06/24 17:13 WITH BANDAIDS Past Med/Surg History Problem List Pleural effusion (Acute) A-fib (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) 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 (Acute) Constipated Acute urinary retention Diarrhea Acute HF (heart failure) Acute pneumonia Asymptomatic bacteriuria Pneumonia Acute UTI (urinary tract infection) (Acute) Acute dyspnea (Acute) Osteoporosis SOB (shortness of breath) (Acute) Pleural effusion (Acute) Ambulatory dysfunction Exertional dyspnea Abnormal barium swallow Dysphagia (Acute) Polyneuropathy (Acute) Stenosis, cervical spine (Acute) History of partial mastectomy Allergic rhinitis Hepatic steatosis Moderate sized pleural effusion (~08/2022) bilateral Hyperlipidemia 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 Lumbar radiculopathy S/P placement of cardiac pacemaker 2020, [facility]; f/u [place] [facility] Medical History Pleural effusion on right Pulmonary nodule Tachy-gianluca syndrome s/p pacemaker placement custodial (current) use of anticoagulants Depression with anxiety 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 Asthma Surgical History History of esophagogastroduodenoscopy (EGD) History of thoracentesis History of total abdominal hysterectomy and bilateral salpingo-oophorectomy History of colonoscopy (~07/2018) History of right breast biopsy malignant Hx of lumpectomy RIGHT LUMPECTOMY 2017 H/O tubal ligation 1996 History of cataract surgery 2013 - R/L Hx of hand surgery s - LEFT-CYST REMOVED/BONE FUSION History of cholecystectomy 2007 History of appendectomy 1968 Hx of fusion of cervical spine 2006--normal ROM Family History Brother Diabetes Family history of colonic polyps Father Heart disease Mother Diabetes Heart disease Hypertension Other No family history of adverse response to anesthesia Unknown family medical history Denies family history of Ovarian cancer Prostate cancer Myocardial infarction Breast cancer Lung cancer Colorectal cancer Social History Smoking Status: Never smoker Second Hand Exposure: No; Do You Dip or Chew Tobacco: No; Hx Alcohol Use: No Hx Substance Use: No Preferred Language: Turkmen Communication Ability: Effective Communication Ability Comment: PT [place], USING VOICE ARTIST'S REPRESENTATIVE FOR PHONE CALL Visual Impairment: Limited Hearing Ability: Use of Hearing Aid Assurance Sourcing Manager Required: No Beliefs That Will Affect Care: None marital status: / Current Living Situation: Alone current occupational status: retired 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 Uses shower, not bathtub. Childhood Exposure to Second-Hand Smoke: Yes Diet: regular caffeine: Yes (2-3 Cups of coffee/day ) during the past year weight has: remained stable Dental Care, Regularly: Yes Physical Activity Frequency: Daily Physical Activity Frequency Comment: walking, 60 minutes Seatbelt Use: always Sunscreen Use: Yes Assistive Devices: None Review of Systems A total of 10 systems reviewed and were otherwise negative Physical Exam Vital Signs Vital Signs - 24 hr 01/06/24 13:59 01/06/24 14:16 01/06/24 14:16 Temperature 36.1 C L Temperature Source Temporal Artery Scan Pulse Rate 71 Pulse Rate from SpO2 Sensor Respiratory Rate 18 Respiratory Effort / Characteristics Non-Labored Spontaneous Non-Labored Respiratory Depth Normal Normal Respiratory Pattern Regular Regular Blood Pressure 135/85 Blood Pressure Mean 101 Pulse Oximetry 96 95 Oxygen Delivery Method Room Air Room Air Sepsis Recent Fever Within 48 Hours No Sepsis New/Unexplained Change in Mental Status N/A Sepsis Action Taken by Nursing No Action Required 01/06/24 14:42 01/06/24 15:23 01/06/24 16:00 Temperature Temperature Source Pulse Rate 63 66 Pulse Rate from SpO2 Sensor 67 Respiratory Rate 16 Respiratory Effort / Characteristics Respiratory Depth Respiratory Pattern Blood Pressure 120/69 Blood Pressure Mean 86 Pulse Oximetry 95 95 Oxygen Delivery Method Room Air Sepsis Recent Fever Within 48 Hours Sepsis New/Unexplained Change in Mental Status Sepsis Action Taken by Nursing General: Well developed well nourished older female who appears in no acute distress, breathing comfortably on room air. Normal speech HEENT: Normal cephalic atraumatic. Pupils are equal round and reactive to light. Extraocular movements are intact. Oropharynx is pink with moist mucous membranes. No swelling of the mouth lips or tongue. Neck: Supple with a midline trachea. No meningeal signs or stiffness, no JVD or bruits. No Stridor. Chest: Clear to auscultation bilaterally, the breath sounds in the right base are diminished compared to the left. No wheezes or rhonchi. No increased work of breathing. Heart: Irregularly irregular rate and rhythm without murmurs or gallops. Abdomen: Soft nontender, nondistended without rebound guarding or rigidity. Extremities: No cyanosis clubbing. Trace bilateral edema. No calf tenderness or assymetry Spine/Back. Non tender to palpation. No CVA tenderness Skin: Good turgor without rashes. Neurologic exam: Cranial nerves two through 12 are intact. Motor and sensation are intact and symmetrical throughout. Course Administered Medications Discontinued Medications Furosemide (Furosemide Inj 20 Mg/2 Ml Vial) 20 mg IV ONE ONE Stop: 01/06/24 15:58 Last Admin: 01/06/24 16:00 Dose: 20 mg Documented By: NRIsa Medical Decision Making Differential Diagnosis CHF, acute coronary syndrome, arrhythmia, anemia, infection, intracranial process, electrolyte or metabolic abnormality Medical Records Attestation: I reviewed the patient's medical records. Home Medications Current Medication List: was personally reviewed by me Laboratory Data 01/06/24 14:39 01/06/24 14:39 Lab Results 01/06/24 01/06/24 Range/Units 14:25 14:39 WBC 5.71 (4.8-10.8) K/ul RBC 4.74 (4.20-5.40) M/uL Hgb 14.9 (12.0-16.0) g/dl Hct 44.3 (37.0-47.0) % MCV 93.5 (80.0-100.0) fL MCH 31.4 (25.0-34.0) pg MCHC 33.6 (32.0-36.0) g/dL RDW Std Deviation 46.4 H (36.4-46.3) fL RDW Coeff of Kal 13.7 (11.5-14.5) % Plt Count 210 (130-400) K/uL MPV 10.7 (9.4-12.4) fL Immature Gran % (Auto) 0.2 % Neut % (Auto) 54.3 % Lymph % (Auto) 28.5 % [place] % (Auto) 11.4 % Eos % (Auto) 3.5 % Baso % (Auto) 2.1 % Neut # (Auto) 3.10 (1.40-6.50) K/uL Lymph # (Auto) 1.63 (1.20-3.40) K/uL [place] # (Auto) 0.65 H (0.11-0.59) K/uL Eos # (Auto) 0.20 (0.00-0.50) K/uL Baso # (Auto) 0.12 (0.00-0.20) K/uL Immature Gran # (Auto) 0.01 (0.01-0.20) K/uL PT 12.6 H (9.0-12.0) Seconds INR 1.2 H (0.9-1.1) APTT 30 (21-31) Seconds PTT Ratio 1.1 Sodium 139 (136-145) mmol/L Potassium 3.8 (3.5-5.1) mmol/L Chloride 104 (98-107) mmol/L Carbon Dioxide 29 (21-32) mmol/L Anion Gap 6 (3-11) BUN 13 (6-23) mg/dl Creatinine 0.59 L (0.6-1.2) mg/dl Est Cr Clr Drug Dosing 70.4 ml/min Est GFR ( Amer) 104.6 ml/min Est GFR (Non-Af Amer) 90.3 ml/min BUN/Creatinine Ratio 22.0 H (10-20) Glucose 95 (70-99(Fasting)) mg/dl Calcium 9.1 (8.6-10.3) mg/dl Total Bilirubin 1.2 H (0.2-1.0) mg/dl AST 69 H (13-39) U/L ALT 38 (7-52) U/L Alkaline Phosphatase 98 (34-104) U/L Troponin I High Sens 4.2 (0-14) pg/ml B-Natriuretic Peptide 173 H (0-100) pg/ml Total Protein 7.4 (6.0-8.3) gm/dl Albumin 4.1 (3.4-5.0) gm/dl Globulin 3.3 (2.5-4.0) gm/dl Albumin/Globulin Ratio 1.2 (0.9-2) Lipase 70 (11-82) U/L SARS-CoV-2, RNA, NAAT NEGATIVE (NEGATIVE) Imaging Data Attestation: I personally reviewed and interpreted this imaging study as follows: My Impression: Head CTno hemorrhage or mass effect seen. Chest x-ray Cardiomegaly with some pulmonary edema changes. There is effusion moderate-sized on the right. Radiologist's Impression: Chest X-Ray 01/06/24 14:16 XR chest 1V portable CLINICAL HISTORY: Chest pain, nonspecific COMPARISON STUDY: Chest radiograph October 19, 2023. Chest CT November 16, 2023. FINDINGS: Postoperative findings within the cervical spine are incidentally noted. A left subclavian pacer is in place. There is no pneumothorax. A moderate right pleural effusion is noted with associated right basilar opacity. Mild interstitial thickening is noted. There is moderate cardiomegaly. IMPRESSION: 1. Cardiomegaly with mild interstitial pulmonary edema. 2. Moderate right pleural effusion with right basilar opacity which could reflect consolidation or atelectasis. ACT 112: Negative or not required by law. Electronically signed by: Andrew Adams M.D. 01/06/2024 2:[address] 01/06/24 14:16 CT SCAN OF THE BRAIN WITHOUT IV CONTRAST CLINICAL HISTORY: Dizziness. COMPARISON STUDY: CT of the brain dated 02/18/2023. TECHNIQUE: Unenhanced axial CT scan of the brain is performed from the vertex to the skull base. A dose lowering technique was utilized adhering to the principles of ALARA. CT DOSE: 625.8 mGy.cm FINDINGS: Brain parenchyma: There is age-related involutional change noting mild subcortical and periventricular microangiopathic disease. There is no hemorrhage, mass effect, or evidence of acute territorial ischemia by CT criteria. May-white matter differentiation is preserved. No extra-axial fluid collection is seen. Ventricles, sulci, cisterns: Prominent secondary to involutional change. Intracranial vasculature: There is atherosclerotic calcification of the cavernous carotid arteries. Calvarium: Unremarkable. Sinuses and mastoids: The visualized paranasal sinuses are clear. The mastoid air cells are well pneumatized. Orbits: The bony orbits are grossly intact. There are bilateral ocular lens implants. IMPRESSION: There is no hemorrhage, mass effect, or evidence of acute territorial ischemia by CT criteria. ACT 112: Negative or not required by law. Electronically signed by: Henri Almonte M.D. 01/06/2024 3:39 PM ECG Data Attestation: I personally reviewed and interpreted this ECG as follows: Indication: + SOB/dyspnea Rate (beats per minute): 82 Rhythm: + atrial fibrillation ECG Intervals/blocks: + Normal QRS and + Normal QT ECG [place]: + Normal ECG ST segments: + Normal ST segments ECG Findings: no PACs or no PVCs Comparison ECG Date: from (11/01/21) Change: no significant change MDM Narrative This patient is a 73-year-old female who has a complex medical history including CHF/pleural effusions and anticoagulation, comes in after having dyspnea on exertion and dizziness. She has stable vital signs. She is not hypoxemic. She is nontachycardic. EKG shows a baseline A-fib she was placed on a environmental monitoring specialist. IV access was established, multiple blood testing was obtained. she was placed in the room B10. Given the fact she is on anticoagulation which she confirms that she did take today, I did order a CT of the head as well as a cardiac workup including chest x-ray and multiple blood testing. She was reassessed frequently. She has remained stable. Chest x-ray shows CHF with a pleural effusion. She was given Lasix 20 mg IV. CAT scan was unremarkable. She has no significant electrolyte or metabolic abnormalities. I did discuss case at length with Dr. Garcia who is on-call for the [facility] physician group and she will be admitted for further treatment and evaluation. 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, A-fib, Pleural effusion Discharge Plan Visit Data Chief Complaint: Shortness of Breath/Dyspnea Stated Complaint: SOB, CONFUSION, TROUBLE WALKING ED Provider: Chadd Brower Discharge Problem: SOB (shortness of breath), custodial (current) use of anticoagulants, A-fib, Pleural effusion Forms Stand Alone Forms: My [facility] Prescriptions Prescriptions: No Action potassium chloride 10 mEq capsule, extended release 10 meq PO DAILY Qty: 90 3RF Eliquis 5 mg tablet 5 mg PO BID Qty: 180 3RF atorvastatin [Lipitor] 80 mg tablet 80 mg PO HS 90 Days Qty: 90 3RF furosemide [Lasix] 40 mg tablet 40 mg PO DAILY Qty: 90 3RF gabapentin 800 mg tablet 800 mg PO BID 90 Days Qty: 180 4RF levothyroxine 200 mcg tablet 200 mcg PO DAILY Qty: 90 2RF Rx Instructions: Take by itself first thing in the morning. paroxetine HCl 40 mg tablet 40 mg PO DAILY Qty: 90 2RF tizanidine 2 mg tablet 2 mg PO Q8H PRN (Reason: muscle spasticity) Qty: 20 0RF trazodone 50 mg tablet 50 mg PO HS Qty: 90 3RF albuterol sulfate 90 mcg/actuation HFA aerosol inhaler 2 puff inhalation UD PRN (Reason: shortness of breath or wheezing) Qty: 8.5 5RF Primatene Mist 0.125 mg/actuation HFA aerosol inhaler 1 puff inhalation Q6H PRN (Reason: Shortness Of Breath Or Wheezing) Rx Instructions: may repeat once after 1 minute metoprolol succinate 25 mg tablet extended release 24 hr 25 mg PO DAILY Qty: 90 3RF lisinopril 20 mg Tablet 20 mg PO DAILY ascorbic acid (vitamin C) [Vitamin C] 500 mg Tablet 0 mg PO DAILY cholecalciferol (vitamin D3) [Vitamin D3] 25 mcg (1,000 unit) Capsule 0 mcg PO DAILY Referrals Referrals: Pauline Jordan MD [Primary Care Provider] - Discharge Problem: A-fib Qualifiers: Atrial fibrillation type: unspecified Qualified Code(s): I48.91 - Unspecified atrial fibrillation
--- NOTE | 2024-01-06 14:56 | XRay Report ---
XR chest 1V portable CLINICAL HISTORY: Chest pain, nonspecific COMPARISON STUDY: Chest radiograph October 19, 2023. Chest CT November 16, 2023. FINDINGS: Postoperative findings within the cervical spine are incidentally noted. A left subclavian pacer is in place. There is no pneumothorax. A moderate right pleural effusion is noted with associat ed right basilar opacity. Mild interstitial thickening is noted. There is moderate cardiomegaly. IMPRESSION: 1. Cardiomegaly with mild interstitial pulmonary edema. 2. Moderate right pleural effusion with right basilar opacity which could reflect consolidation or at electasis. ACT 112: Negative or not required by law. Electronically signed by: Andrew Adams M.D. 01/06/2024 2:55 PM
[2024-01-06 15:08] LABS: Basophils # (auto) 0.12 K/uL (0.00-0.20); Basophils % (auto) 2.1 %; Eosinophils % (auto) 3.5 %; Hematocrit (blood only) 44.3 % (37.0-47.0); Hemoglobin 14.9 g/dl (12.0-16.0); Immature Granulocytes # (auto) 0.01 K/uL (0.01-0.20); Immature Granulocytes % (auto) 0.2 %; Lymphocytes # (auto) 1.63 K/uL (1.20-3.40); Lymphocytes % (auto) 28.5 %; Mean Corpuscular Hemoglobin 31.4 pg (25.0-34.0); Mean Corpuscular Hgb Conc 33.6 g/dL (32.0-36.0); Mean Corpuscular Volume 93.5 fL (80.0-100.0); Mean Platelet Volume 10.7 fL (9.4-12.4); Monocytes # (auto) 0.65 K/uL (0.11-0.59); Monocytes % (auto) 11.4 %; Neutrophils % (auto) 54.3 %; Platelet Count 210 K/uL (130-400); RDW Coefficient of Variation 13.7 % (11.5-14.5); RDW Standard Deviation 46.4 fL (36.4-46.3); Red Blood Count 4.74 M/uL (4.20-5.40); White Blood Count 5.71 K/ul (4.8-10.8)
[2024-01-06 15:25] LABS: Albumin Globulin Ratio 1.2 (0.9-2); Albumin Level 4.1 gm/dl (3.4-5.0); Bilirubin,Total 1.2 mg/dl (0.2-1.0); Calcium 9.1 mg/dl (8.6-10.3); Creatinine Clr Calc Pharmacy 70.4 ml/min; Est GFR (African American) 104.6 ml/min; Est GFR (Non-African American) 90.3 ml/min; Globulin 3.3 gm/dl (2.5-4.0); Potassium 3.8 mmol/L (3.5-5.1); Total Protein 7.4 gm/dl (6.0-8.3)
[2024-01-06 15:31] LABS: Troponin I High Sensitivity 4.2 pg/ml (0-14)
[2024-01-06 15:34] LABS: INR 1.2 (0.9-1.1); Partial Thromboplastin Ratio 1.1; Partial Thromboplastin Time 30 Seconds (21-31); Prothrombin Time 12.6 Seconds (9.0-12.0)
--- NOTE | 2024-01-06 15:41 | CT Scan Report ---
CT SCAN OF THE BRAIN WITHOUT IV CONTRAST CLINICAL HISTORY: Dizziness. COMPARISON STUDY: CT of the brain dated 02/18/2023. TECHNIQUE: Unenhanced axial CT scan of the brain is performed from the vertex to the skull base. A do se lowering technique was utilized adhering to the principles of ALARA. CT DOSE: 625.8 mGy.cm FINDINGS: Brain parenchyma: There is age-related involutional change noting mild subcortical and periventricula r microangiopathic disease. There is no hemorrhage, mass effect, or evidence of acute territorial isc hemia by CT criteria. May-white matter differentiation is preserved. No extra-axial fluid collection is seen. Ventricles, sulci, cisterns: Prominent secondary to involutional change. Intracranial vasculature: There is atherosclerotic calcification of the cavernous carotid arteries. Calvarium: Unremarkable. Sinuses and mastoids: The visualized paranasal sinuses are clear. The mastoid air cells are well pneu matized. Orbits: The bony orbits are grossly intact. There are bilateral ocular lens implants. IMPRESSION: There is no hemorrhage, mass effect, or evidence of acute territorial ischemia by CT lux jett. ACT 112: Negative or not required by law. Electronically signed by: Henri Almonte M.D. 01/06/2024 3:39 PM
--- NOTE | 2024-01-06 15:41 | Electrocardiogram Report ---
Test Reason : Blood Pressure : */* mmHG Vent. Rate : 82 BPM Atrial Rate : * BPM P-R Int : * ms QRS Dur : 80 ms QT Int : 390 ms P-R-T Axes : * 32 98 degrees QTcB Int : 455 ms Atrial fibrillation Low voltage QRS Incomplete right bundle branch block Abnormal ECG When compared with ECG of 17-Oct-2023 14:34, T wave inversion no longer evident in Inferior leads Nonspecific T wave abnormality, worse in Lateral leads Confirmed by David Asher ([id number]) on 01/06/2024 3:41:29 PM Referred By: Confirmed By: David Asher
[2024-01-06] MEDS: FUROSEMIDE INJ 20 MG/2 ML VIAL IV ONE (16:00)
--- NOTE | 2024-01-06 17:13 | History & Physical Report ---
Date of Service January 06, 2024 Assessment & Plan (1) Pleural effusion: Plan: Admit to [facility] telemetry on pulse oximetry Currently hemodynamically stable, stable on room air, nontoxic-appearing Presented to the ED for progressive dyspnea on exertion, orthopnea, and dizziness with exertion over the past week Noted to have recurrent volume overload on chest x-ray with moderate right pleural effusion consistent with previous admissions After further discussion with the patient it appears that she often forgets to take her daily furosemide and was unaware she was supposed to be on a sodium restricted and fluid restricted diet Patient has required thoracentesis on previous admissions, will hold home Eliquis for now Status post 20 mg IV Lasix in the ED, will continue with 20 mg IV twice daily for now Will consult pulmonology to follow in case patient requires thoracentesis prior to discharge Patient has been instructed to reduce her sodium intake on discharge Heart healthy diet with 2 g sodium and 1800 mL fluid restriction Bilateral SCDs for DVT prophylaxis AM CBC, CMP, mag, PT/INR (2) A-fib: Plan: Stable Continue metoprolol Holding Eliquis for now in case patient requires thoracentesis prior to discharge (3) Noncompliance with diet and medication regimen: Plan: Due to patient's known memory issues she often forgets to take her daily furosemide and explains that she was unaware that she was supposed to be on a sodium and fluid restriction, this is causing recurrent admissions for volume overload and pleural effusions Patient currently has home health nurse coming once weekly Consult case management to see if we are able to increase the frequency of her home health to assist her with medication compliance and closer monitoring moving forward I have also placed a referral to the CHF program to see if they can schedule more frequent follow-up to try and prevent recurrent admissions Plan The patient was discussed with Dr. Garcia at the time of the admission History of Present Illness Chief Complaint: LEYVA and dizziness Primary Care Provider: Pauline Jordan MD Anjali is a 73-year-old female with a past medical history significant for atrial fibrillation (on Eliquis), grade 1 diastolic dysfunction, heart failure with preserved ejection fraction, recurrent pleural effusions, tachybradycardia syndrome status post pacemaker placement who presented to the [facility] ED on 01/06/2024 due to recurrent episodes of dyspnea on exertion with dizziness over the past week. She remained stable in the ED. Labs including CBC, CMP, and high-sensitivity troponin within normal limits. BNP today is 173 (down from 257 as of 11/04/2023). ECG shows atrial fibrillation and incomplete right bundle branch block with T wave inversion in the lateral leads similar to ECGs in the past. Chest x-ray was read as cardiomegaly with mild interstitial pulmonary edema. Moderate right pleural effusion with right basilar opacity which could reflect consolidation or atelectasis. Prior to admission the patient was given 20 mg IV Lasix. Patient was sitting in bed in no acute distress at the time of exam. She explains that over the past week she has had progressive dyspnea on exertion, orthopnea, and lightheadedness after progressive ambulation. Denies shortness o f breath or lightheadedness at rest. When asked, she notes that she often forgets to take her home furosemide which she is supposed to be taking 40 mg daily as she has a history of baseline memory issues. When asked she notes that she often eats full sodium canned soups and frozen meals for lunch/dinner. She does also confirm that she adds sodium to many of her meals. She currently has home health nurse come once a week. She does not have anyone else to help remind her to take her medications consistently. She does state that she will try to reduce her sodium intake moving forward as she was unaware that increased sodium intake causes her to retain fluid. We discussed CODE STATUS, she wishes to be a conditional code as she would not want CPR or defibrillation in the event of cardiac arrest. She would want a trial of intubation in the event of respiratory failure. Please refer to Dr. Garcia' attestation for any changes Allergies Allergy/AdvReac Type Severity Reaction Status Date / Time bee venom protein (honey bee) Allergy Intermediate swollen, Verified 01/06/24 17:13 itchy house dust Allergy Mild Watery Eye Verified 01/06/24 17:13 alendronate sodium AdvReac Intermediate Diarrhea Verified 01/06/24 17:13 [From Fosamax] adhesive AdvReac Mild RED SKIN Verified 01/06/24 17:13 WITH BANDAIDS Home Medications Medication Instructions Recorded Confirmed Type albuterol sulfate 90 mcg/actuation 2 puff inhalation UD PRN shortness 09/17/22 01/06/24 Rx aerosol inhaler of breath or wheezing #8.5 grams epinephrine 0.125 mg/actuation 1 puff inhalation Q6H PRN 04/03/23 01/06/24 History aerosol inhaler (Primatene Mist) Shortness Of Breath Or Wheezing metoprolol succinate 25 mg 25 mg PO DAILY #90 tabs 10/05/23 01/06/24 Rx tablet,extended release 24 hr potassium chloride 10 mEq 10 meq PO DAILY #90 caps 11/06/23 01/06/24 Rx capsule,extended release apixaban 5 mg tablet (Eliquis) 5 mg PO BID #180 tabs 01/05/24 01/06/24 Rx atorvastatin 80 mg tablet (Lipitor) 80 mg PO HS 90 days #90 tabs 01/05/24 01/06/24 Rx furosemide 40 mg tablet (Lasix) 40 mg PO DAILY #90 tabs 01/05/24 01/06/24 Rx gabapentin 800 mg tablet 800 mg PO BID 90 days #180 tabs 01/05/24 01/06/24 Rx levothyroxine 200 mcg tablet 200 mcg PO DAILY #90 tabs 01/05/24 01/06/24 Rx paroxetine HCl 40 mg tablet 40 mg PO DAILY #90 tabs 01/05/24 01/06/24 Rx tizanidine 2 mg tablet 2 mg PO Q8H PRN muscle spasticity 01/05/24 01/06/24 Rx #20 tabs trazodone 50 mg tablet 50 mg PO HS #90 tabs 01/05/24 01/06/24 Rx ascorbic acid (vitamin C) 500 mg 0 mg PO DAILY 01/06/24 01/06/24 History tablet (Vitamin C) cholecalciferol (vitamin D3) 25 0 mcg PO DAILY 01/06/24 01/06/24 History mcg (1,000 unit) capsule (Vitamin D3) lisinopril 20 mg tablet 20 mg PO DAILY 01/06/24 01/06/24 History Past Med/Surg History Problem List Noncompliance with diet and medication regimen Pleural effusion (Acute) A-fib (Acute) correction (current) use of anticoagulants (Acute) Constipated Acute urinary retention Diarrhea Acute HF (heart failure) Acute pneumonia Asymptomatic bacteriuria Pneumonia Acute UTI (urinary tract infection) (Acute) Acute dyspnea (Acute) Osteoporosis SOB (shortness of breath) (Acute) Pleural effusion (Acute) Ambulatory dysfunction Exertional dyspnea Abnormal barium swallow Dysphagia (Acute) Polyneuropathy (Acute) Stenosis, cervical spine (Acute) History of partial mastectomy Allergic rhinitis Hepatic steatosis Moderate sized pleural effusion (~08/2022) bilateral Hyperlipidemia 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 Lumbar radiculopathy S/P placement of cardiac pacemaker 2020, [facility]; f/u [place] [facility] Medical History Pleural effusion on right Pulmonary nodule Tachy-gianluca syndrome s/p pacemaker placement correction (current) use of anticoagulants Depression with anxiety 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 Asthma Surgical History History of esophagogastroduodenoscopy (EGD) History of thoracentesis History of total abdominal hysterectomy and bilateral salpingo-oophorectomy History of colonoscopy (~07/2018) History of right breast biopsy malignant Hx of lumpectomy RIGHT LUMPECTOMY 2017 H/O tubal ligation 1996 History of cataract surgery 2013 - R/L Hx of hand surgery 1989's - LEFT-CYST REMOVED/BONE FUSION History of cholecystectomy 2007 History of appendectomy 1968 Hx of fusion of cervical spine 2005--normal ROM Family History Brother Diabetes Family history of colonic polyps Father Heart disease Mother Diabetes Heart disease Hypertension Other No family history of adverse response to anesthesia Unknown family medical history Denies family history of Ovarian cancer Prostate cancer Myocardial infarction Breast cancer Lung cancer Colorectal cancer Social History Smoking Status: Never smoker Second Hand Exposure: No; Do You Dip or Chew Tobacco: No; Hx Alcohol Use: No Hx Substance Use: No Preferred Language: Palestinian Communication Ability: Effective Communication Ability Comment: PT CHIGNIK LAGOON, USING VOICE STILL CLEANER TUBE FOR PHONE CALL Visual Impairment: Limited Hearing Ability: Use of Hearing Aid Petroleum Analyst Required: No Beliefs That Will Affect Care: None marital status: / Current Living Situation: Alone current occupational status: retired 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 Uses shower, not bathtub. Childhood Exposure to Second-Hand Smoke: Yes Diet: regular caffeine: Yes (2-3 Cups of coffee/day ) during the past year weight has: remained stable Dental Care, Regularly: Yes Physical Activity Frequency: Daily Physical Activity Frequency Comment: walking, 60 minutes Seatbelt Use: always Sunscreen Use: Yes Assistive Devices: None Physical Exam Physical Exam: Physical Exam: General: In no acute distress, stated age, well-nourished, non-toxic appearing HEENT: Normocephalic, atraumatic, no scleral icterus, pupils around round, symmetrical, and reactive to light, moist mucus membranes, +JVD, trachea midline, no thyromegaly Chest/Pulm: No respiratory distress, symmetrical chest expansion, decreased breath sounds in the BL lower lung sanchez and right mid lung field with crackles in all other lung sanchez Cardiac: irregular rate and rhythm, no murmurs noted Abdomen: Negative for ascites and bruising, normoactive bowel sounds, soft, non-tender to palpation throughout Musculoskeletal: Symmetrical and without signs of acute trauma, upper and lower extremities with full ROM, no atrophy, spasticity, or flaccidity Extremities: Radial, dorsalis pedis, and posterior tibial pulses are intact and symmetrical, no edema noted in the BL LE's Skin: Warm, dry, no rashes , lesions, or scars noted Neuro: Alert and oriented to person, place, month, year, and president, no focal defects, no tremors noted Psych: No acute distress, calm and cooperative during the exam Results & Data Results & Data Vital Signs (Past 12 Hours) Vital Signs Temp Pulse Resp BP Pulse Ox O2 Del Method 01/06/24 16:00 66 16 120/69 95 01/06/24 15:23 63 01/06/24 14:42 95 Room Air 01/06/24 14:16 95 Room Air 01/06/24 13:59 36.1 C L 71 18 135/85 96 Room Air Laboratory Results Abnormal lab results 01/06/24 Range/Units 14:39 RDW Std Deviation 46.4 H (36.4-46.3) fL [place] # (Auto) 0.65 H (0.11-0.59) K/uL PT 12.6 H (9.0-12.0) Seconds INR 1.2 H (0.9-1.1) Creatinine 0.59 L (0.6-1.2) mg/dl BUN/Creatinine Ratio 22.0 H (10-20) Total Bilirubin 1.2 H (0.2-1.0) mg/dl AST 69 H (13-39) U/L B-Natriuretic Peptide 173 H (0-100) pg/ml Diagnostic Findings Chest X-Ray 01/06/24 14:16 XR chest 1V portable CLINICAL HISTORY: Chest pain, nonspecific COMPARISON STUDY: Chest radiograph October 19, 2023. Chest CT November 16, 2023. FINDINGS: Postoperative findings within the cervical spine are incidentally noted. A left subclavian pacer is in place. There is no pneumothorax. A moderate right pleural effusion is noted with associated right basilar opacity. Mild interstitial thickening is noted. There is moderate cardiomegaly. IMPRESSION: 1. Cardiomegaly with mild interstitial pulmonary edema. 2. Moderate right pleural effusion with right basilar opacity which could reflect consolidation or atelectasis. ACT 112: Negative or not required by law. Electronically signed by: Andrew Adams M.D. 01/06/2024 2:[address] 01/06/24 14:16 CT SCAN OF THE BRAIN WITHOUT IV CONTRAST CLINICAL HISTORY: Dizziness. COMPARISON STUDY: CT of the brain dated 02/18/2023. TECHNIQUE: Unenhanced axial CT scan of the brain is performed from the vertex to the skull base. A dose lowering technique was utilized adhering to the principles of ALARA. CT DOSE: 625.8 mGy.cm FINDINGS: Brain parenchyma: There is age-related involutional change noting mild subcortical and periventricular microangiopathic disease. There is no hemorrhage, mass effect, or evidence of acute territorial ischemia by CT criteria. May-white matter differentiation is preserved. No extra-axial fluid collection is seen. Ventricles, sulci, cisterns: Prominent secondary to involutional change. Intracranial vasculature: There is atherosclerotic calcification of the cavernous carotid arteries. Calvarium: Unremarkable. Sinuses and mastoids: The visualized paranasal sinuses are clear. The mastoid air cells are well pneumatized. Orbits: The bony orbits are grossly intact. There are bilateral ocular lens implants. IMPRESSION: There is no hemorrhage, mass effect, or evidence of acute territorial ischemia by CT criteria. ACT 112: Negative or not required by law. Electronically signed by: Henri Almonte M.D. 01/06/2024 3:39 PM ECG Additional Comments: Atrial fibrillation Low voltage QRS Incomplete right bundle branch block Abnormal ECG When compared with ECG of 17-Oct-2023 14:34, T wave inversion no longer evident in Inferior leads Nonspecific T wave abnormality, worse in Lateral leads Code Status & VTE Plan Code Status Conditional code, see HPI VTE Prophylaxis Plan VTE Prophylaxis will be ordered: Yes Supervising Physician Co-Signing Physician Notes I have personally seen, evaluated and examined the patient. I have also personally discussed the management of the patient with the resident physician/MINDY and I agree with the exam findings documented in the history and physical examination and the documented assessment and plan unless otherwise stated below. Brief Exam: In general this is a pleasant 69-year-old female she is alert and oriented x 3 she is hard of hearing she does have bilateral hearing aids. She interacts appropriately. She was up to the restroom with assistance on room air and did fine with that. She denies any chest pain at all. HEENT: Normocephalic atraumatic. She has fairly poor dental hygiene but there is no acute lesions. Heart: Irregular rate and rhythm consistent with atrial fibrillation. I appreciate no lavonne murmur. Lungs: Diminished in the right lung lower lung sanchez consistent with her pleural effusion radiographically. Otherwise there is some diffuse rales. Extremities: Intact no lavonne edema. Intact. Abdomen: Soft and nontender. Neurologically she has a hearing loss as described above but otherwise is intact without focal deficit. Assessment/plan: As described above. IV diuresis. Hold Eliquis for now in case thoracentesis needs to take place. We will check troponins. Last echocardiogram was July of this year. Her EF was 60 to 65%. Therefore we will forego repeat echocardiogram analysis at this time unless something changes clinically. Please refer to orders for further planning. PG Care Time/CCT Total # of Minutes Spent Total Time Spent with Patient: Total time spent is greater than 50% in coordination of care (as documented) at patient's floor/unit and/or counseling patient: Coding [place] [address] INT INP/OBS CARE MIN Patient Type Established Medical Decision Making Moderate Complexity Diagnoses Pleural effusion J90 A-fib I48.91 Atrial fibrillation type: unspecified Noncompliance with diet and medication regimen Z91.199; Z91.148 (2) A-fib Atrial fibrillation type: unspecified Qualified Code(s): I48.91 - Unspecified atrial fibrillation
[2024-01-06] MEDS ORDERED: ONDANSETRON INJ 2 MG/ML 2 ML VIAL IV PRN (17:26)
[2024-01-06] MEDS ORDERED: ALBUTEROL HFA 8 GM INHALER INH PRN (18:25)
[2024-01-06] MEDS: FUROSEMIDE INJ 20 MG/2 ML VIAL IV SCH (19:57)
[2024-01-06] MEDS: ACETAMINOPHEN 325 MG TAB PO PRN (20:03)
[2024-01-06] MEDS: ATORVASTATIN 40 MG TAB PO SCH (20:04)
[2024-01-06] MEDS: traZODone HCL 50 MG TAB PO SCH (20:04)
[2024-01-06] MEDS: GABAPENTIN 800 MG TAB PO SCH (20:04)
[2024-01-07 02:47] VITALS: TEMP 97.5
[2024-01-07] MEDS: LEVOTHYROXINE SODIUM 200 MCG TABLET PO SCH (06:22)
[2024-01-07 07:24] LABS: Basophils # (auto) 0.11 K/uL (0.00-0.20); Basophils % (auto) 2.1 %; Eosinophils # (auto) 0.29 K/uL (0.00-0.50); Eosinophils % (auto) 5.4 %; Hematocrit (blood only) 44.8 % (37.0-47.0); Hemoglobin 15.5 g/dl (12.0-16.0); Immature Granulocytes # (auto) 0.01 K/uL (0.01-0.20); Immature Granulocytes % (auto) 0.2 %; Lymphocytes # (auto) 2.11 K/uL (1.20-3.40); Lymphocytes % (auto) 39.6 %; Mean Corpuscular Hemoglobin 31.8 pg (25.0-34.0); Mean Corpuscular Hgb Conc 34.6 g/dL (32.0-36.0); Mean Corpuscular Volume 91.8 fL (80.0-100.0); Mean Platelet Volume 10.7 fL (9.4-12.4); Monocytes # (auto) 0.54 K/uL (0.11-0.59); Monocytes % (auto) 10.1 %; Neutrophils # (auto) 2.27 K/uL (1.40-6.50); Neutrophils % (auto) 42.6 %; Platelet Count 199 K/uL (130-400); RDW Coefficient of Variation 13.6 % (11.5-14.5); RDW Standard Deviation 46.3 fL (36.4-46.3); Red Blood Count 4.88 M/uL (4.20-5.40); White Blood Count 5.33 K/ul (4.8-10.8)
[2024-01-07 07:30] VITALS: RESP 18; O2SAT 95
[2024-01-07 07:30] LABS: Albumin Level 4.2 gm/dl (3.4-5.0); Bilirubin,Total 1.4 mg/dl (0.2-1.0); Calcium 9.1 mg/dl (8.6-10.3); Magnesium 2.1 mg/dl (1.7-2.4); Potassium 3.6 mmol/L (3.5-5.1)
[2024-01-07 07:36] LABS: Albumin Globulin Ratio 1.3 (0.9-2); BUN Creatinine Ratio 24.3 (10-20); Creatinine Clr Calc Pharmacy 57.6 ml/min; Est GFR (African American) 92.5 ml/min; Est GFR (Non-African American) 79.8 ml/min; Globulin 3.2 gm/dl (2.5-4.0); Total Protein 7.4 gm/dl (6.0-8.3)
[2024-01-07 07:48] LABS: INR 1.1 (0.9-1.1)
[2024-01-07] MEDS: PARoxetine HCL 20 MG TAB PO SCH (08:19)
[2024-01-07] MEDS: METOPROLOL SUCC 25MG EXT REL TAB PO SCH (08:19)
--- NOTE | 2024-01-07 10:30 | Discharge Summary ---
Discharge Summary Date of Service January 07, 2024 Principal Dx & Hospital Course #1 = Principal Diagnosis (1) Pleural effusion: 1.) Acute on chronic HFpEF Patient presented to the ED on 01/05 with complaints of dyspnea on exertion and light headedness. She had a CXR that revealed a moderate right pleural effusion consistent with previous admission. She was given 20mg IV Lasix in the ED and pulmonology was consulted. On 01/06 patient had repeat CXR that showed decrease in plerual effusion and pulmonology had asked to cancel consult. She did not require thoracentesis. Her CBC and BMP were unremarkable. She was encouraged to be more compliant at home with her medications. Referrals faxed to home health for more help at home. Patient also educated to follow a heart healthy diet and 2g sodium/1800mL fluid restriction on discharge. she complained of no shortness of breath at time of my encounter. (2) A-fib: Metoprolol and Eliquis continued. (3) Noncompliance with diet and medication regimen: Referral to CHF program placed and home health referral for more assistance at home also placed prior to her discharge. Plan She was to resume previous outpatient medications upon discharge. Admission HPI Per Admitting Provider Anjali is a 73-year-old female with a past medical history significant for atrial fibrillation (on Eliquis), grade 1 diastolic dysfunction, heart failure with preserved ejection fraction, recurrent pleural effusions, tachybradycardia syndrome status post pacemaker placement who presented to the [facility] ED on 01/06/2024 due to recurrent episodes of dyspnea on exertion with dizziness over the past week. She remained stable in the ED. Labs including CBC, CMP, and high-sensitivity troponin within normal limits. BNP today is 173 (down from 257 as of 11/04/2023). ECG shows atrial fibrillation and incomplete right bundle branch block with T wave inversion in the lateral leads similar to ECGs in the past. Chest x-ray was read as cardiomegaly with mild interstitial pulmonary edema. Moderate right pleural effusion with right basilar opacity which could reflect consolidation or atelectasis. Prior to admission the patient was given 20 mg IV Lasix. Patient was sitting in bed in no acute distress at the time of exam. She explains that over the past week she has had progressive dyspnea on exertion, orthopnea, and lightheadedness after progressive ambulation. Denies shortness of breath or lightheadedness at rest. When asked, she notes that she often forgets to take her home furosemide which she is supposed to be taking 40 mg daily as she has a history of baseline memory issues. When asked she notes that she often eats full sodium canned soups and frozen meals for lunch/dinner. She does also confirm that she adds sodium to many of her meals. She currently has home health nurse come once a week. She does not have anyone else to help remind her to take her medications consistently. She does state that she will try to reduce her sodium intake moving forward as she was unaware that increased sodium intake causes her to retain fluid. We discussed CODE STATUS, she wishes to be a conditional code as she would not want CPR or defibrillation in the event of cardiac arrest. She would want a trial of intubation in the event of respiratory failure. Please refer to Dr. Garcia' attestation for any changes Discharge Exam Constitutional WD/WN, vitals as above Eyes PERRL, conjunctivae normal, anicteric sclerae Respiratory normal respiratory effort, lungs clear to auscultation Cardiovascular RRR, no murmur, no edema Skin no rashes, warm and dry Psychiatric A+Ox3, euthymic affect Updated Medication List Medication Instructions Recorded Confirmed Type albuterol sulfate 90 mcg/actuation 2 puff inhalation UD PRN shortness 09/17/22 01/06/24 Rx aerosol inhaler of breath or wheezing #8.5 grams epinephrine 0.125 mg/actuation 1 puff inhalation Q6H PRN 04/03/23 01/06/24 History aerosol inhaler (Primatene Mist) Shortness Of Breath Or Wheezing metoprolol succinate 25 mg 25 mg PO DAILY #90 tabs 10/05/23 01/06/24 Rx tablet,extended release 24 hr potassium chloride 10 mEq 10 meq PO DAILY #90 caps 11/06/23 01/06/24 Rx capsule,extended release apixaban 5 mg tablet (Eliquis) 5 mg PO BID #180 tabs 01/05/24 01/06/24 Rx atorvastatin 80 mg tablet (Lipitor) 80 mg PO HS 90 days #90 tabs 01/05/24 Rx furosemide 40 mg tablet (Lasix) 40 mg PO DAILY #90 tabs 08/06/24 08/07/24 Rx gabapentin 800 mg tablet 800 mg PO BID 90 days #180 tabs 01/05/24 01/06/24 Rx levothyroxine 200 mcg tablet 200 mcg PO DAILY #90 tabs 01/05/24 01/06/24 Rx paroxetine HCl 40 mg tablet 40 mg PO DAILY #90 tabs 01/05/24 01/06/24 Rx tizanidine 2 mg tablet 2 mg PO Q8H PRN muscle spasticity 01/05/24 01/06/24 Rx #20 tabs trazodone 50 mg tablet 50 mg PO HS #90 tabs 01/05/24 01/06/24 Rx ascorbic acid (vitamin C) 500 mg 0 mg PO DAILY 01/06/24 01/06/24 History tablet (Vitamin C) cholecalciferol (vitamin D3) 25 0 mcg PO DAILY 01/06/24 01/06/24 History mcg (1,000 unit) capsule (Vitamin D3) lisinopril 20 mg tablet 20 mg PO DAILY 01/06/24 01/06/24 History Hospital Stay Data Consultations 01/06/24 17:[place] [facility] [place] Routine Diagnostic Imagining Performed 01/06/24 14:16 CT head/brain wo con Stat Pending Results Patient Have Any Pending Studies at Discharge: No Discharge Instructions Given to Patient (Per Discharging Provider) Valerie Bates, You were recently hospitalized for experiencing shortness of breath on exertion. You were found to have a pleural effusion in your right lung that was treated with IV lasix. Please see recommendations below regarding your discharge. 1. Please make sure you are taking your Lasix daily 2. Please continue on previous medications -Atorvastatin before bed - Gabapentin twice daily - Levothyroxine in the morning - Metoprolol daily - Paroxetine daily - Trazodone before bed 3. Please hold your Losartan (blood pressure) medication until seen by your PCP. -Your blood pressures have been stable inpatient without this medication. 3. You will be receiving more care at home with home health. 4. Please follow up in the CHF outpatient clinic. Someone will be in contact with you regarding this. If you develop any chest pain, worsening shortness of breath please report to the ER. Please follow up with your PCP within 1-2 weeks of discharge. Sincerely, Brenda Acevedo PA-C Total Time Total Time Spent Total Time Spent (In Minutes): 34 Total Time Includes: Examination of the Patient, Discharge Planning and Medication Reconciliation Coding Level of Care Code 34510 INP/OBS DISCH >30 MIN Diagnoses Pleural effusion J90 A-fib I48.91 Atrial fibrillation type: unspecified Noncompliance with diet and medication regimen Z91.199; Z91.148
[2024-01-07 10:35] VITALS: BP 134/68; PULSE 78
--- NOTE | 2024-01-07 17:23 | XRay Report ---
SINGLE VIEW CHEST CLINICAL HISTORY: Pleural effusion FINDINGS: An AP, portable, upright chest radiograph is compared to study dated 01/06/2024 and correlate d with chest CT dated 11/16/2023. A single lead cardiac pacemaker is unchanged in position and partial ly obscures the left mid chest. The heart is enlarged noting atherosclerotic calcification of the tho racic aorta. The pulmonary vasculature is noncongested. Chronic interstitial thickening is similar to previous. There is a layering right pleural effusion and bibasilar atelectasis. Aeration of the righ t lung base has improved from yesterday. No pneumothorax is seen. The skeletal structures are osteope monica. The bony thorax is grossly intact. Fusion hardware is seen in the lower cervical spine. Cholecys tectomy clips are noted in the right upper quadrant. IMPRESSION: 1. Cardiomegaly and cardiac pacemaker without radiographic evidence of congestive failure. 2. Layering right pleural effusion with dependent atelectasis. Aeration of the right lung base has im proved from yesterday. ACT 112: Negative or not required by law. Electronically signed by: Henri Almonte M.D. 01/07/2024 5:22 PM
== END 2024-01-07 13:19 | disposition home health service (06) | DRG 293 ==
LOC: ED 13:55 → 2W 17:12 → SUATTDRO 17:12 → INTOOBSV 17:12 → 2W 17:59

== ENCOUNTER 2024-01-26 14:59 | Observation (INO) ==
[2024-01-26 16:02] LABS: Basophils # (auto) 0.07 K/uL (0.00-0.20); Basophils % (auto) 1.4 %; Eosinophils # (auto) 0.12 K/uL (0.00-0.50); Eosinophils % (auto) 2.4 %; Hematocrit (blood only) 40.5 % (37.0-47.0); Hemoglobin 14.1 g/dl (12.0-16.0); Immature Granulocytes # (auto) 0.01 K/uL (0.01-0.20); Immature Granulocytes % (auto) 0.2 %; Lymphocytes # (auto) 1.31 K/uL (1.20-3.40); Lymphocytes % (auto) 25.8 %; Mean Corpuscular Hemoglobin 31.5 pg (25.0-34.0); Mean Corpuscular Hgb Conc 34.8 g/dL (32.0-36.0); Mean Corpuscular Volume 90.6 fL (80.0-100.0); Mean Platelet Volume 11.1 fL (9.4-12.4); Monocytes # (auto) 0.43 K/uL (0.11-0.59); Monocytes % (auto) 8.5 %; Neutrophils # (auto) 3.13 K/uL (1.40-6.50); Neutrophils % (auto) 61.7 %; Platelet Count 191 K/uL (130-400); RDW Coefficient of Variation 13.2 % (11.5-14.5); RDW Standard Deviation 43.8 fL (36.4-46.3); Red Blood Count 4.47 M/uL (4.20-5.40); White Blood Count 5.07 K/ul (4.8-10.8)
[2024-01-26 16:04] LABS: Appearance Urine Clear (Clear); Bacteria Urine Automated None Seen (None Seen); Bilirubin Urine Negative (Negative); Blood Urine 1+ (Negative); Cast Urine Automated 0-2 /lpf (0-2); Color Urine Yellow; Epithelial Cell Urine Auto 0-2 /hpf (0-2); Glucose Urine UA Negative (Negative); Ketones Urine Negative (Negative); Leukocyte Esterase Urine Trace (Negative); Nitrite Urine Negative (Negative); Protein Urine Negative (Negative); RBC Urine Automated 0-2 /hpf (0-2); Specific Gravity Urine 1.005 (1.000-1.030); Urobilinogen Urine Negative (Negative); WBC Urine Automated 0-5 /hpf (0-5); pH Urine 5.5 (4.5-7.5)
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
[2024-01-26 16:15] LABS: Albumin Globulin Ratio 1.4 (0.9-2); Albumin Level 4.3 gm/dl (3.4-5.0); BUN Creatinine Ratio 17.5 (10-20); Bilirubin,Total 1.3 mg/dl (0.2-1.0); Calcium 9.2 mg/dl (8.6-10.3); Creatinine Clr Calc Pharmacy 72.9 ml/min; Est GFR (African American) 105.8 ml/min; Est GFR (Non-African American) 91.3 ml/min; Globulin 3.1 gm/dl (2.5-4.0); Potassium 3.5 mmol/L (3.5-5.1); Total Protein 7.4 gm/dl (6.0-8.3)
[2024-01-26] MEDS: OPTIRAY 320 100ml IV ONE (17:25)
--- NOTE | 2024-01-26 17:45 | CT Scan Report ---
CT SCAN OF THE BRAIN WITHOUT IV CONTRAST CLINICAL HISTORY: Change in mental status. COMPARISON STUDY: CT of the brain dated 01/06/2024. TECHNIQUE: Unenhanced axial CT scan of the brain is performed from the vertex to the skull base. A do se lowering technique was utilized adhering to the principles of ALARA. FINDINGS: Brain parenchyma: There is age-related involutional change noting mild subcortical and periventricula r microangiopathic disease. There is no hemorrhage, mass effect, or evidence of acute territorial isc hemia by CT criteria. May-white matter differentiation is preserved. No extra-axial fluid collection is seen. Ventricles, sulci, cisterns: Prominent secondary to involutional change. Intracranial vasculature: There is atherosclerotic calcification of the cavernous carotid arteries. Calvarium: Unremarkable. Sinuses and mastoids: The visualized paranasal sinuses are clear. The mastoid air cells are well pneu matized. Orbits: The bony orbits are grossly intact. There are bilateral ocular lens implants. IMPRESSION: There is no hemorrhage, mass effect, or evidence of acute territorial ischemia by CT lux jett. ACT 112: Negative or not required by law. Electronically signed by: Henri Almonte M.D. 01/26/2024 5:43 PM
--- NOTE | 2024-01-26 17:51 | CT Scan Report ---
CT SCAN OF THE ABDOMEN AND PELVIS WITH IV CONTRAST CLINICAL HISTORY: Lower abdominal pain. COMPARISON STUDY: Abdominal CT dated 10/21/2023. TECHNIQUE: Following the IV administration of 92 cc of Optiray 320, CT scan of the abdomen and pelvi s is performed from the lung bases to the proximal femora. Images are reviewed in the axial, sagittal , and coronal planes. IV contrast was administered without complication. A dose lowering technique wa s utilized adhering to the principles of ALARA. CT DOSE: 1672.55 mGy.cm FINDINGS: Lung bases: The heart is enlarged and without pericardial effusion. Pacemaker leads are in place. The re is a tiny hiatal hernia. There is a moderate right pleural effusion with consolidation of the righ t lower lung. Dependent atelectasis is noted on the left. Liver: The contrast-enhanced liver is normal in size and heterogeneous in attenuation. There is minim al central intrahepatic biliary ductal dilatation. The hepatic veins and portal veins are patent. Gallbladder: Unremarkable. Spleen: Normal in size and attenuation. Pancreas: The pancreas is mildly atrophic. Parenchymal calcifications suggest chronic pancreatitis. A 6 mm IPMN is seen in the pancreatic body on image #82. Adrenal glands: Unremarkable. Kidneys: The contrast enhanced kidneys are normal in size and without hydronephrosis. The kidneys enh ance symmetrically. Abdominal vasculature: The abdominal aorta is normal in course and caliber noting moderate atheroscle rotic calcification. Bowel: There is no bowel obstruction. Multiple moderate fecal retention is seen throughout the colon. The appendix is not identified and reported surgically absent. Peritoneum: There is no intraperitoneal free air or abdominal ascites. There is a small fat-containin g umbilical hernia. Lymphadenopathy: None. Pelvic viscera: The bladder is distended but otherwise normal in appearance. The uterus is surgically absent. No adnexal lesion is seen. Skeletal structures: The skeletal structures are osteopenic. There is mild to moderate lumbosacral sp ondylosis. Sclerotic change is seen in the pubic symphysis. No lytic or blastic lesions are seen. IMPRESSION: 1. No acute infectious or inflammatory findings are identified in the abdomen or pelvis. 2. Cardiomegaly and moderate right pleural effusion. The pleural effusion has increased in size from 10/21/2023. 3. Bladder distention. 4. Additional findings as above. ACT 112: Negative or not required by law. Electronically signed by: Henri Almonte M.D. 01/26/2024 5:49 PM
[2024-01-26 18:43] LABS: Thyroid Stimulating Hormone 0.135 uIu/ml (0.300-4.500)
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
--- NOTE | 2024-01-26 19:12 | XRay Report ---
SINGLE VIEW CHEST CLINICAL HISTORY: Generalized weakness. FINDINGS: An AP, portable, upright chest radiograph is compared to study dated 01/07/2024. Correlation is made with chest CT dated 11/16/[address] performed the same day 01/26/2024. A single kati d cardiac pacemaker is unchanged in position. The heart is enlarged noting atherosclerotic calcificat ion of the thoracic aorta. There is pulmonary vascular congestion. There is a right pleural effusion with dependent consolidation. Atelectasis is noted at the left lung base. No pneumothorax is seen. Th e bony thorax is grossly intact. IMPRESSION: 1. Cardiomegaly and cardiac pacemaker with pulmonary vascular congestion. 2. Right pleural effusion with dependent consolidation. ACT 112: Negative or not required by law. Electronically signed by: Henri Almonte M.D. 01/26/2024 7:11 PM
[2024-01-26 19:18] LABS: T4 Free Thyroxine 1.95 ng/dl (0.61-1.60)
--- NOTE | 2024-01-26 19:47 | History & Physical Report ---
Date of Service January 26, 2024 Assessment & Plan (1) Ambulatory dysfunction: Plan: Patient brought in by her brother on 01/25 over concern for UTI She reports falling more frequently lately; this has become a daily occurrence Appears multifactorial: she endorses tripping, her legs give out on her, and she sometimes feels dizzy/lightheaded prior to fall No LOC, and patient manages to get up on her own albeit with some difficulty; occassional head strike Head CT without acute findings UA negative PT/OT evaluations appreciated Fall precautions Case management consulted for potential placement, as patient reports she lives alone and does not feel safe to return home A.m. CBC, CMP, mag (2) Forgetfulness: Plan: Worsening confusion x 2 months Suspect secondary to mixing up home medication; ?Paroxetine withdrawal Patient is A&Ox3 on arrival; continue to monitor for cognitive decline (3) Pleural effusion: Plan: Ongoing LEYVA; non-hypoxic on room air Last echocardiogram on 08/21/2023 revealed LVEF at 60 to 65% Moderate right-sided pleural effusion again noted on CXR Increase in size from prior noted on A/P CT Prior thoracentesis in September 2023; cytology negative for malignancy Lasix 40mg p.o. daily --> Lasix 40mg IV BID17 Increased potassium to 20 mill equivalents daily BMPs twice daily Heart healthy diet (1800 mL fluid restriction) (4) Diarrhea: Plan: Diarrhea and abdominal cramping x 2 days Patient has been taking Pepto-Bismol Notes some BRB when she wipes A/P CT without acute findings PCR stool/C. difficile ordered, pending (5) Hypothyroidism: Plan: TSH low, and free T4 mildly elevated on arrival Unclear if patient has been taking her Synthroid as instructed Continue levothyroxine (6) A-fib: Plan: S/p pacemaker Continue Eliquis, metoprolol (7) S/P placement of cardiac pacemaker: Plan Disposition: Admit to [facility] telemetry DNR/DNI Heart healthy diet (1800 mL fluid restriction) VTE PPx: On Eliquis History of Present Illness Chief Complaint: Confusion, ambulatory dysfunction Primary Care Provider: Pauline Jordan MD Anjali is a pleasant 73-year-old female with PMH of heart failure, A-fib (on Eliquis), right-sided breast cancer, dysphagia, HLD, cardiac pacemaker, polyneuropathy, hypothyroidism, and medication/diet noncompliance. She presented on 01/25 for worsening confusion, forgetfulness, and ambulatory dysfunction x 2 months. Patient lives alone, and reports that she regularly mixes up her medications. She also endorses falling frequently. She does not ambulate with a walker or cane at baseline. She is unsure why she falls, but does note she sometimes trips on things and stumbles over her feet, while other times she feels dizzy/lightheaded and will "blank out" before she falls to the floor. That said, she denies fainting. She does have trouble getting up on her own, but can usually do so after short period of time. She has hit her head a couple times. She was previously following in a frequency of 1-2 times a week, but now it is becoming a daily occurrence. Patient does believe she took her regular morning medication today. She does have a home health nurse come by once per week to help with her pills. Additional symptoms include dyspnea on exertion, which is not new for her. She denies orthopnea. No supplemental oxygen at baseline. She does have concern for black mold in her house, but believes it might just be mildew. She also endorses diarrhea x 2 days, for which she has been taking Pepto-Bismol. She denies smoking, tobacco use, and recent alcohol use. Patient lives with her dog (Ceasar) who is a Chihuahua/pug mix; patient reports that her cousin set to take care of the dog while she is in the hospital. ED course: ROS: Patient endorses hot/cold intolerance (which patient attributes to thyroid issues), dizziness/lightheadedness with movements, intermittent MONTANEZ, blurry vision, dry cough (which patient attributes to allergies and concern for black mold in her house), LEYVA, abdominal cramping, diarrhea x 2 days, BRB in stool when she wiped recently, increased urinary straining, intermittent urinary incontinence x 2 times this week, LBP (chronic; which patient attributes to spinal stenosis / surgery), and neuropathy in the legs. Patient denies SOB at rest, chest pain, pleuritic CP, nausea, vomiting, or saddle anesthesia. Allergies Allergy/AdvReac Type Severity Reaction Status Date / Time bee venom protein (honey bee) Allergy Intermediate swollen, Verified 01/18/24 13:45 itchy house dust Allergy Mild Watery Eye Verified 01/18/24 13:45 alendronate sodium AdvReac Intermediate Diarrhea Verified 01/18/24 13:45 [From Fosamax] adhesive AdvReac Mild RED SKIN Verified 01/18/24 13:45 WITH BANDAIDS Home Medications Medication Instructions Recorded Confirmed Type albuterol sulfate 90 mcg/actuation 2 puff inhalation UD PRN shortness 09/17/22 01/26/24 Rx aerosol inhaler of breath or wheezing #8.5 grams epinephrine 0.125 mg/actuation 1 puff inhalation Q6H PRN 04/03/23 01/26/24 History aerosol inhaler (Primatene Mist) Shortness Of Breath Or Wheezing metoprolol succinate 25 mg 25 mg PO DAILY #90 tabs 10/05/23 01/26/24 Rx tablet,extended release 24 hr potassium chloride 10 mEq 10 meq PO DAILY #90 caps 11/06/23 01/26/24 Rx capsule,extended release apixaban 5 mg tablet (Eliquis) 5 mg PO BID #180 tabs 01/05/24 01/26/24 Rx atorvastatin 80 mg tablet (Lipitor) 80 mg PO HS 90 days #90 tabs 01/05/24 01/26/24 Rx furosemide 40 mg tablet (Lasix) 40 mg PO DAILY #90 tabs 01/05/24 01/26/24 Rx gabapentin 800 mg tablet 800 mg PO BID 90 days #180 tabs 01/05/24 01/26/24 Rx paroxetine HCl 40 mg tablet 40 mg PO DAILY #90 tabs 01/05/24 01/26/24 Rx tizanidine 2 mg tablet 2 mg PO Q8H PRN muscle spasticity 01/05/24 01/26/24 Rx #20 tabs trazodone 50 mg tablet 50 mg PO HS #90 tabs 01/05/24 01/26/24 Rx ascorbic acid (vitamin C) 500 mg 500 mg PO DAILY 01/06/24 01/26/24 History tablet (Vitamin C) cholecalciferol (vitamin D3) 25 25 mcg PO DAILY 01/06/24 01/26/24 History mcg (1,000 unit) capsule (Vitamin D3) lisinopril 20 mg tablet 0 mg PO DAILY 01/06/24 01/26/24 History levothyroxine 175 mcg tablet 175 mcg PO DAILY #90 tabs 01/19/24 01/26/24 Rx Past Med/Surg History Problem List Diarrhea Forgetfulness Hypothyroidism Noncompliance with diet and medication regimen A-fib (Acute) 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 (Acute) Acute HF (heart failure) Osteoporosis Pleural effusion (Acute) Ambulatory dysfunction Abnormal barium swallow Dysphagia (Acute) Polyneuropathy (Acute) Stenosis, cervical spine (Acute) History of partial mastectomy Allergic rhinitis Hepatic steatosis Hyperlipidemia Lumbar radiculopathy S/P placement of cardiac pacemaker 2020, [facility]; f/u [place] [facility] Medical History 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 Pleural effusion on right Pulmonary nodule Tachy-gianluca syndrome s/p pacemaker placement 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 Asthma Surgical History History of esophagogastroduodenoscopy (EGD) History of thoracentesis History of total abdominal hysterectomy and bilateral salpingo-oophorectomy History of colonoscopy (~07/2018) History of right breast biopsy malignant Hx of lumpectomy RIGHT LUMPECTOMY 2017 H/O tubal ligation 1996 History of cataract surgery 2014 - R/L Hx of hand surgery s - LEFT-CYST REMOVED/BONE FUSION History of cholecystectomy 2007 History of appendectomy 1968 Hx of fusion of cervical spine 2005--normal ROM Family History Brother Diabetes Family history of colonic polyps Father Heart disease Mother Diabetes Heart disease Hypertension Other No family history of adverse response to anesthesia Unknown family medical history Denies family history of Ovarian cancer Prostate cancer Myocardial infarction Breast cancer Lung cancer Colorectal cancer Social History Smoking Status: Never smoker Second Hand Exposure: No; Do You Dip or Chew Tobacco: No; Hx Alcohol Use: No Hx Substance Use: No Preferred Language: Chinese Communication Ability: Effective Communication Ability Comment: PT [employer] [place], 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 Uses shower, not bathtub. Childhood Exposure to Second-Hand Smoke: Yes Diet: regular caffeine: Yes (2-3 Cups of coffee/day ) during the past year weight has: remained stable Dental Care, Regularly: Yes Physical Activity Frequency: Daily Physical Activity Frequency Comment: walking, 60 minutes Seatbelt Use: always Sunscreen Use: Yes Assistive Devices: Hearing Aid - Bilateral Review of Systems Review of Systems: See HPI above Physical Exam Physical Exam: General: no acute distress; pleasant affect; non-toxic appearing; well- nourished; cooperative; SpO2 96% on RA HEENT: normocephalic, atraumatic; no scleral icterus; PERRLA; vision and hearing grossly intact Neck: supple; no lymphadenopathy; trachea midline Skin: warm, dry without signs of tenting; no cyanosis; no rashes, bruising, lesions, or erythema noted CV: chest wall NTP; irregularly irregular rhythm; S1/S2 normal; no murmurs/rubs/gallops; pulses intact and symmetric at radial, DP, and PT Lungs: no acute respiratory distress; symmetrical chest wall expansion; decreased lung sounds in the right lower lobe ABD: Soft, NTP; BS present; no rebound/guarding; no distention MSK: no tics or fasciculations; no edema noted in the LEs b/l, nonerythematous Neuro: A&Ox3; normal mood and affect; fluent speech; no focal deficits; sensation grossly intact in the LEs b/l Results & Data Results & Data Vital Signs (Past 12 Hours) Vital Signs Temp Pulse Pulse Pulse Resp Resp BP 01/26/24 18:29 102 H 24 01/26/24 18:02 36.7 C 83 20 01/26/24 17:02 72 20 01/26/24 16:43 72 01/26/24 16:21 36.7 C 88 20 01/26/24 15:09 36.5 C 87 16 133/75 BP Pulse Ox Pulse Ox O2 Del Method 01/26/24 18:29 96 Room Air 01/26/24 18:02 146/106 H 98 Room Air 01/26/24 17:02 98 Room Air 01/26/24 16:43 01/26/24 16:21 136/86 98 Room Air 01/26/24 15:09 95 Room Air Laboratory Results Abnormal lab results 01/26/24 01/26/24 01/26/24 Range/Units 15:20 15:30 17:45 Creatinine 0.57 L (0.6-1.2) mg/dl Total Bilirubin 1.3 H (0.2-1.0) mg/dl AST 51 H (13-39) U/L Alkaline Phosphatase 114 H (34-104) U/L B-Natriuretic Peptide 164 H (0-100) pg/ml TSH 0.135 L (0.300-4.500) uIu/ml Free T4 1.95 H (0.61-1.60) ng/dl Urine Blood 1+ H (Negative) Ur Leukocyte Esterase Trace H (Negative) Diagnostic Findings Abdomen/Pelvis CT 01/26/24 16:51 CT SCAN OF THE ABDOMEN AND PELVIS WITH IV CONTRAST CLINICAL HISTORY: Lower abdominal pain. COMPARISON STUDY: Abdominal CT dated 10/21/2023. TECHNIQUE: Following the IV administration of 92 cc of Optiray 320, CT scan of the abdomen and pelvis is performed from the lung bases to the proximal femora. Images are reviewed in the axial, sagittal, and coronal planes. IV contrast was administered without complication. A dose lowering technique was utilized adhering to the principles of ALARA. CT DOSE: 1672.55 mGy.cm FINDINGS: Lung bases: The heart is enlarged and without pericardial effusion. Pacemaker leads are in place. There is a tiny hiatal hernia. There is a moderate right pl eural effusion with consolidation of the right lower lung. Dependent atelectasis is noted on the left. Liver: The contrast-enhanced liver is normal in size and heterogeneous in attenuation. There is minimal central intrahepatic biliary ductal dilatation. The hepatic veins and portal veins are patent. Gallbladder: Unremarkable. Spleen: Normal in size and attenuation. Pancreas: The pancreas is mildly atrophic. Parenchymal calcifications suggest chronic pancreatitis. A 6 mm IPMN is seen in the pancreatic body on image #82. Adrenal glands: Unremarkable. Kidneys: The contrast enhanced kidneys are normal in size and without hydronephrosis. The kidneys enhance symmetrically. Abdominal vasculature: The abdominal aorta is normal in course and caliber noting moderate atherosclerotic calcification. Bowel: There is no bowel obstruction. Multiple moderate fecal retention is seen throughout the colon. The appendix is not identified and reported surgically absent. Peritoneum: There is no intraperitoneal free air or abdominal ascites. There is a small fat-containing umbilical hernia. Lymphadenopathy: None. Pelvic viscera: The bladder is distended but otherwise normal in appearance. The uterus is surgically absent. No adnexal lesion is seen. Skeletal structures: The skeletal structures are osteopenic. There is mild to moderate lumbosacral spondylosis. Sclerotic change is seen in the pubic symphysis. No lytic or blastic lesions are seen. IMPRESSION: 1. No acute infectious or inflammatory findings are identified in the abdomen or pelvis. 2. Cardiomegaly and moderate right pleural effusion. The pleural effusion has increased in size from 10/21/2023. 3. Bladder distention. 4. Additional findings as above. ACT 112: Negative or not required by law. Electronically signed by: Henri Almonte M.D. 01/26/2024 5:49 PM Chest X-Ray 01/26/24 16:52 SINGLE VIEW CHEST CLINICAL HISTORY: Generalized weakness. FINDINGS: An AP, portable, upright chest radiograph is compared to study dated 01/07/2024. Correlation is made with chest CT dated 11/16/[address] performed the same day 01/26/2024. A single lead cardiac pacemaker is unchanged in position. The heart is enlarged noting atherosclerotic calcification of the thoracic aorta. There is pulmonary vascular congestion. There is a right pleural effusion with dependent consolidation. Atelectasis is noted at the left lung base. No pneumothorax is seen. The bony thorax is grossly intact. IMPRESSION: 1. Cardiomegaly and cardiac pacemaker with pulmonary vascular congestion. 2. Right pleural effusion with dependent consolidation. ACT 112: Negative or not required by law. Electronically signed by: Henri Almonte M.D. 01/26/2024 7:[address] 01/26/24 16:52 CT SCAN OF THE BRAIN WITHOUT IV CONTRAST CLINICAL HISTORY: Change in mental status. COMPARISON STUDY: CT of the brain dated 01/06/2024. TECHNIQUE: Unenhanced axial CT scan of the brain is performed from the vertex to the skull base. A dose lowering technique was utilized adhering to the principles of ALARA. FINDINGS: Brain parenchyma: There is age-related involutional change noting mild subcortical and periventricular microangiopathic disease. There is no hemorrhage, mass effect, or evidence of acute territorial ischemia by CT criteria. May-white matter differentiation is preserved. No extra-axial fluid collection is seen. Ventricles, sulci, cisterns: Prominent secondary to involutional change. Intracranial vasculature: There is atherosclerotic calcification of the cavernous carotid arteries. Calvarium: Unremarkable. Sinuses and mastoids: The visualized paranasal sinuses are clear. The mastoid air cells are well pneumatized. Orbits: The bony orbits are grossly intact. There are bilateral ocular lens implants. IMPRESSION: There is no hemorrhage, mass effect, or evidence of acute territorial ischemia by CT criteria. ACT 112: Negative or not required by law. Electronically signed by: Henri Almonte M.D. 01/26/2024 5:43 PM ECG Additional Comments: ECG revealed atrial fibrillation at 79 BPM; QTc 463 Code Status & VTE Plan Code Status DNR/DNI (discussed with patient at bedside who exhibits capacity; she reports that she would want her brother to be her medical proxy in the event of a medical emergency) VTE Prophylaxis Plan VTE Prophylaxis will be ordered: Yes Supervising Physician Co-Signing Physician Notes Patient seen and examined, chart reviewed, case discussed with MEERA Medina and I agree with the assessment and plan as above PG Care Time/CCT Total # of Minutes Spent Total Time Spent with Patient: Total time spent is greater than 50% in coordination of care (as documented) at patient's floor/unit and/or counseling patient: Coding [place] [address] INT INP/OBS CARE 3/75MIN Patient Type Established Medical Decision Making High Complexity Diagnoses Ambulatory dysfunction R26.2 Forgetfulness R68.89 Pleural effusion J90 Diarrhea R19.7 Hypothyroidism E03.9 A-fib I48.91 Atrial fibrillation type: unspecified S/P placement of cardiac pacemaker Z95.0 (6) A-fib Atrial fibrillation type: unspecified Qualified Code(s): I48.91 - Unspecified atrial fibrillation
[2024-01-26] MEDS ORDERED: tiZANidine HCL 4 MG TABLET PO PRN (21:39)
[2024-01-26] MEDS ORDERED: ALBUTEROL HFA 8 GM INHALER INH PRN (21:39)
[2024-01-26] MEDS: traZODone HCL 50 MG TAB PO SCH (23:15)
[2024-01-26] MEDS: ATORVASTATIN 40 MG TAB PO SCH (23:15)
[2024-01-26] MEDS: APIXABAN 5 MG TABLET PO SCH (23:15)
[2024-01-26] MEDS: GABAPENTIN 800 MG TAB PO SCH (23:15)
[2024-01-27] MEDS: LEVOTHYROXINE SODIUM 175 MCG TABLET PO SCH (05:50)
[2024-01-27 06:09] LABS: Basophils # (auto) 0.06 K/uL (0.00-0.20); Basophils % (auto) 1.5 %; Eosinophils # (auto) 0.16 K/uL (0.00-0.50); Eosinophils % (auto) 4.1 %; Hematocrit (blood only) 37.4 % (37.0-47.0); Hemoglobin 12.8 g/dl (12.0-16.0); Immature Granulocytes # (auto) 0.01 K/uL (0.01-0.20); Immature Granulocytes % (auto) 0.3 %; Lymphocytes # (auto) 1.25 K/uL (1.20-3.40); Lymphocytes % (auto) 31.9 %; Mean Corpuscular Hemoglobin 31.4 pg (25.0-34.0); Mean Corpuscular Hgb Conc 34.2 g/dL (32.0-36.0); Mean Corpuscular Volume 91.9 fL (80.0-100.0); Mean Platelet Volume 10.7 fL (9.4-12.4); Monocytes # (auto) 0.61 K/uL (0.11-0.59); Monocytes % (auto) 15.6 %; Neutrophils # (auto) 1.83 K/uL (1.40-6.50); Neutrophils % (auto) 46.6 %; Platelet Count 167 K/uL (130-400); RDW Coefficient of Variation 13.2 % (11.5-14.5); Red Blood Count 4.07 M/uL (4.20-5.40); White Blood Count 3.92 K/ul (4.8-10.8)
[2024-01-27 06:31] LABS: Appearance Urine Clear (Clear); Bacteria Urine Automated None Seen (None Seen); Bilirubin Urine Negative (Negative); Blood Urine Trace (Negative); Cast Urine Automated 0-2 /lpf (0-2); Color Urine Yellow; Epithelial Cell Urine Auto 0-2 /hpf (0-2); Glucose Urine UA Negative (Negative); Ketones Urine Negative (Negative); Leukocyte Esterase Urine Trace (Negative); Nitrite Urine Negative (Negative); Protein Urine Negative (Negative); Specific Gravity Urine 1.027 (1.000-1.030); Urobilinogen Urine Negative (Negative); WBC Urine Automated 0-5 /hpf (0-5)
[2024-01-27 06:53] LABS: Albumin Globulin Ratio 1.4 (0.9-2); Albumin Level 3.5 gm/dl (3.4-5.0); BUN Creatinine Ratio 21.8 (10-20); Calcium 8.6 mg/dl (8.6-10.3); Creatinine Clr Calc Pharmacy 74.9 ml/min; Est GFR (African American) 107.1 ml/min; Est GFR (Non-African American) 92.4 ml/min; Globulin 2.5 gm/dl (2.5-4.0); Magnesium 1.9 mg/dl (1.7-2.4); Potassium 3.3 mmol/L (3.5-5.1)
[2024-01-27] MEDS: PARoxetine HCL 20 MG TAB PO SCH (07:48)
[2024-01-27] MEDS: FUROSEMIDE 40 MG/4 ML VIAL IV SCH (07:48)
[2024-01-27] MEDS: METOPROLOL SUCC 25MG EXT REL TAB PO SCH (07:48)
[2024-01-27] MEDS: POTASSIUM CHLORIDE CRTAB 20 MEQ TABCR PO SCH (07:48)
--- NOTE | 2024-01-27 12:03 | Hospitalist Progress Note ---
Date of Service January 27, 2024 Assessment & Plan (1) Ambulatory dysfunction: Plan: Brought to the hospital on account of frequent falls She reports falling more frequently lately; this has become a daily occurrence Appears multifactorial: she endorses tripping, her legs give out on her, and she sometimes feels dizzy/lightheaded prior to fall Head CT without acute findings UA negative No orthostatic BP changes PT/OT evaluations appreciated Fall precautions Case management consulted for potential placement, as patient reports she lives alone and does not feel safe to return home (2) Forgetfulness: Plan: Worsening confusion x 2 months could be due to cognitive decline (3) Pleural effusion: Plan: Ongoing LEYVA; non-hypoxic on room air Last echocardiogram on 08/21/2023 revealed LVEF at 60 to 65% Moderate right-sided pleural effusion again noted on CXR Increase in size from prior noted on A/P CT Prior thoracentesis in September 2023; cytology negative for malignancy Lasix 40mg p.o. daily --> Lasix 40mg IV BID17 Increased potassium to 20 mill equivalents daily BMPs twice daily Heart healthy diet (1800 mL fluid restriction) Will continue diuresis for now. Hold off on thoracentesis (4) Diarrhea: Plan: Diarrhea and abdominal cramping x 2 days Patient has been taking Pepto-Bismol Notes some BRB when she wipes A/P CT without acute findings PCR stool/C. difficile ordered, pending (5) Hypothyroidism: Plan: Elevated T4 and low or supressed TSH suggest hyperthyroid Will reduce the dose of Levothyroxine from 175mcg daily to 100mcg daily (6) A-fib: Plan: S/p pacemaker Continue Eliquis, metoprolol (7) S/P placement of cardiac pacemaker: Plan Disposition: Admit to [facility] telemetry DNR/DNI Heart healthy diet (1800 mL fluid restriction) VTE PPx: On Eliquis Admission and Anticipated Discharge Date Admission Date: January 26, 2024 Subjective patient seen and examined, says she lives alone and has been falling frequently Review of Systems Review of Systems: All systems reviewed are negative, apart from the ones contained in the history. Physical Exam Physical Exam: The patient is awake, alert and oriented 3, well developed and well nourished, normocephalic and atraumatic, lying in bed and in no acute distress. HEENT--PERRL, EOMI, mucous membranes and oropharynx mildly dry Neck--supple. No JVD. No bruits. Thyroid normal, trachea midline, no adenopathy. Heart--normal S1 and S2. No murmurs, rubs or gallops. Lungs--clear bilaterally, no respiratory distress, no accessory muscle use. Abdomen--normal bowel sounds and soft. Extremities--no cyanosis or clubbing. No edema. Dermatologic--normal skin turgor, normal color, no abnormal lymph nodes, no rash. Neurologic--cranial nerves II through XII grossly intact. Rheumatologic--normal range of motion. Psychiatric--normal affect. Results & Data Results & Data Vital Signs (Past 12 Hours) Vital Signs Temp Pulse Pulse Pulse Resp BP Pulse Ox 01/27/24 11:50 97.5 F L 67 18 117/76 95 01/27/24 08:11 66 01/27/24 07:26 01/27/24 07:25 97.7 F 71 18 104/65 94 01/27/24 03:45 97.9 F 68 18 106/60 95 01/27/24 00:01 68 O2 Del Method 01/27/24 11:50 Room Air 01/27/24 08:11 01/27/24 07:26 Room Air 01/27/24 07:25 Room Air 01/27/24 03:45 Room Air 01/27/24 00:01 PG Care Time/CCT Total # of Minutes Spent Total Time Spent with Patient: Total time spent is greater than 50% in coordination of care (as documented) at patient's floor/unit and/or counseling patient: Coding Level of Care Code 30448 SUB INP/OBS CARE 2/35MIN Diagnoses Ambulatory dysfunction R26.2 Forgetfulness R68.89 Pleural effusion J90 Diarrhea R19.7 Hypothyroidism E03.9 A-fib I48.91 Atrial fibrillation type: unspecified S/P placement of cardiac pacemaker Z95.0 Time Spent (min) 35 (6) A-fib Atrial fibrillation type: unspecified Qualified Code(s): I48.91 - Unspecified atrial fibrillation
[2024-01-27 21:04] LABS: BUN Creatinine Ratio 21.2 (10-20); Calcium 9.1 mg/dl (8.6-10.3); Creatinine Clr Calc Pharmacy 48.5 ml/min; Est GFR (African American) 78.2 ml/min; Est GFR (Non-African American) 67.5 ml/min; Potassium 3.6 mmol/L (3.5-5.1)
[2024-01-28] MEDS: ACETAMINOPHEN 325 MG TAB PO PRN (05:30)
[2024-01-28] MEDS: LEVOTHYROXINE SODIUM 100 MCG TABLET PO SCH (05:30)
--- NOTE | 2024-01-28 05:57 | Electrocardiogram Report ---
Test Reason : Blood Pressure : */* mmHG Vent. Rate : 79 BPM Atrial Rate : * BPM P-R Int : * ms QRS Dur : 80 ms QT Int : 404 ms P-R-T Axes : * 25 -28 degrees QTcB Int : 463 ms Atrial fibrillation Low voltage QRS Incomplete right bundle branch block Abnormal ECG When compared with ECG of 06-Jan-2024 14:10, T wave inversion now evident in Inferior leads Nonspecific T wave abnormality no longer evident in Lateral leads Confirmed by Bryan Dukes ([id number]) on 01/28/2024 5:57:27 AM Referred By: REFERRED SELF Confirmed By: Bryan Dukes
[2024-01-28 06:24] LABS: Basophils # (auto) 0.08 K/uL (0.00-0.20); Basophils % (auto) 1.6 %; Eosinophils # (auto) 0.22 K/uL (0.00-0.50); Eosinophils % (auto) 4.4 %; Hematocrit (blood only) 41.6 % (37.0-47.0); Hemoglobin 14.1 g/dl (12.0-16.0); Immature Granulocytes # (auto) 0.01 K/uL (0.01-0.20); Immature Granulocytes % (auto) 0.2 %; Lymphocytes # (auto) 1.81 K/uL (1.20-3.40); Lymphocytes % (auto) 36.3 %; Mean Corpuscular Hemoglobin 30.9 pg (25.0-34.0); Mean Corpuscular Hgb Conc 33.9 g/dL (32.0-36.0); Mean Corpuscular Volume 91.2 fL (80.0-100.0); Mean Platelet Volume 10.9 fL (9.4-12.4); Monocytes # (auto) 0.72 K/uL (0.11-0.59); Monocytes % (auto) 14.4 %; Neutrophils # (auto) 2.15 K/uL (1.40-6.50); Neutrophils % (auto) 43.1 %; Platelet Count 175 K/uL (130-400); RDW Coefficient of Variation 13.2 % (11.5-14.5); RDW Standard Deviation 44.8 fL (36.4-46.3); Red Blood Count 4.56 M/uL (4.20-5.40); White Blood Count 4.99 K/ul (4.8-10.8)
[2024-01-28 06:48] LABS: Albumin Globulin Ratio 1.3 (0.9-2); Albumin Level 3.7 gm/dl (3.4-5.0); BUN Creatinine Ratio 29.8 (10-20); Bilirubin,Total 0.9 mg/dl (0.2-1.0); Calcium 8.8 mg/dl (8.6-10.3); Creatinine Clr Calc Pharmacy 71.9 ml/min; Est GFR (African American) 105.8 ml/min; Est GFR (Non-African American) 91.3 ml/min; Globulin 2.9 gm/dl (2.5-4.0); Potassium 3.5 mmol/L (3.5-5.1); Total Protein 6.6 gm/dl (6.0-8.3)
--- NOTE | 2024-01-28 11:12 | Hospitalist Progress Note ---
Date of Service January 28, 2024 Assessment & Plan (1) Ambulatory dysfunction: Plan: Brought to the hospital on account of frequent falls She reports falling more frequently lately; this has become a daily occurrence Appears multifactorial: she endorses tripping, her legs give out on her, and she sometimes feels dizzy/lightheaded prior to fall Head CT without acute findings UA negative No orthostatic BP changes PT/OT evaluations appreciated Fall precautions Case management consulted for potential placement, as patient reports she lives alone and does not feel safe to return home (2) Forgetfulness: Plan: Worsening confusion x 2 months could be due to cognitive decline (3) Pleural effusion: Plan: Moderate right-sided pleural effusion again noted on CXR Increase in size from prior noted on A/P CT Prior thoracentesis in September 2023; cytology negative for malignancy Will continue diuresis for now. Hold off on thoracentesis (4) Diarrhea: Plan: Now resolved (5) Acute on chronic systolic CHF (congestive heart failure): Plan: Post decompressive MRI abdomen. Started on IV Lasix 40 mg as she is now close to baseline weight, 1 pounds change Lasix 40 mg daily Monitor input and output, daily weight (6) Hypothyroidism: Plan: Elevated T4 and low or supressed TSH suggest hyperthyroid Will reduce the dose of Levothyroxine from 175mcg daily to 100mcg daily (7) A-fib: Plan: S/p pacemaker Continue Eliquis, metoprolol (8) S/P placement of cardiac pacemaker: Plan Disposition: Awaiting placement at SNF DNR/DNI Heart healthy diet (1800 mL fluid restriction) VTE PPx: On Eliquis Admission and Anticipated Discharge Date Admission Date: January 26, 2024 Subjective patient seen and examined, says she lives alone and has been falling frequently Review of Systems Review of Systems: All systems reviewed are negative, apart from the ones contained in the history. Physical Exam Physical Exam: The patient is awake, alert and oriented 3, well developed and well nourished, normocephalic and atraumatic, lying in bed and in no acute distress. HEENT--PERRL, EOMI, mucous membranes and oropharynx mildly dry Neck--supple. No JVD. No bruits. Thyroid normal, trachea midline, no adenopathy. Heart--normal S1 and S2. No murmurs, rubs or gallops. Lungs--clear bilaterally, no respiratory distress, no accessory muscle use. Abdomen--normal bowel sounds and soft. Extremities--no cyanosis or clubbing. No edema. Dermatologic--normal skin turgor, normal color, no abnormal lymph nodes, no rash. Neurologic--cranial nerves II through XII grossly intact. Rheumatologic--normal range of motion. Psychiatric--normal affect. Results & Data Results & Data Vital Signs (Past 12 Hours) Vital Signs Temp Pulse Pulse Resp BP Pulse Ox O2 Del Method 01/28/24 08:00 Room Air 01/28/24 07:43 97.5 F L 64 16 104/69 92 Room Air 01/28/24 04:00 97.9 F 72 18 118/79 95 Room Air 01/27/24 23:41 76 01/27/24 23:35 98.1 F 72 18 107/70 94 Room Air PG Care Time/CCT Total # of Minutes Spent Total Time Spent with Patient: Total time spent is greater than 50% in coordination of care (as documented) at patient's floor/unit and/or counseling patient: Coding Level of Care Code 65010 SUB INP/OBS CARE 2/35MIN Diagnoses Ambulatory dysfunction R26.2 Forgetfulness R68.89 Pleural effusion J90 Diarrhea R19.7 Acute on chronic systolic CHF (congestive heart failure) I50.23 Hypothyroidism E03.9 A-fib I48.91 Atrial fibrillation type: unspecified S/P placement of cardiac pacemaker Z95.0 Time Spent (min) 35 (7) A-fib Atrial fibrillation type: unspecified Qualified Code(s): I48.91 - Unspecified atrial fibrillation
[2024-01-28 21:58] LABS: BUN Creatinine Ratio 22.1 (10-20); Calcium 8.9 mg/dl (8.6-10.3); Creatinine Clr Calc Pharmacy 43.1 ml/min; Est GFR (African American) 68.4 ml/min; Potassium 3.6 mmol/L (3.5-5.1)
[2024-01-29] MEDS: FUROSEMIDE 40 MG/4 ML VIAL IV SCH (08:55)
--- NOTE | 2024-01-29 11:54 | Hospitalist Progress Note ---
Date of Service January 29, 2024 Assessment & Plan (1) Ambulatory dysfunction: Plan: dhruveinpauline was Brought to the hospital on account of frequent falls She reports falling more frequently lately; this has become a daily occurrence Appears multifactorial: she endorses tripping, her legs give out on her, and she sometimes feels dizzy/lightheaded prior to fall Head CT without acute findings UA negative No orthostatic BP changes PT/OT evaluations appreciated Fall precautions Case management consulted for potential placement, as patient reports she lives alone and does not feel safe to return home (2) Forgetfulness: Plan: Worsening confusion x 2 months could be due to cognitive decline (3) Pleural effusion: Plan: Moderate right-sided pleural effusion again noted on CXR Increase in size from prior noted on A/P CT Prior thoracentesis in September 2023; cytology negative for malignancy Will continue diuresis for now. Hold off on thoracentesis (4) Diarrhea: Plan: Now resolved (5) Acute on chronic systolic CHF (congestive heart failure): Plan: Post decompressive MRI abdomen. Started on IV Lasix 40 mg as she is now close to baseline weight, 1 pounds change Lasix 40 mg daily Monitor input and output, daily weight (6) Hypothyroidism: Plan: Elevated T4 and low or supressed TSH suggest hyperthyroid Will reduce the dose of Levothyroxine from 175mcg daily to 100mcg daily (7) A-fib: Plan: S/p pacemaker Continue Eliquis, metoprolol (8) S/P placement of cardiac pacemaker: Plan Disposition: Awaiting placement at SNF DNR/DNI Heart healthy diet (1800 mL fluid restriction) VTE PPx: On Eliquis Admission and Anticipated Discharge Date Admission Date: January 26, 2024 Subjective patient seen and examined, New complaints today, awaiting placement Review of Systems Review of Systems: All systems reviewed are negative, apart from the ones contained in the history. Physical Exam Physical Exam: The patient is awake, alert and oriented 3, well developed and well nourished, normocephalic and atraumatic, lying in bed and in no acute distress. HEENT--PERRL, EOMI, mucous membranes and oropharynx mildly dry Neck--supple. No JVD. No bruits. Thyroid normal, trachea midline, no adenopathy. Heart--normal S1 and S2. No murmurs, rubs or gallops. Lungs--clear bilaterally, no respiratory distress, no accessory muscle use. Abdomen--normal bowel sounds and soft. Extremities--no cyanosis or clubbing. No edema. Dermatologic--normal skin turgor, normal color, no abnormal lymph nodes, no rash. Neurologic--cranial nerves II through XII grossly intact. Rheumatologic--normal range of motion. Psychiatric--normal affect. Results & Data Results & Data Vital Signs (Past 12 Hours) Vital Signs Temp Pulse Resp BP Pulse Ox O2 Del Method 01/29/24 11:43 97.9 F 86 18 116/72 97 Room Air 01/29/24 08:34 98.2 F 69 16 122/78 94 Room Air 01/29/24 07:53 Room Air 01/29/24 03:34 98.2 F 70 18 96/75 L 92 Room Air PG Care Time/CCT Total # of Minutes Spent Total Time Spent with Patient: Total time spent is greater than 50% in coordination of care (as documented) at patient's floor/unit and/or counseling patient: Coding Level of Care Code 85072 SUB INP/OBS CARE 2/35MIN Diagnoses Ambulatory dysfunction R26.2 Forgetfulness R68.89 Pleural effusion J90 Diarrhea R19.7 Acute on chronic systolic CHF (congestive heart failure) I50.23 Hypothyroidism E03.9 A-fib I48.91 Atrial fibrillation type: unspecified S/P placement of cardiac pacemaker Z95.0 Time Spent (min) 35 (7) A-fib Atrial fibrillation type: unspecified Qualified Code(s): I48.91 - Unspecified atrial fibrillation
[2024-01-29 20:46] LABS: BUN Creatinine Ratio 25.7 (10-20); Calcium 9.3 mg/dl (8.6-10.3); Creatinine Clr Calc Pharmacy 55.5 ml/min; Est GFR (African American) 92.5 ml/min; Est GFR (Non-African American) 79.8 ml/min
--- NOTE | 2024-01-30 11:10 | Hospitalist Progress Note ---
Date of Service January 30, 2024 Assessment & Plan (1) Ambulatory dysfunction: Plan: dhruveinpauline was Brought to the hospital on account of frequent falls She reports falling more frequently lately; this has become a daily occurrence Appears multifactorial: she endorses tripping, her legs give out on her, and she sometimes feels dizzy/lightheaded prior to fall Head CT without acute findings UA negative No orthostatic BP changes PT/OT evaluations appreciated Fall precautions Case management consulted for potential placement, as patient reports she lives alone and does not feel safe to return home She has been accepted at [facility], bed will be available on Thursday (2) Forgetfulness: Plan: Worsening confusion x 2 months could be due to cognitive decline (3) Pleural effusion: Plan: Moderate right-sided pleural effusion again noted on CXR Increase in size from prior noted on A/P CT Prior thoracentesis in September 2023; cytology negative for malignancy Will continue diuresis for now. Hold off on thoracentesis (4) Diarrhea: Plan: Now resolved (5) Acute on chronic systolic CHF (congestive heart failure): Plan: Post decompressive MRI abdomen. Started on IV Lasix 40 mg as she is now close to baseline weight, 1 pounds change Lasix 40 mg daily Monitor input and output, daily weight (6) Hypothyroidism: Plan: Elevated T4 and low or supressed TSH suggest hyperthyroid Will reduce the dose of Levothyroxine from 175mcg daily to 100mcg daily (7) A-fib: Plan: S/p pacemaker Continue Eliquis, metoprolol (8) S/P placement of cardiac pacemaker: Plan Disposition: Has been accepted at [facility], bed will be available on Thursday DNR/DNI Heart healthy diet (1800 mL fluid restriction) VTE PPx: On Eliquis Admission and Anticipated Discharge Date Admission Date: January 26, 2024 Subjective patient seen and examined, New complaints today, awaiting placement Review of Systems Review of Systems: All systems reviewed are negative, apart from the ones contained in the history. Physical Exam Physical Exam: The patient is awake, alert and oriented 3, well developed and well nourished, normocephalic and atraumatic, lying in bed and in no acute distress. HEENT--PERRL, EOMI, mucous membranes and oropharynx mildly dry Neck--supple. No JVD. No bruits. Thyroid normal, trachea midline, no adenopathy. Heart--normal S1 and S2. No murmurs, rubs or gallops. Lungs--clear bilaterally, no respiratory distress, no accessory muscle use. Abdomen--normal bowel sounds and soft. Extremities--no cyanosis or clubbing. No edema. Dermatologic--normal skin turgor, normal color, no abnormal lymph nodes, no rash. Neurologic--cranial nerves II through XII grossly intact. Rheumatologic--normal range of motion. Psychiatric--normal affect. Results & Data Results & Data Vital Signs (Past 12 Hours) Vital Signs Temp Pulse Pulse Resp BP Pulse Ox O2 Del Method 01/30/24 07:51 97.5 F L 104 H 16 170/94 H 92 Room Air 01/30/24 07:34 83 01/30/24 03:05 98.2 F 81 18 129/81 93 Room Air 01/29/24 23:15 98.1 F 85 18 123/64 94 Room Air PG Care Time/CCT Total # of Minutes Spent Total Time Spent with Patient: Total time spent is greater than 50% in coordination of care (as documented) at patient's floor/unit and/or counseling patient: Coding Level of Care Code 19455 SUB INP/OBS CARE 2/35MIN Diagnoses Ambulatory dysfunction R26.2 Forgetfulness R68.89 Pleural effusion J90 Diarrhea R19.7 Acute on chronic systolic CHF (congestive heart failure) I50.23 Hypothyroidism E03.9 A-fib I48.91 Atrial fibrillation type: unspecified S/P placement of cardiac pacemaker Z95.0 Time Spent (min) 35 (7) A-fib Atrial fibrillation type: unspecified Qualified Code(s): I48.91 - Unspecified atrial fibrillation
[2024-01-30 23:43] LABS: Adenovirus F 40/41 PCR Not Detected (NotDetected); Astrovirus PCR Not Detected (NotDetected); Campylobacter PCR Not Detected (NotDetected); Cryptosporidium PCR Not Detected (NotDetected); Cyclospora cayetanensis PCR Not Detected (NotDetected); Entamoeba histolytica PCR Not Detected (NotDetected); Enteroaggregative E.coli(EAEC) Not Detected (NotDetected); Enteropathogenic E.coli (EPEC) Not Detected (NotDetected); Enterotoxigenic E.coli (ETEC) Not Detected (NotDetected); Giardia lamblia PCR Not Detected (NotDetected); Norovirus GI/GII PCR Not Detected (NotDetected); Plesiomonas shigelloides PCR Not Detected (NotDetected); Rotavirus A PCR Not Detected (NotDetected); Salmonella PCR Not Detected (NotDetected); Sapovirus PCR Not Detected (NotDetected); Shiga-like Toxin E.coli (STEC) Not Detected (NotDetected); Shigella/Enteroinvasive E.coli Not Detected (NotDetected); Vibrio cholerae PCR Not Detected (NotDetected); Vibrio species PCR Not Detected (NotDetected); Yersinia enterocolitica PCR Not Detected (NotDetected)
[2024-01-31 07:34] LABS: BUN Creatinine Ratio 47.8 (10-20); Calcium 8.9 mg/dl (8.6-10.3); Creatinine Clr Calc Pharmacy 88.3 ml/min; Est GFR (African American) 113.6 ml/min; Potassium 3.8 mmol/L (3.5-5.1)
[2024-01-31] MEDS: FUROSEMIDE 40 MG TAB PO SCH (09:04)
--- NOTE | 2024-01-31 14:37 | Hospitalist Progress Note ---
Date of Service January 31, 2024 Assessment & Plan (1) Ambulatory dysfunction: Plan: pateint was Brought to the hospital on account of frequent falls She reports falling more frequently lately; this has become a daily occurrence Appears multifactorial: she endorses tripping, her legs give out on her, and she sometimes feels dizzy/lightheaded prior to fall Head CT without acute findings UA negative No orthostatic BP changes PT/OT evaluations appreciated Fall precautions Case management consulted for potential placement, as patient reports she lives alone and does not feel safe to return home She has been accepted at [facility], bed will be available tomorrow 01/31 (2) Forgetfulness: Plan: Worsening confusion x 2 months could be due to cognitive decline (3) Pleural effusion: Plan: Moderate right-sided pleural effusion again noted on CXR Increase in size from prior noted on A/P CT Prior thoracentesis in September 2023; cytology negative for malignancy Will continue diuresis for now. Hold off on thoracentesis Switch from IV Lasix to p.o. Lasix (4) Diarrhea: Plan: Now resolved (5) Acute on chronic systolic CHF (congestive heart failure): Plan: Post decompressive MRI abdomen. Started on IV Lasix 40 mg. Switched to p.o. Lasix today. Monitor input and output, daily weight (6) Hypothyroidism: Plan: Elevated T4 and low or supressed TSH suggest hyperthyroid Will reduce the dose of Levothyroxine from 175mcg daily to 100mcg daily (7) A-fib: Plan: S/p pacemaker Continue Eliquis, metoprolol (8) S/P placement of cardiac pacemaker: Plan Disposition: Has been accepted at [facility], bed will be available tomorrow 01/31 DNR/DNI Heart healthy diet (1800 mL fluid restriction) VTE PPx: On Eliquis Admission and Anticipated Discharge Date Admission Date: January 26, 2024 Subjective Patient feels well overall. Denies chest pain or shortness of breath. She complains of having several episodes of diarrhea overnight. No belly pain. No vomiting. Review of Systems Review of Systems: All systems reviewed & are unremarkable except as noted in Subjective Physical Exam Physical Exam: General: Awake, conversant Heart: S1, S2/regular rate and rhythm, no murmur rubs or gallops Lungs: Clear to auscultation bilaterally. Normal effort Abdomen: Soft/nontender/nondistended. No hepatosplenomegaly Extremities: No clubbing/cyanosis. No edema Behavior: Appropriate, cooperative Results & Data Results & Data Vital Signs (Past 12 Hours) Vital Signs Temp Pulse Pulse Resp BP Pulse Ox O2 Del Method 01/31/24 11:48 36.6 C 77 20 118/75 98 Room Air 01/31/24 07:47 36.4 C L 69 20 130/77 95 Room Air 01/31/24 05:36 78 01/31/24 04:30 36.5 C 72 16 105/65 94 Room Air PG Care Time/CCT Total # of Minutes Spent Total Time Spent with Patient: Total time spent is greater than 50% in coordination of care (as documented) at patient's floor/unit and/or counseling patient: Coding Level of Care Code 84902 SUB INP/OBS CARE 2/35MIN Diagnoses Ambulatory dysfunction R26.2 Forgetfulness R68.89 Pleural effusion J90 Diarrhea R19.7 Acute on chronic systolic CHF (congestive heart failure) I50.23 Hypothyroidism E03.9 A-fib I48.91 Atrial fibrillation type: unspecified S/P placement of cardiac pacemaker Z95.0 (7) A-fib Atrial fibrillation type: unspecified Qualified Code(s): I48.91 - Unspecified atrial fibrillation
[2024-01-31 20:21] VITALS: RESP 18
[2024-01-31] MEDS: LOPERAMIDE HCL 2 MG CAP PO PRN (21:01)
[2024-02-01 03:52] VITALS: O2SAT 97
[2024-02-01 08:31] LABS: BUN Creatinine Ratio 27.4 (10-20); Calcium 8.9 mg/dl (8.6-10.3); Creatinine Clr Calc Pharmacy 67.5 ml/min; Est GFR (Non-African American) 88.8 ml/min; Potassium 3.9 mmol/L (3.5-5.1)
--- NOTE | 2024-02-01 10:34 | Discharge Summary ---
Date of Service February 01, 2024 Admission HPI Per Admitting Provider Anjali is a pleasant 73-year-old female with PMH of heart failure, A-fib (on Eliquis), right-sided breast cancer, dysphagia, HLD, cardiac pacemaker, polyneuropathy, hypothyroidism, and medication/diet noncompliance. She presented on 01/25 for worsening confusion, forgetfulness, and ambulatory dysfunction x 2 months. Patient lives alone, and reports that she regularly mixes up her medications. She also endorses falling frequently. She does not ambulate with a walker or cane at baseline. She is unsure why she falls, but does note she sometimes trips on things and stumbles over her feet, while other times she feels dizzy/lightheaded and will "blank out" before she falls to the floor. That said, she denies fainting. She does have trouble getting up on her own, but can usually do so after short period of time. She has hit her head a couple times. She was previously following in a frequency of 1-2 times a week, but now it is becoming a daily occurrence. Patient does believe she took her regular morning medication today. She does have a home health nurse come by once per week to help with her pills. Additional symptoms include dyspnea on exertion, which is not new for her. She denies orthopnea. No supplemental oxygen at baseline. She does have concern for black mold in her house, but believes it might just be mildew. She also endorses diarrhea x 2 days, for which she has been taking Pepto-Bismol. She denies smoking, tobacco use, and recent alcohol use. Patient lives with her dog (Ceasar) who is a Chihuahua/pug mix; patient reports that her cousin set to take care of the dog while she is in the hospital. ED course: ROS: Patient endorses hot/cold intolerance (which patient attributes to thyroid issues), dizziness/lightheadedness with movements, intermittent MONTANEZ, blurry vision, dry cough (which patient attributes to allergies and concern for black mold in her house), LEYVA, abdominal cramping, diarrhea x 2 days, BRB in stool when she wiped recently, increased urinary straining, intermittent urinary incontinence x 2 times this week, LBP (chronic; which patient attributes to spinal stenosis / surgery), and neuropathy in the legs. Patient denies SOB at rest, chest pain, pleuritic CP, nausea, vomiting, or saddle anesthesia. Admission Exam Per Admitting Provider General: no acute distress; pleasant affect; non-toxic appearing; well- nourished; cooperative; SpO2 96% on RA HEENT: normocephalic, atraumatic; no scleral icterus; PERRLA; vision and hearing grossly intact Neck: supple; no lymphadenopathy; trachea midline Skin: warm, dry without signs of tenting; no cyanosis; no rashes, bruising, lesions, or erythema noted CV: chest wall NTP; irregularly irregular rhythm; S1/S2 normal; no murmurs/r ubs/gallops; pulses intact and symmetric at radial, DP, and PT Lungs: no acute respiratory distress; symmetrical chest wall expansion; decreased lung sounds in the right lower lobe ABD: Soft, NTP; BS present; no rebound/guarding; no distention MSK: no tics or fasciculations; no edema noted in the LEs b/l, nonerythematous Neuro: A&Ox3; normal mood and affect; fluent speech; no focal deficits; sensa tion grossly intact in the LEs b/l Principal Diagnosis Ambulatory dysfunction Acute on chronic diastolic congestive heart failure with right-sided pleural effusion Discharge Exam General: Awake, conversant Heart: S1, S2/regular rate and rhythm, no murmur rubs or gallops Lungs: Clear to auscultation bilaterally. Normal effort Abdomen: Soft/nontender/nondistended. No hepatosplenomegaly Extremities: No clubbing/cyanosis. No edema Behavior: Appropriate, cooperative Discharge Data Allergies Allergy/AdvReac Type Severity Reaction Status Date / Time bee venom protein (honey bee) Allergy Intermediate swollen, Verified 01/18/24 13:45 itchy house dust Allergy Mild Watery Eye Verified 01/18/24 13:45 alendronate sodium AdvReac Intermediate Diarrhea Verified 01/18/24 13:45 [From Fosamax] adhesive AdvReac Mild RED SKIN Verified 01/18/24 13:45 WITH BANDAIDS Consultations 01/26/24 20:17 ED Decision to Admit Stat Ordered Studies 01/26/24 16:51 CT Abd and Pelvis [CT abd pelvis IV con only] Stat 01/26/24 16:52 CT head/brain wo con Stat Hospital Course (1) Ambulatory dysfunction: pateinpauline was Brought to the hospital on account of frequent falls She reports falling more frequently lately; this has become a daily occurrence Appears multifactorial: she endorses tripping, her legs give out on her, and she sometimes feels dizzy/lightheaded prior to fall Head CT without acute findings UA negative No orthostatic BP changes PT/OT evaluations appreciated Fall precautions She has been accepted at SNF (2) Forgetfulness: Worsening confusion x 2 months could be due to cognitive decline (3) Pleural effusion: Moderate right-sided pleural effusion again noted on CXR Increase in size from prior noted on A/P CT Prior thoracentesis in September 2023; cytology negative for malignancy Will continue diuresis for now. Hold off on thoracentesis Switched from IV Lasix to home dose p.o. Lasix (4) Diarrhea: Now resolved (5) Acute on chronic systolic CHF (congestive heart failure): Documented in previous notes but I do not see any echocardiogram that shows a depressed EF. This is most likely acute on chronic diastolic (not systolic) congestive heart failure Was initially on IV Lasix 40 mg. Switched to p.o. Lasix home dose prior to discharge. Monitor input and output, daily weight (6) Hypothyroidism: Elevated T4 and low or supressed TSH suggest hyperthyroid Will reduce the dose of Levothyroxine from 175mcg daily to 100mcg daily (7) A-fib: S/p pacemaker Continue Eliquis, metoprolol (8) S/P placement of cardiac pacemaker: Plan Discharge today Total Time Total Time Spent Total Time Spent (In Minutes): 35 Discharge Plan Discharge Items Patient Disposition: Transfer [facility] Reason For Visit: AMBULATORY DYSFUNCTION, WORSENING CONFUSION X 2 MO Discharge Diagnosis: Ambulatory dysfunction Acute on chronic diastolic congestive heart failure with right-sided pleural effusion Activity: Resume your previous activity Non-emergency contact: Primary Care Provider Call non-emergency contact if: you have any medication questions and your symptoms worsen Follow-up/Referrals: Pauline Jordan MD [Primary Care Provider] - Diet: Heart Healthy Addtl Attending Provider Instructions: Advised to follow-up with PCP in 1 week Pending Studies at Discharge: No Stand-Alone Forms: My [employer] Skilled Items Patient informed of condition?: Yes DNR: Yes Discharge Level of Care: Skilled Communicable Disease: No Discharge Prognosis: Stable Lines: None Urinary Catheter: No Medications and DC Order Prescriptions: New levothyroxine [Synthroid] 100 mcg Tablet 100 mcg PO DAILYBB 30 Days Qty: 30 0RF Continued potassium chloride 10 mEq capsule, extended release 10 meq PO DAILY Qty: 90 3RF Eliquis 5 mg tablet 5 mg PO BID Qty: 180 3RF atorvastatin [Lipitor] 80 mg tablet 80 mg PO HS 90 Days Qty: 90 3RF furosemide [Lasix] 40 mg tablet 40 mg PO DAILY Qty: 90 3RF gabapentin 800 mg tablet 800 mg PO BID 90 Days Qty: 180 4RF paroxetine HCl 40 mg tablet 40 mg PO DAILY Qty: 90 2RF tizanidine 2 mg tablet 2 mg PO Q8H PRN (Reason: muscle spasticity) Qty: 20 0RF trazodone 50 mg tablet 50 mg PO HS Qty: 90 3RF albuterol sulfate 90 mcg/actuation HFA aerosol inhaler 2 puff inhalation UD PRN (Reason: shortness of breath or wheezing) Qty: 8.5 5RF Primatene Mist 0.125 mg/actuation HFA aerosol inhaler 1 puff inhalation Q6H PRN (Reason: Shortness Of Breath Or Wheezing) Rx Instructions: may repeat once after 1 minute metoprolol succinate 25 mg tablet extended release 24 hr 25 mg PO DAILY Qty: 90 3RF lisinopril 20 mg Tablet 0 mg PO DAILY Hold Instructions: Resume on 01/21/24. until seen by PCP Rx Instructions: Unable to verify med at this date/time. Original Directions: 20mg by mouth daily ascorbic acid (vitamin C) [Vitamin C] 500 mg Tablet 500 mg PO DAILY Rx Instructions: Unable to verify OTC meds at this date/time. cholecalciferol (vitamin D3) [Vitamin D3] 25 mcg (1,000 unit) Capsule 25 mcg PO DAILY Rx Instructions: Unable to verify OTC meds at this date/time. Discontinued levothyroxine 175 mcg tablet 175 mcg PO DAILY Qty: 90 3RF Discharge Orders: Discharge Order (Routine); Ordered 02/01/24 Ordered By: Khang Reyes Admission Data Admit Date/Time: 01/26/24 20:27 Attending Provider: Khang Reyes Admit Provider: Filomena Hillman Primary Care Provider: Thal,Pauline A. Other Providers: Filomena Hillman; [place],[facility] [place]; Ricardo Crabtree [facility]
[2024-02-01 11:03] VITALS: BP 132/75; TEMP 97.7
[2024-02-01 14:28] VITALS: PULSE 68
== END 2024-02-01 14:28 | DRG 91 ==
LOC: ED 14:59 → SUATTDRO 20:27 → INTOOBSV 20:27 → EDINP 20:27 → 2N 21:38

== ENCOUNTER 2024-07-20 10:30 | Inpatient (IN) ==
--- NOTE | 2024-07-20 11:22 | Emergency Department Note ---
Impression & Plan Hypoxia, Nausea, Acute UTI (urinary tract infection) ED Provider Note HISTORY OF PRESENT ILLNESS: Patient is a 73-year-old female presenting with vomiting, diarrhea and bodyaches. Patient reports that she has been having diarrhea "for at least a week." She states that today she started having nausea and multiple episodes of vomiting. Complaining of generalized abdominal pain. She presents from [facility]. She states that she has fallen twice today secondary to her bodyaches and weakness. Denies striking her head or loss of consciousness. She is on Eliquis. Reports that she slid off of her bed and fell onto her buttocks secondary to her weakness earlier this morning. She denies any dysuria or hematuria. Denies any notable fevers at home. Denies any recent sick contact exposures. ROS: as above PHYSICAL EXAM: Constitutional: Patient appears in no acute distress. HENT: Head: Normocephalic and atraumatic. Eyes: EOMI, PERRL Mouth/Throat: Mucous membranes dry. Neck: Trachea midline. Neck supple. Cardiovascular: Irregular rhythm. No murmurs, rubs or gallops. Intact distal pulses. Pulmonary/Chest: No respiratory distress. Breath sounds clear and equal bilaterally. No wheezes or rales. Abdominal: Abdomen soft, no tenderness, rebound or guarding. Musculoskeletal: No edema, tenderness or deformity noted. Skin: Warm and dry. No rash, erythema, pallor or cyanosis Psychiatric: Appropriate mood and affect for situation. Neurological: Alert and keenly responsive. CN II-XII grossly intact, moving all extremities equally and fully. MDM: - Vitals signs stable - History obtained via patient. History as above. - Chronic conditions affecting care: CHF; HLD; Afib; hypothyroidism - Differential diagnoses include, but are not limited to: UTI; viral syndrome; bowel obstruction; electrolyte abnormality - Order placed for continuous cardiac monitoring. At this time, monitor showed rate of 72 bpm with irregular rhythm, per my interpretation. - External medical records reviewed. Pulmonary office visit note dated 05/13/2024 was reviewed. Patient follows with them for a moderate size right sided pleural effusion. She is status post thoracentesis in 2020 and a repeat thoracentesis in September 2023. - EKG image interpreted by myself showed atrial fibrillation. Rate 77 bpm. QT 396. No acute ischemic changes. - Laboratory workup interpreted by myself showed normal WBC; slight hypokalemia (K 3.3); elevated total bilirubin (1.3); elevated AST (51); normal troponin; normal lipase - CT abdomen/pelvis with IV contrast negative for acute pathology - Viral respiratory panel negative - UA showed evidence of infection. Given 2g IV rocephin - Patient desaturated to 85% on room air. She was initially started on 4 L nasal cannula and titrated down to 0 L, but she then became hypoxic to 87% again. Chest x-ray and BNP added. Patient has no shortness ofbreath - CXR image reviewed by myself negative for pneumonia, per my interpretation. - Discussion was had with social work case manager about patient's case and need for admission - Hospitalist consulted for admission - [facility] ASSESSMENT AND PLAN: Diagnosis: Hypoxia; nausea; acute UTI Plan: admit Past Med/Surg History Problem List (Updated 02/07/24 @ 00:09 by Background D[place]) Acute UTI (urinary tract infection) (Acute) Nausea (Acute) Hypoxia (Acute) Acute on chronic systolic CHF (congestive heart failure) Pleural effusion (Acute) Ambulatory dysfunction (Acute) Confusion (Acute) Diarrhea Forgetfulness Hypothyroidism Noncompliance with diet and medication regimen A-fib (Acute) skilled nursing (current) use of anticoagulants (Acute) Acute HF (heart failure) Osteoporosis Pleural effusion (Acute) Ambulatory dysfunction Abnormal barium swallow Dysphagia (Acute) Polyneuropathy (Acute) Stenosis, cervical spine (Acute) History of partial mastectomy Allergic rhinitis Hepatic steatosis Hyperlipidemia Lumbar radiculopathy S/P placement of cardiac pacemaker 2020, [facility]; f/u [facility] Cardiology Medical History 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 Pleural effusion on right Pulmonary nodule Tachy-gianluca syndrome s/p pacemaker placement skilled nursing (current) use of anticoagulants Depression with anxiety 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 Asthma Surgical History History of esophagogastroduodenoscopy (EGD) History of thoracentesis History of total abdominal hysterectomy and bilateral salpingo-oophorectomy History of colonoscopy (~07/2018) History of right breast biopsy malignant Hx of lumpectomy RIGHT LUMPECTOMY 2018 H/O tubal ligation 1996 History of cataract surgery 2013 - R/L Hx of hand surgery s - LEFT-CYST REMOVED/BONE FUSION History of cholecystectomy 2006 History of appendectomy 1968 Hx of fusion of cervical spine 2006--normal ROM Family History Brother Diabetes Family history of colonic polyps Father Heart disease Mother Diabetes Heart disease Hypertension Other No family history of adverse response to anesthesia Unknown family medical history Denies family history of Ovarian cancer Prostate cancer Myocardial infarction Breast cancer Lung cancer Colorectal cancer Social History Smoking Status: Never smoker Second Hand Exposure: No; Do You Dip or Chew Tobacco: No; Hx Alcohol Use: No Hx Substance Use: No Preferred Language: Croatian Communication Ability: Effective Communication Ability Comment: PT [place], USING VOICE CURB ATTENDANT FOR PHONE CALL Visual Impairment: Limited Hearing Ability: Use of Hearing Aid Parachute Marker Required: No Beliefs That Will Affect Care: None marital status: / Current Living Situation: Alone current occupational status: retired 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 Uses shower, not bathtub. Childhood Exposure to Second-Hand Smoke: Yes Diet: regular caffeine: Yes (2-3 Cups of coffee/day ) during the past year weight has: remained stable Dental Care, Regularly: Yes Physical Activity Frequency: Daily Physical Activity Frequency Comment: walking, 60 minutes Seatbelt Use: always Sunscreen Use: Yes Assistive Devices: Cane Allergies Allergies Allergy/AdvReac Type Severity Reaction Status Date / Time bee venom protein (honey bee) Allergy Intermediate swollen, Verified 06/14/24 13:13 itchy house dust Allergy Mild Watery Eye Verified 06/14/24 13:13 alendronate sodium AdvReac Intermediate Diarrhea Verified 06/14/24 13:13 [From Fosamax] adhesive AdvReac Mild RED SKIN Verified 06/14/24 13:13 WITH BANDAIDS Home Meds Home Medications Medication Instructions Recorded Confirmed ascorbic acid (vitamin C) 500 mg 500 mg PO DAILY 01/06/24 06/14/24 tablet (Vitamin C) acetaminophen 325 mg tablet 325 mg PO Q6H PRN 03/29/24 06/14/24 (Tylenol) cholecalciferol (vitamin D3) 25 50 mcg PO DAILY 03/29/24 06/14/24 mcg (1,000 unit) capsule (Vitamin D3) epinephrine 0.125 mg/actuation 1 puff inhalation Q6H PRN 03/29/24 06/14/24 aerosol inhaler (Primatene Mist) multivitamin 1 tab PO DAILY 03/29/24 06/14/24 levothyroxine 88 mcg capsule See Rx Instructions PO DAILY 06/14/24 06/14/24 furosemide 40 mg tablet (Lasix) 60 mg PO DAILY 07/14/24 Previous Rx's Medication Instructions Recorded albuterol sulfate 90 mcg/actuation 2 puff inhalation UD PRN shortness 09/17/22 aerosol inhaler of breath or wheezing #8.5 grams metoprolol succinate 25 mg 25 mg PO DAILY #90 tabs 10/05/23 tablet,extended release 24 hr potassium chloride 10 mEq 10 meq PO DAILY #90 caps 11/06/23 capsule,extended release apixaban 5 mg tablet (Eliquis) 5 mg PO BID #180 tabs 01/05/24 atorvastatin 80 mg tablet (Lipitor) 80 mg PO HS 90 days #90 tabs 01/05/24 gabapentin 800 mg tablet 800 mg PO BID 90 days #180 tabs 01/05/24 paroxetine HCl 40 mg tablet 40 mg PO DAILY #90 tabs 01/05/24 tizanidine 2 mg tablet 2 mg PO Q8H PRN muscle spasticity 01/05/24 #20 tabs trazodone 50 mg tablet 50 mg PO HS #90 tabs 01/05/24 Results & Data (ED) Vital Signs Vital Signs - 24 hr 07/20/24 10:37 07/20/24 11:26 07/20/24 11:38 Temperature 36.7 C Temperature Source Oral Pulse Rate 87 79 77 Pulse Rate [Apical] Pulse Rhythm Regular Regular Pulse Rhythm [Apical] Pulse Strength Normal Pulse Strength [Apical] Respiratory Rate 20 20 Respiratory Effort / Characteristics Non-Labored Respiratory Depth Normal Respiratory Pattern Regular Blood Pressure 107/71 Blood Pressure [Left Arm] Blood Pressure Mean 83 Blood Pressure Mean [Left Arm] Blood Pressure Position Sitting Blood Pressure Position [Left Arm] Pulse Oximetry 93 94 Oxygen Delivery Method Room Air Room Air Oxygen Flow Rate Sepsis Recent Fever Within 48 Hours No Sepsis New/Unexplained Change in Mental Status N/A Sepsis Action Taken by Nursing No Action Required 07/20/24 11:41 07/20/24 13:00 07/20/24 14:02 Temperature 36.9 C 36.9 C Temperature Source Oral Oral Pulse Rate 71 Pulse Rate [Apical] 80 79 Pulse Rhythm Regular Pulse Rhythm [Apical] Regular Regular Pulse Strength Pulse Strength [Apical] Normal Normal Respiratory Rate 20 20 16 Respiratory Effort / Characteristics Non-Labored Spontaneous Non-Labored Spontaneous Respiratory Depth Normal Normal Respiratory Pattern Regular Regular Blood Pressure Blood Pressure [Left Arm] 113/70 106/60 Blood Pressure Mean Blood Pressure Mean [Left Arm] 84 75 Blood Pressure Position Blood Pressure Position [Left Arm] Semi-fowlers Semi-fowlers Pulse Oximetry 98 98 87 L Oxygen Delivery Method Room Air Room Air Room Air Oxygen Flow Rate Sepsis Recent Fever Within 48 Hours Sepsis New/Unexplained Change in Mental Status Sepsis Action Taken by Nursing 07/20/24 14:05 Temperature Temperature Source Pulse Rate 72 Pulse Rate [Apical] Pulse Rhythm Regular Pulse Rhythm [Apical] Pulse Strength Pulse Strength [Apical] Respiratory Rate 20 Respiratory Effort / Characteristics Respiratory Depth Respiratory Pattern Blood Pressure Blood Pressure [Left Arm] Blood Pressure Mean Blood Pressure Mean [Left Arm] Blood Pressure Position Blood Pressure Position [Left Arm] Pulse Oximetry 99 Oxygen Delivery Method Nasal Cannula Oxygen Flow Rate 2 Sepsis Recent Fever Within 48 Hours Sepsis New/Unexplained Change in Mental Status Sepsis Action Taken by Nursing Laboratory Data 07/20/24 11:23 07/20/24 11:23 Lab Results 07/20/24 07/20/24 07/20/24 Range/Units 11:23 11:33 13:34 WBC 6.00 (4.8-10.8) K/ul RBC 4.27 (4.20-5.40) M/uL Hgb 13.6 (12.0-16.0) g/dl Hct 40.3 (37.0-47.0) % MCV 94.4 (80.0-100.0) fL MCH 31.9 (25.0-34.0) pg MCHC 33.7 (32.0-36.0) g/dL RDW Std Deviation 48.9 H (36.4-46.3) fL RDW Coeff of Kal 14.0 (11.5-14.5) % Plt Count 146 (130-400) K/uL MPV 10.6 (9.4-12.4) fL Immature Gran % (Auto) 0.3 % Neut % (Auto) 87.8 % Lymph % (Auto) 5.2 % [place] % (Auto) 5.0 % Eos % (Auto) 1.2 % Baso % (Auto) 0.5 % Neut # (Auto) 5.27 (1.40-6.50) K/uL Lymph # (Auto) 0.31 L (1.20-3.40) K/uL [place] # (Auto) 0.30 (0.11-0.59) K/uL Eos # (Auto) 0.07 (0.00-0.50) K/uL Baso # (Auto) 0.03 (0.00-0.20) K/uL Immature Gran # (Auto) 0.02 (0.01-0.20) K/uL PT 12.4 H (9.0-12.0) Seconds INR 1.2 H (0.9-1.1) Sodium 140 (136-145) mmol/L Potassium 3.3 L (3.5-5.1) mmol/L Chloride 102 (98-107) mmol/L Carbon Dioxide 32 (21-32) mmol/L Anion Gap 6 (3-11) BUN 18 (6-23) mg/dl Creatinine 0.68 (0.6-1.2) mg/dl Est Cr Clr Drug Dosing 57.0 ml/min eGFR 91.33 BUN/Creatinine Ratio 26.5 H (10-20) Glucose 113 H (70-99(Fasting)) mg/dl Lactate 1.6 (0.4-2.0) mmol/L Calcium 8.7 (8.6-10.3) mg/dl Total Bilirubin 1.3 H (0.2-1.0) mg/dl AST 51 H (13-39) U/L ALT 29 (7-52) U/L Alkaline Phosphatase 101 (34-104) U/L Troponin I High Sens 7.5 (0-14) pg/ml Total Protein 6.8 (6.0-8.3) gm/dl Albumin 3.7 (3.4-5.0) gm/dl Globulin 3.1 (2.5-4.0) gm/dl Albumin/Globulin Ratio 1.2 (0.9-2) Lipase 40 (11-82) U/L Urine Color Yellow Urine Appearance Clear (Clear) Urine pH 6.0 (4.5-7.5) Ur Specific [place] > 1.045 H (1.000-1.030) Urine Protein Trace H (Negative) Urine Glucose (UA) Negative (Negative) Urine Ketones Negative (Negative) Urine Blood 2+ H (Negative) Urine Nitrite Negative (Negative) Urine Bilirubin Negative (Negative) Urine Urobilinogen Negative (Negative) Ur Leukocyte Esterase Negative (Negative) Urine WBC (Auto) 6-10 H (0-5) /hpf Urine RBC (Auto) >20 H (0-2) /hpf U Hyaline Cast (Auto) 0-2 (0-2) /lpf U Epithel Cells (Auto) 0-2 (0-2) /hpf Urine Bacteria (Auto) 4+ H (None Seen) Adenovirus (PCR) Not Detected (NotDetected) B. pertussis DNA (PCR) Not Detected (NotDetected) B.parapertussis DNA PCR Not Detected (NotDetected) C. pneumoniae DNA (PCR) Not Detected (NotDetected) Coronavirus OC43 (PCR) Not Detected (NotDetected) Coronavirus HKU1 (PCR) Not Detected (NotDetected) Coronavirus 229E (PCR) Not Detected (NotDetected) SARS-CoV-2 (PCR) Not Detected (NotDetected) Coronavirus NL63 (PCR) Not Detected (NotDetected) Human Metapneumovir PCR Not Detected (NotDetected) Influenza Type A (PCR) Not Detected (NotDetected) Influenza Type B (PCR) Not Detected (NotDetected) M. pneumoniae (PCR) Not Detected (NotDetected) Parainfluenza 1 (PCR) Not Detected (NotDetected) Parainfluenza 2 (PCR) Not Detected (NotDetected) Parainfluenza 3 (PCR) Not Detected (NotDetected) Parainfluenza 4 (PCR) Not Detected (NotDetected) RSV (PCR) Not Detected (NotDetected) Entero/Rhino (PCR) Not Detected (NotDetected) Administered Medications Discontinued Medications Sodium Chloride (Nss) 1,000 mls @ 999 mls/hr IV .Q1H1M ONE Stop: 07/20/24 12:41 Last Infusion: 07/20/24 15:08 Dose: Infused Documented By: Admin: 07/20/24 11:51 Dose: 999 mls/hr Documented By: ANGELA Ceftriaxone Sodium (Rocephin) 2,000 mg in 50 mls @ 100 mls/hr IV NOW STA Stop: 07/20/24 14:59 Last Admin: 07/20/24 14:53 Dose: 100 mls/hr Documented By: ANGELA Ioversol (Optiray 320 100ml) 94 ml IV ONCE ONE Stop: 07/20/24 12:32 Last Admin: 07/20/24 12:32 Dose: 94 ml Documented By: GELY Ondansetron HCl (Ondansetron Inj 2 Mg/Ml 2 Ml Vial) 4 mg IV NOW STA Stop: 07/20/24 11:42 Last Admin: 07/20/24 11:51 Dose: 4 mg Documented By: ANGELA Imaging Data Radiologist's Impression: Abdomen/Pelvis CT 07/20/24 11:[address] WITH IV CONTRAST CT DOSE: 808.81 mGy.cm HISTORY: N/V/D; diffuse abd pain TECHNIQUE: Multiaxial CT images of the abdomen and pelvis were performed following the IV administration of 94 cc of Optiray, sagittal and coronal reconstructions were done. A dose lowering technique was utilized adhering to the principles of ALARA. COMPARISON STUDY: 05/03/2024 FINDINGS: The CT findings are unchanged. No evidence of bowel obstruction or perforation. No aortic aneurysm or periaortic adenopathy. In the moderate-sized right pleural effusion is unchanged. Cardiomegaly is present. Cardiac pacemaker is noted again. No liver lesions depicted. The gallbladder is absent. The common duct remains distended most likely due to postcholecystectomy status. Small pancreatic calcifications are redemonstrated. The adrenal glands, spleen, and kidneys demonstrate no significant abnormalities. There is no obstructive uropathy. Fluid-filled loops of small bowel remain slightly prominent without wall thickening. In the pelvis, the appendix is not visualized. There is no fluid in the cul-de-sac. Unopacified urinary bladder is negative. The uterus is not identified. A small gas collections are seen within the spinal canal as reported previously. These are likely secondary to herniated disc fragments which show a vacuum phenomenon at the lower 3 lumbar levels. IMPRESSION: No significant interval change since 05/03/2024. No acute findings identified. ACT 112: Negative or not required by law. The above report was generated using voice recognition software. It may contain grammatical, syntax or spelling errors. Electronically signed by: Seble Schulte M.D. 07/20/2024 12:52 PM Discharge Plan Visit Data Chief Complaint: Illness Stated Complaint: FALLS, DIARRHEA/VOMITING, TACHYCARDIA, HYPOTENTION ED Provider: Surekha Jasmine Discharge Problem: Hypoxia, Nausea, Acute UTI (urinary tract infection) Forms Stand Alone Forms: [facility] Prescriptions Prescriptions: No Action potassium chloride 10 mEq capsule, extended release 10 meq PO DAILY Qty: 90 3RF Eliquis 5 mg tablet 5 mg PO BID Qty: 180 3RF atorvastatin [Lipitor] 80 mg tablet 80 mg PO HS 90 Days Qty: 90 3RF gabapentin 800 mg tablet 800 mg PO BID 90 Days Qty: 180 4RF paroxetine HCl 40 mg tablet 40 mg PO DAILY Qty: 90 2RF tizanidine 2 mg tablet 2 mg PO Q8H PRN (Reason: muscle spasticity) Qty: 20 0RF trazodone 50 mg tablet 50 mg PO HS Qty: 90 3RF furosemide [Lasix] 40 mg tablet 60 mg PO DAILY albuterol sulfate 90 mcg/actuation HFA aerosol inhaler 2 puff inhalation UD PRN (Reason: shortness of breath or wheezing) Qty: 8.5 5RF metoprolol succinate 25 mg tablet extended release 24 hr 25 mg PO DAILY Qty: 90 3RF acetaminophen [Tylenol] 325 mg tablet 325 mg PO Q6H PRN Primatene Mist 0.125 mg/actuation HFA aerosol inhaler 1 puff inhalation Q6H PRN Rx Instructions: may repeat once after 1 minute multivitamin Tablet 1 tab PO DAILY levothyroxine 88 mcg capsule See Rx Instructions PO DAILY Rx Instructions: 100 orally daily; ascorbic acid (vitamin C) [Vitamin C] 500 mg Tablet 500 mg PO DAILY Rx Instructions: Unable to verify OTC meds at this date/time. cholecalciferol (vitamin D3) [Vitamin D3] 25 mcg (1,000 unit) capsule 50 mcg PO DAILY Rx Instructions: Unable to verify OTC meds at this date/time. Referrals Referrals: Jorje Perera DO [Primary Care Provider] -
[2024-07-20 11:41] LABS: Basophils # (auto) 0.03 K/uL (0.00-0.20); Basophils % (auto) 0.5 %; Eosinophils # (auto) 0.07 K/uL (0.00-0.50); Eosinophils % (auto) 1.2 %; Hematocrit (blood only) 40.3 % (37.0-47.0); Hemoglobin 13.6 g/dl (12.0-16.0); Immature Granulocytes # (auto) 0.02 K/uL (0.01-0.20); Immature Granulocytes % (auto) 0.3 %; Lymphocytes # (auto) 0.31 K/uL (1.20-3.40); Lymphocytes % (auto) 5.2 %; Mean Corpuscular Hemoglobin 31.9 pg (25.0-34.0); Mean Corpuscular Hgb Conc 33.7 g/dL (32.0-36.0); Mean Corpuscular Volume 94.4 fL (80.0-100.0); Mean Platelet Volume 10.6 fL (9.4-12.4); Neutrophils # (auto) 5.27 K/uL (1.40-6.50); Neutrophils % (auto) 87.8 %; Platelet Count 146 K/uL (130-400); RDW Standard Deviation 48.9 fL (36.4-46.3); Red Blood Count 4.27 M/uL (4.20-5.40)
[2024-07-20 11:49] LABS: INR 1.2 (0.9-1.1); Prothrombin Time 12.4 Seconds (9.0-12.0)
[2024-07-20] MEDS: ONDANSETRON INJ 2 MG/ML 2 ML VIAL IV STA (11:51)
[2024-07-20] MEDS: SODIUM CHLORIDE 0.9% 1,000 ML IV ONE (11:51)
[2024-07-20 12:06] LABS: Albumin Level 3.7 gm/dl (3.4-5.0); Bilirubin,Total 1.3 mg/dl (0.2-1.0); Calcium 8.7 mg/dl (8.6-10.3); Potassium 3.3 mmol/L (3.5-5.1)
[2024-07-20 12:11] LABS: Albumin Globulin Ratio 1.2 (0.9-2); BUN Creatinine Ratio 26.5 (10-20); Globulin 3.1 gm/dl (2.5-4.0); Total Protein 6.8 gm/dl (6.0-8.3)
[2024-07-20 12:14] LABS: Troponin I High Sensitivity 7.5 pg/ml (0-14)
[2024-07-20] MEDS: OPTIRAY 320 100ml IV ONE (12:32)
[2024-07-20 12:33] LABS: Adenovirus PCR Not Detected (NotDetected); Bordetella parapertussis PCR Not Detected (NotDetected); Bordetella pertussis PCR Not Detected (NotDetected); Chlamydia pneumoniae PCR Not Detected (NotDetected); Coronavirus 229E PCR Not Detected (NotDetected); Coronavirus CoV-2 (COVID19)PCR Not Detected (NotDetected); Coronavirus HKU1 PCR Not Detected (NotDetected); Coronavirus NL63 PCR Not Detected (NotDetected); Coronavirus OC43PCR Not Detected (NotDetected); Human Metapneumovirus PCR Not Detected (NotDetected); Influenza A PCR Not Detected (NotDetected); Influenza B PCR Not Detected (NotDetected); Mycoplasma pneumoniae PCR Not Detected (NotDetected); Parainfluenza Virus 1 PCR Not Detected (NotDetected); Parainfluenza Virus 2 PCR Not Detected (NotDetected); Parainfluenza Virus 3 PCR Not Detected (NotDetected); Parainfluenza Virus 4 PCR Not Detected (NotDetected); Respiratory Syncytial VirusPCR Not Detected (NotDetected); Rhinovirus/Enterovirus PCR Not Detected (NotDetected)
--- NOTE | 2024-07-20 12:54 | CT Scan Report ---
ABDOMEN AND PELVIS CT WITH IV CONTRAST CT DOSE: 808.81 mGy.cm HISTORY: N/V/D; diffuse abd pain TECHNIQUE: Multiaxial CT images of the abdomen and pelvis were performed following the IV administrat ion of 94 cc of Optiray, sagittal and coronal reconstructions were done. A dose lowering technique wa s utilized adhering to the principles of ALARA. COMPARISON STUDY: 05/03/2024 FINDINGS: The CT findings are unchanged. No evidence of bowel obstruction or perforation. No aortic a neurysm or periaortic adenopathy. In the moderate-sized right pleural effusion is unchanged. Cardiomegaly is present. Cardiac pacemaker is noted again. No liver lesions depicted. The gallbladder is absent. The common duct remains distended most likely d ue to postcholecystectomy status. Small pancreatic calcifications are redemonstrated. The adrenal gla nds, spleen, and kidneys demonstrate no significant abnormalities. There is no obstructive uropathy. Fluid-filled loops of small bowel remain slightly prominent without wall thickening. In the pelvis, the appendix is not visualized. There is no fluid in the cul-de-sac. Unopacified urina ry bladder is negative. The uterus is not identified. A small gas collections are seen within the spinal canal as reported previously. These are likely sec ondary to herniated disc fragments which show a vacuum phenomenon at the lower 3 lumbar levels. IMPRESSION: No significant interval change since 05/03/2024. No acute findings identified. ACT 112: Negative or not required by law. The above report was generated using voice recognition software. It may contain grammatical, syntax o r spelling errors. Electronically signed by: Seble Schulte M.D. 07/20/2024 12:52 PM
[2024-07-20 14:04] LABS: Appearance Urine Clear (Clear); Bacteria Urine Automated 4+ (None Seen); Bilirubin Urine Negative (Negative); Blood Urine 2+ (Negative); Cast Urine Automated 0-2 /lpf (0-2); Color Urine Yellow; Epithelial Cell Urine Auto 0-2 /hpf (0-2); Glucose Urine UA Negative (Negative); Ketones Urine Negative (Negative); Leukocyte Esterase Urine Negative (Negative); Nitrite Urine Negative (Negative); Protein Urine Trace (Negative); RBC Urine Automated >20 /hpf (0-2); Specific Gravity Urine > 1.045 (1.000-1.030); Urobilinogen Urine Negative (Negative)
[2024-07-20] MEDS: cefTRIAXone SODIUM 2,000 MG/50 ML BAG IV STA (14:53)
--- NOTE | 2024-07-20 15:20 | History & Physical Report ---
Date of Service July 20, 2024 Assessment & Plan (1) Hypoxia: (2) Pleural effusion: (3) (HFpEF) heart failure with preserved ejection fraction: (4) Acute UTI (urinary tract infection): (5) Weakness: (6) Fall: (7) Hypokalemia: (8) Hypomagnesemia: (9) Acute diarrhea: (10) Vomiting: Plan Patient is a 73-year-old female with past medical history of CHF, A-fib on Eliquis s/p pacer, hypertension, history of breast cancer s/p lumpectomy and radiation. Patient presented to the ED due to vomiting, diarrhea, body aches, cough, rhinorrhea, and weakness for approximately a week. Patient had 2 falls today due to the weakness and could not get up. She comes from [facility]. She is being admitted for UTI and hypoxia that developed after receiving 1L NSS bolus in ED. #hypoxia/right pleural effusion/CHF likely 2/2 Pleural effusion/fluid bolus O2 dropped to 87% on RA, 2L NC on admission Bio fire negative CXR shows probable CHF with loculated right pleural effusion abdomen pelvis CT shows moderate size right pleural effusion unchanged from p revious scan echo 07/2023 showed EF 60 to 65%, mitral annular ossification, left atrium moderately dilated, mild/moderate mitral Regurg, moderate tricuspid regurg BNP ordered oxygen as need for O2 <94%, Wean oxygen as tolerated clinically appears extremely dry, defer IV diuresis however will reduce home Lasix from 60mg daily to 40mg - dry - elevated BUN/creatinine 26.5 and elevated urine specific gravity - promote oral hydration but defer further IVF given pleural effusion TEDs ordered incentive spirometry #UTI UA appears infectious with elevated specific gravity, trace protein, 2+ blood, 6-10 WBC, > 20 RBC, 4+ bacteria history of UTIs growing pansensitive E. coli Concern for sepsis with hypoxia explained above Lactate negative, Pro-Sanjay negative, VSS, afebrile - defer blood cultures CRP 1.25 Continue Rocephin Follow urine cultures #weakness/fall Fall x 2 due to weakness 07/20, no headstrike likely 2/2 UTI biofire negative, TSH WNL, mild electrolyte abnormalities below pt/ot ordered fall and aspiration precautions #electrolyte abnormalities 2/2 diuretic use, diarrhea, and vomiting K+ 3.3, Mg 1.8 Will optimize - 40 mEq KCl p.o. + 1G IV mag continue daily KCl 10 mEq p.o. trend bmp and mag #diarrhea and vomiting AP CT negative biofire negative stool cultures ordered Zofran prn Chronic stable diagnoses: A-fibs/p pacer for tachybradycardia syndrome, continue Eliquis and metoprolol HTNcontinue Lasix with adjusted dose as above hypothyroidismcontinue levothyroxine Hx breast cancers/p lumpectomy and radiation 2018 VTE ppx: Eliquis Diet: heart healthy, low sodium diet Dispo: med/tele Admission and Anticipated Discharge Date Admission Date: 07/20/24 History of Present Illness Chief Complaint: illness Primary Care Provider: Jorje Perera DO Patient is a 73-year-old female with past medical history of CHF, A-fib on Eliquis s/p pacer, hypertension, history of breast cancer s/p lumpectomy and radiation. Patient presented to the ED due to vomiting, diarrhea, body aches, c ough, rhinorrhea, and weakness for approximately a week. Patient had 2 falls today due to the weakness and could not get up. She comes from [facility]. She is being admitted for UTI and hypoxia that developed after receiving 1L NSS bolus in ED. Patient seen at bedside. She is extremely hard of hearing. She stated the diarrhea has been ongoing for over a week. The other symptoms have just been for the past few days. She also endorses hot flashes a couple nights but did not take her temperature. She stated her mouth is very dry but she has had tried to have good p.o. intake. She also endorses dyspnea and lower abdominal pain. Patient denies chest pain, dysuria, hematuria, edema. she does not use oxygen at baseline. She took her home medications this morning. She wishes to be DNR/DNI. Patient was given 1L NSS bolus in ED and developed hypoxia with O2 87% on room air. She was started on 2L NC. On admitting exam, oxygen was titrated and patient remained stats 96 to 98%. CXR ordered after hypoxia and showed loculated right pleural effusion. However, patient appears extremely dry on exam. Allergies Allergy/AdvReac Type Severity Reaction Status Date / Time bee venom protein (honey bee) Allergy Intermediate swollen, Verified 07/20/24 16:32 itchy house dust Allergy Mild Watery Eye Verified 07/20/24 16:32 alendronate sodium AdvReac Intermediate Diarrhea Verified 07/20/24 16:32 [From Fosamax] adhesive AdvReac Mild RED SKIN Verified 07/20/24 16:32 WITH BANDAIDS Home Medications Medication Instructions Recorded Confirmed Type metoprolol succinate 25 mg 25 mg PO DAILY #90 tabs 10/05/23 07/20/24 Rx tablet,extended release 24 hr apixaban 5 mg tablet (Eliquis) 5 mg PO BID #180 tabs 01/05/24 07/20/24 Rx atorvastatin 80 mg tablet (Lipitor) 80 mg PO HS 90 days #90 tabs 01/05/24 07/20/24 Rx gabapentin 800 mg tablet 800 mg PO BID 90 days #180 tabs 01/05/24 07/20/24 Rx paroxetine HCl 40 mg tablet 40 mg PO DAILY #90 tabs 01/05/24 07/20/24 Rx tizanidine 2 mg tablet 2 mg PO Q8H PRN muscle spasticity 01/05/24 07/20/24 Rx #20 tabs trazodone 50 mg tablet 50 mg PO HS #90 tabs 01/05/24 07/20/24 Rx ascorbic acid (vitamin C) 500 mg 500 mg PO DAILY 01/06/24 07/20/24 History tablet (Vitamin C) acetaminophen 325 mg tablet 325 mg PO Q6H PRN Pain/Fever 03/29/24 07/20/24 History (Tylenol) cholecalciferol (vitamin D3) 25 50 mcg PO DAILY 03/29/24 07/20/24 History mcg (1,000 unit) capsule (Vitamin D3) furosemide 40 mg tablet (Lasix) 60 mg PO DAILY 07/14/24 07/20/24 History albuterol sulfate 90 mcg/actuation 2 puff inhalation Q6H PRN 07/20/24 07/20/24 History aerosol inhaler shortness of breath or wheezing aluminum-mag hydroxide-simethicone 10 - 20 ml PO QID PRN Indigeston 07/20/24 07/20/24 History 200 mg-200 mg-20 mg/5 mL oral susp epinephrine 0.125 mg/actuation 1 puff inhalation Q6H PRN 07/20/24 07/20/24 History aerosol inhaler (Primatene Mist) Shortness Of Breath Or Wheezing fluticasone furoate 27.5 1 spray intranasal DAILY 07/20/24 07/20/24 History mcg/actuation nasal spray,suspension (Flonase Sensimist) lactase 3,000 unit chewable tablet 3,000 unit PO TIDWMEAL 07/20/24 07/20/24 History (Dairy Aid) levothyroxine 100 mcg tablet 100 mcg PO DAILY 07/20/24 07/20/24 History okzpxfqskczx-dqdlnpzj-ihux 1 tab PO DAILY 07/20/24 07/20/24 History fumarate 18 mg-folic acid 400 mcg tablet (One Daily Women's) potassium chloride 10 mEq 10 meq PO QAM 07/20/24 07/20/24 History capsule,extended release Past Med/Surg History Problem List (Updated 02/07/24 @ 00:09 by Chepe Isaac) Vomiting Acute diarrhea Hypomagnesemia ? PT NOT SURE (HFpEF) heart failure with preserved ejection fraction Acute UTI (urinary tract infection) (Acute) Nausea (Acute) Hypoxia (Acute) Acute on chronic systolic CHF (congestive heart failure) Pleural effusion (Acute) Ambulatory dysfunction (Acute) Confusion (Acute) Diarrhea Forgetfulness Hypothyroidism Noncompliance with diet and medication regimen A-fib (Acute) senior living (current) use of anticoagulants (Acute) Acute HF (heart failure) Osteoporosis Pleural effusion (Acute) Ambulatory dysfunction Abnormal barium swallow Dysphagia (Acute) Polyneuropathy (Acute) Stenosis, cervical spine (Acute) History of partial mastectomy Allergic rhinitis Hepatic steatosis Hyperlipidemia Lumbar radiculopathy S/P placement of cardiac pacemaker 2020, [facility]; f/u [place] [facility] Medical History 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 Pleural effusion on right Pulmonary nodule Tachy-gianluca syndrome s/p pacemaker placement 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 Asthma Surgical History History of esophagogastroduodenoscopy (EGD) History of thoracentesis History of total abdominal hysterectomy and bilateral salpingo-oophorectomy History of colonoscopy (~07/2018) History of right breast biopsy malignant Hx of lumpectomy RIGHT LUMPECTOMY 2018 H/O tubal ligation 1996 History of cataract surgery 2014 - R/L Hx of hand surgery s - LEFT-CYST REMOVED/BONE FUSION History of cholecystectomy 2007 History of appendectomy 1968 Hx of fusion of cervical spine 2006--normal ROM Family History Brother Diabetes Family history of colonic polyps Father Heart disease Mother Diabetes Heart disease Hypertension Other No family history of adverse response to anesthesia Unknown family medical history Denies family history of Ovarian cancer Prostate cancer Myocardial infarction Breast cancer Lung cancer Colorectal cancer Social History Smoking Status: Never smoker Second Hand Exposure: No; Do You Dip or Chew Tobacco: No; Hx Alcohol Use: No Hx Substance Use: No Preferred Language: P[place] Communication Ability: Effective Communication Ability Comment: PT [place], 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 Uses shower, not bathtub. Childhood Exposure to Second-Hand Smoke: Yes Diet: regular caffeine: Yes (2-3 Cups of coffee/day ) during the past year weight has: remained stable Dental Care, Regularly: Yes Physical Activity Frequency: Daily Physical Activity Frequency Comment: walking, 60 minutes Seatbelt Use: always Sunscreen Use: Yes Assistive Devices: Walker Review of Systems Review of Systems: See HPI Physical Exam Physical Exam: The patient is awake, alert and oriented 3, well developed and well nourished, normocephalic and atraumatic, in no acute distress. Non-toxic appearing. HEENT- EOMI, mucous membranes dry. [place]. Heart-normal S1 and S2. No murmurs, rubs or gallops. Lungs-decreased bilaterally, no respiratory distress, no accessory muscle use. Abdomen-normal bowel sounds and soft. No ascites noted. Non-tender. Extremities- no clubbing, cyanosis, or edema. Psychiatric-normal affect. Results & Data Results & Data Vital Signs (Past 12 Hours) Vital Signs Temp Pulse Pulse Resp BP BP Pulse Ox 07/20/24 14:05 72 20 99 07/20/24 14:02 71 16 87 L 07/20/24 13:00 36.9 C 79 20 106/60 98 07/20/24 11:41 36.9 C 80 20 113/70 98 07/20/24 11:38 77 07/20/24 11:26 79 20 94 07/20/24 10:37 36.7 C 87 20 107/71 93 O2 Del Method O2 Flow Rate 07/20/24 14:05 Nasal Cannula 2 07/20/24 14:02 Room Air 07/20/24 13:00 Room Air 07/20/24 11:41 Room Air 07/20/24 11:38 07/20/24 11:26 Room Air 07/20/24 10:37 Room Air Laboratory Results Reviewed CBC, PT/INR, CMP, Pro-Sanjay, bio fire, UA, troponin, mag, lactate, crp, procal, tsh Diagnostic Findings Reviewed CXR and abdomen pelvis CT Medications Administered ed - 1L NSS bolus, rochepin 2g IV, zofran IV ECG Additional Comments: a fib with pvc, rate 77 qtc 448 Code Status & VTE Plan Code Status dnr/dni VTE Prophylaxis Plan VTE Prophylaxis will be ordered: Yes Supervising Physician Co-Signing Physician Notes I personally saw and examined the patient. I independently reviewed the labs, EKG, imaging, problem list, medication list, past medical history and family history. I verified all joseph points and agree with Evelyn Charles PA-C with the following exceptions and/or additions: 73 year old female presents to the ER with vomiting, diarrhea, body aches, cough, rhinorrhea for 1 week. To fall this morning when she slid off her bed landing on her back. Patient is on Eliquis. O/E HS irregular rhythm, regular rate, no murmurs, Chest decreased breath sounds bibasal, no resp distress, Abdo SNT A/P Suggest suggestive of acute gastroenteritis suspected mild hypoxia is just due to poor inspiratory effort. Will try to diurese although she does not appear overall significantly hypervolemic. Pleural effusion with previous thoracentesis showing transudative effusion suspected due to heart failure. PG Care Time/CCT Total # of Minutes Spent Total Time Spent with Patient: Total time spent is greater than 50% in coordination of care (as documented) at patient's floor/unit and/or counseling patient: Coding Level of Care Code 53314 INT INP/OBS CARE 3/75MIN Diagnoses Hypoxia R09.02 Pleural effusion J90 (HFpEF) heart failure with preserved ejection fraction I50.30 Acute UTI (urinary tract infection) N39.0 Weakness R53.1 Fall W19.XXXA Hypokalemia E87.6 Hypomagnesemia E83.42 Acute diarrhea R19.7 Vomiting R11.10
[2024-07-20 15:24] LABS: C Reactive Protein 1.25 mg/dl (0-0.5)
--- NOTE | 2024-07-20 15:33 | XRay Report ---
XR chest 1V portable CLINICAL HISTORY: hypoxia COMPARISON STUDY: 03/13/2024 FINDINGS: Chronic cardiomegaly and pulmonary vascular congestion are noted. A unipolar pacemaker elec trode is in place. The left lung is remarkable for slight interstitial prominence. The right lung has similar interstitial prominence as well as a right basilar groundglass opacity which I suspect is a loculated pleural effusion. IMPRESSION: Probable CHF with a loculated right pleural effusion. Right basilar infiltrate less like ly. ACT 112: Negative or not required by law. Electronically signed by: Seble Schulte M.D. 07/20/2024 3:31 PM
[2024-07-20 15:36] LABS: Thyroid Stimulating Hormone 4.043 uIu/ml (0.300-4.500)
[2024-07-20 15:44] LABS: Magnesium 1.8 mg/dl (1.7-2.4)
[2024-07-20] MEDS: POTASSIUM CHLORIDE CRTAB 20 MEQ TABCR PO STA (16:17)
[2024-07-20] MEDS: MAGNESIUM SULFATE / D5W 1 GM/100 ML BAG IV ONE (16:17)
--- NOTE | 2024-07-20 16:42 | Electrocardiogram Report ---
Test Reason : Blood Pressure : */* mmHG Vent. Rate : 77 BPM Atrial Rate : * BPM P-R Int : * ms QRS Dur : 84 ms QT Int : 396 ms P-R-T Axes : * 39 -59 degrees QTcB Int : 448 ms Atrial fibrillation with premature ventricular or aberrantly conducted complexes Low voltage QRS Abnormal ECG When compared with ECG of 03-May-2024 11:46, Atrial fibrillation has replaced Electronic ventricular pacemaker Confirmed by David Asher ([id number]) on 07/20/2024 4:41:48 PM Referred By: REFERRED SELF Confirmed By: David Asher
[2024-07-20] MEDS ORDERED: ALBUTEROL HFA 8 GM INHALER INH PRN (18:38)
[2024-07-20] MEDS ORDERED: ACETAMINOPHEN 325 MG TAB PO PRN (18:38)
[2024-07-20] MEDS: ONDANSETRON INJ 2 MG/ML 2 ML VIAL IV PRN (21:03)
[2024-07-20] MEDS: GABAPENTIN 800 MG TAB PO SCH (21:12)
[2024-07-20] MEDS: ATORVASTATIN 40 MG TAB PO SCH (21:12)
[2024-07-20] MEDS: APIXABAN 5 MG TABLET PO SCH (21:12)
[2024-07-20] MEDS: traZODone HCL 50 MG TAB PO SCH (21:12)
[2024-07-21] MEDS: MICONAZOLE NITRATE POWDER 85 GM EXT PRN (05:45)
[2024-07-21] MEDS: LEVOTHYROXINE SODIUM 100 MCG TABLET PO SCH (05:46)
[2024-07-21 07:45] LABS: Basophils # (auto) 0.03 K/uL (0.00-0.20); Basophils % (auto) 0.7 %; Eosinophils # (auto) 0.12 K/uL (0.00-0.50); Eosinophils % (auto) 2.8 %; Hematocrit (blood only) 36.6 % (37.0-47.0); Hemoglobin 12.6 g/dl (12.0-16.0); Immature Granulocytes # (auto) 0.01 K/uL (0.01-0.20); Immature Granulocytes % (auto) 0.2 %; Lymphocytes # (auto) 0.89 K/uL (1.20-3.40); Lymphocytes % (auto) 21.1 %; Mean Corpuscular Hemoglobin 32.7 pg (25.0-34.0); Mean Corpuscular Hgb Conc 34.4 g/dL (32.0-36.0); Mean Corpuscular Volume 95.1 fL (80.0-100.0); Monocytes # (auto) 0.54 K/uL (0.11-0.59); Monocytes % (auto) 12.8 %; Neutrophils # (auto) 2.63 K/uL (1.40-6.50); Neutrophils % (auto) 62.4 %; Platelet Count 125 K/uL (130-400); RDW Coefficient of Variation 14.2 % (11.5-14.5); RDW Standard Deviation 49.7 fL (36.4-46.3); Red Blood Count 3.85 M/uL (4.20-5.40); White Blood Count 4.22 K/ul (4.8-10.8)
[2024-07-21] MEDS ORDERED: LACTASE 3000 UNIT TAB PO PRN (08:00)
[2024-07-21 08:18] LABS: Albumin Globulin Ratio 1.1 (0.9-2); Albumin Level 3.1 gm/dl (3.4-5.0); BUN Creatinine Ratio 14.8 (10-20); Bilirubin,Total 0.9 mg/dl (0.2-1.0); Calcium 7.8 mg/dl (8.6-10.3); Creatinine Clr Calc Pharmacy 63.5 ml/min; Globulin 2.7 gm/dl (2.5-4.0); Potassium 3.7 mmol/L (3.5-5.1); Total Protein 5.8 gm/dl (6.0-8.3)
[2024-07-21] MEDS: FUROSEMIDE 40 MG TAB PO SCH (08:45)
[2024-07-21] MEDS: POTASSIUM CHLORIDE 10 MEQ TABCR PO SCH (08:45)
[2024-07-21] MEDS: PARoxetine HCL 20 MG TAB PO SCH (08:46)
[2024-07-21] MEDS: FLUTICASONE PROPIONATE NA SPR 16 GM BTL SCH (08:46)
[2024-07-21] MEDS: METOPROLOL SUCC 25MG EXT REL TAB PO SCH (08:47)
[2024-07-21] MEDS: POTASSIUM CHLORIDE / WTR 10 MEQ/100 ML PLCT IV SCH (13:06)
--- NOTE | 2024-07-21 16:14 | Hospitalist Progress Note ---
Date of Service July 21, 2024 Assessment & Plan (1) Hypoxia: (2) Pleural effusion: (3) (HFpEF) heart failure with preserved ejection fraction: (4) Acute UTI (urinary tract infection): (5) Weakness: (6) Fall: (7) Hypokalemia: (8) Hypomagnesemia: (9) Acute diarrhea: (10) Vomiting: Plan 73-year-old woman with chronic diastolic heart failure, A-fib on Eliquis s/p pacer, hypertension, history of breast cancer s/p lumpectomy and radiation. Patient presented to the ED due to vomiting, diarrhea, body aches, cough, rhinorrhea, and weakness for approximately a week. Patient had 2 falls day of admission due to the weakness and could not get up. She comes from [facility]. She developed hypoxia after 1 L bolus of normal saline given in the ED. This hypoxia spontaneously resolved by the following morning. I suspect she has had a viral syndrome and there has been a lot of influenza and norovirus in the community, BioFire respiratory was negative, potentially could be UTI - she lacks dysuria, however, we will continue to treat for this pending urine culture # possible UTI - abnormal urinalysis and nonspecific symptoms as described above - continue ceftriaxone, follow-up urine cultures # acute Gastroenteritis, diarrhea prior to admission seems to have resolved, vomiting improved but did have emesis x 1 today - antiemetics, antidiarrheals as needed - stool BioFire if she does have diarrhea # chronic diastolic heart failure and chronic right pleural effusion caused by heart failure # coronary artery disease # atrial fibrillation echo 07/2023 showed EF 60 to 65%, mitral annular ossification, left atrium moderately dilated, mild/moderate mitral Regurg, moderate tricuspid regurg - appears on the dry side today, hold furosemide. BNP is in the 180s which is within her chronic baseline - I reviewed her past records including previous CT scans for the past year, pulmonary clinic and heart failure clinic notes. The pleural effusion is right- sided has been present for at least a year has been waxing and waning, it has been transudative with negative culture in the past and is likely related to her heart failure. Will just observe this for now, she can have thoracentesis if necessary for hypoxia or dyspnea - continue statin, metoprolol, apixaban - these issues are currently stable, plan to follow-up in heart failure clinic # generalized weakness, recent falls Fall x 2 due to weakness 2, no headstrike weakness related to acute conditions above, was also probably hypovolemic and orthostatic PT/OT consulted today she did walk 50 feet so they recommended rehab, will need to clarify her baseline with [facility] whether she is able to return there versus SNF referral consult care coordination # hypokalemia, acute on chronic - replaced in ED, low normal magnesium also replaced - potassium was 3.7 today with low oral intake, vomited the oral replacement I ordered, ordered 20 mEq IV, BMP in a.m. - continue chronic oral replacement with 10 mEq potassium # mild pancytopenia is probably related to infection / viral syndrome - AM CBC Chronic stable diagnoses: A-fibs/p pacer for tachybradycardia syndrome, continue Eliquis and metoprolol HTNcontinue Lasix with adjusted dose as above hypothyroidismcontinue levothyroxine Hx breast cancers/p lumpectomy and radiation 2017 VTE prophylaxisshe is on apixaban she will be medically ready for discharge as early as tomorrow providing that emesis is controlled/resolved, need to determine whether she should return to [facility] versus SNF referrals Admission and Anticipated Discharge Date Admission Date: July 20, 2024 Subjective Anjali is feeling better today, she has not had any further vomiting or diarrhea, however she did have nausea and after my visit did vomit 1 time. She is not short of breath not coughing. Hypoxia resolved on room air currently she is somewhat sleepy during my interview Physical Exam 2 Physical Exam: PHYSICAL EXAMINATION Last 24h vital signs reviewed, see documentation in flowsheet General: comfortable appearing, no distress HEENT: Normocephalic, atraumatic, pupils round and equal, sclerae anicteric, no conjunctival injection, dry mucus membranes Lungs: Normal respiratory effort. Clear to auscultation bilaterally. No RRW Heart: Regular rate and rhythm, no murmurs. No JVD Abdomen: Soft, nontender, nondistended. Bowel sounds present. Extremities: Warm, dry, well-perfused. No extremity edema. Neuro: Alert and oriented x hospital and situation though makes some confused or forgetful statements and falls asleep easily, face symmetric, moves 4 extremities well Psych: Normal affect and behavior Results & Data Results & Data Vital Signs (Past 12 Hours) Vital Signs Temp Pulse Pulse Resp BP Pulse Ox O2 Del Method 07/21/24 15:16 98.4 F 84 18 102/67 93 Room Air 07/21/24 14:37 85 07/21/24 11:17 97.7 F 75 18 111/73 91 Room Air 07/21/24 10:49 93 07/21/24 09:11 Nasal Cannula 07/21/24 08:03 98.1 F 76 18 110/72 93 Nasal Cannula 07/21/24 07:24 76 O2 Flow Rate 07/21/24 15:16 07/21/24 14:37 07/21/24 11:17 07/21/24 10:49 07/21/24 09:11 2 07/21/24 08:03 2 07/21/24 07:24 Laboratory Results 07/21/24 07:08 07/21/24 07:08 PG Care Time/CCT Total # of Minutes Spent Total Time Spent with Patient: Total time spent is greater than 50% in coordination of care (as documented) at patient's floor/unit and/or counseling patient: Coding Level of Care Code 48761 SUB INP/OBS CARE 3/50MIN Diagnoses Hypoxia R09.02 Pleural effusion J90 (HFpEF) heart failure with preserved ejection fraction I50.30 Acute UTI (urinary tract infection) N39.0 Weakness R53.1 Fall W19.XXXA Hypokalemia E87.6 Hypomagnesemia E83.42 Acute diarrhea R19.7 Vomiting R11.10
[2024-07-21] MEDS: cefTRIAXone SODIUM 2,000 MG/50 ML BAG IV SCH (16:43)
[2024-07-21] MEDS: traZODone HCL 50 MG TAB PO SCH (21:13)
[2024-07-21] MEDS: MELATONIN 3 MG TAB PO PRN (22:54)
[2024-07-22 07:16] LABS: Basophils # (auto) 0.04 K/uL (0.00-0.20); Basophils % (auto) 0.8 %; Eosinophils # (auto) 0.29 K/uL (0.00-0.50); Eosinophils % (auto) 5.8 %; Hematocrit (blood only) 36.1 % (37.0-47.0); Hemoglobin 12.3 g/dl (12.0-16.0); Immature Granulocytes # (auto) 0.01 K/uL (0.01-0.20); Immature Granulocytes % (auto) 0.2 %; Lymphocytes # (auto) 1.14 K/uL (1.20-3.40); Lymphocytes % (auto) 22.8 %; Mean Corpuscular Hemoglobin 32.1 pg (25.0-34.0); Mean Corpuscular Hgb Conc 34.1 g/dL (32.0-36.0); Mean Corpuscular Volume 94.3 fL (80.0-100.0); Mean Platelet Volume 10.8 fL (9.4-12.4); Monocytes # (auto) 0.77 K/uL (0.11-0.59); Monocytes % (auto) 15.4 %; Neutrophils # (auto) 2.74 K/uL (1.40-6.50); Platelet Count 126 K/uL (130-400); RDW Standard Deviation 48.2 fL (36.4-46.3); Red Blood Count 3.83 M/uL (4.20-5.40); White Blood Count 4.99 K/ul (4.8-10.8)
[2024-07-22 07:31] LABS: Albumin Globulin Ratio 1.1 (0.9-2); Bilirubin,Total 0.6 mg/dl (0.2-1.0); Creatinine Clr Calc Pharmacy 63.8 ml/min; Globulin 2.7 gm/dl (2.5-4.0); Magnesium 1.9 mg/dl (1.7-2.4); Potassium 3.8 mmol/L (3.5-5.1); Total Protein 5.7 gm/dl (6.0-8.3)
--- NOTE | 2024-07-22 17:42 | Hospitalist Progress Note ---
Date of Service July 22, 2024 Assessment & Plan (1) Hypoxia: (2) Pleural effusion: (3) (HFpEF) heart failure with preserved ejection fraction: (4) Acute UTI (urinary tract infection): (5) Weakness: (6) Fall: (7) Hypokalemia: (8) Hypomagnesemia: (9) Acute diarrhea: (10) Vomiting: Plan 73-year-old woman with chronic diastolic heart failure, A-fib on Eliquis s/p pacer, hypertension, history of breast cancer s/p lumpectomy and radiation. Patient presented to the ED due to vomiting, diarrhea, body aches, cough, rhinorrhea, and weakness for approximately a week. Patient had 2 falls day of admission due to the weakness and could not get up. She comes from [facility]. She developed hypoxia after 1 L bolus of normal saline given in the ED. This hypoxia spontaneously resolved by the following morning. I suspect she has had a viral syndrome and there has been a lot of influenza and norovirus in the community, Bio[employer] respiratory was negative, I think UTI is ruled out at this time she does not have any dysuria urinalysis and culture were contaminated. stopped ceftriaxone # acute Gastroenteritis, nausea vomiting and diarrhea have resolved # chronic diastolic heart failure and chronic right pleural effusion caused by heart failure - stable, see progress note 07/21 # coronary artery disease # atrial fibrillation echo 07/2023 showed EF 60 to 65%, mitral annular ossification, left atrium moderately dilated, mild/moderate mitral Regurg, moderate tricuspid regurg - appears to be euvolemic resume furosemide, continue metoprolol statin and apixaban - these issues are currently stable, plan to follow-up in heart failure clinic # generalized weakness, recent falls Fall x 2 due to weakness 07/20, no headstrike weakness related to acute conditions above, was also probably hypovolemic and orthostatic PT/OT consulted today she did walk 50 feet so they recommended rehab, care coordination discussed with her [facility] to want her to discharge to SNF rehab because of serial recent falls and being weaker than her baseline # hypokalemia, acute on chronic - replaced, low normal magnesium also replaced - low normal potassium 3.8 today - continue chronic oral replacement with 10 mEq potassium - monitor BMP periodically # mild pancytopenia is probably related to infection / viral syndrome - white blood count normal today, thrombocytopenia stable at 126 - recheck CBC in a few days Chronic stable diagnoses: A-fibs/p pacer for tachybradycardia syndrome, continue Eliquis and metoprolol HTN continue above medications hypothyroidismcontinue levothyroxine Hx breast cancers/p lumpectomy and radiation 2017 VTE prophylaxisshe is on apixaban medically ready for discharge to detention facility Admission and Anticipated Discharge Date Admission Date: July 20, 2024 Subjective Anjali is definitely more alert and brighter today, sitting in the chair midday. No further nausea and vomiting ate well for breakfast Physical Exam 2 Physical Exam: PHYSICAL EXAMINATION Last 24h vital signs reviewed, see documentation in flowsheet General: sitting up in the chair awake HEENT: Normocephalic, atraumatic, pupils round and equal, sclerae anicteric, no conjunctival injection, moist mucous membranes Lungs: Normal respiratory effort. Clear to auscultation bilaterally except absent right base. no crackles no wheezing Heart: Regular rate and rhythm, no murmurs. No JVD Abdomen: Soft, nontender, nondistended. Bowel sounds present. Extremities: Warm, dry, well-perfused. No extremity edema. Neuro: Alert and oriented x hospital and situation though vague historian and low verbal output, face symmetric, moves 4 extremities well Psych: Normal affect and behavior Results & Data Results & Data Vital Signs (Past 12 Hours) Vital Signs Temp Pulse Pulse Pulse Resp BP Pulse Ox 07/22/24 14:54 98.1 F 66 18 102/68 94 07/22/24 14:00 68 07/22/24 10:44 98.1 F 75 20 102/66 94 07/22/24 07:31 07/22/24 07:01 98.2 F 71 20 106/61 91 07/22/24 06:55 68 O2 Del Method 07/22/24 14:54 Room Air 07/22/24 14:00 07/22/24 10:44 Room Air 07/22/24 07:31 Room Air 07/22/24 07:01 Room Air 07/22/24 06:55 Laboratory Results 07/22/24 06:41 07/22/24 06:41 PG Care Time/CCT Total # of Minutes Spent Total Time Spent with Patient: Total time spent is greater than 50% in coordination of care (as documented) at patient's floor/unit and/or counseling patient: Coding Level of Care Code 09302 SUB INP/OBS CARE 235MIN Diagnoses Hypoxia R09.02 Pleural effusion J90 (HFpEF) heart failure with preserved ejection fraction I50.30 Acute UTI (urinary tract infection) N39.0 Weakness R53.1 Fall W19.XXXA Hypokalemia E87.6 Hypomagnesemia E83.42 Acute diarrhea R19.7 Vomiting R11.10
[2024-07-23] MEDS: FUROSEMIDE 20 MG TAB PO SCH (08:46)
--- NOTE | 2024-07-23 18:41 | Hospitalist Progress Note ---
Date of Service July 23, 2024 Assessment & Plan (1) Hypoxia: (2) Pleural effusion: (3) (HFpEF) heart failure with preserved ejection fraction: (4) Acute UTI (urinary tract infection): (5) Weakness: (6) Fall: (7) Hypokalemia: (8) Hypomagnesemia: (9) Acute diarrhea: (10) Vomiting: Plan 73-year-old woman with chronic diastolic heart failure, A-fib on Eliquis s/p pacer, hypertension, history of breast cancer s/p lumpectomy and radiation. Patient presented to the ED due to vomiting, diarrhea, body aches, cough, rhinorrhea, and weakness for approximately a week. Patient had 2 falls day of admission due to the weakness and could not get up. She comes from [facility]. She developed hypoxia after 1 L bolus of normal saline given in the ED. This hypoxia spontaneously resolved by the following morning. I suspect she has had a viral syndrome and there has been a lot of influenza and norovirus in the community, BioFire respiratory was negative, I think UTI is ruled out at this time she does not have any dysuria urinalysis and culture were contaminated. stopped ceftriaxone # acute Gastroenteritis, nausea vomiting and diarrhea have resolved # chronic diastolic heart failure and chronic right pleural effusion caused by heart failure - stable, see progress note 07/21 # coronary artery disease # atrial fibrillation echo 07/2023 showed EF 60 to 65%, mitral annular ossification, left atrium moderately dilated, mild/moderate mitral Regurg, moderate tricuspid regurg - appears to be euvolemic continue furosemide, continue metoprolol statin and apixaban - BP is low normal - these issues are currently stable, plan to follow-up in heart failure clinic # generalized weakness, recent falls Fall x 2 due to weakness 07/20, no headstrike weakness related to acute conditions above, was also probably hypovolemic and orthostatic - stopped gabapentin on admission with no pain complaints thus far - PT OT recommend discharge to care home, also requested by [facility] # hypokalemia, acute on chronic - replaced, low normal magnesium also replaced - low normal potassium 3.8 - continue chronic oral replacement with 10 mEq potassium - monitor BMP periodically # mild pancytopenia is probably related to infection / viral syndrome - white blood count normal today, thrombocytopenia stable at 126 - recheck CBC in a few days Chronic stable diagnoses: A-fibs/p pacer for tachybradycardia syndrome, continue Eliquis and metoprolol HTN continue above medications hypothyroidismcontinue levothyroxine Hx breast cancers/p lumpectomy and radiation 2017 VTE prophylaxisshe is on apixaban medically ready for discharge to care home facility Admission and Anticipated Discharge Date Admission Date: July 20, 2024 Subjective no further nausea vomiting or diarrhea and eating well, no shortness of breath or chest pain Physical Exam Physical Exam: PHYSICAL EXAMINATION Last 24h vital signs reviewed, see documentation in flowsheet General: again sitting in chair HEENT: Normocephalic, atraumatic, pupils round and equal, sclerae anicteric, no conjunctival injection, moist mucous membranes Lungs: Normal respiratory effort. Clear to auscultation bilaterally except absent right base. no crackles no wheezing - unchanged 07/23 Heart: Regular rate and rhythm, no murmurs. No JVD Abdomen: Soft, nontender, nondistended. Bowel sounds present. Extremities: Warm, dry, well-perfused. No extremity edema. Neuro: Alert and oriented x hospital and situation though vague historian and low verbal output, face symmetric, moves 4 extremities well Psych: Normal affect and behavior Results & Data Results & Data Vital Signs (Past 12 Hours) Vital Signs Temp Pulse Resp BP BP Pulse Ox O2 Del Method 07/23/24 15:34 98.1 F 76 18 98/64 L 93 Room Air 07/23/24 07:11 97.9 F 88 18 112/75 91 Room Air PG Care Time/CCT Total # of Minutes Spent Total Time Spent with Patient: Total time spent is greater than 50% in coordination of care (as documented) at patient's floor/unit and/or counseling patient: Coding Level of Care Code 01637 SUB INP/OBS CARE 06/25MIN Diagnoses Hypoxia R09.02 Pleural effusion J90 (HFpEF) heart failure with preserved ejection fraction I50.30 Acute UTI (urinary tract infection) N39.0 Weakness R53.1 Fall W19.XXXA Hypokalemia E87.6 Hypomagnesemia E83.42 Acute diarrhea R19.7 Vomiting R11.10
[2024-07-24] MEDS: ONDANSETRON 4 MG OD TAB PO PRN (08:36)
--- NOTE | 2024-07-24 17:52 | Hospitalist Progress Note ---
Date of Service July 24, 2024 Assessment & Plan (1) Acute gastroenteritis: (2) Pleural effusion: (3) (HFpEF) heart failure with preserved ejection fraction: (4) Hypokalemia: (5) Atrial fibrillation, permanent: Plan 73-year-old woman with chronic diastolic heart failure, A-fib on Eliquis s/p pacer, hypertension, history of breast cancer s/p lumpectomy and radiation. Patient presented to the ED due to vomiting, diarrhea, body aches, cough, rhinorrhea, and weakness for approximately a week. Patient had 2 falls day of admission due to the weakness and could not get up. She comes from [facility]. She developed hypoxia after 1 L bolus of normal saline given in the ED. This hypoxia spontaneously resolved by the following morning. I suspect she has had a viral syndrome and there has been a lot of influenza and norovirus in the community, BioFire respiratory was negative, UTI is ruled out at this time she does not have any dysuria urinalysis and culture were contaminated. stopped ceftriaxone Will check BMP mag and CBC in AM to monitor for recurrent electrolyte disturbance and cytopenias # acute Gastroenteritis, nausea vomiting and diarrhea have resolved # chronic diastolic heart failure and chronic right pleural effusion caused by heart failure - stable, see progress note 07/21 # coronary artery disease # atrial fibrillation # hypertension echo 07/2023 showed EF 60 to 65%, mitral annular ossification, left atrium moderately dilated, mild/moderate mitral Regurg, moderate tricuspid regurg - appears to be euvolemic continue furosemide, continue metoprolol statin and apixaban - plan to follow-up in heart failure clinic - BP is labile today - has been mildly hypotensive to low normal generally, heart rates well controlled # generalized weakness, recent falls Fall x 2 due to weakness 07/20, no headstrike weakness related to acute conditions above, was also probably hypovolemic and orthostatic - stopped gabapentin on admission with no pain complaints thus far - PT OT recommend discharge to long term, also requested by [facility] # hypokalemia, acute on chronic - replaced, low normal magnesium also replaced - low normal potassium 3.8 - continue chronic oral replacement with 10 mEq potassium - monitor BMP periodically # mild pancytopenia is probably related to infection / viral syndrome - white blood count normal today, thrombocytopenia stable at 126 - recheck CBC in a few days Chronic stable diagnoses: A-fibs/p pacer for tachybradycardia syndrome, continue Eliquis and metoprolol hypothyroidismcontinue levothyroxine Hx breast cancers/p lumpectomy and radiation 2017 VTE prophylaxisshe is on apixaban medically ready for discharge to long term facility Admission and Anticipated Discharge Date Admission Date: July 20, 2024 Rani Alba is about to nap and she reports she is doing fine, no more nausea vomiting or abdominal pain no cough she is eating well Physical Exam Physical Exam: PHYSICAL EXAMINATION Last 24h vital signs reviewed, see documentation in flowsheet General: lying in bed HEENT: Normocephalic, atraumatic, pupils round and equal, sclerae anicteric, no conjunctival injection, moist mucous membranes Lungs: Normal respiratory effort. Clear to auscultation bilaterally anteriorly no rhonchi rales or wheezing Heart: Regular rate and rhythm, no murmurs. No JVD Abdomen: Soft, nontender, nondistended. Bowel sounds present. Extremities: Warm, dry, well-perfused. No extremity edema. Neuro: Alert and oriented x hospital and situation not much in the way of verbal responses, moves 4 extremities Psych: Normal affect and behavior Results & Data Results & Data Vital Signs (Past 12 Hours) Vital Signs Temp Pulse Resp BP Pulse Ox O2 Del Method 07/24/24 15:14 97.5 F L 75 16 98/61 L 94 Room Air 07/24/24 08:50 Room Air 07/24/24 07:17 97.7 F 64 16 157/88 H 93 Room Air PG Care Time/CCT Total # of Minutes Spent Total Time Spent with Patient: Total time spent is greater than 50% in coordination of care (as documented) at patient's floor/unit and/or counseling patient: Coding Level of Care Code 06433 SUB INP/OBS CARE 2/35MIN Diagnoses Acute gastroenteritis K52.9 Pleural effusion J90 (HFpEF) heart failure with preserved ejection fraction I50.30 Hypokalemia E87.6 Atrial fibrillation, permanent I48.21
[2024-07-25 06:23] LABS: Hematocrit (blood only) 38.9 % (37.0-47.0); Hemoglobin 13.6 g/dl (12.0-16.0); Mean Corpuscular Volume 91.5 fL (80.0-100.0); Mean Platelet Volume 10.2 fL (9.4-12.4); Platelet Count 172 K/uL (130-400); RDW Coefficient of Variation 13.6 % (11.5-14.5); RDW Standard Deviation 45.9 fL (36.4-46.3); Red Blood Count 4.25 M/uL (4.20-5.40); White Blood Count 5.63 K/ul (4.8-10.8)
[2024-07-25 06:41] LABS: BUN Creatinine Ratio 18.3 (10-20); Calcium 8.5 mg/dl (8.6-10.3); Creatinine Clr Calc Pharmacy 54.8 ml/min; Potassium 3.5 mmol/L (3.5-5.1)
--- NOTE | 2024-07-25 18:38 | Hospitalist Progress Note ---
Date of Service July 25, 2024 Assessment & Plan (1) Acute gastroenteritis: (2) Pleural effusion: (3) (HFpEF) heart failure with preserved ejection fraction: (4) Hypokalemia: (5) Atrial fibrillation, permanent: Plan 73-year-old woman with chronic diastolic heart failure, A-fib on Eliquis s/p pacer, hypertension, history of breast cancer s/p lumpectomy and radiation. Patient presented to the ED due to vomiting, diarrhea, body aches, cough, rhinorrhea, and weakness for approximately a week. Patient had 2 falls day of admission due to the weakness and could not get up. She comes from [facility]. She developed hypoxia after 1 L bolus of normal saline given in the ED. This hypoxia spontaneously resolved by the following morning. I suspect she has had a viral syndrome and there has been a lot of influenza and norovirus in the community, BioFire respiratory was negative, UTI is ruled out at this time she does not have any dysuria urinalysis and culture were contaminated. stopped ceftriaxone reviewed BMP and CBC today, Cr 0.7 labs essentially normal except slight increase in bicarb # acute Gastroenteritis, nausea vomiting and diarrhea have resolved # chronic diastolic heart failure and chronic right pleural effusion caused by heart failure - stable, see progress note 07/21 # coronary artery disease # atrial fibrillation # hypertension echo 07/2023 showed EF 60 to 65%, mitral annular ossification, left atrium moderately dilated, mild/moderate mitral Regurg, moderate tricuspid regurg - appears to be euvolemic continue furosemide, continue metoprolol statin and apixaban - plan to follow-up in heart failure clinic - Cr at baseline, K normal # generalized weakness, recent falls Fall x 2 due to weakness 07/20, no headstrike weakness related to acute conditions above, was also probably hypovolemic and orthostatic - stopped gabapentin on admission with no pain complaints thus far - PT OT recommend discharge to retirement, also requested by [facility] # hypokalemia, acute on chronic - replaced, low normal magnesium also replaced - continue chronic oral replacement with 10 mEq potassium - K 3.5 # mild pancytopenia is probably related to infection / viral syndrome - resolved, normal CBC 07/25 Chronic stable diagnoses: A-fibs/p pacer for tachybradycardia syndrome, continue Eliquis and metoprolol hypothyroidismcontinue levothyroxine Hx breast cancers/p lumpectomy and radiation 2018 VTE prophylaxisshe is on apixaban medically ready for discharge to retirement facility I think she may do a lot better on re-eval by PT/OT Admission and Anticipated Discharge Date Admission Date: July 20, 2024 Subjective Continues to have no complaints. No dyspnea, CP, abd pain or N/V/D Physical Exam 2 Physical Exam: PHYSICAL EXAMINATION Last 24h vital signs reviewed, see documentation in flowsheet General: flat in bed, awake HEENT: Normocephalic, atraumatic, pupils round and equal, sclerae anicteric, no conjunctival injection, moist mucous membranes Lungs: nl WOB CTAB Heart: Regular rate and rhythm, no murmurs. No JVD Abdomen: Soft, nontender, nondistended. Bowel sounds present. Extremities: Warm, dry, well-perfused. No extremity edema. Neuro: Alert and oriented x hospital and situation not much in the way of verbal responses, moves 4 extremities - unchagned Psych: Normal affect and behavior Results & Data Results & Data Vital Signs (Past 12 Hours) Vital Signs Temp Pulse Resp BP Pulse Ox O2 Del Method 07/25/24 14:01 97.9 F 68 16 118/75 93 Room Air 07/25/24 09:48 Room Air 07/25/24 07:15 97.5 F L 65 16 119/76 92 Room Air Laboratory Results 07/25/24 06:09 07/25/24 06:09 PG Care Time/CCT Total # of Minutes Spent Total Time Spent with Patient: Total time spent is greater than 50% in coordination of care (as documented) at patient's floor/unit and/or counseling patient: Coding Level of Care Code 69176 SUB INP/OBS CARE 2/35MIN Diagnoses Acute gastroenteritis K52.9 Pleural effusion J90 (HFpEF) heart failure with preserved ejection fraction I50.30 Hypokalemia E87.6 Atrial fibrillation, permanent I48.21
--- NOTE | 2024-07-26 16:07 | Hospitalist Progress Note ---
Date of Service July 26, 2024 Assessment & Plan (1) Acute gastroenteritis: Plan: 73yo female with chronic diastolic heart failure, A-fib on Eliquis s/p pacer, hypertension, history of breast cancer s/p lumpectomy and radiation. Patient presented with vomiting, diarrhea, body aches, cough, rhinorrhea, and weakness for approximately a week. Had 2 falls day of admission due to the weakness. Likely had a viral GE although viral panels were negative. CT a/p at admission on 07/20 was negative for acute findings. Either way she improved with supportive care. (2) Pleural effusion: Plan: likely 2nd to acute CHF - stable in room air no Rx needed (3) (HFpEF) heart failure with preserved ejection fraction: Plan: compensated lasix resumed metoprolol succ 25mg daily continued last echo - 07/2023 - EF 60-65%, mitral annular ossification, left atrium moderately dilated, mild/moderate mitral regurg, moderate tricuspid regurg follows with Dr João Asher & Ms Eloisa Calvillo both of [facility] (4) Hypokalemia: Plan: last level was wnl but borderline low recheck BMP am (5) Atrial fibrillation, permanent: Plan: cont Eliquis 5mg BID cont meto succ daily has pacer for h/o tachy-gianluca syndrome Plan # coronary artery disease - no ischemic sx's at this time # hypertension - controlled # generalized weakness, recent falls - likely 2nd to acute illness weakness improved stopped gabapentin on admission with no pain complaints thus far PT today feels she may be able to return to [facility] - will notify medical case worker of such # mild pancytopenia - resolved; was likely 2nd to viral process/bone marrow suppression from such # hypothyroidismcontinue levothyroxine # Hx breast cancers/p lumpectomy and radiation [facility] feels she is at baseline? Admission and Anticipated Discharge Date Admission Date: July 20, 2024 Subjective patient w/o complaints eating well 100% of meals no diarrhea, no abd pain, no N/V ready to get back to [facility] Review of Systems Review of Systems: gen - no weakness or fatigue cv - no orthopnea, no chest pain pulm - no dyspnea Physical Exam Physical Exam: gen - NAD, looks well neck - no JVD mouth - MMM heart - irregular, s1 s2, no murmur lungs - CTA b/l abd - soft NT ND BS+ ext - no edema, pulses 2+ b/l Results & Data Results & Data Vital Signs (Past 12 Hours) Vital Signs Temp Pulse Resp BP Pulse Ox O2 Del Method 07/26/24 15:39 36.6 C 68 16 113/56 L 96 Room Air 07/26/24 07:28 36.4 C L 69 16 116/73 94 Room Air PG Care Time/CCT Total # of Minutes Spent Total Time Spent with Patient: Total time spent is greater than 50% in coordination of care (as documented) at patient's floor/unit and/or counseling patient: Coding Level of Care Code 54893 SUB INP/OBS CARE 2/35MIN Diagnoses Acute gastroenteritis K52.9 Pleural effusion J90 (HFpEF) heart failure with preserved ejection fraction I50.30 Hypokalemia E87.6 Atrial fibrillation, permanent I48.21
[2024-07-26] MEDS: LORATADINE 10 MG TAB PO ONE (17:18)
[2024-07-26] MEDS: TRIAMCINOLONE ACET 0.1% CR 80 GM TUBE EXT SCH (17:18)
[2024-07-27 07:33] LABS: Calcium 8.4 mg/dl (8.6-10.3); Creatinine Clr Calc Pharmacy 61.8 ml/min; Potassium 3.3 mmol/L (3.5-5.1)
[2024-07-27] MEDS: POTASSIUM CHLORIDE CRTAB 20 MEQ TABCR PO STA (09:22)
[2024-07-27] MEDS: bisacodyL 10 MG SUPP PR STA (11:02)
[2024-07-27 11:36] VITALS: BP 125/76; PULSE 82; RESP 16; TEMP 98.2; O2SAT 98
--- NOTE | 2024-07-28 18:12 | Discharge Summary ---
Discharge Summary Date of Service date of admission - July 20, 2024 date of discharge - July 28, 2024 Principal Dx & Hospital Course #1 = Principal Diagnosis (1) Acute gastroenteritis: 73yo female with chronic diastolic heart failure, A-fib on Eliquis, pacemaker status, hypertension, history of breast cancer s/p lumpectomy and radiation. Presented with vomiting, diarrhea, body aches, cough, rhinorrhea, and weakness for approximately a week. Had 2 falls day of admission due to the weakness. Likely had a viral gastroenteritis although viral panels were negative. CT a/p at admission on 07/20 was negative for acute findings. Either way she improved with supportive care alone. She was eating and drinking well in the days leading up to admission without any GI intolerance/GI symptoms. (2) (HFpEF) heart failure with preserved ejection fraction: compensated throughout the stay even despite the right-sided pleural effusion (see below in #3) lasix 60mg daily resumed 07/23/24 (was held first 3 days due to volume depletion) metoprolol succ 25mg daily continued last echo - 07/2023 - EF 60-65%, mitral annular ossification, left atrium moderately dilated, mild/moderate mitral regurg, moderate tricuspid regurg follows with Dr João Asher & Ms Eloisa Calvillo both of [facility] Card[facility] (3) Pleural effusion: mild-moderate in size likely 2nd to chronic HFpEF the effusion was similar in size to previous imaging in 2023 no symptoms from such continue to monitor over time O2 sats high 90s in room air in the days leading up to discharge (4) Hypokalemia: 3.3 on day of discharge this was replaced before d/c to [facility] previously was taking K supplement 10meq daily; increased to 20meq/day at discharge advise repeat BMP within a few days of discharge for stability/normalization (5) Atrial fibrillation, permanent: cont Eliquis 5mg BID cont meto succ daily has pacer for h/o tachy-gianluca syndrome Plan # generalized weakness, recent falls - likely 2nd to acute illness as noted in #1 above * weakness improved * stopped gabapentin on admission with no neuropathic pain complaints following discontinuation * trazodone dose was reduced from 50mg HS to 25mg HS; this did not lead to poor sleep * zanaflex was discontinued # coronary artery disease - no ischemic symptoms prior to admission or during the admission; cont meto succ, atorvastatin, and Eliquis # hypertension - controlled nicely with meto succ + furosemide # mild pancytopenia - resolved; was likely 2nd to viral process/bone marrow suppression from such # hypothyroidismcontinue levothyroxine; TSH was 4 this admission # h/o breast cancers/p lumpectomy and radiation 2017 patient received PT/OT while here initially there was concern she would need a higher level of care (ie - SNF) upon discharge however, her strength improved during this lengthy hospitalization - enough to allow return to [facility] Notes For Next Care Provider repeat BMP within a few days of discharge Medication Changes From Visit increase potassium to 20meq/day Admission HPI Per Admitting Provider Patient is a 73-year-old female with past medical history of CHF, A-fib on Eliquis s/p pacer, hypertension, history of breast cancer s/p lumpectomy and radiation. Patient presented to the ED due to vomiting, diarrhea, body aches, c ough, rhinorrhea, and weakness for approximately a week. Patient had 2 falls today due to the weakness and could not get up. She comes from [facility]. She is being admitted for UTI and hypoxia that developed after receiving 1L NSS bolus in ED. Patient seen at bedside. She is extremely hard of hearing. She stated the diarrhea has been ongoing for over a week. The other symptoms have just been for the past few days. She also endorses hot flashes a couple nights but did not take her temperature. She stated her mouth is very dry but she has had tried to have good p.o. intake. She also endorses dyspnea and lower abdominal pain. Patient denies chest pain, dysuria, hematuria, edema. she does not use oxygen at baseline. She took her home medications this morning. She wishes to be DNR/DNI. Patient was given 1L NSS bolus in ED and developed hypoxia with O2 87% on room air. She was started on 2L NC. On admitting exam, oxygen was titrated and patient remained stats 96 to 98%. CXR ordered after hypoxia and showed loculated right pleural effusion. However, patient appears extremely dry on exam. Discharge Exam gen - NAD, looks well neck - no JVD mouth - MMM heart - irregular, s1 s2, no murmur lungs - CTA b/l abd - soft NT ND BS+ ext - no edema, pulses 2+ b/l Discharge Plan Discharge Items Patient Disposition: Personal Residential Reason For Visit: WEAKNESS Discharge Diagnosis: 1. weakness - likely due to viral gastroenteritis - resolved 2. hypokalemia 3. history of chronic diastolic CHF 4. atrial fibrillation 5. hypothyroidism 6. pacemaker 7. pancytopenia - likely due to viral infection - resolved 8. falls without injury - due to weakness/viral infection Activity: Resume your previous activity Non-emergency contact: Primary Care Provider Call non-emergency contact if: you have any medication questions and your symptoms worsen Follow-up/Referrals: David Asher MD [Physician] - 10/17/24 (pacemaker check) Jorje Perera DO [Primary Care Provider] - (within 1 week) Diet: Low Sodium (2gm) Addtl Attending Provider Instructions: Ms Padilla was hospitalized due to a host of infectious symptoms likely due to a virus. She improved with supportive care measures. Initial CBC showed pancytopenia - likely due to a nonspecific viral syndrome. CBC indices have returned to normal. She had had 2 falls prior to admission. These were likely precipitated by weakness brought on by the viral syndrome. Her strength has improved while here. Congestive heart failure, a.fib, and other chronic medical problems were stable. Recommendations - 1. repeat BMP in 4-5 days to ensure normal potassium level 2. increase potassium supplement from 10meq/day to 20meq/day; new prescription sent to pharmacy 3. triamcinolone cream - apply to rash on back for 5-7 days in thin amounts up to 3 times/day; rash is likely a contact dermatitis; prescription sent to [facility] 4. STOP gabapentin - was stopped at admission due to concern it was contributing to fall risk 5. STOP tizanidine - was stopped at admission due to concern it was contributing to fall risk 6. lower trazodone dose to 25mg at bedtime 7. daily weights on standing scale, if possible; notify PCP or [facility] cardiology if any weight gain of more than 3 pounds over 1-2 days Follow-up - see separate section Return to [facility] if - * any fever over 100 degrees * worsening shortness of breath * dizziness or lightheadedness * chest pain * abdominal pain * vomiting * any other concerns It was our pleasure to care for Ms Padilla! Pending Studies at Discharge: No Stand-Alone Forms: My [facility], Smoking Cessation Skilled Items Patient informed of condition?: Yes DNR: Yes Discharge Level of Care: Other Communicable Disease: No Discharge Prognosis: Stable Lines: None Urinary Catheter: No Medications and DC Order Prescriptions: New triamcinolone acetonide 0.1 % Cream 1 applic EXT TID Qty: 30 0RF Rx Instructions: apply in thin amounts to rash on back for 5-7 days then stop. Continued Eliquis 5 mg tablet 5 mg PO BID Qty: 180 3RF atorvastatin [Lipitor] 80 mg tablet 80 mg PO HS 90 Days Qty: 90 3RF paroxetine HCl 40 mg tablet 40 mg PO DAILY Qty: 90 2RF furosemide [Lasix] 40 mg tablet 60 mg PO DAILY Rx Instructions: Goal Range: 145-150lbs metoprolol succinate 25 mg tablet extended release 24 hr 25 mg PO DAILY Qty: 90 3RF acetaminophen [Tylenol] 325 mg tablet 325 mg PO Q6H MDD 3gm/24hrs PRN (Reason: Pain/Fever) ascorbic acid (vitamin C) [Vitamin C] 500 mg Tablet 500 mg PO DAILY cholecalciferol (vitamin D3) [Vitamin D3] 25 mcg (1,000 unit) capsule 50 mcg PO DAILY Rx Instructions: Gummies levothyroxine 100 mcg tablet 100 mcg PO DAILY alum-mag hydroxide-simeth 200-200-20 mg/5 mL Suspension 10 - 20 ml PO QID PRN (Reason: Indigeston) Dairy Aid 3,000 unit Tablet,Chewable 3,000 unit PO TIDWMEAL Rx Instructions: administer with first bite of dairy food Flonase Sensimist 27.5 mcg/actuation [place],Suspension 1 spray INTRANASAL DAILY Rx Instructions: into each nostril Primatene Mist 0.125 mg/actuation Hfa Aerosol Inhaler 1 puff INHALATION Q6H PRN (Reason: Shortness Of Breath Or Wheezing) Rx Instructions: may repeat once after 1 minute One Daily Women's 18 mg iron- 400 mcg Tablet 1 tab PO DAILY albuterol sulfate 90 mcg/actuation HFA aerosol inhaler 2 puff inhalation Q6H PRN (Reason: shortness of breath or wheezing) Changed trazodone 50 mg tablet 25 mg PO HS Qty: 90 3RF potassium chloride 20 mEq tablet extended release 20 meq PO DAILY Qty: 30 2RF Held gabapentin 800 mg tablet 800 mg PO BID 90 Days Qty: 180 4RF Hold Instructions: hold unless your family doctor asks you to resume Discontinued tizanidine 2 mg tablet 2 mg PO Q8H PRN (Reason: muscle spasticity) Qty: 20 0RF Discharge Orders: Discharge Order (Routine); Ordered 07/27/24 Ordered By: Dave Cedillo Admission Data Admit Date/Time: 07/20/24 15:45 Attending Provider: Dave Cedillo Admit Provider: Dave Laura Primary Care Provider: Jorje Perera Other Providers: [employer] Other Interventions: Discharge Summary Assessment (RN) Last Done: 07/27/24 10:54 Hospital Stay Data Consultations PT, OT Diagnostic Imagining Performed Abdomen/Pelvis CT 07/20/24 11:[address] WITH IV CONTRAST CT DOSE: 808.81 mGy.cm HISTORY: N/V/D; diffuse abd pain TECHNIQUE: Multiaxial CT images of the abdomen and pelvis were performed following the IV administration of 94 cc of Optiray, sagittal and coronal reconstructions were done. A dose lowering technique was utilized adhering to the principles of ALARA. COMPARISON STUDY: 05/03/2024 FINDINGS: The CT findings are unchanged. No evidence of bowel obstruction or perforation. No aortic aneurysm or periaortic adenopathy. In the moderate-sized right pleural effusion is unchanged. Cardiomegaly is present. Cardiac pacemaker is noted again. No liver lesions depicted. The gallbladder is absent. The common duct remains distended most likely due to postcholecystectomy status. Small pancreatic calcifications are redemonstrated. The adrenal glands, spleen, and kidneys demon strate no significant abnormalities. There is no obstructive uropathy. Fluid-filled loops of small bowel remain slightly prominent without wall thickening. In the pelvis, the appendix is not visualized. There is no fluid in the cul-de-sac. Unopacified urinary bladder is negative. The uterus is not identified. A small gas collections are seen within the spinal canal as reported previously. These are likely secondary to herniated disc fragments which show a vacuum phenomenon at the lower 3 lumbar levels. IMPRESSION: No significant interval change since 05/03/2024. No acute findings identified. ACT 112: Negative or not required by law. The above report was generated using voice recognition software. It may contain grammatical, syntax or spelling errors. Electronically signed by: Seble Schulte M.D. 07/20/2024 12:52 PM Chest X-Ray 07/20/24 14:32 XR chest 1V portable CLINICAL HISTORY: hypoxia COMPARISON STUDY: 03/13/2024 FINDINGS: Chronic cardiomegaly and pulmonary vascular congestion are noted. A unipolar pacemaker electrode is in place. The left lung is remarkable for slight interstitial prominence. The right lung has similar interstitial prominence as well as a right basilar groundglass opacity which I suspect is a loculated pleural effusion. IMPRESSION: Probable CHF with a loculated right pleural effusion. Right basilar infiltrate less likely. ACT 112: Negative or not required by law. Electronically signed by: Seble Schulte M.D. 07/20/2024 3:31 PM Pending Results Patient Have Any Pending Studies at Discharge: No Discharge Instructions Given to Patient (Per Discharging Provider) Ms Padilla was hospitalized due to a host of infectious symptoms likely due to a virus. She improved with supportive care measures. Initial CBC showed pancytopenia - likely due to a nonspecific viral syndrome. CBC indices have returned to normal. She had had 2 falls prior to admission. These were likely precipitated by weakness brought on by the viral syndrome. Her strength has improved while here. Congestive heart failure, a.fib, and other chronic medical problems were stable. Recommendations - 1. repeat BMP in 4-5 days to ensure normal potassium level 2. increase potassium supplement from 10meq/day to 20meq/day; new prescription sent to pharmacy 3. triamcinolone cream - apply to rash on back for 5-7 days in thin amounts up to 3 times/day; rash is likely a contact dermatitis; prescription sent to pharmacy 4. STOP gabapentin - was stopped at admission due to concern it was contributing to fall risk 5. STOP tizanidine - was stopped at admission due to concern it was contributing to fall risk 6. lower trazodone dose to 25mg at bedtime 7. daily weights on standing scale, if possible; notify PCP or [facility] cardiology if any weight gain of more than 3 pounds over 1-2 days Follow-up - see separate section Return to [facility] if - * any fever over 100 degrees * worsening shortness of breath * dizziness or lightheadedness * chest pain * abdominal pain * vomiting * any other concerns It was our pleasure to care for Ms Padilla! Total Time Total Time Spent Total Time Spent (In Minutes): 40 Coding Level of Care Code 09510 INP/OBS DISCH >30 MIN Diagnoses Acute gastroenteritis K52.9 (HFpEF) heart failure with preserved ejection fraction I50.30 Pleural effusion J90 Hypokalemia E87.6 Atrial fibrillation, permanent I48.21
== END 2024-07-27 12:44 | disposition home or self-care (01) | DRG 690 ==
LOC: ED 10:30 → 2N 15:45 → SUATTDRO 15:45 → 2N 20:23 → 3N 07-22 21:45
DX: I50.32 Chronic diastolic (congestive) heart failure; Z88.8 Allergy status to other drugs, medicaments and biological substances; Z79.01 Long term (current) use of anticoagulants; R29.6 Repeated falls; Z92.3 Personal history of irradiation; Z66 Do not resuscitate; I48.21 Permanent atrial fibrillation; N39.0 Urinary tract infection, site not specified; I25.10 Atherosclerotic heart disease of native coronary artery without angina pectoris; E78.5 Hyperlipidemia, unspecified; E83.42 Hypomagnesemia; Z79.890 Hormone replacement therapy; Z91.09 Other allergy status, other than to drugs and biological substances; E03.9 Hypothyroidism, unspecified; Z79.899 Other long term (current) drug therapy; D61.818 Other pancytopenia; R09.02 Hypoxemia; Z85.3 Personal history of malignant neoplasm of breast; E87.6 Hypokalemia; K52.9 Noninfective gastroenteritis and colitis, unspecified; Z91.030 Bee allergy status; R53.1 Weakness; I11.0 Hypertensive heart disease with heart failure